=== PATIENT | female | born 1970 | race Caucasian/White ===

== ENCOUNTER 2016-04-06 18:10 | Inpatient (IN) | payer MEDICAID ==
[2016-04-06] VITALS (17 sets, daily range): BP systolic 59–123; BP diastolic 40–76
[~2016-04-06] VITALS: Ht 172.7 cm; Wt 102.3 kg
[~2016-04-06 18:10] MED LIST: AA/A14DR2 EACH EAR; ACYC800T PO; ALPR1T PO; ANTIBIOTIC; AZIT-21 PO; BENZ-13 PO; BUDE0.5A7 IH; CEFD300C3 PO; CODE118S2 PO; DOXY100C2 PO; FLUC100T PO; FLUC150T PO; FLUO20CA42 PO; HYDR-3583 PO; HYOS0.1217 SL; IPRA3AMP IH; LIDO20SO20 PO; LORA-405 PO; LORA1TAB59 PO; LORA2TAB PO; METH4TAB PO; METR500T21 PO; NEBU1EAC2 MC; NITR-65 PO; NITR100C44 PO; NYST1000 PO; ONDA8TAB13 PO; PARO30TA74 PO; PARO40TA47 PO; PHEN200T27 PO; POLY119P PO; PRD20T PO; PRD5T; PROM25TA14 PO; PRX20T PO; SULF1TAB38 PO; TRAM50TA2 PO; TRIA10.8 NSEACH; ZLP5T PO
--- OUTSIDE RECORDS SUMMARY | 2016-04-06 18:15 | XMS REPORT ---
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
[2016-04-06] MEDS ORDERED: NOREPINEPHRINE FOR DRIPS 4 MG/4 ML AMP IV ONE (18:40)
[2016-04-06] MEDS ORDERED: D5W 250 ML (IVPB) 250 ML IV ONE (18:40)
[2016-04-06 18:42] LABS: BASOPHILS # (AUTO) 0.1 10^3/uL (0.0-0.1); BASOPHILS % (AUTO) 0 % (0-10); EOSINOPHILS # (AUTO) 0.4 10^3/uL (0.0-0.3); EOSINOPHILS % (AUTO) 2 % (0-10); LYMPHOCYTES # (AUTO) 5.2 X 10^3 (1.0-4.0); LYMPHOCYTES % (AUTO) 27 % (12-44); MEAN CORPUSCULAR HEMOGLOBIN 31 PG (25-34); MEAN CORPUSCULAR HGB CONC 35 G/DL (32-36); MEAN CORPUSCULAR VOLUME 90 FL (80-99); MEAN PLATELET VOLUME 10.5 FL (7.4-10.4); MONOCYTES # (AUTO) 1.5 X 10^3 (0.0-1.0); MONOCYTES % (AUTO) 8 % (0-12); NEUTROPHILS # (AUTO) 11.9 X 10^3 (1.8-7.8); NEUTROPHILS % (AUTO) 63 % (42-75); PLATELET COUNT 450 10^3/uL (130-400); RED BLOOD COUNT 5.25 10^6/uL (4.35-5.85); RED CELL DISTRIBUTION WIDTH 14.3 % (10.0-14.5)
[2016-04-06 18:43] LABS: BILIRUBIN,URINE NEGATIVE (NEGATIVE); KETONES,URINE NEGATIVE (NEGATIVE); LEUKOCYTE ESTERASE ,URINE 3+ (NEGATIVE); NITRITE,URINE NEGATIVE (NEGATIVE); PH,URINE 6 (5-9); PROTEIN,URINE NEGATIVE (NEGATIVE); UROBILINOGEN,URINE NORMAL (NORMAL)
[2016-04-06] MEDS ORDERED: NS IV 1000 ML 2,000 ML IV PRN (18:45)
[2016-04-06 18:52] LABS: PROTHROMBIN TIME PATIENT 12.6 SEC (12.2-14.7)
[2016-04-06 18:53] LABS: SQUAMOUS EPITHELIAL CELL,UR 0-2 /HPF
[2016-04-06 18:54] LABS: YEAST,URINE MODERATE /HPF
[2016-04-06] MEDS ORDERED: D5W IV SCH (19:00)
[2016-04-06] MEDS ORDERED: NS IV 1000 ML 3,000 ML IV PRN (19:00)
[2016-04-06] MEDS ORDERED: NOREPINEPHRINE IV SCH (19:00)
[2016-04-06 19:03] LABS: BAND NEUTROPHILS 0 %; BASOPHILS % (MANUAL) 1 %; EOSINOPHILS % (MANUAL) 2 %; LYMPHOCYTES % (MANUAL) 28 %; NEUTROPHILS % (MANUAL) 64 %
--- NOTE | 2016-04-06 19:14 | ED General ---
General Chief Complaint: Substance Abuse Stated Complaint: SYNCOPE Source of Information: Patient Exam Limitations: No Limitations History of Present Illness Time Seen by Provider: 18:30 Initial Comments Here with report of significant hypotension, sweating, respiratory difficulty and overall feeling not well. Reports that she took 200 mg morphine tablets this morning as well as 2 mg of Ativan today and a gabapentin. She also took 2 lisinopril because she thought her blood pressure was high. The morphine and Ativan are not her medications and she can't verify that they actually were what she said they are. On arrival she is sweaty, pale, weak and hypotensive. She is answering questions appropriately. O2 sat initially in the mid 80s on room air. This did respond to high flow O2. Patient not complaining of pain or respiratory distress. She is complaining of nausea, weakness and sweating. Timing/Duration: 12 Hours, Getting Worse Severity: Moderate, Severe Associated Systoms: No Chest Pain, No Cough, Diaphoresis Nausea/Vomiting Shortness of Air Weakness Allergies and Home Medications Allergies Coded Allergies: amoxicillin (Verified Allergy, Unknown, 09/25/08) potassium clavulanate (Verified Allergy, Unknown, 09/25/08) Home Medications Paroxetine HCl 30 Mg Tablet 60 MG PO DAILY (Reported) Constitutional: see HPI chills diaphoresisNo fever EENTM: no symptoms reported Respiratory: short of breathNo wheezing Cardiovascular: see HPINo chest pain, No edema Gastrointestinal: abdominal painNo diarrhea, nauseaNo vomiting Genitourinary: no symptoms reported LMP: Apr 06, 2016 Musculoskeletal: no symptoms reported Skin: no symptoms reported Psychiatric/Neurological: See HPI Weakness Hematologic/Lymphatic: No Symptoms Reported All Other Systems Reviewed Negative Unless Noted: Yes Past Pvrugro-Ttunmw-Vmpnnv Hx Patient Social History Alcohol Use: Occasionally Uses Recreational Drug Use: No Smoking Status: Current Everyday Smoker Type Used: Cigarettes Recent Foreign Travel: No Contact w/Someone Who Travel: No Recent Hopitalizations: No Immunizations Up To Date Tetanus Booster (TDap): Unknown PED Vaccines UTD: No Seasonal Allergies Seasonal Allergies: No Surgeries HX Surgeries: Yes Surgeries: Appendectomy Respiratory Hx Respiratory Disorders: No Cardiovascular Hx Cardiac Disorders: No Cardiac Disorders: Hypertension Neurological Hx Neurological Disorders: No Reproductive System Hx Reproductive Disorders: Yes Sexually Transmitted Disease: No HIV/AIDS: No Female Reproductive Disorders: Menstrual Problems, Ovarian Cyst Genitourinary Hx Genitourinary Disorders: No Gastrointestinal Hx Gastrointestinal Disorders: No Musculoskeletal Hx Musculoskeletal Disorders: No Endocrine Hx Endocrine Disorders: No HEENT HX ENT Disorders: No Cancer Hx Cancer: No Psychosocial Hx Psychiatric Problems: Yes Behavioral Health Disorders: Anxiety, Depression Integumentary HX Skin/Integumentary Disorder: No Blood Transfusions Hx Blood Disorders: No Adverse Reaction to a Blood Tr: No Reviewed Nursing Assessment Reviewed/Agree w Nursing PMH: Yes Family Medical History Significant Family History: No Pertinent Family Hx Physical Exam-Suspected Sepsis Physical Exam Vital Signs Vital Sign - Last 12Hours 04/06/16 04/06/16 19:09 19:20 Temp 98.5 Pulse 97 Resp 16 B/P 69/40 Pulse Ox 95 O2 Delivery Nasal Cannula O2 Flow Rate 15.00 Capillary Refill : General Appearance: WD/WN Moderate Distress HEENT: PERRL/EOMI Pharynx Normal Neck: Non Tender Supple Respiratory: Lungs Clear Normal Breath Sounds Cardiovascular: Regular Rate, Rhythm No Murmur Gastrointestinal: Non Tender Soft Back: Normal Inspection No CVA Tenderness No Vertebral Tenderness Extremity: Non Tender No Calf Tenderness Slow Capillary Refill (4 secs X 4 Ext ) Neurologic/Psychiatric: Alert Oriented x3 Skin: cool damp Lumen: triple Central Line Procedure: betadine prep sterile drapes applied Position: internal jugular (R) Anesthesia: Lidocaine Volume Anesthetic (ccs): 3 Complications: none Post Position: sutured, good blood return, position confirmed w/ CXR Progress Placed via ultrasound guidance times one stick. Tolerated procedure well with no complications. Good blood return. Chest x-ray confirmed placement. Progress/Results/Core Measures Suspected Sepsis SIRS Temperature: Pulse: Respiratory Rate: Laboratory Tests 04/06/16 18:33: White Blood Count 19.0H Blood Pressure / Mean: Laboratory Tests 04/06/16 18:33: INR Comment 1.0, Platelet Count 450H 04/06/16 18:53: Creatinine 1.77H, Total Bilirubin 0.4 Results/Orders Lab Results Laboratory Tests Test 04/06/16 18:33 04/06/16 18:53 04/06/16 18:59 Range/Units Activated Partial Thromboplast Time 30 24-35 SEC Band Neutrophils 0 % Basophils # (Auto) 0.1 0.0-0.1 10^3/uL Basophils % (Manual) 1 % Basophils (%) (Auto) 0 0-10 % Blood Morphology Comment NORMAL Eosinophils # (Auto) 0.4 H 0.0-0.3 10^3/uL Eosinophils % (Manual) 2 % Eosinophils (%) (Auto) 2 0-10 % Hematocrit 47 35-52 % Hemoglobin 16.5 H 11.5-16.0 G/DL INR Comment 1.0 0.8-1.4 Lymphocytes # (Auto) 5.2 H 1.0-4.0 X 10^3 Lymphocytes % (Manual) 28 % Lymphocytes (%) (Auto) 27 12-44 % Mean Corpuscular Hemoglobin 31 25-34 PG Mean Corpuscular Hemoglobin Concent 35 32-36 G/DL Mean Corpuscular Volume 90 80-99 FL Mean Platelet Volume 10.5 H 7.4-10.4 FL Monocytes # (Auto) 1.5 H 0.0-1.0 X 10^3 Monocytes % (Manual) 5 % Monocytes (%) (Auto) 8 0-12 % Neutrophils # (Auto) 11.9 H 1.8-7.8 X 10^3 Neutrophils % (Manual) 64 % Neutrophils (%) (Auto) 63 42-75 % Platelet Count 450 H 130-400 10^3/uL Prothrombin Time 12.6 12.2-14.7 SEC Red Blood Count 5.25 4.35-5.85 10^6/uL Red Cell Distribution Width 14.3 10.0-14.5 % Ur Tricyclic Antidepressants Screen NEGATIVE NEGATIVE Urine Amphetamines Screen NEGATIVE NEGATIVE Urine Bacteria TRACE /HPF Urine Barbiturates Screen NEGATIVE NEGATIVE Urine Benzodiazepines Screen POSITIVE H NEGATIVE Urine Bilirubin NEGATIVE NEGATIVE Urine Cannabinoids Screen NEGATIVE NEGATIVE Urine Casts NONE /LPF Urine Clarity SLIGHTLY CLOUDY Urine Cocaine Screen NEGATIVE NEGATIVE Urine Color YELLOW Urine Crystals NONE /LPF Urine Culture Indicated YES Urine Glucose (UA) NEGATIVE NEGATIVE Urine Ketones NEGATIVE NEGATIVE Urine Leukocyte Esterase 3+ H NEGATIVE Urine Methadone Screen NEGATIVE NEGATIVE Urine Methamphetamines Screen NEGATIVE NEGATIVE Urine Mucus NEGATIVE /LPF Urine Nitrite NEGATIVE NEGATIVE Urine Opiates Screen POSITIVE H NEGATIVE Urine Oxycodone Screen NEGATIVE NEGATIVE Urine Phencyclidine Screen NEGATIVE NEGATIVE Urine Propoxyphene Screen NEGATIVE NEGATIVE Urine Protein NEGATIVE NEGATIVE Urine RBC 2-5 H /HPF Urine RBC (Auto) 3+ H NEGATIVE Urine Specific Preston 1.015 L 1.016-1.022 Urine Squamous Epithelial Cells 0-2 /HPF Urine Urobilinogen NORMAL NORMAL MG/DL Urine WBC 5-10 H /HPF Urine Yeast MODERATE H /HPF Urine pH 6 5-9 White Blood Count 19.0 H 4.3-11.0 10^3/uL Alanine Aminotransferase (ALT/SGPT) 23 0-55 U/L Albumin 3.8 3.2-4.5 G/DL Alkaline Phosphatase 73 40-136 U/L Anion Gap 15 H 5-14 MMOL/L Aspartate Amino Transf (AST/SGOT) 21 5-34 U/L BUN/Creatinine Ratio 8 Blood Urea Nitrogen 15 7-18 MG/DL Calcium Level 8.1 L 8.5-10.1 MG/DL Carbon Dioxide Level 20 L 21-32 MMOL/L Chloride Level 104 98-107 MMOL/L Creatinine 1.77 H 0.60-1.30 MG/DL Estimat Glomerular Filtration Rate 31 Glucose Level 104 70-105 MG/DL Lactic Acid Level 1.4 0.5-2.0 MMOL/L Potassium Level 2.8 L 3.6-5.0 MMOL/L Sodium Level 139 135-145 MMOL/L Total Bilirubin 0.4 0.1-1.0 MG/DL Total Protein 6.6 6.4-8.2 G/DL Jigar Test YES-POS Arterial Blood Base Excess -1.2 -2.5-2.5 MMOL/L Arterial Blood HCO3 25 23-27 MMOL/L Arterial Blood Oxygen Saturation 100 94-100 % Arterial Blood Partial Pressure CO2 52 H 35-45 MMHG Arterial Blood Partial Pressure O2 207 H 79-93 MMHG Arterial Blood Total CO2 27.0 21.0-31.0 MMOL/L Arterial Blood pH 7.31 *L 7.37-7.43 Blood Gas Inspired Oxygen 15L Blood Gas Patient Temperature 99.8 Blood Gas Puncture Site RIGHT RADIAL Blood Gas Ventilator Setting NO My Orders Orders-SHEFALI OTTO MD Drug Screen Stat (Urine) (04/06/16 18:40) Ns Iv 1000 Ml (Sodium Chloride 0.9%) (04/06/16 19:00) D5w 250 Ml (Ivpb) (... W/Norepinephrine (04/06/16 19:00) Arterial Blood Gas (04/06/16 19:02) Ekg Tracing (04/06/16 19:29) Monitor-Rhythm Ecg Trace Only (04/06/16 19:29) Medications Given in ED Current Medications Medications Dose Ordered Sig/Annalisa Route Start Time Stop Time Status Last Admin Dose Admin Sodium Chloride 3,000 ml @ 1,500 mls/hr PRN PRN IV 04/06/16 19:00 04/06/16 18:30 1,500 MLS/HR Vital Signs/I&O Vital Sign - Last 12Hours 04/06/16 04/06/16 19:09 19:20 Temp 98.5 Pulse 97 73 Resp 16 18 B/P 69/40 110/68 Pulse Ox 95 96 O2 Delivery Nasal Cannula O2 Flow Rate 15.00 6 Capillary Refill : Progress Note : Progress Note Seen and evaluated shortly after arrival. Patient's blood pressure initially 80s over 50s and then declined the 50s over 40s. Patient was extremely diaphoretic and weak and O2 sats were declining. That did respond to high flow O2. Rapid IV placement and an initial IV bolus of normal saline started. Patient had very poor access and hypotension requiring emergent pressors and fluids. Patient verbalize consented to Central line. This was placed by me to the right IJ. Tolerated procedure well. Levophed initiated at 5 and then patient had good response with increasing blood pressure and O2 saturations. Ordered 30 mL/kg IV fluids as this is mixed picture and she will required fluid support. Throughout the evaluation, patient admitted to taking a variety of meds including Xanax, Ativan and what she believed was long-acting morphine. She is not sure that she took the medicine stated that that's what she was told they were. IV, labs, chest x-ray, UA, UDS, Patton catheter, Levophed and fluids ordered. Lactic acid ordered. Patient much improved after fluids and Levophed. Patient will be admitted to ICU, critical condition. Patient and family informed of concerns and agreement with plan. 0: Discussed the case with Dr. Shelby Eng, on-call for [facility]. She knows the patient from her addiction clinic. We reviewed all of the presentation, labs and findings and she accepts patient for admission, inpatient status, critical condition to ICU. Patient has hypertension that is responding well to fluids and Levophed. She maintains her mentation. Patient does have elevated white count and a question of urinary tract infection although we will wait for cultures. We do believe the elevated white blood cell count is related to patient's stress response to hypotension from drug overdose and we'll treat her related to the drug overdose currently. We will wait for cultures for urine. Blood cultures are also pending. Patient will receive 1 dose of Rocephin and admitting physician will reevaluate. Patient is noted to be hypokalemic and will receive potassium replacement. Patient family informed. Admit. ECG Initial ECG Impression Date: Apr 06, 2016 Initial ECG Impression Time: 19:25 Initial ECG Rate: 76 Initial ECG Rhythm: Normal Sinus Comment Sinus rhythm with left atrial abdomen on a. Normal axis. No evidence of ST elevation IA. Flat T waves. No previous available for comparison. Interpreted by me. Diagnostic Imaging Diagonstic Imaging: Xray Plain Films/CT/US/NM/MRI: chest Comments VIA [facility]. [place], [place] NAME: [facility] REC#: [id number] PT STATUS: REG ER : 1970 PHYSICIAN: BRIANNA POSADA APRN ADMIT DATE: 04/06/16/ER Draft Date of Exam:04/06/16 CHEST 1 VIEW, AP/PA ONLY INDICATION: Line placement. Comparison with 02/27/2015. FINDINGS: Right jugular line has been placed. Tip overlies the superior vena caval shadow in good position. The lungs are well-aerated and clear. The heart is not enlarged. The pulmonary vasculature is normal. No pneumothorax or pleural effusions. IMPRESSION: Satisfactory right central line placement. Dictated on workstation # [id number] Dict: 04/06/161914 Trans: 04/06/16 1920 ELI [id number] Interpreted by: LEÓN OAKES MD Electronically signed by: Reviewed: Reviewed by Me Departure Communication Time/Spoke to Admitting Phy: 19:20 Impression Impression: Primary Impression: Drug overdose Qualified Code: T50.901A - Poisoning by unspecified drugs, medicaments and biological substances, accidental (unintentional), initial encounter Additional Impressions: Hypoxia Hypokalemia UTI (urinary tract infection) Qualified Code: N30.00 - Acute cystitis without hematuria Hypotension due to medication Disposition: ADMITTED INPATIENT Condition: Critical Decision to Admit Reason: Admit from ER (General) Decision to Admit/Date: Apr 06, 2016 Time/Decision to Admit Time: 19:20 Departure-Patient Inst. Referrals: ANDRE CARIAS DO (PCP/Family) Primary Care Physician Patient Instructions: ALCOHOL AND SUBSTANCE ABUSE SHEFALI OTTO MD Apr 06, 2016 19:14
[2016-04-06 19:19] LABS: ALBUMIN 3.8 G/DL (3.2-4.5); BILIRUBIN,TOTAL 0.4 MG/DL (0.1-1.0); CALCIUM 8.1 MG/DL (8.5-10.1); CREATININE SERUM 1.77 MG/DL (0.60-1.30); POTASSIUM 2.8 MMOL/L (3.6-5.0); TOTAL PROTEIN 6.6 G/DL (6.4-8.2)
--- NOTE | 2016-04-06 19:21 | Diagnostic Imaging Report ---
INDICATION: Line placement. Comparison with 02/27/2015. FINDINGS: Right jugular line has been placed. Tip overlies the superior vena caval shadow in good position. The lungs are well-aerated and clear. The heart is not enlarged. The pulmonary vasculature is normal. No pneumothorax or pleural effusions. IMPRESSION: Satisfactory right central line placement. Dictated by: Dictated on workstation # [id number]
[2016-04-06 19:24] LABS: ABG BASE EXCESS -1.2 MMOL/L (-2.5-2.5); ABG HCO3 25 MMOL/L (23-27); ABG OXYGEN SATURATION 100 % (94-100); ABG PCO2 52 MMHG (35-45); ABG PO2 207 MMHG (79-93)
[2016-04-06 19:25] LABS: ABG PH 7.31 (7.37-7.43); ALLENS TEST YES-POS
[2016-04-06 19:26] LABS: PATIENT TEMP 99.8
[2016-04-06] MEDS ORDERED: CLON0.5T PO (19:39)
[2016-04-06] MEDS ORDERED: PARO30TA74 PO (19:39)
[2016-04-06] MEDS ORDERED: CLON0.1T14 PO (19:39)
[2016-04-06] MEDS ORDERED: LISI10TA2 PO (19:39)
[2016-04-06] MEDS ORDERED: MIRT30TA3 PO (19:39)
[2016-04-06] MEDS ORDERED: NORMAL SALINE (BAXTER MINI) 0 ML IV ONE (19:51)
[2016-04-06] MEDS ORDERED: cefTRIAXone 1 GM (ROCEPHIN) VIAL ONE (19:51)
[2016-04-06] MEDS ORDERED: cefTRIAXone INJECTION 1,000 MG in NORMAL SALINE (BAXTER MINI) 50 ML IV ONE (20:00)
[2016-04-06] MEDS ORDERED: NOREPINEPHRINE 4 MG in D5W 250 ML IV SCH (21:45)
[2016-04-06] MEDS: NS IV 1000 ML 1,000 ML IV SCH (21:52)
[2016-04-06] MEDS: POTASSIUM CL 10MEQ/50ML IVPB 50 ML IV SCH ×3 (21:53→23:48)
[2016-04-07] VITALS (16 sets, daily range): BP systolic 98–139; BP diastolic 66–92
[2016-04-07] MEDS: POTASSIUM CL 10MEQ/50ML IVPB 50 ML IV SCH (00:57)
[2016-04-07] MEDS: NS IV 1000 ML 1,000 ML IV SCH ×3 (02:20→12:24)
[2016-04-07 04:51] LABS: BASOPHILS % (AUTO) 0 % (0-10); EOSINOPHILS # (AUTO) 0.3 10^3/uL (0.0-0.3); EOSINOPHILS % (AUTO) 2 % (0-10); LYMPHOCYTES # (AUTO) 3.7 X 10^3 (1.0-4.0); LYMPHOCYTES % (AUTO) 33 % (12-44); MEAN CORPUSCULAR HEMOGLOBIN 31 PG (25-34); MEAN CORPUSCULAR HGB CONC 33 G/DL (32-36); MEAN CORPUSCULAR VOLUME 94 FL (80-99); MEAN PLATELET VOLUME 10.2 FL (7.4-10.4); MONOCYTES # (AUTO) 0.8 X 10^3 (0.0-1.0); MONOCYTES % (AUTO) 7 % (0-12); NEUTROPHILS # (AUTO) 6.6 X 10^3 (1.8-7.8); NEUTROPHILS % (AUTO) 58 % (42-75); PLATELET COUNT 323 10^3/uL (130-400); RED BLOOD COUNT 4.36 10^6/uL (4.35-5.85); RED CELL DISTRIBUTION WIDTH 14.2 % (10.0-14.5); WHITE BLOOD COUNT 11.4 10^3/uL (4.3-11.0)
[2016-04-07 05:13] LABS: ALANINE AMINOTRANSFERASE 22 U/L (0-55); ALBUMIN 3.7 G/DL (3.2-4.5); ANION GAP 9 MMOL/L (5-14); ASPARTATE AMINO TRANSFERASE 19 U/L (5-34); BILIRUBIN,TOTAL 0.3 MG/DL (0.1-1.0); BLOOD UREA NITROGEN 10 MG/DL (7-18); BUN/CREATININE RATIO 10; CARBON DIOXIDE 21 MMOL/L (21-32); CHLORIDE 110 MMOL/L (98-107); CREATININE SERUM 0.97 MG/DL (0.60-1.30); GFR ESTIMATED > 60; GLUCOSE 138 MG/DL (70-105); MAGNESIUM 2.6 MG/DL (1.8-2.4); PHOSPHORUS 3.9 MG/DL (2.3-4.7); POTASSIUM 3.8 MMOL/L (3.6-5.0); SODIUM 140 MMOL/L (135-145); TOTAL PROTEIN 6.7 G/DL (6.4-8.2)
[2016-04-07] MEDS ORDERED: MAGNESIUM 1 GM/100 ML IVPB 100 ML IV SCH (06:00)
[2016-04-07] MEDS ORDERED: KCL 20 MEQ TAB (K-DUR) PO SCH (06:00)
[2016-04-07] MEDS ORDERED: POTASSIUM CL 10MEQ/50ML IVPB 50 ML IV SCH (06:00)
[2016-04-07] MEDS ORDERED: FLU TRIvalent (5 YOA+) 2016-17 (AFLURIA) 0.5 ML IM ONE (07:00)
[2016-04-07] MEDS: RT-ALBUTEROL/IPRATROPIUM 3 ML (DUONEB) VIAL INH SCH ×2 (08:19→14:25)
--- NOTE | 2016-04-07 08:34 | Diagnostic Imaging Report ---
Portable upright radiograph of the chest. INDICATION: ICU management. FINDINGS: Right internal jugular venous line is again seen with the tip at the upper SVC level. There is mild atelectasis at the left lung base. The right lung is clear. Overall there are decreased lung volumes. The heart size is normal. No pneumothorax. There is question of tiny bilateral pleural effusions. The mediastinum and edwin appear unremarkable. IMPRESSION: Mild left basilar atelectasis. Question of bilateral tiny effusions. Dictated by: Dictated on workstation # [id number]
[2016-04-07] MEDS ORDERED: CATHETER FLUSH 10 ML SYR IV PRN (09:30)
[2016-04-07] MEDS ORDERED: PARO30TA3 PO (09:31)
[2016-04-07] MEDS ORDERED: CLON0.1T PO (09:31)
[2016-04-07] MEDS ORDERED: CLON0.5T3 PO (09:31)
[2016-04-07] MEDS ORDERED: MIRT30TA6 PO (09:31)
[2016-04-07] MEDS ORDERED: LISI1TAB10 PO (09:31)
--- NOTE | 2016-04-07 10:42 | History & Physicial ([facility]) ---
HPI History of Present Illness: Patient brought to ER with severe hypotension. This morning she states she took some clonidine and her lisinopril. She also states she was having pain and took some morphine from a friend, so she suspects that it is what dropped her blood pressure. She is alert and oriented this morning and denies concerns. Date seen by provider: Apr 07, 2016 Time seen by provider: 09:45 Attending Physician Loulou Ortiz MD PCP Travis Solorio DO Consult Date of Admission Apr 06, 2016 at 7:25 pm Home Medications Home Medications Reviewed patient Home Medication Reconciliation Form Allergies Coded Allergies: amoxicillin (Verified Allergy, Unknown, 09/25/08) potassium clavulanate (Verified Allergy, Unknown, 09/25/08) JHD-Kreogh-Lcxcce Hx Patient Social History Alcohol Use: Denies Use Recreational Drug Use: Yes ("BENZOS") Smoking Status: Current Everyday Smoker Type Used: Cigarettes Recent Foreign Travel: No Contact w/other who traveled: No Recent Hopitalizations: No Recent Infectious Disease Expo: No Physical Abuse Screen: No Sexual Abuse: No Immunizations Up To Date Tetanus Booster (TDap): Unknown Past Medical History PMHx: HTN Substance abuse SurgHx: Appendectomy Fibroidectomy BTL D&C Family Medical History Family History: Alcoholism G8 BROTHER ( with liver failure) Arthritis G8 BROTHER (rhoumatoid arthritis, mono multiplex neuropathy) Review of Systems ([facility]) Constitutional: No fever EENTM: no symptoms reported Respiratory: No cough, No short of breath Cardiovascular: No chest pain Gastrointestinal: No abdominal pain, No constipation, No diarrhea, No nausea, No vomiting Genitourinary: No dysuria Musculoskeletal: No joint pain Skin: No rash Psychiatric/Neurological: No Symptoms Reported Reviewed Test Results Reviewed Test Results Lab Laboratory Tests Test 04/06/16 18:33 04/06/16 18:53 04/06/16 18:59 04/07/16 04:40 Range/Units Activated Partial Thromboplast Time 30 24-35 SEC Band Neutrophils 0 % Basophils # (Auto) 0.1 0.0 0.0-0.1 10^3/uL Basophils % (Manual) 1 % Basophils (%) (Auto) 0 0 0-10 % Blood Morphology Comment NORMAL Eosinophils # (Auto) 0.4 H 0.3 0.0-0.3 10^3/uL Eosinophils % (Manual) 2 % Eosinophils (%) (Auto) 2 2 0-10 % Hematocrit 47 41 35-52 % Hemoglobin 16.5 H 13.6 11.5-16.0 G/DL INR Comment 1.0 0.8-1.4 Lymphocytes # (Auto) 5.2 H 3.7 1.0-4.0 X 10^3 Lymphocytes % (Manual) 28 % Lymphocytes (%) (Auto) 27 33 12-44 % Mean Corpuscular Hemoglobin 31 31 25-34 PG Mean Corpuscular Hemoglobin Concent 35 33 32-36 G/DL Mean Corpuscular Volume 90 94 80-99 FL Mean Platelet Volume 10.5 H 10.2 7.4-10.4 FL Monocytes # (Auto) 1.5 H 0.8 0.0-1.0 X 10^3 Monocytes % (Manual) 5 % Monocytes (%) (Auto) 8 7 0-12 % Neutrophils # (Auto) 11.9 H 6.6 1.8-7.8 X 10^3 Neutrophils % (Manual) 64 % Neutrophils (%) (Auto) 63 58 42-75 % Platelet Count 450 H 323 130-400 10^3/uL Prothrombin Time 12.6 12.2-14.7 SEC Red Blood Count 5.25 4.36 4.35-5.85 10^6/uL Red Cell Distribution Width 14.3 14.2 10.0-14.5 % Ur Tricyclic Antidepressants Screen NEGATIVE NEGATIVE Urine Amphetamines Screen NEGATIVE NEGATIVE Urine Bacteria TRACE /HPF Urine Barbiturates Screen NEGATIVE NEGATIVE Urine Benzodiazepines Screen POSITIVE H NEGATIVE Urine Bilirubin NEGATIVE NEGATIVE Urine Cannabinoids Screen NEGATIVE NEGATIVE Urine Casts NONE /LPF Urine Clarity SLIGHTLY CLOUDY Urine Cocaine Screen NEGATIVE NEGATIVE Urine Color YELLOW Urine Crystals NONE /LPF Urine Culture Indicated YES Urine Glucose (UA) NEGATIVE NEGATIVE Urine Ketones NEGATIVE NEGATIVE Urine Leukocyte Esterase 3+ H NEGATIVE Urine Methadone Screen NEGATIVE NEGATIVE Urine Methamphetamines Screen NEGATIVE NEGATIVE Urine Mucus NEGATIVE /LPF Urine Nitrite NEGATIVE NEGATIVE Urine Opiates Screen POSITIVE H NEGATIVE Urine Oxycodone Screen NEGATIVE NEGATIVE Urine Phencyclidine Screen NEGATIVE NEGATIVE Urine Propoxyphene Screen NEGATIVE NEGATIVE Urine Protein NEGATIVE NEGATIVE Urine RBC 2-5 H /HPF Urine RBC (Auto) 3+ H NEGATIVE Urine Specific [place] 1.015 L 1.016-1.022 Urine Squamous Epithelial Cells 0-2 /HPF Urine Urobilinogen NORMAL NORMAL MG/DL Urine WBC 5-10 H /HPF Urine Yeast MODERATE H /HPF Urine pH 6 5-9 White Blood Count 19.0 H 11.4 H 4.3-11.0 10^3/uL Alanine Aminotransferase (ALT/SGPT) 23 22 0-55 U/L Albumin 3.8 3.7 3.2-4.5 G/DL Alkaline Phosphatase 73 76 40-136 U/L Anion Gap 15 H 9 5-14 MMOL/L Aspartate Amino Transf (AST/SGOT) 21 19 5-34 U/L BUN/Creatinine Ratio 8 10 Blood Urea Nitrogen 15 10 7-18 MG/DL Calcium Level 8.1 L 8.0 L 8.5-10.1 MG/DL Carbon Dioxide Level 20 L 21 21-32 MMOL/L Chloride Level 104 110 H 98-107 MMOL/L Creatinine 1.77 H 0.97 0.60-1.30 MG/DL Estimat Glomerular Filtration Rate 31 > 60 Glucose Level 104 138 H 70-105 MG/DL Lactic Acid Level 1.4 0.5-2.0 MMOL/L Potassium Level 2.8 L 3.8 3.6-5.0 MMOL/L Sodium Level 139 140 135-145 MMOL/L Total Bilirubin 0.4 0.3 0.1-1.0 MG/DL Total Protein 6.6 6.7 6.4-8.2 G/DL Jigar Test YES-POS Arterial Blood Base Excess -1.2 -2.5-2.5 MMOL/L Arterial Blood HCO3 25 23-27 MMOL/L Arterial Blood Oxygen Saturation 100 94-100 % Arterial Blood Partial Pressure CO2 52 H 35-45 MMHG Arterial Blood Partial Pressure O2 207 H 79-93 MMHG Arterial Blood Total CO2 27.0 21.0-31.0 MMOL/L Arterial Blood pH 7.31 *L 7.37-7.43 Blood Gas Inspired Oxygen 15L Blood Gas Patient Temperature 99.8 Blood Gas Puncture Site RIGHT RADIAL Blood Gas Ventilator Setting NO Magnesium Level 2.6 H 1.8-2.4 MG/DL Phosphorus Level 3.9 2.3-4.7 MG/DL Radiology 04/07 CXR: IMPRESSION: Mild left basilar atelectasis. Question of bilateral tiny effusions. Physical Exam-([facility]) Physical Exam Vital Signs VS - Last 72 Hours, by Label 104/06/16 04/06/16 04/06/16 18:20 18:20 18:25 18:25 Temp 99.8 Pulse 105 107 Resp 22 26 B/P 80/57 59/48 Pulse Ox 85 86 88 O2 Delivery Room Air Room Air Non Rebreather Nonrebreather O2 Flow Rate 15 15 04/06/16 04/06/16 04/06/16 04/06/16 18:30 18:40 18:55 19:00 Pulse 118 100 93 63 Resp 22 20 15 21 B/P 61/45 69/40 92/66 103/68 O2 Delivery Non Rebreather Non Rebreather Non Rebreather Non Rebreather O2 Flow Rate 15 15 15 15 04/06/16 04/06/16 04/06/16 04/06/16 19:05 19:09 19:10 19:10 Temp 98.5 Pulse 67 97 70 Resp 16 17 B/P 120/73 69/40 123/76 Pulse Ox 95 96 O2 Delivery Non Rebreather Nasal Cannula Nasal Cannula O2 Flow Rate 15 15.00 6 6 04/06/16 04/06/16 04/06/16 04/06/16 19:15 19:20 19:30 19:45 Pulse 77 73 73 72 Resp 17 18 12 10 B/P 103/69 110/68 99/72 92/76 Pulse Ox 96 97 95 O2 Delivery Nasal Cannula Nasal Cannula Nasal Cannula Nasal Cannula O2 Flow Rate 6 6 6 6 04/06/16 04/06/16 04/06/16 04/06/16 20:00 20:15 20:20 20:30 Temp 99.2 Pulse 71 71 73 69 Resp 13 10 12 10 B/P 105/74 113/68 112/70 Pulse Ox 95 94 95 95 O2 Delivery Nasal Cannula Nasal Cannula Nasal Cannula Nasal Cannula O2 Flow Rate 6 6 6 6 04/06/16 04/06/16 04/06/16 04/06/16 21:07 21:07 21:08 21:19 Temp 98.9 98.9 Pulse 77 77 71 Resp 12 12 B/P 101/57 101/57 Pulse Ox 91 91 91 O2 Delivery Nasal Cannula Nasal Cannula Nasal Cannula O2 Flow Rate 6.00 6.00 6.00 04/06/16 04/06/16 04/06/16 04/06/16 22:00 22:00 23:00 23:00 Pulse 78 78 76 76 Resp 20 20 12 12 B/P 123/62 123/62 96/74 96/74 Pulse Ox 94 94 94 94 O2 Delivery Nasal Cannula Nasal Cannula Nasal Cannula Nasal Cannula O2 Flow Rate 6.00 6.00 6.00 6.00 04/06/16 04/07/16 04/07/16 04/07/16 23:59 00:00 00:00 00:00 Temp 97.2 97.2 Pulse 74 74 Resp 13 13 B/P 120/84 120/84 Pulse Ox 94 95 95 95 O2 Delivery Nasal Cannula Nasal Cannula Nasal Cannula Nasal Cannula O2 Flow Rate 6.00 6.00 6.00 6.00 04/07/16 04/07/16 04/07/16 04/07/16 00:01 00:18 01:00 01:00 Pulse 71 64 71 Resp 18 B/P 108/78 Pulse Ox 94 95 O2 Delivery Nasal Cannula O2 Flow Rate 6.00 04/07/16 04/07/16 04/07/16 04/07/16 02:00 02:00 03:00 03:00 Pulse 73 73 68 68 Resp 19 19 B/P 130/86 111/87 113/80 123/84 Pulse Ox 96 96 96 96 O2 Delivery Nasal Cannula Nasal Cannula Nasal Cannula Nasal Cannula O2 Flow Rate 6.00 6.00 6.00 6.00 04/07/16 04/07/16 04/07/16 04/07/16 04:00 04:00 04:00 05:00 Temp 97.2 97.2 Pulse 67 67 73 Resp 10 B/P 112/76 139/92 99/72 Pulse Ox 95 95 92 94 O2 Delivery Nasal Cannula Nasal Cannula Nasal Cannula Nasal Cannula O2 Flow Rate 6.00 6.00 6.00 6.00 04/07/16 04/07/16 04/07/16 04/07/16 05:00 06:00 06:00 07:00 Pulse 73 76 76 81 Resp 10 9 B/P 109/78 103/79 103/79 Pulse Ox 94 94 94 O2 Delivery Nasal Cannula Nasal Cannula Nasal Cannula O2 Flow Rate 6.00 6.00 6.00 04/07/16 04/07/16 04/07/16 08:19 08:30 08:30 Temp 98.4 Pulse 90 Resp 11 B/P 118/78 Pulse Ox 96 93 92 O2 Delivery Nasal Cannula Nasal Cannula Nasal Cannula O2 Flow Rate 6.00 4.00 4.00 Capillary Refill : Less Than 3 Seconds General Appearance: WD/WN no apparent distress Respiratory: lungs clear normal breath sounds Cardiovascular: regular rate, rhythm no edema no murmur Gastrointestinal: normal bowel sounds non tender soft Neurologic/Psychiatric: alert normal mood/affect Skin: normal color warm/dry Assessment/Plan Assessment/Plan Admission Dx 1. Hypotension 2. Leukocytosis 3. Acute kidney insufficiency 4. Hypokalemia 5. Acute respiratory acidosis with hypoxia and hypercapnea 6. Substance abuse 7. Possible UTI 8. History of hypertension Plan 1. Hypotension- likely secondary to illicit use of benzodiazepines and opiates, resolved overnight with IVF and levophed drip, currently stable off medication 2. Leukocytosis- suspect stress induced due to above, no clear evidence of infection, CXR without evidence of pneumonia, possible UTI but not clear, waiting on culture -Nearly resolved overnight 3. Acute kidney insufficiency- resolved with IVF overnight 4. Hypokalemia- resolved with replacement overnight 5. Acute respiratory acidosis with hypoxia and hypercapnea- likely secondary to respiratory depression associated with opiate and benzo use, improved, but still requiring supplemental oxygen, wean as tolerated 6. Substance abuse- discussed the life threatening situation she was in yesterday and the importance of not using non-prescribed medications 7. Possible UTI- trace bacteria, suspect no true infection, received one dose of rocephin in ED, awaiting culture 8. History of hypertension- holding home meds due to hypotension DVT ppx- SCDs, enoxaparin Diagnosis/Problems: Clinical Quality Measures DVT/VTE Risk/Contraindication: Risk Factor Score Per Nursin RFS Level Per Nursing on Admit: 2=Moderate Copy Copies To 1: LOULOU ORTIZ MD, BETHANY N MD Apr 07, 2016 10:42 am
[2016-04-07] MEDS ORDERED: ENOXAPARIN 40 MG/0.4 ML (LOVENOX) SYR SC SCH (11:00)
[2016-04-08] MEDS ORDERED: PARoxetine 20 MG (PAXIL) TAB PO SCH (09:00)
--- NOTE | 2016-04-08 09:08 | Discharge Summary ---
Diagnosis/Chief Complaint Date of Admission Apr 06, 2016 at 19:25 Date of Discharge Apr 07, 2016 at 15:30 Admission Diagnosis Admission Diagnosis 1. Hypotension 2. Leukocytosis 3. Acute kidney insufficiency 4. Hypokalemia 5. Acute respiratory acidosis with hypoxia and hypercapnea 6. Substance abuse 7. Possible UTI 8. History of hypertension Discharge Diagnosis 1. Hypotension- likely secondary to illicit use of benzodiazepines and opiates, resolved overnight with IVF and levophed drip, currently stable off medication 2. Leukocytosis- suspect stress induced due to above, no clear evidence of infection, CXR without evidence of pneumonia, possible UTI but not clear, waiting on culture -Nearly resolved overnight 3. Acute kidney insufficiency- resolved with IVF overnight 4. Hypokalemia- resolved with replacement overnight 5. Acute respiratory acidosis with hypoxia and hypercapnea- likely secondary to respiratory depression associated with opiate and benzo use, improved, but still requiring supplemental oxygen, wean as tolerated Able to be weaned to room air before d/c 6. Substance abuse- discussed the life threatening situation she was in yesterday and the importance of not using non-prescribed medications Stop clonazepam on d/c as she was already weaned down and do not feel safe for her to use any benzodiazepine currently 7. Possible UTI- trace bacteria, suspect no true infection, received one dose of rocephin in ED, awaiting culture Urine culture with yeast, follow up with primary 8. History of hypertension- holding home meds due to hypotension Discharged with instructions to hold BP meds until follow-up appointment the next day for BP recheck Chief Complaint/HPI Chief Complaint/HPI Patient brought to ER with severe hypotension. This morning she states she took some clonidine and her lisinopril. She also states she was having pain and took some morphine from a friend, so she suspects that it is what dropped her blood pressure. She is alert and oriented this morning and denies concerns. Discharge Summary-Simple/Stand Consultations Discharge Physical Examination Allergies: Coded Allergies: amoxicillin (Verified Allergy, Unknown, 09/25/08) potassium clavulanate (Verified Allergy, Unknown, 09/25/08) Vitals & I&Os Vital Sign - Last 12Hours Date Time Temp Pulse Resp B/P Pulse Ox O2 Delivery O2 Flow Rate FiO2 04/07/16 15:30 91 11 124/77 95 Room Air 04/07/16 12:15 98.3 2.00 Intake and Output 04/08/16 00:00 Intake Total 1620 ml Output Total 650 ml Balance 970 ml Hospital Course See final discharge diagnosis. Labs Laboratory Tests Test 04/06/16 18:33 04/06/16 18:53 04/06/16 18:59 04/07/16 04:40 Range/Units Activated Partial Thromboplast Time 30 24-35 SEC Band Neutrophils 0 % Basophils # (Auto) 0.1 0.0 0.0-0.1 10^3/uL Basophils % (Manual) 1 % Basophils (%) (Auto) 0 0 0-10 % Blood Morphology Comment NORMAL Eosinophils # (Auto) 0.4 H 0.3 0.0-0.3 10^3/uL Eosinophils % (Manual) 2 % Eosinophils (%) (Auto) 2 2 0-10 % Hematocrit 47 41 35-52 % Hemoglobin 16.5 H 13.6 11.5-16.0 G/DL INR Comment 1.0 0.8-1.4 Lymphocytes # (Auto) 5.2 H 3.7 1.0-4.0 X 10^3 Lymphocytes % (Manual) 28 % Lymphocytes (%) (Auto) 27 33 12-44 % Mean Corpuscular Hemoglobin 31 31 25-34 PG Mean Corpuscular Hemoglobin Concent 35 33 32-36 G/DL Mean Corpuscular Volume 90 94 80-99 FL Mean Platelet Volume 10.5 H 10.2 7.4-10.4 FL Monocytes # (Auto) 1.5 H 0.8 0.0-1.0 X 10^3 Monocytes % (Manual) 5 % Monocytes (%) (Auto) 8 7 0-12 % Neutrophils # (Auto) 11.9 H 6.6 1.8-7.8 X 10^3 Neutrophils % (Manual) 64 % Neutrophils (%) (Auto) 63 58 42-75 % Platelet Count 450 H 323 130-400 10^3/uL Prothrombin Time 12.6 12.2-14.7 SEC Red Blood Count 5.25 4.36 4.35-5.85 10^6/uL Red Cell Distribution Width 14.3 14.2 10.0-14.5 % Ur Tricyclic Antidepressants Screen NEGATIVE NEGATIVE Urine Amphetamines Screen NEGATIVE NEGATIVE Urine Bacteria TRACE /HPF Urine Barbiturates Screen NEGATIVE NEGATIVE Urine Benzodiazepines Screen POSITIVE H NEGATIVE Urine Bilirubin NEGATIVE NEGATIVE Urine Cannabinoids Screen NEGATIVE NEGATIVE Urine Casts NONE /LPF Urine Clarity SLIGHTLY CLOUDY Urine Cocaine Screen NEGATIVE NEGATIVE Urine Color YELLOW Urine Crystals NONE /LPF Urine Culture Indicated YES Urine Glucose (UA) NEGATIVE NEGATIVE Urine Ketones NEGATIVE NEGATIVE Urine Leukocyte Esterase 3+ H NEGATIVE Urine Methadone Screen NEGATIVE NEGATIVE Urine Methamphetamines Screen NEGATIVE NEGATIVE Urine Mucus NEGATIVE /LPF Urine Nitrite NEGATIVE NEGATIVE Urine Opiates Screen POSITIVE H NEGATIVE Urine Oxycodone Screen NEGATIVE NEGATIVE Urine Phencyclidine Screen NEGATIVE NEGATIVE Urine Propoxyphene Screen NEGATIVE NEGATIVE Urine Protein NEGATIVE NEGATIVE Urine RBC 2-5 H /HPF Urine RBC (Auto) 3+ H NEGATIVE Urine Specific [place] 1.015 L 1.016-1.022 Urine Squamous Epithelial Cells 0-2 /HPF Urine Urobilinogen NORMAL NORMAL MG/DL Urine WBC 5-10 H /HPF Urine Yeast MODERATE H /HPF Urine pH 6 5-9 White Blood Count 19.0 H 11.4 H 4.3-11.0 10^3/uL Alanine Aminotransferase (ALT/SGPT) 23 22 0-55 U/L Albumin 3.8 3.7 3.2-4.5 G/DL Alkaline Phosphatase 73 76 40-136 U/L Anion Gap 15 H 9 5-14 MMOL/L Aspartate Amino Transf (AST/SGOT) 21 19 5-34 U/L BUN/Creatinine Ratio 8 10 Blood Urea Nitrogen 15 10 7-18 MG/DL Calcium Level 8.1 L 8.0 L 8.5-10.1 MG/DL Carbon Dioxide Level 20 L 21 21-32 MMOL/L Chloride Level 104 110 H 98-107 MMOL/L Creatinine 1.77 H 0.97 0.60-1.30 MG/DL Estimat Glomerular Filtration Rate 31 > 60 Glucose Level 104 138 H 70-105 MG/DL Lactic Acid Level 1.4 0.5-2.0 MMOL/L Potassium Level 2.8 L 3.8 3.6-5.0 MMOL/L Sodium Level 139 140 135-145 MMOL/L Total Bilirubin 0.4 0.3 0.1-1.0 MG/DL Total Protein 6.6 6.7 6.4-8.2 G/DL Jigar Test YES-POS Arterial Blood Base Excess -1.2 -2.5-2.5 MMOL/L Arterial Blood HCO3 25 23-27 MMOL/L Arterial Blood Oxygen Saturation 100 94-100 % Arterial Blood Partial Pressure CO2 52 H 35-45 MMHG Arterial Blood Partial Pressure O2 207 H 79-93 MMHG Arterial Blood Total CO2 27.0 21.0-31.0 MMOL/L Arterial Blood pH 7.31 *L 7.37-7.43 Blood Gas Inspired Oxygen 15L Blood Gas Patient Temperature 99.8 Blood Gas Puncture Site RIGHT RADIAL Blood Gas Ventilator Setting NO Magnesium Level 2.6 H 1.8-2.4 MG/DL Phosphorus Level 3.9 2.3-4.7 MG/DL Radiology Reviewed 04/07 CXR: IMPRESSION: Mild left basilar atelectasis. Question of bilateral tiny effusions. Discharge Instructions to patient/family Please see [facility]onic discharge instructions given to patient. Discharge Medications Reviewed and agree with Discharge Medication list on patient's Discharge Instruction sheet Clinical Quality Measures DVT/VTE Risk/Contraindication: Risk Factor Score Per Nursin RFS Level Per Nursing on Admit: 2=Moderate Copy Copies To 1: LOULOU ORTIZ MD, BETHANY N MD Apr 08, 2016 09:07
== END 2016-04-07 15:30 | disposition home or self-care (01) | DRG 315 ==
LOC: EDUNIT# 18:10 → ER 18:11 → ICU 19:25
PROVIDERS: ADMIT Pediatrics; ATTEND Pediatrics
DX: I95.9 Hypotension, unspecified (principal); E87.2 Acidosis; B37.49 Other urogenital candidiasis; D72.829 Elevated white blood cell count, unspecified; N28.9 Disorder of kidney and ureter, unspecified; E87.6 Hypokalemia; R09.02 Hypoxemia; R06.89 Other abnormalities of breathing; I10 Essential (primary) hypertension; T42.4X1A Poisoning by benzodiazepines, accidental (unintentional), initial encounter; T40.601A Poisoning by unspecified narcotics, accidental (unintentional), initial encounter; F19.10 Other psychoactive substance abuse, uncomplicated
CPT/HCPCS: 36415; 36556; 51702; 71010; 80053; 80306; 81000; 82805; 83605; 83735; 84100; 85007; 85025; 85027; 85610; 85730; 87040; 87081; 87088; 93005; 93041; 94640; 96361; 96365; 96366; 96367

== ENCOUNTER 2016-04-27 02:11 | Emergency (ER) | payer MEDICAID ==
[~2016-04-27] VITALS: Ht 172.7 cm; Wt 102.3 kg
[~2016-04-27 02:11] MED LIST changes: +CLON0.1T PO; +CLON0.1T14 PO; +CLON0.5T PO; +CLON0.5T3 PO; +LISI10TA2 PO; +LISI1TAB10 PO; +MIRT30TA3 PO; +MIRT30TA6 PO; +PARO30TA3 PO
[2016-04-27] MEDS ORDERED: KETOROLAC 30 MG/ML VIAL IVP STA (02:22)
[2016-04-27] MEDS ORDERED: NS IV 1000 ML 1,000 ML IV ONE ×2 (02:22→03:06)
[2016-04-27] MEDS ORDERED: fentaNYL INJECTION 100 MCG/2 ML AMP IVP STA (02:22)
[2016-04-27] MEDS ORDERED: LISI1TAB10 (02:26)
[2016-04-27] MEDS ORDERED: CLON0.5T3 (02:26)
[2016-04-27] MEDS ORDERED: LORA1TAB (02:26)
[2016-04-27 02:39] LABS: BASOPHILS % (AUTO) 0 % (0-10); EOSINOPHILS # (AUTO) 0.2 10^3/uL (0.0-0.3); EOSINOPHILS % (AUTO) 2 % (0-10); LYMPHOCYTES # (AUTO) 3.4 X 10^3 (1.0-4.0); LYMPHOCYTES % (AUTO) 30 % (12-44); MEAN CORPUSCULAR HEMOGLOBIN 31 PG (25-34); MEAN CORPUSCULAR HGB CONC 35 G/DL (32-36); MEAN CORPUSCULAR VOLUME 90 FL (80-99); MEAN PLATELET VOLUME 10.6 FL (7.4-10.4); MONOCYTES # (AUTO) 0.9 X 10^3 (0.0-1.0); MONOCYTES % (AUTO) 8 % (0-12); NEUTROPHILS # (AUTO) 6.8 X 10^3 (1.8-7.8); NEUTROPHILS % (AUTO) 60 % (42-75); PLATELET COUNT 337 10^3/uL (130-400); RED BLOOD COUNT 5.12 10^6/uL (4.35-5.85); RED CELL DISTRIBUTION WIDTH 13.6 % (10.0-14.5); WHITE BLOOD COUNT 11.4 10^3/uL (4.3-11.0)
--- NOTE | 2016-04-27 02:43 | ED Abdominal Pain ---
General Chief Complaint: Abdominal/GI Problems Stated Complaint: NAUSEA AND AB PAIN Nursing Triage Note: States having had abd pain for 1 week. States today pain is constant and "unbearable". 3 episodes of vomiting today. Male in room answers majority of questions Sepsis Screen: No Definite Risk Source of Information: Patient Exam Limitations: No Limitations History of Present Illness Time Seen By Provider: 02:13 Initial Comments Here with complaint of left upper quadrant abdominal pain that has been intermittent for the last week. States it is increasingly worse tonight. Did have 3 episodes of vomiting tonight. Denies diarrhea or dysuria. Denies blood in her vomit or stool. Timing/Duration: 1 Week, Getting Worse Severity/Quality: Moderate, Cramping Location: [facility] Radiation: No Radiation Modifying Factors: Worsens With Eating Associated Symptoms: No Back Pain, No Chest Pain, No Fever/Chills, Nausea/ VomitingNo Weakness Allergies and Home Medications Allergies Coded Allergies: amoxicillin (Verified Allergy, Unknown, 04/27/16) potassium clavulanate (Verified Allergy, Unknown, 04/27/16) Home Medications Clonazepam 0.5 Mg Tablet #19 (Reported) Clonidine HCl 0.1 Mg Tablet 0.1 MG PO BID PRN PRN BLOOD PRESSURE (Reported) PATIENT WILL TAKE IF DIASTOLIC IS 109 Lisinopril/Hydrochlorothiazide 1 Each Tablet #30 (Reported) Lorazepam 1 Mg Tablet #60 (Reported) Mirtazapine 30 Mg Tablet 30 MG PO HS (Reported) Paroxetine HCl 30 Mg Tablet 60 MG PO DAILY (Reported) TAKES 2 (30 MG) TABLETS Review of Systems Constitutional: see HPINo chills, No fever EENTM: No Symptoms Reported Respiratory: No Symptoms Reported Cardiovascular: No Symptoms Reported Gastrointestinal: See HPI Abdominal Pain Nausea Vomiting Genitourinary: No Symptoms Reported Musculoskeletal: no symptoms reported Skin: no symptoms reported Psychiatric/Neurological: No Symptoms Reported All Other Systems Reviewed Negative Unless Noted: Yes Past Qkzlyap-Qlswcx-Cloepy Hx Patient Social History Alcohol Use: Denies Use Recreational Drug Use: No Smoking Status: Current Everyday Smoker Type Used: Cigarettes 2nd Hand Smoke Exposure: Yes Recent Foreign Travel: No Contact w/Someone Who Travel: No Recent Infectious Disease Expo: No Recent Hopitalizations: No Immunizations Up To Date Tetanus Booster (TDap): Unknown PED Vaccines UTD: No Seasonal Allergies Seasonal Allergies: No Surgeries HX Surgeries: Yes Surgeries: Appendectomy Respiratory Hx Respiratory Disorders: No Cardiovascular Hx Cardiac Disorders: No Cardiac Disorders: Hypertension Neurological Hx Neurological Disorders: No Reproductive System Hx Reproductive Disorders: Yes Sexually Transmitted Disease: No HIV/AIDS: No Female Reproductive Disorders: Menstrual Problems, Ovarian Cyst Genitourinary Hx Genitourinary Disorders: No Gastrointestinal Hx Gastrointestinal Disorders: Yes Gastrointestinal Disorders: Gall Bladder Disease Musculoskeletal Hx Musculoskeletal Disorders: No Endocrine Hx Endocrine Disorders: No HEENT HX ENT Disorders: No Cancer Hx Cancer: No Psychosocial Hx Psychiatric Problems: Yes Behavioral Health Disorders: Anxiety, Depression Integumentary HX Skin/Integumentary Disorder: No Blood Transfusions Hx Blood Disorders: No Adverse Reaction to a Blood Tr: No Reviewed Nursing Assessment Reviewed/Agree w Nursing PMH: Yes Family Medical History Significant Family History: No Pertinent Family Hx Family Medial History: Alcoholism G8 BROTHER ( with liver failure) Arthritis G8 BROTHER (rhoumatoid arthritis, mono multiplex neuropathy) Physical Exam Vital Signs VS - Last 72 Hours, by Label 04/27/16 02:17 Temp 98.7 Pulse 91 Resp 20 B/P 143/101 Pulse Ox 93 Capillary Refill : Less Than 3 Seconds General Appearance: WD/WN no apparent distress HEENT: PERRL/EOMI pharynx normal Neck: full range of motion supple Respiratory: lungs clear normal breath sounds Cardiovascular: regular rate, rhythm no murmur Gastrointestinal: softNo guarding, No rebound, tenderness (left upper quadrant) Extremities: non-tender normal inspection Back: normal inspection no CVA tenderness no vertebral tenderness Neurologic/Psychiatric: alert oriented x 3 Skin: normal color warm/dry Progress/Results/Core Measures Results/Orders Lab Results Laboratory Tests Test 04/27/16 02:20 04/27/16 02:46 Range/Units Alanine Aminotransferase (ALT/SGPT) 47 0-55 U/L Albumin 4.7 H 3.2-4.5 G/DL Alkaline Phosphatase 94 40-136 U/L Amylase Level 46 25-125 U/L Anion Gap 17 H 5-14 MMOL/L Aspartate Amino Transf (AST/SGOT) 27 5-34 U/L BUN/Creatinine Ratio 18 Basophils # (Auto) 0.0 0.0-0.1 10^3/uL Basophils (%) (Auto) 0 0-10 % Blood Urea Nitrogen 18 7-18 MG/DL Calcium Level 10.1 8.5-10.1 MG/DL Carbon Dioxide Level 23 21-32 MMOL/L Chloride Level 99 98-107 MMOL/L Creatinine 1.00 0.60-1.30 MG/DL Eosinophils # (Auto) 0.2 0.0-0.3 10^3/uL Eosinophils (%) (Auto) 2 0-10 % Estimat Glomerular Filtration Rate 60 Glucose Level 120 H 70-105 MG/DL Hematocrit 46 35-52 % Hemoglobin 15.8 11.5-16.0 G/DL Lipase 11 8-78 U/L Lymphocytes # (Auto) 3.4 1.0-4.0 X 10^3 Lymphocytes (%) (Auto) 30 12-44 % Magnesium Level 2.7 H 1.8-2.4 MG/DL Mean Corpuscular Hemoglobin 31 25-34 PG Mean Corpuscular Hemoglobin Concent 35 32-36 G/DL Mean Corpuscular Volume 90 80-99 FL Mean Platelet Volume 10.6 H 7.4-10.4 FL Monocytes # (Auto) 0.9 0.0-1.0 X 10^3 Monocytes (%) (Auto) 8 0-12 % Neutrophils # (Auto) 6.8 1.8-7.8 X 10^3 Neutrophils (%) (Auto) 60 42-75 % Platelet Count 337 130-400 10^3/uL Potassium Level 3.1 L 3.6-5.0 MMOL/L Red Blood Count 5.12 4.35-5.85 10^6/uL Red Cell Distribution Width 13.6 10.0-14.5 % Sodium Level 139 135-145 MMOL/L Total Bilirubin 0.7 0.1-1.0 MG/DL Total Protein 8.3 H 6.4-8.2 G/DL White Blood Count 11.4 H 4.3-11.0 10^3/uL Ur Tricyclic Antidepressants Screen NEGATIVE NEGATIVE Urine Amphetamines Screen NEGATIVE NEGATIVE Urine Bacteria MODERATE H /HPF Urine Barbiturates Screen NEGATIVE NEGATIVE Urine Benzodiazepines Screen POSITIVE H NEGATIVE Urine Bilirubin NEGATIVE NEGATIVE Urine Cannabinoids Screen NEGATIVE NEGATIVE Urine Casts PRESENT /LPF Urine Clarity VERY CLOUDY H Urine Cocaine Screen NEGATIVE NEGATIVE Urine Color YELLOW Urine Crystals NONE /LPF Urine Culture Indicated YES Urine Glucose (UA) NEGATIVE NEGATIVE Urine Hyaline Casts RARE /LPF Urine Ketones NEGATIVE NEGATIVE Urine Leukocyte Esterase 2+ H NEGATIVE Urine Methadone Screen NEGATIVE NEGATIVE Urine Methamphetamines Screen NEGATIVE NEGATIVE Urine Mucus SMALL H /LPF Urine Nitrite NEGATIVE NEGATIVE Urine Opiates Screen POSITIVE H NEGATIVE Urine Oxycodone Screen NEGATIVE NEGATIVE Urine Phencyclidine Screen NEGATIVE NEGATIVE Urine Propoxyphene Screen NEGATIVE NEGATIVE Urine Protein 1+ H NEGATIVE Urine RBC RARE /HPF Urine RBC (Auto) 1+ H NEGATIVE Urine Specific [place] 1.020 1.016-1.022 Urine Squamous Epithelial Cells 25-50 H /HPF Urine Urobilinogen NORMAL NORMAL MG/DL Urine WBC 5-10 H /HPF Urine Yeast MODERATE H /HPF Urine pH 5 5-9 My Orders Orders-SHEFALI OTTO MD Saline Lock/Iv-Start (04/27/16 02:22) Ns Iv 1000 Ml (Sodium Chloride 0.9%) (04/27/16 02:22) Fentanyl Injection (Sublimaze Injection (04/27/16 02:22) Ketorolac Injection (Toradol Injection) (04/27/16 02:22) Lipase (04/27/16 02:27) Ondansetron Injection (Zofran Injectio (04/27/16 02:45) Cbc With Automated Diff (04/27/16 02:36) Amylase (04/27/16 02:44) Comprehensive Metabolic Panel (04/27/16 02:44) Drug Screen Stat (Urine) (04/27/16 02:44) Magnesium (04/27/16 02:44) Ua Culture If Indicated (04/27/16 02:44) Urine Culture (04/27/16 02:46) Ct Abdomen/Pelvis W (04/27/16 03:06) Ns Iv 1000 Ml (Sodium Chloride 0.9%) (04/27/16 03:06) Iohexol Injection (Omnipaque 350 Mg/Ml 1 (04/27/16 03:30) Ns (Ivpb) (Sodium Chloride 0.9% Ivpb Bag (04/27/16 03:30) Ondansetron Injection (Zofran Injectio (04/27/16 03:45) Medications Given in ED Current Medications Medications Dose Ordered Sig/Annalisa Route Start Time Stop Time Status Last Admin Dose Admin Iohexol 100 ml ONCE ONCE IV 04/27/16 03:30 04/27/16 03:31 DC 04/27/16 03:29 100 ML Ondansetron HCl 4 mg ONCE ONCE IVP 04/27/16 03:45 04/27/16 03:46 DC 04/27/16 03:55 4 MG Ondansetron HCl 4 mg 4 mg ONCE ONCE IVP 04/27/16 02:45 04/27/16 02:46 DC 04/27/16 02:37 4 MG Sodium Chloride 100 ml ONCE ONCE IV 04/27/16 03:30 04/27/16 03:31 DC 04/27/16 03:29 80 ML Sodium Chloride 1,000 ml @ 0 mls/hr Q0M ONCE IV 04/27/16 02:22 04/27/16 02:24 DC 04/27/16 02:29 1,000 MLS/HR Sodium Chloride 1,000 ml @ 0 mls/hr Q0M ONCE IV 04/27/16 03:06 04/27/16 03:07 DC 04/27/16 03:10 1,000 MLS/HR Vital Signs/I&O Vital Sign - Last 12Hours 04/27/16 02:17 Temp 98.7 Pulse 91 Resp 20 B/P 143/101 Pulse Ox 93 Blood Pressure Mean: 115 Progress Note : Progress Note Seen and evaluated. IV, labs and UA ordered. UDS ordered. Anticipate CT abdomen pelvis. Normal saline 1 L bolus, fentanyl 75 g IV, Toradol 30 mg IV and Zofran 4 mg IV ordered. Monitor patient. CT abdomen and pelvis ordered. Repeat Zofran 4 mg IV. Repeat normal saline 1 L bolus. 0415: CT shows no acute disease or obstruction. Patient doing better overall. Discharged home with return precautions. Patient verbalize understanding instructions and agreement with plan. Departure Impression Impression: Primary Impression: Abdominal pain, left upper quadrant Disposition: HOME, SELF-CARE Condition: Improved Departure-Patient Inst. Decision time for Depature: 04:21 Referrals: ANDRE CARIAS DO (PCP/Family) Primary Care Physician Patient Instructions: Acute Abdomen (Belly Pain), Adult (DC) Add. Discharge Instructions: All discharge instructions reviewed with patient and/or family. Voiced understanding. Clear liquid diet for 24 hours and then advance as tolerated. Follow-up with your doctor on Thursday for recheck and further evaluation as needed. Return for worse pain, fever, vomiting, weakness, rhythm problems or other concerns as needed. SHEFALI OTTO MD Apr 27, 2016 02:43
[2016-04-27] MEDS ORDERED: ONDANSETRON 4 MG/2 ML (SDV) Z0FRAN IVP ONE ×2 (02:45→03:45)
[2016-04-27 02:53] LABS: BILIRUBIN,URINE NEGATIVE (NEGATIVE); KETONES,URINE NEGATIVE (NEGATIVE); LEUKOCYTE ESTERASE ,URINE 2+ (NEGATIVE); NITRITE,URINE NEGATIVE (NEGATIVE); PH,URINE 5 (5-9); PROTEIN,URINE 1+ (NEGATIVE); UROBILINOGEN,URINE NORMAL (NORMAL)
[2016-04-27 03:01] LABS: HYALINE CASTS, URINE RARE /LPF; SQUAMOUS EPITHELIAL CELL,UR 25-50 /HPF; YEAST,URINE MODERATE /HPF
[2016-04-27 03:01] LABS: ALBUMIN 4.7 G/DL (3.2-4.5); BILIRUBIN,TOTAL 0.7 MG/DL (0.1-1.0); CALCIUM 10.1 MG/DL (8.5-10.1); MAGNESIUM 2.7 MG/DL (1.8-2.4); POTASSIUM 3.1 MMOL/L (3.6-5.0); TOTAL PROTEIN 8.3 G/DL (6.4-8.2)
[2016-04-27] MEDS ORDERED: NS 100 ML (IVPB) BAG IV ONE (03:30)
[2016-04-27] MEDS ORDERED: IOHEXOL 350 MG/ML 100 ML (OMNIPAQUE 350) VIAL IV ONE (03:30)
[2016-04-27 04:29] VITALS: BP 109/74
--- NOTE | 2016-04-27 07:18 | Diagnostic Imaging Report ---
CLINICAL INDICATION: Patient with abdominal pain x1 week. Patient has history of appendectomy and tubes tied. EXAM: CT scan of the abdomen and pelvis performed with 100 cc of Omnipaque 350 IV contrast. Portal venous and delayed phase were obtained. Coronal and sagittal reformatted images were created. COMPARISON: CT scan of the abdomen and pelvis performed with IV contrast dated 12/30/2013. FINDINGS: Visualized lung bases: Unremarkable. Liver: There is diffuse low-attenuation changes seen throughout the liver likely related to diffuse fatty infiltration. Gallbladder: Unremarkable. Pancreas: Unremarkable. Spleen: Unremarkable. Adrenal glands: Unremarkable. Kidneys/ ureters: Unremarkable. Aorta: Unremarkable. Lymph nodes: None enlarged. Intraabdominal/ retroperitoneal contents: Unremarkable. Intestines: There is slight progression of mild bowel wall thickening with low-density appearance involving the hepatic flexure of the colon and portions of the ascending colon with no adjacent fat stranding. Otherwise intestines are unremarkable. Appendix: Surgically absent. Bladder: Unremarkable. Pelvic organs: Unremarkable. Extra abdominal/ pelvis regions: Unremarkable. Abdominal wall: Unremarkable. Bones: There are minimal sized degenerative spurs involving the lumbar spine. IMPRESSION: 1: There is no CT evidence of acute abdominal or pelvic process. 2: Likely diffuse fatty infiltration of the liver. 3: There is nonspecific low density wall thickening involving the hepatic flexure of the colon and portion of ascending colon. There is no adjacent fat stranding. These findings may be related to prior infection or inflammatory process. This was not mentioned on [facility] report. Otherwise I agree with [facility] report. Dictated by: Dictated on workstation # [id number]
== END 2016-04-27 04:23 | disposition home or self-care (01) ==
LOC: EDUNIT# 02:11 → ER 02:14
DX: R10.32 Left lower quadrant pain (principal); R11.0 Nausea; K76.0 Fatty (change of) liver, not elsewhere classified; F17.210 Nicotine dependence, cigarettes, uncomplicated
CPT/HCPCS: 36415; 74177; 80053; 80306; 81000; 82150; 83690; 83735; 85025; 87088; 96361; 96374; 96375

== ENCOUNTER 2016-08-20 10:05 | Emergency (ER) | payer MEDICAID ==
[~2016-08-20] VITALS: Ht 172.7 cm; Wt 102.3 kg
[~2016-08-20 10:05] MED LIST changes: +CLON0.5T3; +LISI1TAB10; +LORA1TAB
--- NOTE | 2016-08-20 10:27 | ED Abdominal Pain ---
General Chief Complaint: -Female Stated Complaint: STOMACH PAIN/BLEEDING History of Present Illness Time Seen By Provider: 10:20 Initial Comments 46-year-old female who presents with abdominal cramping. States this started today. Patient has some mild nausea. Patient denies any vomiting, diarrhea, urinary symptoms. Patient told nurse that she had been looking on the Internet and is concerned about potential ovarian cancer. Patient requesting a CT or ultrasound. Allergies and Home Medications Allergies Coded Allergies: amoxicillin (Verified Allergy, Unknown, 04/27/16) potassium clavulanate (Verified Allergy, Unknown, 04/27/16) Home Medications Clonazepam 0.5 Mg Tablet, #19 (Reported) Clonidine HCl 0.1 Mg Tablet, 0.1 MG PO BID PRN for BLOOD PRESSURE, (Reported) PATIENT WILL TAKE IF DIASTOLIC IS 109 Lisinopril/Hydrochlorothiazide 1 Each Tablet, #30 (Reported) Lorazepam 1 Mg Tablet, #60 (Reported) Mirtazapine 30 Mg Tablet, 30 MG PO HS, (Reported) Paroxetine HCl 30 Mg Tablet, 60 MG PO DAILY, (Reported) TAKES 2 (30 MG) TABLETS Review of Systems Constitutional: No chills, No dizziness, No fever Respiratory: Denies Cough Cardiovascular: Denies Chest Pain Gastrointestinal: See HPI Genitourinary: Denies Burning, Drainage, Frequency, Flank Pain Musculoskeletal: no symptoms reported Skin: no symptoms reported Psychiatric/Neurological: No Symptoms Reported Past Gmsqxdj-Jbaddj-Gjzgdd Hx Patient Social History Alcohol Use: Denies Use Recreational Drug Use: No Smoking Status: Current Everyday Smoker Type Used: Cigarettes 2nd Hand Smoke Exposure: Yes Recent Foreign Travel: No Contact w/Someone Who Travel: No Recent Hopitalizations: No Immunizations Up To Date Tetanus Booster (TDap): Unknown PED Vaccines UTD: No Seasonal Allergies Seasonal Allergies: No Surgeries HX Surgeries: Yes Surgeries: Appendectomy Respiratory Hx Respiratory Disorders: No Cardiovascular Hx Cardiac Disorders: No Cardiac Disorders: Hypertension Neurological Hx Neurological Disorders: No Reproductive System Hx Reproductive Disorders: Yes Sexually Transmitted Disease: No HIV/AIDS: No Female Reproductive Disorders: Menstrual Problems, Ovarian Cyst Genitourinary Hx Genitourinary Disorders: No Gastrointestinal Hx Gastrointestinal Disorders: Yes Gastrointestinal Disorders: Gall Bladder Disease Musculoskeletal Hx Musculoskeletal Disorders: No Endocrine Hx Endocrine Disorders: No HEENT HX ENT Disorders: No Cancer Hx Cancer: No Psychosocial Hx Psychiatric Problems: Yes Behavioral Health Disorders: Anxiety, Depression Integumentary HX Skin/Integumentary Disorder: No Blood Transfusions Hx Blood Disorders: No Adverse Reaction to a Blood Tr: No Family Medical History Significant Family History: No Pertinent Family Hx Family Medial History: Alcoholism G8 BROTHER ( with liver failure) Arthritis G8 BROTHER (rhoumatoid arthritis, mono multiplex neuropathy) Physical Exam Vital Signs VS - Last 72 Hours, by Label 08/20/16 10:12 Temp 99.2 Pulse 84 Resp 18 B/P (MAP) 144/100 Pulse Ox 96 O2 Delivery Room Air Capillary Refill : General Appearance: other (I watched patient walk in to exam room and and then ambulate use the restroom with no apparent distress. However, when I walk in the room patient becomes tearful and asked like she is in extreme amount of pain. This is not consistent with her initial presentation or finding on physical exam.) Respiratory: chest non-tender, lungs clear, normal breath sounds Cardiovascular: normal peripheral pulses, regular rate, rhythm, no edema Gastrointestinal: normal bowel sounds, non tender, soft, No distended, No guarding, No rebound Extremities: normal range of motion Neurologic/Psychiatric: oriented x 3 Skin: normal color, warm/dry Progress/Results/Core Measures Results/Orders Lab Results Laboratory Tests Test 08/20/16 10:23 08/20/16 11:05 Range/Units Urine Color YELLOW Urine Clarity CLEAR Urine pH 8 5-9 Urine Specific [place] 1.010 L 1.016-1.022 Urine Protein NEGATIVE NEGATIVE Urine Glucose (UA) NEGATIVE NEGATIVE Urine Ketones NEGATIVE NEGATIVE Urine Nitrite NEGATIVE NEGATIVE Urine Bilirubin NEGATIVE NEGATIVE Urine Urobilinogen NORMAL NORMAL MG/DL Urine Leukocyte Esterase 1+ H NEGATIVE Urine RBC (Auto) 3+ H NEGATIVE Urine RBC RARE /HPF Urine WBC RARE /HPF Urine Squamous Epithelial Cells 2-5 /HPF Urine Crystals NONE /LPF Urine Bacteria TRACE /HPF Urine Casts NONE /LPF Urine Mucus NEGATIVE /LPF Urine Culture Indicated NO Urine Opiates Screen NEGATIVE NEGATIVE Urine Oxycodone Screen NEGATIVE NEGATIVE Urine Methadone Screen NEGATIVE NEGATIVE Urine Propoxyphene Screen NEGATIVE NEGATIVE Urine Barbiturates Screen NEGATIVE NEGATIVE Ur Tricyclic Antidepressants Screen NEGATIVE NEGATIVE Urine Phencyclidine Screen NEGATIVE NEGATIVE Urine Amphetamines Screen NEGATIVE NEGATIVE Urine Methamphetamines Screen NEGATIVE NEGATIVE Urine Benzodiazepines Screen POSITIVE H NEGATIVE Urine Cocaine Screen NEGATIVE NEGATIVE Urine Cannabinoids Screen NEGATIVE NEGATIVE White Blood Count 6.8 4.3-11.0 10^3/uL Red Blood Count 4.28 L 4.35-5.85 10^6/uL Hemoglobin 13.4 11.5-16.0 G/DL Hematocrit 39 35-52 % Mean Corpuscular Volume 91 80-99 FL Mean Corpuscular Hemoglobin 31 25-34 PG Mean Corpuscular Hemoglobin Concent 34 32-36 G/DL Red Cell Distribution Width 13.7 10.0-14.5 % Platelet Count 306 130-400 10^3/uL Mean Platelet Volume 10.5 H 7.4-10.4 FL Neutrophils (%) (Auto) 70 42-75 % Lymphocytes (%) (Auto) 22 12-44 % Monocytes (%) (Auto) 7 0-12 % Eosinophils (%) (Auto) 2 0-10 % Basophils (%) (Auto) 0 0-10 % Neutrophils # (Auto) 4.8 1.8-7.8 X 10^3 Lymphocytes # (Auto) 1.5 1.0-4.0 X 10^3 Monocytes # (Auto) 0.4 0.0-1.0 X 10^3 Eosinophils # (Auto) 0.1 0.0-0.3 10^3/uL Basophils # (Auto) 0.0 0.0-0.1 10^3/uL Sodium Level 137 135-145 MMOL/L Potassium Level 3.5 L 3.6-5.0 MMOL/L Chloride Level 97 L 98-107 MMOL/L Carbon Dioxide Level 25 21-32 MMOL/L Anion Gap 15 H 5-14 MMOL/L Blood Urea Nitrogen 13 7-18 MG/DL Creatinine 1.01 0.60-1.30 MG/DL Estimat Glomerular Filtration Rate 59 BUN/Creatinine Ratio 13 Glucose Level 108 H 70-105 MG/DL Calcium Level 9.6 8.5-10.1 MG/DL Total Bilirubin 0.4 0.1-1.0 MG/DL Aspartate Amino Transf (AST/SGOT) 20 5-34 U/L Alanine Aminotransferase (ALT/SGPT) 31 0-55 U/L Alkaline Phosphatase 71 40-136 U/L Total Protein 7.7 6.4-8.2 G/DL Albumin 4.2 3.2-4.5 G/DL Lipase 7 L 8-78 U/L My Orders Orders - LAGOS,LUKE L DO Comprehensive Metabolic Panel (08/20/16 10:27) Lipase (08/20/16 10:27) Ua Culture If Indicated (08/20/16 10:27) Acute Abd Series (08/20/16 10:27) Cbc With Automated Diff (08/20/16 10:27) Urine Bedside (08/20/16 10:27) Drug Screen Stat (Urine) (08/20/16 10:27) Vital Signs/I&O Vital Sign - Last 12Hours 08/20/16 10:12 Temp 99.2 Pulse 84 Resp 18 B/P (MAP) 144/100 Pulse Ox 96 O2 Delivery Room Air Progress Note : Time: 10:38 Progress Note I reviewed patient's past records. Patient had a CT on 05/07/2016 that was negative. There was no ovarian or abdominal masses, no diverticuli, patient appendix is absent. Diagnostic Imaging Diagonstic Imaging: Xray Comments ACUTE ABD SERIES INDICATION: Abdominal pain. TECHNIQUE: A PA chest and supine and upright abdominal images were obtained. FINDINGS: The lungs are clear. The bowel gas pattern is normal. There are no pathologic masses or calcifications. IMPRESSION: Negative abdomen series. Reviewed: Reviewed by Me Departure Impression Impression: Primary Impression: Abdominal pain Qualified Codes: R10.32 - Left lower quadrant pain Disposition: 01 HOME, SELF-CARE Condition: Stable Departure-Patient Inst. Referrals: ANDRE CARIAS DO (PCP/Family) Primary Care Physician Patient Instructions: Colic (DC), Constipation in Adults LUKE LAGOS DO August 20, 2016 10:26
[2016-08-20 10:45] LABS: BILIRUBIN,URINE NEGATIVE (NEGATIVE); KETONES,URINE NEGATIVE (NEGATIVE); LEUKOCYTE ESTERASE ,URINE 1+ (NEGATIVE); NITRITE,URINE NEGATIVE (NEGATIVE); PH,URINE 8 (5-9); PROTEIN,URINE NEGATIVE (NEGATIVE); UROBILINOGEN,URINE NORMAL (NORMAL)
[2016-08-20 10:53] LABS: WBC,URINE RARE /HPF
[2016-08-20 11:11] LABS: BASOPHILS % (AUTO) 0 % (0-10); EOSINOPHILS # (AUTO) 0.1 10^3/uL (0.0-0.3); EOSINOPHILS % (AUTO) 2 % (0-10); LYMPHOCYTES # (AUTO) 1.5 X 10^3 (1.0-4.0); LYMPHOCYTES % (AUTO) 22 % (12-44); MEAN CORPUSCULAR HEMOGLOBIN 31 PG (25-34); MEAN CORPUSCULAR HGB CONC 34 G/DL (32-36); MEAN CORPUSCULAR VOLUME 91 FL (80-99); MEAN PLATELET VOLUME 10.5 FL (7.4-10.4); MONOCYTES # (AUTO) 0.4 X 10^3 (0.0-1.0); MONOCYTES % (AUTO) 7 % (0-12); NEUTROPHILS # (AUTO) 4.8 X 10^3 (1.8-7.8); NEUTROPHILS % (AUTO) 70 % (42-75); PLATELET COUNT 306 10^3/uL (130-400); RED BLOOD COUNT 4.28 10^6/uL (4.35-5.85); RED CELL DISTRIBUTION WIDTH 13.7 % (10.0-14.5); WHITE BLOOD COUNT 6.8 10^3/uL (4.3-11.0)
--- NOTE | 2016-08-20 11:23 | Diagnostic Imaging Report ---
INDICATION: Abdominal pain. TECHNIQUE: A PA chest and supine and upright abdominal images were obtained. FINDINGS: The lungs are clear. The bowel gas pattern is normal. There are no pathologic masses or calcifications. IMPRESSION: Negative abdomen series. Dictated by: Dictated on workstation # [id number]
[2016-08-20 11:33] LABS: ALBUMIN 4.2 G/DL (3.2-4.5); BILIRUBIN,TOTAL 0.4 MG/DL (0.1-1.0); CALCIUM 9.6 MG/DL (8.5-10.1); CREATININE SERUM 1.01 MG/DL (0.60-1.30); POTASSIUM 3.5 MMOL/L (3.6-5.0); TOTAL PROTEIN 7.7 G/DL (6.4-8.2)
[2016-08-20 12:00] VITALS: BP 139/95
== END 2016-08-20 12:00 | disposition home or self-care (01) ==
LOC: EDUNIT# 10:05 → ER 10:08
DX: R10.30 Lower abdominal pain, unspecified (principal)
CPT/HCPCS: 36415; 74022; 80053; 80306; 81000; 83690; 84703; 85025; 99282

== ENCOUNTER 2017-05-02 10:55 | Emergency (ER) | payer MEDICAID ==
[~2017-05-02] VITALS: Ht 172.7 cm; Wt 99.8 kg
--- NOTE | 2017-05-02 11:37 | ED Lower Extremity ---
General Chief Complaint: Lower Extremity Stated Complaint: R LEG RED SPOT SPREADING UPWARDS Nursing Triage Note: AMB TO ROOM NOTICED A RED PATCH ON R LEG CONCERN ABOUT A CLOT. Nursing Sepsis Screen: No Definite Risk Source: patient Exam Limitations: no limitations History of Present Illness Date Seen by Provider: May 02, 2017 Time Seen by Provider: 11:15 Initial Comments Here with report of right lower extremity redness with concerns of clot versus cellulitis. Denies any specific injury. No history of blood clots. Denies fever or chills. Does admit to scratching her legs due to dryness. Onset: yesterday Severity: mild Pain/Injury Location: right leg Method of Injury: unknown Modifying Factors: Improves With Rest Allergies and Home Medications Allergies Coded Allergies: amoxicillin (Verified Allergy, Unknown, 04/27/16) potassium clavulanate (Verified Allergy, Unknown, 04/27/16) Home Medications Clonazepam 0.5 Mg Tablet, #19 (Reported) Clonidine HCl 0.1 Mg Tablet, 0.1 MG PO BID PRN for BLOOD PRESSURE, (Reported) PATIENT WILL TAKE IF DIASTOLIC IS 109 Lisinopril/Hydrochlorothiazide 1 Each Tablet, #30 (Reported) Lorazepam 1 Mg Tablet, #60 (Reported) Mirtazapine 30 Mg Tablet, 30 MG PO HS, (Reported) Paroxetine HCl 30 Mg Tablet, 60 MG PO DAILY, (Reported) TAKES 2 (30 MG) TABLETS Constitutional: see HPI, No chills, No fever Respiratory: no symptoms reported Cardiovascular: no symptoms reported Gastrointestinal: no symptoms reported Musculoskeletal: No muscle pain, No muscle stiffness Skin: see HPI, change in color, No lesions, No lumps Psychiatric/Neurological: Anxiety, Denies Weakness Past Paqnhqx-Xcgvmo-Gbyonn Hx Patient Social History Alcohol Use: Denies Use Recreational Drug Use: No Smoking Status: Current Everyday Smoker Type Used: Cigarettes 2nd Hand Smoke Exposure: Yes Recent Foreign Travel: No Contact w/Someone Who Travel: No Recent Infectious Disease Expo: No Recent Hopitalizations: No Immunizations Up To Date Tetanus Booster (TDap): Unknown PED Vaccines UTD: No Seasonal Allergies Seasonal Allergies: No Surgeries History of Surgeries: Yes Surgeries: Appendectomy Respiratory History of Respiratory Disorde: No Currently Using CPAP: No Currently Using BIPAP: No Cardiovascular History of Cardiac Disorders: No Cardiac Disorders: Hypertension Neurological History of Neurological Disord: No Reproductive System Hx Reproductive Disorders: Yes Sexually Transmitted Disease: No HIV/AIDS: No Female Reproductive Disorders: Menstrual Problems, Ovarian Cyst Genitourinary History of Genitourinary Disor: No Gastrointestinal History of Gastrointestinal Di: Yes Gastrointestinal Disorders: Gall Bladder Disease Musculoskeletal History of Musculoskeletal Dis: No Endocrine History of Endocrine Disorders: No HEENT History of HEENT Disorders: No Cancer History of Cancer: No Psychosocial History of Psychiatric Problem: Yes Behavioral Health Disorders: Anxiety, Depression Integumentary History of Skin or Integumenta: No Blood Transfusions History of Blood Disorders: No Adverse Reaction to a Blood Tr: No Reviewed Nursing Assessment Reviewed/Agree w Nursing PMH: Yes Family Medical History Significant Family History: No Pertinent Family Hx Family Medial History: Alcoholism G8 BROTHER ( with liver failure) Arthritis G8 BROTHER (rhoumatoid arthritis, mono multiplex neuropathy) Physical Exam Vital Signs Vital Signs - First Documented 05/02/17 10:59 Temp 98.0 Pulse 96 Resp 18 B/P (MAP) 129/77 (94) Pulse Ox 98 Capillary Refill : Less Than 3 Seconds General Appearance: WD/WN, no apparent distress Cardiovascular: regular rate, rhythm, no murmur Respiratory: lungs clear, normal breath sounds Legs: left leg non-tender, left leg normal inspection, left leg normal range of motion, left leg no evidence of injury, right leg other (redness encompassing the anterior right lower leg and lateral over the calf muscle. Nontender on palpation and no significant swelling but color change.) Ankles: bilateral ankle non-tender, bilateral ankle normal inspection, bilateral ankle normal range of motion, bilateral ankle no evidence of injury Neurologic/Psychiatric: alert, oriented x 3 Skin: warm/dry, No ecchymosis, No rash, other (redness as described above) Progress/Results/Core Measures Results/Orders Lab Results Laboratory Tests Test 05/02/17 11:40 Range/Units White Blood Count 5.1 4.3-11.0 10^3/uL Red Blood Count 4.12 L 4.35-5.85 10^6/uL Hemoglobin 13.0 11.5-16.0 G/DL Hematocrit 37 35-52 % Mean Corpuscular Volume 90 80-99 FL Mean Corpuscular Hemoglobin 32 25-34 PG Mean Corpuscular Hemoglobin Concent 35 32-36 G/DL Red Cell Distribution Width 13.9 10.0-14.5 % Platelet Count 255 130-400 10^3/uL Mean Platelet Volume 10.7 H 7.4-10.4 FL Neutrophils (%) (Auto) 53 42-75 % Lymphocytes (%) (Auto) 32 12-44 % Monocytes (%) (Auto) 11 0-12 % Eosinophils (%) (Auto) 4 0-10 % Basophils (%) (Auto) 0 0-10 % Neutrophils # (Auto) 2.7 1.8-7.8 X 10^3 Lymphocytes # (Auto) 1.6 1.0-4.0 X 10^3 Monocytes # (Auto) 0.5 0.0-1.0 X 10^3 Eosinophils # (Auto) 0.2 0.0-0.3 10^3/uL Basophils # (Auto) 0.0 0.0-0.1 10^3/uL D-Dimer 1.07 H 0.00-0.49 UG/ML Sodium Level 133 L 135-145 MMOL/L Potassium Level 3.1 L 3.6-5.0 MMOL/L Chloride Level 96 L 98-107 MMOL/L Carbon Dioxide Level 24 21-32 MMOL/L Anion Gap 13 5-14 MMOL/L Blood Urea Nitrogen 12 7-18 MG/DL Creatinine 0.83 0.60-1.30 MG/DL Estimat Glomerular Filtration Rate > 60 BUN/Creatinine Ratio 14 Glucose Level 108 H 70-105 MG/DL Calcium Level 8.7 8.5-10.1 MG/DL C-Reactive Protein High Sensitivity 3.42 H 0.00-0.50 MG/DL My Orders Orders - SHEFALI OTTO MD Basic Metabolic Panel (05/02/17 11:27) Cbc With Automated Diff (05/02/17 11:27) Hs C Reactive Protein (05/02/17 11:27) Fibrin Degradation Products (05/02/17 11:27) Us Venous Lower Ext Rt (05/02/17 12:21) Vital Signs/I&O Vital Sign - Last 12Hours 05/02/17 10:59 Temp 98.0 Pulse 96 Resp 18 B/P (MAP) 129/77 (94) Pulse Ox 98 Blood Pressure Mean: 94 Progress Note : Progress Note Seen and evaluated. Findings were consistent with cellulitis. We will check basic labs as well as d-dimer. Monitor patient. D-dimer slightly elevated. Ultrasound right lower extremity ordered. 1245: Negative for DVT. We will treat cellulitis. Initiate outpatient treatment with Bactrim. Patient states she's tolerated this in the past. Discharged home with return precautions. Patient verbalize understanding of instructions and agreement with plan. Diagnostic Imaging Diagonstic Imaging: Ultrasound Plain Films/CT/US/NM/MRI: leg Comments Right lower extremity ultrasound negative for DVT per preliminary read. Departure Impression Impression: Primary Impression: Cellulitis of right lower extremity without foot Disposition: HOME, SELF-CARE Condition: Improved Departure-Patient Inst. Decision time for Depature: 12:52 Referrals: RAFI CASTILLO DO (PCP) Primary Care Physician ANDRE CARIAS DO (Family) Primary Care Physician Patient Instructions: Cellulitis (Skin Infection), Adult (DC) Add. Discharge Instructions: All discharge instructions reviewed with patient and/or family. Voiced understanding. Take medications as directed. Follow-up with your doctor this week for recheck and further evaluation. Return for worse pain, fever, vomiting, weakness, breathing problems or other concerns as needed. Scripts Sulfamethoxazole/Trimethoprim (Sulfamethoxazole-Tmp Ds Tablet) 1 Each Tablet 1 EACH PO BID, #20 TAB 0 Refills Prov: SHEFALI OTTO MD 05/02/17 SHEFALI OTTO MD May 02, 2017 11:37
[2017-05-02 11:55] LABS: BASOPHILS % (AUTO) 0 % (0-10); EOSINOPHILS # (AUTO) 0.2 10^3/uL (0.0-0.3); EOSINOPHILS % (AUTO) 4 % (0-10); HEMATOCRIT 37 % (35-52); LYMPHOCYTES # (AUTO) 1.6 X 10^3 (1.0-4.0); LYMPHOCYTES % (AUTO) 32 % (12-44); MEAN CORPUSCULAR HEMOGLOBIN 32 PG (25-34); MEAN CORPUSCULAR HGB CONC 35 G/DL (32-36); MEAN CORPUSCULAR VOLUME 90 FL (80-99); MEAN PLATELET VOLUME 10.7 FL (7.4-10.4); MONOCYTES # (AUTO) 0.5 X 10^3 (0.0-1.0); MONOCYTES % (AUTO) 11 % (0-12); NEUTROPHILS # (AUTO) 2.7 X 10^3 (1.8-7.8); NEUTROPHILS % (AUTO) 53 % (42-75); PLATELET COUNT 255 10^3/uL (130-400); RED BLOOD COUNT 4.12 10^6/uL (4.35-5.85); RED CELL DISTRIBUTION WIDTH 13.9 % (10.0-14.5); WHITE BLOOD COUNT 5.1 10^3/uL (4.3-11.0)
[2017-05-02 12:13] LABS: BUN/CREATININE RATIO 14; CALCIUM 8.7 MG/DL (8.5-10.1); CARBON DIOXIDE 24 MMOL/L (21-32); CHLORIDE 96 MMOL/L (98-107); CREATININE SERUM 0.83 MG/DL (0.60-1.30); GFR ESTIMATED > 60; GLUCOSE 108 MG/DL (70-105); POTASSIUM 3.1 MMOL/L (3.6-5.0); SODIUM 133 MMOL/L (135-145)
[2017-05-02] MEDS ORDERED: SULF-222 PO (12:53)
[2017-05-02 12:55] VITALS: BP 129/77
--- NOTE | 2017-05-02 13:24 | Diagnostic Imaging Report ---
PROCEDURE: US right lower extremity venous. TECHNIQUE: Multiple real-time grayscale images were obtained over the right lower extremity in various projections. Additional duplex Doppler and color Doppler images were also obtained. INDICATION: Leg pain and swelling There are no prior studies available for comparison. There is generally good blood flow and compressibility at all levels of the deep venous system of the right lower extremity. There is no sign of a deep venous stenosis. IMPRESSION: 1. There is no for deep venous thrombosis of the right lower extremity. Dictated by: Dictated on workstation # [id number]
--- OUTSIDE RECORDS SUMMARY | 2017-05-03 11:18 | XMS REPORT ---
Author Author ALEXANDER CH Organization [facility] Address [address] [place] [address] Care Team Providers Care Aircraft Delivery Checker Name Role Phone ALEXANDER CH Unavailable PROBLEMS Type Condition ICD9-CM Code [id number] Code Onset Dates Condition Status SNOMED Code Problem Moderate episode of recurrent major depressive disorder F33.1 Active 007877962 Problem Major depressive disorder, recurrent severe without psychotic features F33.2 Active 86533264 Problem Substance abuse F19.10 Active 48875675 Problem Sedative, hypnotic or anxiolytic dependence, 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 Active 278967952 Problem Essential hypertension I10 Active 64175762 Problem Addiction to drug F19.20 Active 7813198 Problem Depressive disorder, not elsewhere classified F32.9 Active 97381868 ALLERGIES Unknown Allergies SOCIAL HISTORY No smoking Hx information available PLAN OF CARE VITAL SIGNS MEDICATIONS Unknown Medications RESULTS No Results PROCEDURES No Known procedures IMMUNIZATIONS No Known Immunizations
--- OUTSIDE RECORDS SUMMARY | 2017-05-03 11:18 | XMS REPORT ---
Author Author LOULOU ORTIZ Organization [facility] Address [address] [place] [address] Care Team Providers Care Sewer Repairer Name Role Phone LOULOU ORTIZ Unavailable PROBLEMS Type Condition ICD9-CM Code [id number] Code Onset Dates Condition Status SNOMED Code Problem Moderate episode of recurrent major depressive disorder F33.1 Active 598682347 Problem Major depressive disorder, recurrent severe without psychotic features F33.2 Active 40012659 Problem Substance abuse F19.10 Active 75785701 Problem Sedative, hypnotic or anxiolytic dependence, 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 Active 155876353 Problem Essential hypertension I10 Active 37370789 Problem Addiction to drug F19.20 Active 8280853 Problem Depressive disorder, not elsewhere classified F32.9 Active 49611110 ALLERGIES No Information SOCIAL HISTORY Never Assessed PLAN OF CARE VITAL SIGNS MEDICATIONS Unknown Medications RESULTS No Results PROCEDURES No Known procedures IMMUNIZATIONS No Known Immunizations MEDICAL (GENERAL) HISTORY Type Description Date Medical History Depression Medical History Anxiety Medical History Fibroid tumor removed Medical History Substance abuse history Medical History hypertension Surgical History appendectomy 2012 Surgical History Fibroid tumor removed 11/16/15 Surgical History Tubal Ligation 12/2015 Surgical History Dialtion and Curretage 12/2015 Hospitalization History Surgery
--- OUTSIDE RECORDS SUMMARY | 2017-05-03 11:18 | XMS REPORT ---
Author Author ALEXANDER CH Organization [facility] Address [address] [place] [address] Care Team Providers Care Choke Reamer Name Role Phone ALEXANDER CH Unavailable PROBLEMS Type Condition ICD9-CM Code [id number] Code Onset Dates Condition Status SNOMED Code Problem Moderate episode of recurrent major depressive disorder F33.1 Active 375424835 Problem Major depressive disorder, recurrent severe without psychotic features F33.2 Active 63140762 Problem Substance abuse F19.10 Active 72033043 Problem Sedative, hypnotic or anxiolytic dependence, 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 Active 886389777 Problem Essential hypertension I10 Active 99289151 Problem Addiction to drug F19.20 Active 1550918 Problem Depressive disorder, not elsewhere classified F32.9 Active 52073213 ALLERGIES No Information SOCIAL HISTORY Never Assessed PLAN OF CARE Activity Details Follow Up 1 Week Reason: VITAL SIGNS MEDICATIONS Unknown Medications RESULTS No Results PROCEDURES Procedure Date Ordered Result Body Site Alcohol and/or drug services Mar 14, 2016 IMMUNIZATIONS No Known Immunizations MEDICAL (GENERAL) HISTORY Type Description Date Medical History Depression Medical History Anxiety Medical History Fibroid tumor removed Medical History Substance abuse history Medical History hypertension Surgical History appendectomy 2012 Surgical History Fibroid tumor removed 11/16/15 Surgical History Tubal Ligation 12/2015 Surgical History Dialtion and Curretage 12/2015 Hospitalization History Surgery
--- OUTSIDE RECORDS SUMMARY | 2017-05-03 11:19 | XMS REPORT ---
Author Author SUNNY CHONG [facility] Address [address] [place] [address] Care Team Providers Care Stratigraphy Teacher Name Role Phone SUNNY CHONG Unavailable PROBLEMS Type Condition ICD9-CM Code [id number] Code Onset Dates Condition Status SNOMED Code Problem Essential hypertension I10 Active 29065046 Problem Major depressive disorder, recurrent severe without psychotic features F33.2 Active 26048907 Problem Substance abuse F19.10 Active 66393240 Problem Sedative, hypnotic or anxiolytic dependence, 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 Active 796130437 Problem Moderate episode of recurrent major depressive disorder F33.1 Active 471099788 Problem Addiction to drug F19.20 Active 6897161 Problem Depressive disorder, not elsewhere classified F32.9 Active 18811418 ALLERGIES Unknown Allergies SOCIAL HISTORY No smoking Hx information available PLAN OF CARE VITAL SIGNS MEDICATIONS Unknown Medications RESULTS No Results PROCEDURES No Known procedures IMMUNIZATIONS No Known Immunizations
--- OUTSIDE RECORDS SUMMARY | 2017-05-03 11:19 | XMS REPORT ---
Author Author ALEXANDER CH Organization [facility] Address [address] [place] [address] Care Team Providers Care Stoneworking Belt Sander Name Role Phone ALEXANDER CH Unavailable PROBLEMS Type Condition ICD9-CM Code [id number] Code Onset Dates Condition Status SNOMED Code Problem Moderate episode of recurrent major depressive disorder F33.1 Active 669703759 Problem Major depressive disorder, recurrent severe without psychotic features F33.2 Active 45552970 Problem Substance abuse F19.10 Active 33933381 Problem Sedative, hypnotic or anxiolytic dependence, 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 Active 119488646 Problem Essential hypertension I10 Active 37206003 Problem Addiction to drug F19.20 Active 4783758 Problem Depressive disorder, not elsewhere classified F32.9 Active 50385320 ALLERGIES No Information SOCIAL HISTORY Never Assessed PLAN OF CARE Activity Details Follow Up 1 Week Reason: VITAL SIGNS MEDICATIONS Unknown Medications RESULTS No Results PROCEDURES Procedure Date Ordered Result Body Site Alcohol and/or drug services Mar 21, 2016 IMMUNIZATIONS No Known Immunizations MEDICAL (GENERAL) HISTORY Type Description Date Medical History Depression Medical History Anxiety Medical History Fibroid tumor removed Medical History Substance abuse history Medical History hypertension Surgical History appendectomy 2012 Surgical History Fibroid tumor removed 11/16/15 Surgical History Tubal Ligation 12/2015 Surgical History Dialtion and Curretage 12/2015 Hospitalization History Surgery
--- OUTSIDE RECORDS SUMMARY | 2017-05-03 11:19 | XMS REPORT ---
Author Author SUNNY CHONG [facility] Address [address] [place] [address] Care Team Providers Care Powder Coater Name Role Phone SUNNY CHONG Unavailable PROBLEMS Type Condition ICD9-CM Code [id number] Code Onset Dates Condition Status SNOMED Code Problem Essential hypertension I10 Active 70311327 Problem Major depressive disorder, recurrent severe without psychotic features F33.2 Active 78309001 Problem Substance abuse F19.10 Active 90229361 Problem Sedative, hypnotic or anxiolytic dependence, 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 Active 750896766 Problem Moderate episode of recurrent major depressive disorder F33.1 Active 805833339 Problem Addiction to drug F19.20 Active 2454425 Problem Depressive disorder, not elsewhere classified F32.9 Active 95066878 ALLERGIES Unknown Allergies SOCIAL HISTORY No smoking Hx information available PLAN OF CARE VITAL SIGNS MEDICATIONS Unknown Medications RESULTS No Results PROCEDURES No Known procedures IMMUNIZATIONS No Known Immunizations
--- OUTSIDE RECORDS SUMMARY | 2017-05-03 11:19 | XMS REPORT ---
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
--- OUTSIDE RECORDS SUMMARY | 2017-05-03 11:19 | XMS REPORT ---
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
--- OUTSIDE RECORDS SUMMARY | 2017-05-03 11:20 | XMS REPORT ---
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
--- OUTSIDE RECORDS SUMMARY | 2017-05-03 11:20 | XMS REPORT ---
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
--- OUTSIDE RECORDS SUMMARY | 2017-05-03 11:21 | XMS REPORT ---
Author Author ALEXANDER CH Organization [facility] Address [address] [place] [address] Care Team Providers Care Sheet Metal Shop Foreman Name Role Phone ALEXANDER CH Unavailable PROBLEMS Type Condition ICD9-CM Code UCC02-BK Code Onset Dates Condition Status SNOMED Code Problem Essential hypertension I10 Active 75100214 Problem Major depressive disorder, recurrent severe without psychotic features F33.2 Active 01644424 Problem Substance abuse F19.10 Active 03952162 Problem Sedative, hypnotic or anxiolytic dependence, 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 Active 848854767 Problem Moderate episode of recurrent major depressive disorder F33.1 Active 138895261 Problem Addiction to drug F19.20 Active 4275214 Problem Depressive disorder, not elsewhere classified F32.9 Active 35459725 ALLERGIES Unknown Allergies SOCIAL HISTORY No smoking Hx information available PLAN OF CARE VITAL SIGNS MEDICATIONS Unknown Medications RESULTS No Results PROCEDURES No Known procedures IMMUNIZATIONS No Known Immunizations
--- OUTSIDE RECORDS SUMMARY | 2017-05-03 11:21 | XMS REPORT ---
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
--- OUTSIDE RECORDS SUMMARY | 2017-05-03 11:22 | XMS REPORT ---
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
--- OUTSIDE RECORDS SUMMARY | 2017-05-03 11:22 | XMS REPORT ---
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
--- OUTSIDE RECORDS SUMMARY | 2017-05-03 11:24 | XMS REPORT ---
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
--- OUTSIDE RECORDS SUMMARY | 2017-05-03 11:25 | XMS REPORT ---
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
--- OUTSIDE RECORDS SUMMARY | 2017-05-03 11:25 | XMS REPORT ---
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
--- OUTSIDE RECORDS SUMMARY | 2017-05-03 11:25 | XMS REPORT ---
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
--- OUTSIDE RECORDS SUMMARY | 2017-05-03 11:25 | XMS REPORT ---
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
--- OUTSIDE RECORDS SUMMARY | 2017-05-03 11:26 | XMS REPORT ---
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
--- OUTSIDE RECORDS SUMMARY | 2017-05-03 11:26 | XMS REPORT ---
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 Active 347775642 Problem Essential hypertension I10 Active 13213180 Problem Addiction to drug F19.20 Active 5985742 Problem Depressive disorder, not elsewhere classified F32.9 Active 59686602 ALLERGIES Unknown Allergies SOCIAL HISTORY No smoking Hx information available PLAN OF CARE VITAL SIGNS MEDICATIONS Medication Instructions Dosage Frequency Start Date End Date Duration Status Lisinopril-Hydrochlorothiazide 20-25 MG Orally Once a day 1 tablet 24h Jan, 30 day(s) Active Paxil 30 MG Orally Once a day 2 tablets 24h Dec, 30 day(s) Active RESULTS No Results PROCEDURES No Known procedures IMMUNIZATIONS No Known Immunizations
--- OUTSIDE RECORDS SUMMARY | 2017-05-03 11:26 | XMS REPORT ---
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 Active 045486349 Problem Essential hypertension I10 Active 32004405 Problem Addiction to drug F19.20 Active 9573758 Problem Depressive disorder, not elsewhere classified F32.9 Active 12007869 ALLERGIES No Information SOCIAL HISTORY Never Assessed PLAN OF CARE Activity Details Follow Up 2 - 3 Days Reason: VITAL SIGNS MEDICATIONS Unknown Medications RESULTS No Results PROCEDURES Procedure Date Ordered Result Body Site Alcohol and/or drug services Mar 18, 2016 IMMUNIZATIONS No Known Immunizations MEDICAL (GENERAL) HISTORY Type Description Date Medical History Depression Medical History Anxiety Medical History Fibroid tumor removed Medical History Substance abuse history Medical History hypertension Surgical History appendectomy 2012 Surgical History Fibroid tumor removed 11/16/15 Surgical History Tubal Ligation 12/2015 Surgical History Dialtion and Curretage 12/2015 Hospitalization History Surgery
== END 2017-05-02 12:56 | disposition home or self-care (01) ==
LOC: EDUNIT# 10:55 → ER 10:56
DX: L03.115 Cellulitis of right lower limb (principal); F41.9 Anxiety disorder, unspecified; F32.9 Major depressive disorder, single episode, unspecified; I10 Essential (primary) hypertension; F17.210 Nicotine dependence, cigarettes, uncomplicated; Z90.49 Acquired absence of other specified parts of digestive tract; Z87.19 Personal history of other diseases of the digestive system; Z87.42 Personal history of other diseases of the female genital tract; Z88.0 Allergy status to penicillin; Z88.1 Allergy status to other antibiotic agents
CPT/HCPCS: 36415; 80048; 85025; 85379; 86141; 99283

== ENCOUNTER 2017-06-02 13:40 | Emergency (ER) | payer MEDICAID ==
[~2017-06-02] VITALS: Ht 170.2 cm; Wt 79.4 kg
[~2017-06-02 13:40] MED LIST changes: +SULF-222 PO
[2017-06-02] MEDS ORDERED: ASPIRIN 81 MG CHEW (CHILDREN'S ASA) PO ONE (13:45)
[2017-06-02] MEDS ORDERED: NITROGLYCERIN 0.4 MG SL TABS BTL 25'S SL ONE (13:50)
[2017-06-02] MEDS ORDERED: NITROGLYCERIN 0.4 MG SL TABS BTL 25'S SL PRN (14:00)
[2017-06-02] MEDS ORDERED: KETOROLAC 30 MG/ML VIAL IVP ONE (14:00)
[2017-06-02] MEDS ORDERED: LORazepam INJ 2 MG/ML (ATIVAN) VIAL IVP ONE (14:00)
[2017-06-02 14:04] LABS: BASOPHILS # (AUTO) 0.1 10^3/uL (0.0-0.1); BASOPHILS % (AUTO) 1 % (0-10); EOSINOPHILS # (AUTO) 0.2 10^3/uL (0.0-0.3); EOSINOPHILS % (AUTO) 2 % (0-10); HEMATOCRIT 41 % (35-52); HEMOGLOBIN 14.3 G/DL (11.5-16.0); LYMPHOCYTES # (AUTO) 4.7 X 10^3 (1.0-4.0); LYMPHOCYTES % (AUTO) 37 % (12-44); MEAN CORPUSCULAR HEMOGLOBIN 32 PG (25-34); MEAN CORPUSCULAR HGB CONC 35 G/DL (32-36); MEAN CORPUSCULAR VOLUME 91 FL (80-99); MEAN PLATELET VOLUME 10.2 FL (7.4-10.4); MONOCYTES # (AUTO) 0.9 X 10^3 (0.0-1.0); MONOCYTES % (AUTO) 7 % (0-12); NEUTROPHILS # (AUTO) 7.1 X 10^3 (1.8-7.8); NEUTROPHILS % (AUTO) 55 % (42-75); PLATELET COUNT 408 10^3/uL (130-400); RED BLOOD COUNT 4.53 10^6/uL (4.35-5.85); RED CELL DISTRIBUTION WIDTH 13.8 % (10.0-14.5)
[2017-06-02 14:17] LABS: PROTHROMBIN TIME PATIENT 12.8 SEC (12.2-14.7)
[2017-06-02 14:27] LABS: ALANINE AMINOTRANSFERASE 32 U/L (0-55); ALBUMIN 4.3 GM/DL (3.2-4.5); ALKALINE PHOSPHATASE 80 U/L (40-136); BILIRUBIN,TOTAL 0.3 MG/DL (0.1-1.0); BUN/CREATININE RATIO 15; CALCIUM 9.5 MG/DL (8.5-10.1); CARBON DIOXIDE 26 MMOL/L (21-32); CHLORIDE 101 MMOL/L (98-107); CREATININE SERUM 0.85 MG/DL (0.60-1.30); GFR ESTIMATED > 60; GLUCOSE 96 MG/DL (70-105); MAGNESIUM 2.5 MG/DL (1.8-2.4); POTASSIUM 3.3 MMOL/L (3.6-5.0); SODIUM 136 MMOL/L (135-145); TOTAL PROTEIN 7.7 GM/DL (6.4-8.2)
--- NOTE | 2017-06-02 14:32 | Diagnostic Imaging Report ---
INDICATION: Chest pain. EXAMINATION: Portable chest at 2:03 PM. FINDINGS: The heart and mediastinum are normal. The lungs are clear. There are no effusions or pneumothoraces. IMPRESSION: Negative chest. Dictated by: Dictated on workstation # [id number]
[2017-06-02 14:36] LABS: MYOGLOBIN SERUM 25.7 NG/ML (10.0-92.0)
[2017-06-02 15:30] LABS: AMPHETAMINE SCREEN, URINE NEGATIVE (NEGATIVE); BARBITURATE SCREEN URINE NEGATIVE (NEGATIVE); BENZODIAZEPINES SCREEN URINE POSITIVE (NEGATIVE); CANNABINOID SCREEN, URINE NEGATIVE (NEGATIVE); COCAINE SCREEN URINE NEGATIVE (NEGATIVE); METHADONE STAT NEGATIVE (NEGATIVE); METHAMPHETAMINE SCREEN URINE S NEGATIVE (NEGATIVE); OPIATE SCREEN URINE NEGATIVE (NEGATIVE); OXYCODONE STAT NEGATIVE (NEGATIVE); PROPOXYPHENE STAT NEGATIVE (NEGATIVE); TRICYCLIC ANTIDEPRESSANTS SCRE NEGATIVE (NEGATIVE)
[2017-06-02] MEDS ORDERED: fentaNYL INJECTION 100 MCG/2 ML AMP IVP ONE (15:30)
[2017-06-02] MEDS ORDERED: ANTACID SUSP 30 ML UDC (MYLANTA) PO ONE (15:45)
[2017-06-02] MEDS ORDERED: LIDOCAINE 2% VISCOUS 15 ML UDC PO ONE (15:45)
[2017-06-02] MEDS ORDERED: ONDANSETRON 4 MG/2 ML (SDV) Z0FRAN IVP ONE (15:45)
--- NOTE | 2017-06-02 15:51 | ED Chest Pain ---
General Chief Complaint: Chest Pain Stated Complaint: CP Nursing Triage Note: PT CO OF CHEST PAIN AMBULATED TO ROOM 8 PT TO MONITOR. STARTED 30MIN CAR RECORD CLERK Nursing Sepsis Screen: No Definite Risk Source: patient Exam Limitations: no limitations History of Present Illness Date Seen by Provider: Jun 02, 2017 Time Seen by Provider: 13:45 Initial Comments This 47-year-old woman presents to the emergency room with fairly sudden onset of generalized chest pain just prior to arrival. She seems extremely anxious and is having difficulty providing history because she is crying. Pain is reproducible with palpation and she does have pain with inspiration. She rest when symptoms started. She denies any history of heart or lung problems. She has nausea without vomiting. She denies any drug or alcohol use. Allergies and Home Medications Allergies Coded Allergies: amoxicillin (Verified Allergy, Unknown, 04/27/16) potassium clavulanate (Verified Allergy, Unknown, 04/27/16) Home Medications Clonidine HCl 0.1 Mg Tablet, 0.1 MG PO BID PRN for BLOOD PRESSURE, (Reported) PATIENT WILL TAKE IF DIASTOLIC IS 109 Mirtazapine 30 Mg Tablet, 30 MG PO HS, (Reported) Paroxetine HCl 30 Mg Tablet, 60 MG PO DAILY, (Reported) TAKES 2 (30 MG) TABLETS Sulfamethoxazole/Trimethoprim 1 Each Tablet, 1 EACH PO BID Prescribed by: SHEFALI OTTO on 05/02/17 1253 Patient Home Medication List Home Medication List Reviewed: Yes Review of Systems Constitutional: no symptoms reported EENTM: No Symptoms Reported Respiratory: See HPI Cardiovascular: See HPI Gastrointestinal: See HPI Genitourinary: No Symptoms Reported Musculoskeletal: see HPI Skin: no symptoms reported Psychiatric/Neurological: See HPI, Anxiety Endocrine: No Symptoms Reported Hematologic/Lymphatic: No Symptoms Reported Past Ykdwpco-Pxjftm-Acisuv Hx Patient Social History Alcohol Use: Rarely Uses Recreational Drug Use: Yes (HX OF BENZOS, METHADONE) Smoking Status: Current Everyday Smoker Type Used: Cigarettes 2nd Hand Smoke Exposure: Yes Recent Foreign Travel: No Contact w/Someone Who Travel: No Recent Infectious Disease Expo: No Recent Hopitalizations: No Physical Abuse: No Sexual Abuse: No Immunizations Up To Date Tetanus Booster (TDap): Unknown PED Vaccines UTD: No Seasonal Allergies Seasonal Allergies: No Surgeries History of Surgeries: Yes Surgeries: Appendectomy Respiratory History of Respiratory Disorde: No Currently Using CPAP: No Currently Using BIPAP: No Cardiovascular History of Cardiac Disorders: Yes Cardiac Disorders: Hypertension Neurological History of Neurological Disord: No Reproductive System : No Hx Reproductive Disorders: Yes Sexually Transmitted Disease: No HIV/AIDS: No Female Reproductive Disorders: Menstrual Problems, Ovarian Cyst Genitourinary History of Genitourinary Disor: No Gastrointestinal History of Gastrointestinal Di: Yes Gastrointestinal Disorders: Gall Bladder Disease (gallstones) Musculoskeletal History of Musculoskeletal Dis: No Endocrine History of Endocrine Disorders: No HEENT History of HEENT Disorders: No Cancer History of Cancer: No Psychosocial History of Psychiatric Problem: Yes Behavioral Health Disorders: Anxiety, Depression Suicide Risk Score: 0 Integumentary History of Skin or Integumenta: No Blood Transfusions History of Blood Disorders: No Adverse Reaction to a Blood Tr: No Family Medical History Significant Family History: No Pertinent Family Hx Family Medial History: Alcoholism G8 BROTHER ( with liver failure) Arthritis G8 BROTHER (rhoumatoid arthritis, mono multiplex neuropathy) Physical Exam Vital Signs Vital Signs - First Documented 06/02/17 06/02/17 13:44 13:45 Temp 98.7 Pulse 96 Resp 18 B/P (MAP) 141/95 (110) Pulse Ox 97 O2 Delivery Room Air O2 Flow Rate 2.00 Capillary Refill : Less Than 3 Seconds General Appearance: WD/WN, Anxious, Moderate Distress HEENT: PERRL/EOMI, Normal ENT Inspection Neck: Normal Inspection Respiratory: Lungs Clear, Normal Breath Sounds, No Accessory Muscle Use, No Respiratory Distress, Other (anterior chest wall tender to palpation) Cardiovascular: Regular Rate, Rhythm, No Edema, No Murmur, Normal Peripheral Pulses Gastrointestinal: Normal Bowel Sounds, Soft, Tenderness (mild to moderate in the left upper quadrant and epigastrium) Extremity: Normal Inspection, Non Tender, No Calf Tenderness, No Pedal Edema, Other (negative Sarah) Neurologic/Psychiatric: Alert, Oriented x3, No Motor/Sensory Deficits, rigging slinger II- XII Norm as Tested, Other (very anxious) Skin: Normal Color, Warm/Dry Progress/Results/Core Measures Results/Orders Lab Results Laboratory Tests Test 06/02/17 13:57 06/02/17 15:05 06/02/17 16:19 Range/Units White Blood Count 13.0 H 4.3-11.0 10^3/uL Red Blood Count 4.53 4.35-5.85 10^6/uL Hemoglobin 14.3 11.5-16.0 G/DL Hematocrit 41 35-52 % Mean Corpuscular Volume 91 80-99 FL Mean Corpuscular Hemoglobin 32 25-34 PG Mean Corpuscular Hemoglobin Concent 35 32-36 G/DL Red Cell Distribution Width 13.8 10.0-14.5 % Platelet Count 408 H 130-400 10^3/uL Mean Platelet Volume 10.2 7.4-10.4 FL Neutrophils (%) (Auto) 55 42-75 % Lymphocytes (%) (Auto) 37 12-44 % Monocytes (%) (Auto) 7 0-12 % Eosinophils (%) (Auto) 2 0-10 % Basophils (%) (Auto) 1 0-10 % Neutrophils # (Auto) 7.1 1.8-7.8 X 10^3 Lymphocytes # (Auto) 4.7 H 1.0-4.0 X 10^3 Monocytes # (Auto) 0.9 0.0-1.0 X 10^3 Eosinophils # (Auto) 0.2 0.0-0.3 10^3/uL Basophils # (Auto) 0.1 0.0-0.1 10^3/uL Prothrombin Time 12.8 12.2-14.7 SEC INR Comment 1.0 0.8-1.4 Activated Partial Thromboplast Time 28 24-35 SEC D-Dimer 0.27 0.00-0.49 UG/ML Sodium Level 136 135-145 MMOL/L Potassium Level 3.3 L 3.6-5.0 MMOL/L Chloride Level 101 98-107 MMOL/L Carbon Dioxide Level 26 21-32 MMOL/L Anion Gap 9 5-14 MMOL/L Blood Urea Nitrogen 13 7-18 MG/DL Creatinine 0.85 0.60-1.30 MG/DL Estimat Glomerular Filtration Rate > 60 BUN/Creatinine Ratio 15 Glucose Level 96 70-105 MG/DL Calcium Level 9.5 8.5-10.1 MG/DL Magnesium Level 2.5 H 1.8-2.4 MG/DL Total Bilirubin 0.3 0.1-1.0 MG/DL Aspartate Amino Transf (AST/SGOT) 22 5-34 U/L Alanine Aminotransferase (ALT/SGPT) 32 0-55 U/L Alkaline Phosphatase 80 40-136 U/L Myoglobin 25.7 10.0-92.0 NG/ML Troponin I < 0.30 < 0.30 <0.30 NG/ML Total Protein 7.7 6.4-8.2 GM/DL Albumin 4.3 3.2-4.5 GM/DL Lipase 22 8-78 U/L Serum Alcohol < 10 <10 MG/DL Urine Opiates Screen NEGATIVE NEGATIVE Urine Oxycodone Screen NEGATIVE NEGATIVE Urine Methadone Screen NEGATIVE NEGATIVE Urine Propoxyphene Screen NEGATIVE NEGATIVE Urine Barbiturates Screen NEGATIVE NEGATIVE Ur Tricyclic Antidepressants Screen NEGATIVE NEGATIVE Urine Phencyclidine Screen NEGATIVE NEGATIVE Urine Amphetamines Screen NEGATIVE NEGATIVE Urine Methamphetamines Screen NEGATIVE NEGATIVE Urine Benzodiazepines Screen POSITIVE H NEGATIVE Urine Cocaine Screen NEGATIVE NEGATIVE Urine Cannabinoids Screen NEGATIVE NEGATIVE My Orders Orders - TRACEE SURESH MD Nitroglycerin 0.4 Mg Btl 25's (Nitrostat (06/02/17 14:00) Ketorolac Injection (Toradol Injection) (06/02/17 14:00) Lorazepam Injection (Ativan Injection) (06/02/17 14:00) Drug Screen Stat (Urine) (06/02/17 13:54) Fibrin Degradation Products (06/02/17 15:03) Lipase (06/02/17 15:03) Fentanyl Injection (Sublimaze Injection (06/02/17 15:30) Lidocaine 2% Viscous 15 Ml (Xylocaine Vi (06/02/17 15:45) Antacid Suspension (Mylanta Suspension (06/02/17 15:45) Ondansetron Injection (Zofran Injectio (06/02/17 15:45) Troponin I (06/02/17 16:13) Medications Given in ED Current Medications Medications Dose Ordered Sig/Annalisa Route Start Time Stop Time Status Last Admin Dose Admin Al Hydrox/Mg Hydrox/Simethicone 30 ml ONCE ONCE PO 06/02/17 15:45 06/02/17 15:46 DC 06/02/17 15:51 30 ML Aspirin 324 mg ONCE ONCE PO 06/02/17 13:45 06/02/17 13:47 DC 06/02/17 13:52 324 MG Ketorolac Tromethamine 15 mg ONCE ONCE IVP 06/02/17 14:00 06/02/17 14:01 DC 06/02/17 13:59 15 MG Lidocaine HCl 15 ml ONCE ONCE PO 06/02/17 15:45 06/02/17 15:46 DC 06/02/17 15:50 15 ML Lorazepam 1 mg ONCE ONCE IVP 06/02/17 14:00 06/02/17 14:01 DC 06/02/17 13:59 1 MG Nitroglycerin 0.4 mg UD PRN SL 06/02/17 14:00 06/02/17 13:58 0.4 MG Ondansetron HCl 8 mg ONCE ONCE IVP 06/02/17 15:45 06/02/17 15:46 DC 06/02/17 15:54 8 MG Vital Signs/I&O Vital Sign - Last 12Hours 06/02/17 06/02/17 06/02/17 13:44 13:44 13:45 Temp 98.7 Pulse 96 Resp 18 B/P (MAP) 141/95 (110) Pulse Ox 97 O2 Delivery Room Air Nasal Cannula O2 Flow Rate 2.00 Blood Pressure Mean: 110 Progress Note #1: Time: 15:46 Progress Note Patient was seen and examined on presentation. She was extremely anxious and tearful to the degree that she was having trouble giving a history. She described pain throughout her chest that was nonspecific in nature that started shortly before presentation. EKG and troponin were negative. D-dimer was normal. Chest x-ray was also normal. Patient had no significant response to nitroglycerin times one. Ativan and Toradol were given which also had insufficient therapeutic response. She refused narcotics. On reexamination patient was found to have some epigastric tenderness. She still had chest pain reproducible with palpation. A GI cocktail and Zofran are being administered now. Progress Note #2: Time: 16:15 Progress Note Patient's pain resolved after GI cocktail. On reexamination she has minimal tenderness in the left upper quadrant. We will draw a repeat troponin and discharge home as long as the delta troponin is normal. Progress Note #3: Time: 17:15 Progress Note Delta troponin was normal. Patient remained pain free. She was dismissed home with outpatient follow-up. ECG Initial ECG Impression Date: Jun 02, 2017 Initial ECG Impression Time: 13:44 Initial ECG Rate: 92 Initial ECG Rhythm: Normal Sinus Initial ECG Intervals: Normal Initial ECG Impression: Normal Comment Normal sinus rhythm with no ST elevation or depression. No abnormal intervals or axis deviation. Diagnostic Imaging Diagonstic Imaging: Xray Plain Films/CT/US/NM/MRI: chest Comments Chest x-ray viewed by me. Report reviewed. See report below: NAME: ALVINO [facility]ANDA [facility] REC#: [id number] PT STATUS: REG ER : 1970 PHYSICIAN: BRIANNA POSADA APRN ADMIT DATE: 06/02/17/ER Signed Date of Exam:06/02/17 CHEST 1 VIEW, AP/PA ONLY INDICATION: Chest pain. EXAMINATION: Portable chest at 2:03 PM. FINDINGS: The heart and mediastinum are normal. The lungs are clear. There are no effusions or pneumothoraces. IMPRESSION: Negative chest. Dictated by: Dictated on workstation # [id number] Dict: 06/02/17 1414 Trans: 06/02/17 1445 [id number] Interpreted by: SHEFALI JAMES MD Electronically signed by: SHEFALI JAMES MD 06/02/17 1445 Departure Impression Impression: Primary Impression: Atypical chest pain Additional Impressions: Epigastric pain Nausea Anxiety Disposition: 01 HOME, SELF-CARE Condition: Improved Departure-Patient Inst. Decision time for Depature: 16:40 Referrals: RAFI CASTILLO DO (PCP) Primary Care Physician ANDRE CARIAS DO (Family) Primary Care Physician Patient Instructions: Acute Abdomen (Belly Pain), Chest Pain That Is Not Caused by the Heart (DC) Add. Discharge Instructions: Follow-up with your primary care provider soon as possible. If symptoms worsen , return to care. Use omeprazole daily as prescribed. Avoid the following: Eating large meals, eating close to bedtime, caffeine, carbonation, chocolate, alcohol, tobacco products, tomato products, citrus fruits and juices, spicy foods, fatty or greasy foods, NSAID medication such as ibuprofen or naproxen, mints, or anything else you go irritates your stomach. All discharge instructions reviewed with patient and/or family. Voiced understanding. Scripts Omeprazole (Omeprazole) 20 Mg Capsule. 20 MG PO DAILY, #30 CAP Prov: TRACEE SURESH MD 06/02/17 Copy Copies To 1: RAFI CASTILLO JOSHUA T MD Jun 02, 2017 15:51
[2017-06-02] MEDS ORDERED: OMEP20CA12 PO (17:18)
[2017-06-02 17:38] VITALS: BP 114/83
== END 2017-06-02 17:41 | disposition home or self-care (01) ==
LOC: EDUNIT# 13:40 → ER 13:41
DX: R07.89 Other chest pain (principal); R10.13 Epigastric pain; R11.0 Nausea; F41.9 Anxiety disorder, unspecified; F32.9 Major depressive disorder, single episode, unspecified; I10 Essential (primary) hypertension; F15.90 Other stimulant use, unspecified, uncomplicated; F17.210 Nicotine dependence, cigarettes, uncomplicated; Z90.49 Acquired absence of other specified parts of digestive tract; Z87.19 Personal history of other diseases of the digestive system; Z87.42 Personal history of other diseases of the female genital tract; Z88.1 Allergy status to other antibiotic agents
CPT/HCPCS: 36415; 71045; 80053; 80306; 80320; 83690; 83735; 83874; 84484; 85025; 85379; 85610; 85730; 93005; 93041; 96374; 96375

== ENCOUNTER 2017-07-27 15:33 | Inpatient (IN) | payer MEDICAID ==
[~2017-07-27] VITALS: Ht 172.7 cm; Wt 96.6 kg
[~2017-07-27 15:33] MED LIST changes: -LISI1TAB10; +OMEP20CA12 PO
[2017-07-27] MEDS ORDERED: ASPIRIN 81 MG CHEW (CHILDREN'S ASA) PO ONE (15:45)
[2017-07-27] MEDS ORDERED: ONDANSETRON 4 MG/2 ML (SDV) Z0FRAN IVP ONE (15:45)
[2017-07-27] MEDS ORDERED: LIDOCAINE 2% VISCOUS 15 ML UDC PO ONE (15:45)
[2017-07-27] MEDS ORDERED: NITROGLYCERIN 0.4 MG SL TABS BTL 25'S SL PRN (15:45)
[2017-07-27] MEDS ORDERED: ANTACID SUSP 30 ML UDC (MYLANTA) PO ONE (15:45)
--- OUTSIDE RECORDS SUMMARY | 2017-07-27 15:45 | XMS REPORT ---
Author Author LOULOU ORTIZ Organization [facility] Address [address] [place] [address] Care Team Providers Care Under Presser Name Role Phone LOULOU ORTIZ Unavailable PROBLEMS Type Condition ICD9-CM Code ZZB75-CS Code Onset Dates Condition Status SNOMED Code Problem Moderate episode of recurrent major depressive disorder F33.1 Active 221140981 Problem Major depressive disorder, recurrent severe without psychotic features F33.2 Active 16820890 Problem Substance abuse F19.10 Active 03381578 Problem Sedative, hypnotic or anxiolytic dependence, 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 Active 720972213 Problem Essential hypertension I10 Active 38511616 Problem Addiction to drug F19.20 Active 0593196 Problem Depressive disorder, not elsewhere classified F32.9 Active 88928001 ALLERGIES No Information ENCOUNTERS Encounter Location Date Diagnosis [facility] [address] [place] [address] Apr, Sedative, hypnotic or anxiolytic dependence, 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 [facility] [id number] [place] [address] 12829- 6386 Mar, [facility] [id number] [place] [address] 98405- 5598 Oct, [facility] [id number] [place] [address] 87235- 9051 Oct, [facility] [id number] [place] [address] 40830- 5731 Oct, [facility] [address] 67284- 8819 Oct, [facility] [id number] [place] [address] 87386- 3685 Oct, [facility] [address] 23858- 6955 Sep, [facility] [id number] [id number] Jun, Dental examination Z01.20 and Dental caries K02.9 [facility] [address], [place] [address] 9179 May, [facility] [id number] [place] [address] 39158- 0804 Apr, [facility] [id number] [place] [address] 68621- 4568 Mar, [facility] [address] [place] [address] Mar, [facility] [id number] [place] [address] 37033- 8684 Mar, [facility] [id number] [place] [address] 01335- 9152 Mar, [facility] [id number] [place] [address] 39296- 5916 Mar, Addiction to drug F19.20 [facility] [address] [place] [address] Mar, Sedative, hypnotic or anxiolytic dependence, 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 [facility] [address] [place] [address] Mar, [facility] [id number] [place] [address] 19405- 2343 Mar, [facility] [address] [place] [address] Mar, [facility] [address] [place] [address] Mar, [facility] [address] [place] [address] Mar, [facility] [id number] [place] [address] 02446- 4592 Feb, [facility] [address] [place] [address] Feb, Sedative, hypnotic or anxiolytic dependence, 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 [facility] [place] [facility] [id number] [place] [address] 14951- 7084 Feb, Substance abuse F19.10 [facility] [address] [place] [address] Feb, Sedative, hypnotic or anxiolytic dependence, 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 [facility] [address] [place] [address] Feb, Sedative, hypnotic or anxiolytic dependence, 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 [facility] [id number] [place] [address] 56780- 7884 Feb, [facility] [id number] [place] [address] 18744- 3383 Feb, [facility] [id number] [place] [address] 82603- 1846 Feb, [facility] [address] 90630- 4675 Feb, [facility] [id number] [place] [address] 16532- 7305 Feb, [facility] [address] [place] [address] Feb, [facility] [id number] [place] [address] 49283- 8711 Feb, [facility] [address] [place] [address] Feb, [facility] [id number] [place] [address] 43948 -9425 Feb, Acute otitis externa of both ears, unspecified type H60.503 and Oral herpes simplex infection B00.2 [facility] [id number] [place] [address] 88305- 8683 Feb, [facility] [address] [place] [address] Feb, [facility] [id number] [place] [address] 59015- 0966 Feb, [facility] [address] [address] 4567 Feb, [facility] [id number] [place] [address] 59625- 6976 Feb, [facility] [id number] [place] [address] 48479- 3246 Feb, [facility] [id number] [place] [address] 25912- 3726 Feb, [facility] [id number] [place] [address] 64190 2544 Feb, [facility] [id number] [place] [address] 17946- 7169 Feb, Acute suppurative otitis media of right ear without spontaneous rupture of tympanic membrane, recurrence not specified H66.001 and Eustachian tube dysfunction, bilateral H69.83 [facility] [id number] [place] [address] 86243- 5953 Feb, [facility] [id number] [place] [address] 89157- 0370 Feb, [facility] [address] [place] [address] Jan, [facility] [id number] [place] [address] 98368- 5296 Jan, [facility] [id number] [place] [address] 38412- 9513 Jan, [facility] [address] [place] [address] Jan, [facility] [id number] [place] [address] 944192- 0356 Jan, Moderate episode of recurrent major depressive disorder F33.1 and Substance abuse F19.10 [facility] [id number] [place] [address] 67663- 3703 Jan, [facility] [address] [place] [address] Jan, [facility] [address], [place] [address] 7613 21 Jan, 2016 [facility] [id number] [place] [address] 94858- 2771 21 Jan, 2016 Addiction to drug F19.20 and Substance abuse F19.10 [facility] [id number] [place] [address] 71325- 0085 18 Jan, 2016 [facility] [address] [place] [address] 18 Jan, 2016 [facility] [place] [id number] [place] [address] 16519- 4479 18 Jan, 2016 Substance abuse F19.10 and Addiction to drug F19.20 [facility] [id number] [place] [address] 53267- 0331 16 Jan, 2016 [facility] [address] [place] [address] 16 Jan, 2016 [facility] [address] [place] [address] 16 Jan, 2016 Counseling on substance use and abuse Z71.89 [facility] [id number] [place] [address] 61413- 1802 16 Jan, 2016 Addiction to drug F19.20 and Substance abuse F19.10 [facility] [address] [place] [address] 14 Jan, 2016 Counseling on substance use and abuse Z71.89 [facility] [id number] [place] [address] 48486- 9233 14 Jan, 2016 [facility] [id number] [place] [address] 24033- 7895 14 Jan, 2016 Addiction to drug F19.20 and Substance abuse F19.10 [facility] [id number] [place] [address] 70053- 9987 2016 [facility] [id number] [place] [address] 28629- 7789 2016 [facility] [address] [place] [address] Jan, Counseling on substance use and abuse Z71.89 [facility] [id number] [place] [address] 38137- 9432 Jan, [facility] [id number] [place] [address] 67228- 9277 Jan, [facility] [id number] [place] [address] 50118- 9680 Jan, Addiction to drug F19.20 and Substance abuse F19.10 [facility] [address] [place] [address] Jan, Counseling on substance use and abuse Z71.89 [facility] [id number] [place] [address] 58834- 3042 Jan, [facility] [id number] [place] [address] 43596- 8407 Jan, [facility] [id number] [place] [address] 13032- 2345 Jan, [facility] [address] [place] [address] Jan, Counseling on substance use and abuse Z71.89 [facility] [id number] [place] [address] 06590- 1786 Jan, [facility] [id number] [place] [address] 31082- 1404 Jan, Substance abuse F19.10 and Addiction to drug F19.20 [facility] [address] [place] [address] Jan, [facility] [address] [place] [address] Jan, Counseling on substance use and abuse Z71.89 [facility] [id number] [place] [address] 39837- 4749 Jan, Addiction to drug F19.20 and Substance abuse F19.10 [facility] [id number] [place] [address] 40775- 3655 Dec, [facility] [address] [place] [address] Dec, [facility] [address] 59019- 8320 Dec, Addiction to drug F19.20 and Substance abuse F19.10 [facility] [address] [place] [address] Dec, Counseling on substance use and abuse Z71.89 [facility] [address] 98420- 1528 Dec, Addiction to drug F19.20 and Substance abuse F19.10 [facility] [address] 35468- 0883 Dec, [facility] [address] [place] [address] Dec, Counseling on substance use and abuse Z71.89 [facility] [address] 60975- 7208 Dec, Addiction to drug F19.20 and Substance abuse F19.10 [facility] [address] 99521- 1837 Dec, [facility] [address] [place] [address] Dec, Counseling on substance use and abuse Z71.89 [facility] [id number] [place] [address] 57130- 2237 Dec, Addiction to drug F19.20 [facility] [id number] [place] [address] 16179- 5101 Dec, Counseling on substance use and abuse Z71.89 [facility] [address] [place] [address] Dec, Counseling on substance use and abuse Z71.89 [facility] [address] [place] [address] Dec, [facility] [address] 10416- 5032 Dec, Counseling on substance use and abuse Z71.89 ; Addiction to drug F19.20 ; Substance abuse F19.10 and Major depressive disorder, recurrent severe without psychotic features F33.2 [facility] [id number] [place] [address] 62716- 6443 Dec, [facility] [address] [place] [address] Dec, [facility] [address] [place] [address] Dec, Counseling on substance use and abuse Z71.89 [facility] [id number] [place] [address] 33240- 8111 Dec, Addiction to drug F19.20 and Substance abuse F19.10 [facility] [id number] [place] [address] 78511- 6204 Dec, Addiction to drug F19.20 and Substance abuse F19.10 [facility] [id number] [place] [address] 10933- 5846 Dec, [facility] [id number] [place] [address] 70389- 8576 Dec, [facility] [address] [place] [address] Dec, Counseling on substance use and abuse Z71.89 [facility] [address] [place] [address] Dec, [facility] [id number] [place] [address] 18707- 5520 Dec, [facility] [id number] [place] [address] 95387- 3869 Dec, [facility] [address] [place] [address] Dec, Counseling on substance use and abuse Z71.89 [facility] [id number] [place] [address] 55240- 5082 Dec, Depressive disorder, not elsewhere classified F32.9 and Sedative, hypnotic or anxiolytic dependence, 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 [facility] [address], [place] [address]- 3612 Dec, [facility] [address], [place] [address]- 1414 Dec, [facility] [address], [place] [address]- 8316 08 Nov, 2015 [facility] [address] [address]- 8588 Nov, Moderate episode of recurrent major depressive disorder F33.1 and Essential hypertension I10 [facility] [address] 5305 Oct, Moderate episode of recurrent major depressive disorder F33.1 and Essential hypertension I10 [facility] [address], [place] [address]- 3109 Jun, [facility] [address], [place] [address]- 1838 Jun, Addiction to drug F19.20 [facility] [address], [place] [address]- 4704 Apr, [facility] [address] [address]- 0472 Apr, [facility] [address] [address]- 3733 Mar, [facility] [address] [address]- 1594 Mar, Addiction to drug F19.20 [facility] [address] [address]- 8489 Mar, [facility] [address], [place] [address]- 2783 Mar, [facility] [id number]- 9086 Mar, Counseling on substance use and abuse Z71.89 [facility] [address], [place] [address]- 7896 Feb, [facility] [id number] [place] [address] 57309- 8622 Feb, Counseling on substance use and abuse Z71.89 [facility] [address], [place] [address]- 3327 Feb, [facility] [address], [place] [address]- 2320 Feb, [facility] [address] [address]- 2628 Feb, Counseling on substance use and abuse Z71.89 [facility] [address], [place] [address]- 1404 Feb, Addiction to drug F19.20 and Major depressive disorder, recurrent, severe without psychotic features F33.2 [facility] [address], [place] [address]- 3473 Feb, [facility] [address], [place] [address]- 0264 Feb, [facility] [address], [place] [address]- 5974 Jan, [facility] [id number] [address]- 8548 Jan, Major depressive disorder, recurrent severe without psychotic features F33.2 ; Panic disorder [episodic paroxysmal anxiety] without agoraphobia F41.0 and Nicotine abuse Z72.0 [facility] [address], [place] [address]- 0400 Jan, Panic disorder without agoraphobia 300.01 ; Major depressive disorder, recurrent episode, severe 296.33 and Substance abuse F19.10 [facility] [address] [address]- 1897 Nov, Major depressive disorder, recurrent episode, severe, without mention of psychotic behavior 296.33 [facility] [address], [place] [address]- 6767 Nov, Major depressive disorder, recurrent episode, severe 296.33 [facility] [id number] [address]- 6686 Oct, Bronchitis 490 [facility] [id number] [place] [address] 044469- 9365 Oct, [facility] [id number] [place] [address] 64486- 4987 July, [facility] [id number] [place] [address] 82939- 1423 July, Herpes simplex 054.9 [facility] [id number] [place] [address] 16560- 5689 July, [facility] [id number] [place] [address] 68437- 2517 July, [facility] [id number] [place] [address] 78289- 5062 Jun, [facility] [id number] [place] [address] 60117- 6804 Jun, [facility] [address], [place] [address]- 9690 Mar, [facility] [address], [place] [address]- 9199 Mar, [facility] [address], [place] [address]- 2271 Jan, [facility] [id number] [place] [address] 175298- 1172 Jan, [facility] [address] 0552 Jan, [facility] [id number] [place] [address] 31272- 6210 Jan, [facility] [place] [facility] [address] [id number] [place] 6863 Jan, [facility] [place] [facility] [address] [id number] [place] 8587 Jan, [facility] [place] [facility] [address] [id number] [place] [address]- 4370 Dec, [facility] [place] [facility] [address] [id number] [place] [address]- 3544 Dec, [facility] [place] [facility] [address] [id number] [place] [address]- 9143 Oct, [facility] [place] [facility] [address] [id number] [place] [address]- 0999 Oct, [facility] [place] [facility] [address] [id number] [place] [address]- 6612 Sep, [facility] [place] [facility] [address] [id number] [place] [address]- 3798 Sep, [facility] [place] [facility] [address] [id number] [place] [address]- 8329 Sep, [facility] [place] [facility] [address] [id number] [place] [address]- 2618 Sep, [facility] [place] [facility] [address] [id number] [address]- 6949 Sep, [facility] [place] [facility] [address] [id number], [place] [address]- 6908 Sep, [facility] [place] [facility] [address] [id number] [place] [address]- 3425 Sep, [facility] [place] [facility] [address] [id number] [place] [address]- 0161 Sep, [facility] [place] [facility] [address] [id number] [place] [address]- 8966 Aug, [facility] [place] [facility] [address] [id number] [place] [address]- 5987 Aug, [facility] [place] [facility] [address] [id number] [place] [address]- 9898 Aug, [facility] [place] [facility] [address] [id number] [place] [address]- 1838 Aug, [facility] [place] [facility] [address] [id number] [place] [address]- 3292 Aug, [facility] [place] [facility] [address] [id number] [place] [address]- 6287 Aug, [facility] [place] [facility] [address] [id number] [place] [address]- 3138 Aug, [facility] [place] [facility] [address] [id number] [place] [address]- 1047 Aug, [facility] [place] [facility] [address] [id number] [place] [address]- 9170 Aug, [facility] [place] [facility] [address] [id number] [place] [address]- 3519 Aug, [facility] [place] [facility] [address] [id number] [place] [address]- 2588 July, [facility] [place] [facility] [address] [id number] [place] [address]- 4379 July, [facility] [place] [facility] [address] [id number] [place] [address] July, [facility] [place] [facility] [address] [id number] [place] [address] Jun, [facility] [place] [facility] [address] [id number] [place] [address] Jun, [facility] [place] [facility] [address] [id number] [place] [address] Jun, [facility] [place] [facility] [address] [id number] [place] [address] Jun, [facility] [place] [facility] [address] [id number] [place] [address] 15 Jun, 2013 [facility] [place] [facility] [address] [id number] [place] [address] 15 Jun, 2013 [facility] [place] [facility] [address] [id number] [place] [address] Jun, [facility] [place] [facility] [address] [id number] [place] [address] Jun, [facility] [place] [facility] [address] [id number] [place] [address] Jun, [facility] [place] [facility] [address] [id number] [place] [address] Jun, [facility] [place] [facility] [address] [id number] [place] [address] May, [facility] [place] [facility] [address] [id number] [place] [address] May, [facility] [place] [facility] [address] [id number] [place] [address] May, [facility] [place] [facility] [address] [id number] [place] [address]- [address] May, [facility] [place] [facility] [address] [id number] [place] [address] May, [facility] [place] [facility] [address] [id number] [place] [address] May, [facility] [place] [facility] [address] [id number] [place] [address]- [address] May, [facility] [place] [facility] [address] [id number] [place] [address] May, [facility] [place] [facility] [address] [id number] [place] [address] Apr, [facility] [place] [facility] [address] [id number] [place] [address] Apr, [facility] [place] [facility] [address] [id number] [place] [address] Apr, [facility] [place] [facility] [address] [id number] [place] [address]- [address] Apr, 2013 [facility] [place] [facility] [address] [id number] [place] [address]- [address] Apr, [facility] [place] [facility] [address] [id number] [place] [address] Apr, [facility] [place] [facility] [address] [id number] [place] [address] Apr, [facility] [place] [facility] [address] [id number] [place] [address]- [address] Apr, [facility] [place] [facility] [address] [id number] [place] [address] Apr, [facility] [place] [facility] [address] [id number] [place] [address] Apr, [facility] [place] [facility] [address] [id number] [place] [address] Apr, [facility] [place] [facility] [address] [facility] [id number] [place] [address] Mar, [facility] [place] [facility] [address] [id number] [place] [address] Mar, [facility] [place] [facility] [address] [id number] [place] [address] Mar, [facility] [place] [facility] [address] [id number] [place] [address] Mar, [facility] [place] [facility] [address] [id number] [place] [address] Mar, [facility] [place] [facility] [address] [id number] [place] [address] Mar, [facility] [place] [facility] [address] [id number] [place] [address]- [address] Mar, [facility] [place] [facility] [address] [id number] [place] [address] Mar, [facility] [place] [facility] [address] [id number] [place] [address]- [address] Mar, [facility] [place] [facility] [address] [id number] [place] [address] Mar, [facility] [place] [facility] [address] [id number] [place] [address] Mar, [facility] [place] [facility] [address] [id number] [place] [address] Mar, [facility] [place] [facility] [address] [id number] [place] [address] Mar, [facility] [place] [facility] [address] [id number] [place] [address]- [address] Mar, [facility] [place] [facility] [address] [id number] [place] [address]- [address] Mar, [facility] [place] [facility] [address] [id number] [place] [address] Apr, [facility] [place] [facility] [address] [id number] [place] [address] Jan, [facility] [place] [facility] [address] [id number] [place] [address] Jan, [facility] [place] [facility] [address] [id number] [place] [address] Jan, [facility] [place] [facility] [address] [id number] [place] [address] Jan, [facility] [place] [facility] [address] [id number] [place] [address] Jan, [facility] [place] [facility] [address] [id number] [address] Jan, [facility] [address] [id number] [address] Jan, [facility] [address] [id number] [address] Jan, [facility] [address] [id number] [address] Jan, [facility] [id number] [address] Dec, [facility] [address] [id number] [address] Dec, [facility] [id number], [place] [address] Dec, [facility] [address] [id number], [place] [address] Dec, IMMUNIZATIONS No Known Immunizations SOCIAL HISTORY Never Assessed REASON FOR VISIT PLAN OF CARE VITAL SIGNS MEDICATIONS Unknown Medications RESULTS No Results PROCEDURES No Known procedures INSTRUCTIONS MEDICATIONS ADMINISTERED No Known Medications MEDICAL (GENERAL) HISTORY Type Description Date Medical History Depression Medical History Anxiety Medical History Fibroid tumor removed Medical History Substance abuse history Medical History hypertension Surgical History appendectomy 2012 Surgical History Fibroid tumor removed 11/16/15 Surgical History Tubal Ligation 12/2015 Surgical History Dialtion and Curretage 12/2015 Hospitalization History Surgery
[2017-07-27 16:01] LABS: BASOPHILS % (AUTO) 0 % (0-10); EOSINOPHILS # (AUTO) 0.1 10^3/uL (0.0-0.3); EOSINOPHILS % (AUTO) 0 % (0-10); HEMATOCRIT 35 % (35-52); HEMOGLOBIN 13.5 G/DL (11.5-16.0); LYMPHOCYTES # (AUTO) 3.2 X 10^3 (1.0-4.0); LYMPHOCYTES % (AUTO) 12 % (12-44); MEAN CORPUSCULAR HEMOGLOBIN 32 PG (25-34); MEAN CORPUSCULAR HGB CONC 39 G/DL (32-36); MEAN CORPUSCULAR VOLUME 82 FL (80-99); MEAN PLATELET VOLUME 9.9 FL (7.4-10.4); MONOCYTES # (AUTO) 1.3 X 10^3 (0.0-1.0); MONOCYTES % (AUTO) 5 % (0-12); NEUTROPHILS % (AUTO) 83 % (42-75); PLATELET COUNT 423 10^3/uL (130-400); RED BLOOD COUNT 4.22 10^6/uL (4.35-5.85); RED CELL DISTRIBUTION WIDTH 12.6 % (10.0-14.5); WHITE BLOOD COUNT 26.7 10^3/uL (4.3-11.0)
[2017-07-27 16:14] LABS: INR 0.9 (0.8-1.4); PROTHROMBIN TIME PATIENT 12.6 SEC (12.2-14.7)
[2017-07-27] MEDS ORDERED: RT-ALBUTEROL/IPRATROPIUM 3 ML (DUONEB) VIAL INH ONE (16:15)
[2017-07-27 16:22] LABS: ALANINE AMINOTRANSFERASE 40 U/L (0-55); ALBUMIN 4.4 GM/DL (3.2-4.5); ALKALINE PHOSPHATASE 97 U/L (40-136); BILIRUBIN,TOTAL 0.8 MG/DL (0.1-1.0); BUN/CREATININE RATIO 9; CALCIUM 9.7 MG/DL (8.5-10.1); CARBON DIOXIDE 25 MMOL/L (21-32); CHLORIDE 79 MMOL/L (98-107); CREATININE SERUM 0.77 MG/DL (0.60-1.30); GFR ESTIMATED > 60; GLUCOSE 101 MG/DL (70-105); MAGNESIUM 1.9 MG/DL (1.8-2.4); TOTAL PROTEIN 7.7 GM/DL (6.4-8.2)
[2017-07-27 16:29] LABS: MYOGLOBIN SERUM 115.5 NG/ML (10.0-92.0)
[2017-07-27] MEDS ORDERED: RT-LEVALBUTEROL (XOPENEX) 1.25 MG/3 ML NEB NON-FORMULARY INH ONE (16:30)
[2017-07-27 16:31] LABS: BAND NEUTROPHILS 7 %; BASOPHILS % (MANUAL) 1 %; EOSINOPHILS % (MANUAL) 0 %; LYMPHOCYTES % (MANUAL) 15 %; MONOCYTES % (MANUAL) 4 %; NEUTROPHILS % (MANUAL) 73 %
[2017-07-27 16:32] LABS: RBC MORPH NORMAL
[2017-07-27] MEDS ORDERED: NS IV 1000 ML 1,000 ML IV ONE (16:33)
[2017-07-27 16:49] LABS: POTASSIUM 2.5 MMOL/L (3.6-5.0); SODIUM 119 MMOL/L (135-145)
--- NOTE | 2017-07-27 16:52 | Diagnostic Imaging Report ---
PA and lateral chest at 4:40. Indication: Chest pain. There is a better inspiratory effort on this exam than on the prior study of 06/02/2017. Allowing for this technical factor, the heart size is within normal limits and stable when compared to the prior study. The lungs are clear. There is still no sign of failure, pneumonia or pleural effusion to suggest an acute abnormality. The mediastinum is not widened. The osseous structures are intact Impression: There is no evidence for active disease. Dictated by: Dictated on workstation # [id number]
[2017-07-27] MEDS ORDERED: POTASSIUM CHLORIDE INJ 40 MEQ in NS IV 1000 ML 1,000 ML IV ONE (17:00)
[2017-07-27] MEDS ORDERED: KETOROLAC 30 MG/ML VIAL IVP ONE (17:15)
[2017-07-27 17:21] LABS: BILIRUBIN,URINE NEGATIVE (NEGATIVE); CLARITY,URINE CLEAR; COLOR,URINE YELLOW; GLUCOSE, URINE (UA) NEGATIVE (NEGATIVE); KETONES,URINE NEGATIVE (NEGATIVE); LEUKOCYTE ESTERASE ,URINE NEGATIVE (NEGATIVE); NITRITE,URINE NEGATIVE (NEGATIVE); PH,URINE 6 (5-9); PROTEIN,URINE NEGATIVE (NEGATIVE); UROBILINOGEN,URINE NORMAL (NORMAL)
--- NOTE | 2017-07-27 17:25 | ED Chest Pain ---
General Chief Complaint: Chest Pain Stated Complaint: CP Nursing Triage Note: PT PRESENTS TO ED FROM HOME WITH COMPLAINTS OF CP, SOA, GENERALIZED MALAISE, AND COUGH SINCE THIS AM. Nursing Sepsis Screen: No Definite Risk Source: patient Exam Limitations: no limitations History of Present Illness Date Seen by Provider: July 27, 2017 Time Seen by Provider: 15:37 Initial Comments This 47-year-old woman presents to the emergency room with complaints of chest pain, difficulty breathing, nausea and vomiting, and pain with inspiration that just started today. She has a history of atypical chest pain in the past that improved with GI cocktail. She has been evaluated in this ER for this in the past. She denies any fever. She is noted to be tachycardic. She also reports having "sinus headaches" recently. Patient smokes but denies any drug or alcohol use. Allergies and Home Medications Allergies Coded Allergies: amoxicillin (Verified Allergy, Unknown, 04/27/16) oseltamivir (Verified Allergy, Unknown, RASH, 07/27/17) Hives and nausea and vomiting potassium clavulanate (Verified Allergy, Unknown, 04/27/16) Home Medications Clonidine HCl 0.1 Mg Tablet, 0.1 MG PO BID PRN for BLOOD PRESSURE, (Reported) PATIENT WILL TAKE IF DIASTOLIC IS 109 Mirtazapine 30 Mg Tablet, 30 MG PO HS, (Reported) Omeprazole 20 Mg Capsule.dr, 20 MG PO DAILY Prescribed by: TRACEE GONZALEZ on 06/02/17 1718 Paroxetine HCl 30 Mg Tablet, 60 MG PO DAILY, (Reported) TAKES 2 (30 MG) TABLETS Sulfamethoxazole/Trimethoprim 1 Each Tablet, 1 EACH PO BID Prescribed by: SHEFALI OTTO on 05/02/17 1253 Patient Home Medication List Home Medication List Reviewed: Yes Review of Systems Constitutional: no symptoms reported EENTM: No Symptoms Reported Respiratory: See HPI Cardiovascular: See HPI Gastrointestinal: See HPI Genitourinary: No Symptoms Reported Musculoskeletal: no symptoms reported Skin: no symptoms reported Psychiatric/Neurological: No Symptoms Reported Endocrine: No Symptoms Reported Hematologic/Lymphatic: No Symptoms Reported Past Dphkwni-Hagdgq-Plabgp Hx Patient Social History Alcohol Use: Denies Use Recreational Drug Use: No Smoking Status: Current Everyday Smoker Type Used: Cigarettes 2nd Hand Smoke Exposure: Yes Recent Foreign Travel: No Contact w/Someone Who Travel: No Recent Infectious Disease Expo: No Recent Hopitalizations: No Physical Abuse: No Sexual Abuse: No Mistreated: No Fear: No Immunizations Up To Date Tetanus Booster (TDap): Unknown PED Vaccines UTD: No Seasonal Allergies Seasonal Allergies: No Past Medical History Surgeries: Yes Appendectomy, Tubal Ligation Respiratory: No Currently Using CPAP: No Currently Using BIPAP: No Cardiac: Yes Hypertension Neurological: No : No Reproductive Disorders: Yes Female Reproductive Disorders: Menstrual Problems, Ovarian Cyst Sexually Transmitted Disease: No HIV/AIDS: No Genitourinary: No Gastrointestinal: Yes Gall Bladder Disease Musculoskeletal: No Chronic Back Pain Endocrine: No HEENT: No Cancer: No Psychosocial: Yes Anxiety, Depression Nursing Suicide Risk Score: 0 Integumentary: No Blood Disorders: No Adverse Reaction/Blood Tranf: No Family Medical History Alcoholism G8 BROTHER ( with liver failure) Arthritis G8 BROTHER (rhoumatoid arthritis, mono multiplex neuropathy) No Pertinent Family Hx Physical Exam Vital Signs Vital Signs - First Documented 07/27/17 15:44 Pulse Ox 96 O2 Delivery Nasal Cannula O2 Flow Rate 2.00 Capillary Refill : Less Than 3 Seconds General Appearance: WD/WN, Mild Distress HEENT: PERRL/EOMI, Normal ENT Inspection, Pharynx Normal Neck: Normal Inspection Respiratory: Lungs Clear, Normal Breath Sounds, No Accessory Muscle Use, No Respiratory Distress, Other (anterior chest wall tender to palpation) Cardiovascular: No Edema, No Murmur, Tachycardia Gastrointestinal: Normal Bowel Sounds, No Organomegaly, Non Tender, Soft Extremity: Normal Inspection, No Pedal Edema Neurologic/Psychiatric: Alert, Oriented x3, No Motor/Sensory Deficits, rip tailer II- XII Norm as Tested, Other (mildly anxious) Skin: Normal Color, Warm/Dry Focused Exam Lactate Level 07/27/17 16:10: Lactic Acid Level 2.39*H Lactic Acid Level Laboratory Tests Test 07/27/17 16:10 Lactic Acid Level 2.39 MMOL/L (0.50-2.00) *H Progress/Results/Core Measures Results/Orders Lab Results Laboratory Tests Test 07/27/17 15:52 07/27/17 16:10 07/27/17 17:05 Range/Units White Blood Count 26.7 H 4.3-11.0 10^3/uL Red Blood Count 4.22 L 4.35-5.85 10^6/uL Hemoglobin 13.5 11.5-16.0 G/DL Hematocrit 35 35-52 % Mean Corpuscular Volume 82 80-99 FL Mean Corpuscular Hemoglobin 32 25-34 PG Mean Corpuscular Hemoglobin Concent 39 H 32-36 G/DL Red Cell Distribution Width 12.6 10.0-14.5 % Platelet Count 423 H 130-400 10^3/uL Mean Platelet Volume 9.9 7.4-10.4 FL Neutrophils (%) (Auto) 83 H 42-75 % Lymphocytes (%) (Auto) 12 12-44 % Monocytes (%) (Auto) 5 0-12 % Eosinophils (%) (Auto) 0 0-10 % Basophils (%) (Auto) 0 0-10 % Neutrophils # (Auto) 22.0 H 1.8-7.8 X 10^3 Lymphocytes # (Auto) 3.2 1.0-4.0 X 10^3 Monocytes # (Auto) 1.3 H 0.0-1.0 X 10^3 Eosinophils # (Auto) 0.1 0.0-0.3 10^3/uL Basophils # (Auto) 0.0 0.0-0.1 10^3/uL Neutrophils % (Manual) 73 % Lymphocytes % (Manual) 15 % Monocytes % (Manual) 4 % Eosinophils % (Manual) 0 % Basophils % (Manual) 1 % Band Neutrophils 7 % Blood Morphology Comment NORMAL Prothrombin Time 12.6 12.2-14.7 SEC INR Comment 0.9 0.8-1.4 Activated Partial Thromboplast Time 28 24-35 SEC D-Dimer 0.30 0.00-0.49 UG/ML Sodium Level 119 *L 135-145 MMOL/L Potassium Level 2.5 *L 3.6-5.0 MMOL/L Chloride Level 79 L 98-107 MMOL/L Carbon Dioxide Level 25 21-32 MMOL/L Anion Gap 15 H 5-14 MMOL/L Blood Urea Nitrogen 7 7-18 MG/DL Creatinine 0.77 0.60-1.30 MG/DL Estimat Glomerular Filtration Rate > 60 BUN/Creatinine Ratio 9 Glucose Level 101 70-105 MG/DL Calcium Level 9.7 8.5-10.1 MG/DL Magnesium Level 1.9 1.8-2.4 MG/DL Total Bilirubin 0.8 0.1-1.0 MG/DL Aspartate Amino Transf (AST/SGOT) 19 5-34 U/L Alanine Aminotransferase (ALT/SGPT) 40 0-55 U/L Alkaline Phosphatase 97 40-136 U/L Myoglobin 115.5 H 10.0-92.0 NG/ML Troponin I < 0.30 <0.30 NG/ML Total Protein 7.7 6.4-8.2 GM/DL Albumin 4.4 3.2-4.5 GM/DL Lipase 10 8-78 U/L Lactic Acid Level 2.39 *H 0.50-2.00 MMOL/L Urine Color YELLOW Urine Clarity CLEAR Urine pH 6 5-9 Urine Specific Brice 1.010 L 1.016-1.022 Urine Protein NEGATIVE NEGATIVE Urine Glucose (UA) NEGATIVE NEGATIVE Urine Ketones NEGATIVE NEGATIVE Urine Nitrite NEGATIVE NEGATIVE Urine Bilirubin NEGATIVE NEGATIVE Urine Urobilinogen NORMAL NORMAL MG/DL Urine Leukocyte Esterase NEGATIVE NEGATIVE Urine RBC (Auto) 5+ H NEGATIVE Urine RBC 25-50 H /HPF Urine WBC RARE /HPF Urine Squamous Epithelial Cells RARE /HPF Urine Crystals NONE /LPF Urine Bacteria NONE /HPF Urine Casts NONE /LPF Urine Mucus NEGATIVE /LPF Urine Culture Indicated NO Micro Results Microbiology 07/27/17 Influenza Types A,B Antigen (JERILYN) - Final, Complete My Orders Orders - TRACEE SURESH MD Cbc With Automated Diff (07/27/17 15:41) Magnesium (07/27/17 15:41) Ekg Tracing (07/27/17 15:41) Cardiac Profile 1 (07/27/17 15:41) Comprehensive Metabolic Panel (07/27/17 15:41) Myoglobin Serum (07/27/17 15:41) Protime With Inr (07/27/17 15:41) Partial Thromboplastin Time (07/27/17 15:41) O2 (07/27/17 15:41) Monitor-Rhythm Ecg Trace Only (07/27/17 15:41) Lipid Panel (07/28/17 06:00) Aspirin Chewable Tablet (Baby Aspirin Ch (07/27/17 15:45) Nitroglycerin 0.4 Mg Btl 25's (Nitrostat (07/27/17 15:45) Saline Lock/Iv-Start (07/27/17 15:41) Fibrin Degradation Products (07/27/17 15:41) Lidocaine 2% Viscous 15 Ml (Xylocaine Vi (07/27/17 15:45) Antacid Suspension (Mylanta Suspension (07/27/17 15:45) Lipase (07/27/17 15:45) Ondansetron Injection (Zofran Injectio (07/27/17 15:45) Chest Pa/Lat (2 View) (07/27/17 15:49) Manual Differential (07/27/17 15:52) Blood Culture (07/27/17 16:06) Lactic Acid Analyzer (07/27/17 16:06) Albuterol/Ipra Inhalation Soln (Duoneb I (07/27/17 16:15) Svn Small Volume Nebulizer (07/27/17 16:08) Levalbuterol (Non-Formulary) (Xopenex (N (07/27/17 16:30) Influenza A And B Antigens (07/27/17 16:29) Ua Culture If Indicated (07/27/17 16:33) Ns Iv 1000 Ml (Sodium Chloride 0.9%) (07/27/17 16:33) Ns Iv 1000 Ml (Sodi... W/Potassium Chlor (07/27/17 17:00) Oseltamivir 75 Mg (10's) Caps (Tamiflu 7 (07/27/17 21:00) Ketorolac Injection (Toradol Injection) (07/27/17 17:15) Medications Given in ED Current Medications Medications Dose Ordered Sig/Annalisa Route Start Time Stop Time Status Last Admin Dose Admin Al Hydrox/Mg Hydrox/Simethicone 30 ml ONCE ONCE PO 07/27/17 15:45 07/27/17 15:46 DC 07/27/17 16:31 30 ML Aspirin 324 mg ONCE ONCE PO 07/27/17 15:45 07/27/17 15:46 DC 07/27/17 16:32 324 MG Ketorolac Tromethamine 15 mg ONCE ONCE IVP 07/27/17 17:15 07/27/17 17:16 DC 07/27/17 17:27 15 MG Levalbuterol HCl 1.25 mg ONCE ONCE INH 07/27/17 16:30 07/27/17 16:31 DC 07/27/17 16:54 1.25 MG Lidocaine HCl 15 ml ONCE ONCE PO 07/27/17 15:45 07/27/17 15:46 DC 07/27/17 16:31 15 ML Nitroglycerin 0.4 mg UD PRN SL 07/27/17 15:45 07/27/17 16:32 0.4 MG Ondansetron HCl 4 mg ONCE ONCE IVP 07/27/17 15:45 07/27/17 15:47 DC 07/27/17 16:31 4 MG Potassium Chloride 40 meq/ Sodium Chloride 1,020 ml @ 250 mls/hr Q4H5M ONCE IV 07/27/17 17:00 07/27/17 21:04 07/27/17 17:19 250 MLS/HR Sodium Chloride 1,000 ml @ 0 mls/hr Q0M ONCE IV 07/27/17 16:33 07/27/17 16:34 DC 07/27/17 16:38 0 MLS/HR Vital Signs/I&O 07/27/17 07/27/17 07/27/17 07/27/17 15:44 15:59 15:59 16:54 Temp 96.9 Pulse 103 Resp 18 B/P (MAP) 115/72 (86) Pulse Ox 96 94 96 O2 Delivery Nasal Cannula Nasal Cannula O2 Flow Rate 2.00 2.0 2.00 Blood Pressure Mean: 86 Progress Progress Note : Progress Note Patient was seen and examined. Aspirin and nitroglycerin were administered. EKG was obtained and showed sinus tachycardia with no ischemia. Leukocytosis was noted. However, chest x-ray showed no evidence of pneumonia. D-dimer was negative. Influenza screening was then performed and found to be positive for influenza B. Patient was hydrated with a liter of normal saline. This was followed by normal saline +40 mEq of potassium chloride to run at 250 mL per hour to start treatment of hypokalemia. Patient was also noted to be significantly hyponatremic. Patient declined Tamiflu stating she had a rash allergy previously. A GI cocktail was given for treatment of chest pain as this did resolve her chest pain on a prior visit. GI cocktail was not effective this time. Toradol 15 mg IV was eventually given for treatment of chest pain. Patient received a Xopenex treatment for shortness of air as well. Initial ECG Impression Date: July 27, 2017 Initial ECG Impression Time: 15:43 Initial ECG Rate: 107 Initial ECG Rhythm: S.Tach Comment Sinus tachycardia with no ST elevation or depression. No abnormal intervals or axis deviation. Diagnostic Imaging Diagonstic Imaging: Xray Plain Films/CT/US/NM/MRI: chest Comments Chest x-ray viewed by me and report reviewed. See report below: NAME: ALVINO [facility]ANDA [facility] REC#: [id number] PT STATUS: REG ER : 1970 PHYSICIAN: TRACEE SURESH MD ADMIT DATE: 07/27/17/ER Signed Date of Exam: 07/27/17 CHEST PA/LAT (2 VIEW) PA and lateral chest at 4:40. Indication: Chest pain. There is a better inspiratory effort on this exam than on the prior study of 06/02/2017. Allowing for this technical factor, the heart size is within normal limits and stable when compared to the prior study. The lungs are clear. There is still no sign of failure, pneumonia or pleural effusion to suggest an acute abnormality. The mediastinum is not widened. The osseous structures are intact Impression: There is no evidence for active disease. Dictated by: Dictated on workstation # [id number] Dict: 07/27/17 1635 Trans: 07/27/17 1718 Interpreted by: GLEN POE MD Electronically signed by: GLEN POE MD 07/27/17 1718 Departure Communication (Admissions) Time/Spoke to Admitting Phy: 17:03 Dr. Hartman Impression Primary Impression: Influenza B Additional Impressions: Hypokalemia Hyponatremia Atypical chest pain Nausea and vomiting Qualified Codes: R11.2 - Nausea with vomiting, unspecified Disposition: ADMITTED INPATIENT Condition: Improved Admissions Decision to Admit Reason: Admit from ER (General) Decision to Admit/Date: July 27, 2017 Time/Decision to Admit Time: 16:00 Departure-Patient Inst. Referrals: RAFI CASTILLO DO (PCP/Family) Primary Care Physician TRACEE SURESH MD July 27, 2017 17:25
[2017-07-27 17:34] LABS: RBC,URINE 25-50 /HPF; WBC,URINE RARE /HPF
[2017-07-27 17:35] LABS: SQUAMOUS EPITHELIAL CELL,UR RARE /HPF
[2017-07-27 19:40] VITALS: BP 111/61
[2017-07-27] MEDS ORDERED: OSELTAMIVIR 75 MG (TAMIFLU) BOX OF 10 PO SCH (21:00)
[2017-07-27 21:06] VITALS: BP 118/74
[2017-07-27] MEDS ORDERED: NS IV 1000 ML 1,000 ML ONE (21:26)
[2017-07-27] MEDS ORDERED: RT-ALBUTEROL SULF 2.5 MG/3 ML PRE-MIX VIAL INH PRN (21:30)
[2017-07-27] MEDS ORDERED: ACETAMINOPHEN 500 MG TAB (TYLENOL) PO PRN (22:00)
[2017-07-27] MEDS ORDERED: NS W/KCL 40 MEQ/L 1,000 ML IV SCH (22:00)
[2017-07-27] MEDS ORDERED: ONDANSETRON 4 MG/2 ML (SDV) Z0FRAN IV PRN (22:00)
[2017-07-27] MEDS: NS IV 1000 ML 1,000 ML IV SCH (22:04)
[2017-07-27] MEDS: KCL 20 MEQ TAB (K-DUR) PO SCH (23:03)
[2017-07-28] VITALS: BP 97/53
[2017-07-28] MEDS: KCL 20 MEQ TAB (K-DUR) PO SCH ×2 (02:44→07:30)
[2017-07-28 03:56] VITALS: BP 116/64
[2017-07-28] MEDS: NS IV 1000 ML 1,000 ML IV SCH ×3 (05:30→21:33)
[2017-07-28] MEDS: IBUPROFEN 600 MG (MOTRIN) TAB PO PRN ×3 (05:57→22:30)
[2017-07-28 06:52] LABS: BASOPHILS % (AUTO) 0 % (0-10); EOSINOPHILS # (AUTO) 0.1 10^3/uL (0.0-0.3); EOSINOPHILS % (AUTO) 1 % (0-10); HEMATOCRIT 32 % (35-52); HEMOGLOBIN 11.5 G/DL (11.5-16.0); LYMPHOCYTES % (AUTO) 24 % (12-44); MEAN CORPUSCULAR HEMOGLOBIN 31 PG (25-34); MEAN CORPUSCULAR HGB CONC 36 G/DL (32-36); MEAN CORPUSCULAR VOLUME 87 FL (80-99); MEAN PLATELET VOLUME 9.7 FL (7.4-10.4); MONOCYTES # (AUTO) 0.5 X 10^3 (0.0-1.0); MONOCYTES % (AUTO) 6 % (0-12); NEUTROPHILS # (AUTO) 5.7 X 10^3 (1.8-7.8); NEUTROPHILS % (AUTO) 69 % (42-75); PLATELET COUNT 374 10^3/uL (130-400); RED BLOOD COUNT 3.69 10^6/uL (4.35-5.85); RED CELL DISTRIBUTION WIDTH 12.9 % (10.0-14.5); WHITE BLOOD COUNT 8.3 10^3/uL (4.3-11.0)
[2017-07-28 07:28] LABS: BUN/CREATININE RATIO 11; CALCIUM 8.8 MG/DL (8.5-10.1); CARBON DIOXIDE 26 MMOL/L (21-32); CHLORIDE 97 MMOL/L (98-107); CREATININE SERUM 0.73 MG/DL (0.60-1.30); GFR ESTIMATED > 60; GLUCOSE 113 MG/DL (70-105); SODIUM 130 MMOL/L (135-145)
[2017-07-28] MEDS ORDERED: RT-LEVALBUTEROL (XOPENEX) 1.25 MG/3 ML NEB NON-FORMULARY ONE (07:34)
[2017-07-28] MEDS ORDERED: RT-LEVALBUTEROL (XOPENEX) 1.25 MG/3 ML NEB NON-FORMULARY INH PRN (07:45)
[2017-07-28 07:48] LABS: CHOLESTEROL 257 MG/DL (< 200); HDL CHOLESTEROL 39 MG/DL (40-60); TRIGLYCERIDES 325 MG/DL (<150); VLDL CHOLESTEROL 65 MG/DL (5-40)
[2017-07-28 08:00] VITALS: BP 111/57
[2017-07-28] MEDS: clonazePAM 1 MG (KlonoPIN) TAB PO SCH ×4 (08:36→20:13)
[2017-07-28] MEDS ORDERED: PARoxetine 20 MG (PAXIL) TAB PO NR (09:15)
[2017-07-28] MEDS: GABAPENTIN 100 MG (NEURONTIN) CAP PO SCH ×3 (10:00→20:10)
[2017-07-28] MEDS ORDERED: GABA-486 PO (11:24)
[2017-07-28] MEDS ORDERED: PARO40TA3 PO (11:24)
[2017-07-28] MEDS ORDERED: PARO20TA5 PO (11:24)
[2017-07-28] MEDS ORDERED: PROM25TA14 PO (11:24)
[2017-07-28] MEDS ORDERED: CLON1TAB3 PO (11:24)
[2017-07-28] MEDS ORDERED: MENT118G TP (11:25)
[2017-07-28] MEDS ORDERED: IBUP-30 PO (11:26)
[2017-07-28 12:00] VITALS: BP 117/74
--- NOTE | 2017-07-28 12:11 | History & Physical-Hospitalist ---
History of Present Illness HPI/Chief Complaint Mrs. Bolanos is a 47-year-old white female who woke up feeling fatigued with body aches and pains. She noted the onset of the dry cough the morning of the seventh and then developed nausea with vomiting. This was followed by several loose diarrheal stools without significant abdominal pain. She denied melena or bright red blood per rectum. As the day went on she developed increasing pleuritic left-sided chest pain which caused her to present to the emergency room. She had been exposed her mother movement sick with respiratory symptoms several days previous. In the emergency room workup revealed that she is positive for influenza B. As she reports history of allergy to Tamiflu which resulted in an urticarial eruption following her last exposure to the medication several years ago. She did not receive the flu shot this season. Date Seen 07/28/17 Time Seen by Provider: 08:30 Attending Physician Enoc Slaughter M.D. PCP Rafi Cyr DO Referring Physician Date of Admission July 27, 2017 at 17:18 Home Medications & Allergies Home Medications Reviewed patient Home Medication Reconciliation performed by pharmacy medication reconciliations airdrop systems technician and/or nursing. Patients Allergies have been reviewed. Allergies Allergies Coded Allergies amoxicillin (Verified Allergy, Unknown, 04/27/16) oseltamivir (Verified Allergy, Unknown, RASH, 07/27/17) Hives and nausea and vomiting potassium clavulanate (Verified Allergy, Unknown, 04/27/16) Past Lehtrqg-Qmyyox-Dgupzn Hx Past Med/Social Hx: Reviewed and Corrections made Patient Social History Alcohol Use: Denies Use Recreational Drug Use: No Smoking Status: Current Everyday Smoker Type Used: Cigarettes 2nd Hand Smoke Exposure: Yes Physical Abuse Screen: No Sexual Abuse: No Recent Foreign Travel: No Contact w/other who traveled: No Recent Hopitalizations: No Recent Infectious Disease Expo: No Immunizations Up To Date Tetanus Booster (TDap): Unknown Pediatric: No Seasonal Allergies Seasonal Allergies: No Past Medical History Surgeries: Appendectomy, Tubal Ligation Currently Using CPAP: No Currently Using BIPAP: No Cardiac: Hypertension : No Reproductive: Yes Sexually Transmitted Disease: No HIV/AIDS: No Female Reproductive Disorders: Menstrual Problems, Ovarian Cyst Gastrointestinal: Gall Bladder Disease Musculoskeletal: Chronic Back Pain Psychosocial: Anxiety, Depression History of Blood Disorders: No Adverse Reaction to Blood Diaz: No Family History Alcoholism G8 BROTHER ( with liver failure) Arthritis G8 BROTHER (rhoumatoid arthritis, mono multiplex neuropathy) No Pertinent Family Hx Review of Systems Constitutional: chills, fever, malaise, weakness Respiratory: cough, dyspnea on exertion, short of breath Cardiovascular: No no symptoms reported, No see HPI; chest pain (Sided pleuritic in etiology); No edema, No Hx of Intervention, No palpitations, No syncope, No vascular heart diseas Gastrointestinal: diarrhea, nausea, vomiting Physical Exam Physical Exam Vital Signs Vital Signs - First Documented 07/27/17 15:44 Pulse Ox 96 O2 Delivery Nasal Cannula O2 Flow Rate 2.00 Capillary Refill : Less Than 3 Seconds General Appearance: Anxious, Mild Distress Eyes: Bilateral Eye Normal Inspection, Bilateral Eye PERRL HEENT: Pharynx Normal Respiratory: No Accessory Muscle Use, No Respiratory Distress, Other (Coarse breath sounds without wheezing or rales. No pleural rubs noted.) Cardiovascular: Regular Rate, Rhythm, No Edema, No Gallop, No JVD, No Murmur, Normal Peripheral Pulses Gastrointestinal: Normal Bowel Sounds, No Organomegaly, No Pulsatile Mass, Non Tender, Soft Extremity: Normal Capillary Refill, Normal Inspection, Normal Range of Motion, Non Tender, No Calf Tenderness, No Pedal Edema Skin: Normal Color, Damp Results Results/Procedures Labs Laboratory Tests 07/27/17 15:52 07/28/17 06:41 Patient resulted labs reviewed. Assessment/Plan Admission Diagnosis 1. Likely acute influenza B symptoms much improved post hydration. Patient was able to tolerate solids last night. We'll resume her home medications except antihypertensive therapy as blood pressures remain in the in the low normal range. 2. Dehydration secondary to number 1 improving continue IV fluids. 3. Hyponatremia and hypokalemia secondary to nausea vomiting resulting from number 1. This is much improved with sodium level increasing from 119-130. 4. Sepsis secondary to number 1 resolved post hydration with normalization of white count. Admission Status: Inpatient Order (span 2 midnights) Reason for Inpatient Admission: See admission diagnosis Assessment and Plan See admission diagnosis Clinical Quality Measures AMI/AHF: ASA po Prior to arrival: No DVT/VTE Risk/Contraindication: Risk Factor Score Per Nursin RFS Level Per Nursing on Admit: 1=Low/No VTE PPX Copy Copies To 1: RAFI CYR MARK D MD July 28, 2017 12:11
[2017-07-28] MEDS: RT-LEVALBUTEROL (XOPENEX) 1.25 MG/3 ML NEB NON-FORMULARY INH SCH ×2 (14:05→19:14)
[2017-07-28 16:53] VITALS: BP 104/58
[2017-07-28 20:00] VITALS: BP_SYST 112; BP_DIAS 7; BP_DIAS 70
[2017-07-28] MEDS ORDERED: MIRTAZAPINE 15 MG (REMERON) TAB PO SCH (21:00)
[2017-07-29] VITALS: BP 126/81
[2017-07-29 04:00] VITALS: BP 113/78
[2017-07-29] MEDS: NS IV 1000 ML 1,000 ML IV SCH (05:30)
[2017-07-29] MEDS: IBUPROFEN 600 MG (MOTRIN) TAB PO PRN (05:37)
[2017-07-29 06:39] LABS: BUN/CREATININE RATIO 15; CARBON DIOXIDE 20 MMOL/L (21-32); CHLORIDE 112 MMOL/L (98-107); POTASSIUM 4.8 MMOL/L (3.6-5.0); SODIUM 140 MMOL/L (135-145)
[2017-07-29 06:40] LABS: CALCIUM 8.4 MG/DL (8.5-10.1); GFR ESTIMATED > 60; GLUCOSE 122 MG/DL (70-105)
[2017-07-29] MEDS: RT-LEVALBUTEROL (XOPENEX) 1.25 MG/3 ML NEB NON-FORMULARY INH SCH (07:01)
[2017-07-29 08:00] VITALS: BP 113/70
[2017-07-29] MEDS ORDERED: HYDR-3812 PO (08:10)
--- NOTE | 2017-07-29 08:37 | Discharge Summary-Hospitalist ---
Diagnosis/Chief Complaint Date of Admission July 27, 2017 at 17:18 Date of Discharge Discharge Date: July 29, 2017 Admission Diagnosis 1. Likely acute influenza B symptoms much improved post hydration. Patient was able to tolerate solids last night. We'll resume her home medications except antihypertensive therapy as blood pressures remain in the in the low normal range. 2. Dehydration secondary to number 1 improving continue IV fluids. 3. Hyponatremia and hypokalemia secondary to nausea vomiting resulting from number 1. This is much improved with sodium level increasing from 119-130. 4. Sepsis secondary to number 1 resolved post hydration with normalization of white count. Discharge Diagnosis See admission diagnosis Discharge Summary Discharge Physical Exam Allergies: Coded Allergies: amoxicillin (Verified Allergy, Unknown, 04/27/16) oseltamivir (Verified Allergy, Unknown, RASH, 07/27/17) Hives and nausea and vomiting potassium clavulanate (Verified Allergy, Unknown, 04/27/16) Vitals & I&Os Vital Signs Date Time Temp Pulse Resp B/P (MAP) Pulse Ox O2 Delivery O2 Flow Rate FiO2 07/29/17 08:00 97.6 91 18 113/70 (84) 93 Room Air 07/28/17 07:42 2.00 General Appearance: Alert, Oriented X3 Respiratory: Clear to Auscultation Cardiovascular: Regular Rate, No Murmurs Hospital Course Mrs. Bolanos is a 47-year-old white female who woke up feeling fatigued with body aches and pains. She noted the onset of the dry cough the morning of the and then developed nausea with vomiting. This was followed by several loose diarrheal stools without significant abdominal pain. She denied melena or bright red blood per rectum. As the day went on she developed increasing pleuritic left-sided chest pain which caused her to present to the emergency room. She had been exposed her mother movement sick with respiratory symptoms several days previous. In the emergency room workup revealed that she is positive for influenza B. As she reports history of allergy to Tamiflu which resulted in an urticarial eruption following her last exposure to the medication several years ago. She did not receive the flu shot this season. Her admission sodium level was 119 and the potassium of 2.5 with white count around 25,000. On normal saline replacement the following morning her sodium level was up to 130 with normalization of potassium. Her blood pressures remain normal off of lisinopril HCT. Her sodium level was 140 with a potassium of around 4. For now she was advised to hold lisinopril HCT and follow-up with Dr. Cyr in 1-2 weeks. She does have clonidine that she can take 0.1 mg when necessary diastolic greater than 110 her systolic greater than 180. Prior to her admission she had nontraumatic onset of nonradiating lower lumbar discomfort compatible with acute lumbago. She is still having pain mostly paraspinal muscle pain bilaterally worse on the right than with movement only. She is able to sit without pain exacerbation. She was given 20 of the 5/325 mg hydrocodone to take one every 4 when necessary with recommendation for either extreme of temperature ice or heat and gentle stretching. Expectations for resolution over the next week were discussed. She was discharged on the remainder of her home medications minus lisinopril HCT. Labs (last 24 hrs) Laboratory Tests 07/29/17 06:02: Sodium Level 140, Potassium Level 4.8, Chloride Level 112#H, Carbon Dioxide Level 20L, Anion Gap 8, Blood Urea Nitrogen 12, Creatinine 0.80, Estimat Glomerular Filtration Rate > 60, BUN/Creatinine Ratio 15, Glucose Level 122H, Calcium Level 8.4L Microbiology 07/27/17 Blood Culture - Preliminary, Resulted No growth 07/27/17 Influenza Types A,B Antigen (JERILYN) - Final, Complete Patient resulted labs reviewed. Pending Labs Laboratory Tests 07/29/17 06:02: Sodium Level 140, Potassium Level 4.8, Chloride Level 112, Carbon Dioxide Level 20, Anion Gap 8, Blood Urea Nitrogen 12, Creatinine 0.80, Estimat Glomerular Filtration Rate > 60, BUN/Creatinine Ratio 15, Glucose Level 122, Calcium Level 8.4 Discussion & Recommendations Discharge Planning: >30 minutes discharge planning Discharge Home Medications: Active Scripts Active Hydrocodone-Acetamin 5-325 mg (Hydrocodone/Acetaminophen) 1 Each Tablet 1 Each PO Q4H 7 Days Reported Advil (Ibuprofen) 200 Mg Tablet 800 Mg PO TID PRN Biofreeze (Menthol) 118 Ml Gel..ml. TP QID PRN Promethazine Tablet (Promethazine HCl) 25 Mg Tablet 25 Mg PO Q4H PRN Clonazepam 1 Mg Tablet 1 Mg PO TID Gabapentin 100 Mg Capsule 200 Mg PO TID TAKES 2 (100MG) CAPSULES Paroxetine HCl 40 Mg Tablet 40 Mg PO DAILY TAKES WITH A 20MG TABLET FOR A TOTAL DAILY DOSE OF 60MG Paroxetine HCl 20 Mg Tablet 20 Mg PO DAILY TAKES ALONG WITH 40MG TABLET FOR A TOTAL DAILY DOSE OF 60MG Lisinopril-Hctz 20-25 mg Tab (Lisinopril/Hydrochlorothiazide) 1 Each Tablet 1 Tab PO DAILY Clonidine HCl 0.1 Mg Tablet 0.1 Mg PO BID PRN Mirtazapine 30 Mg Tablet 30 Mg PO HS Instructions to patient/family Please see electronic discharge instructions given to patient. Clinical Quality Measures AMI/AHF: ASA po Prior to arrival: No DVT/VTE Risk/Contraindication: Risk Factor Score Per Nursin RFS Level Per Nursing on Admit: 1=Low/No VTE PPX Copy Copies To 1: RAFI CYR MARK D MD July 29, 2017 08:37
[2017-07-29] MEDS ORDERED: PARoxetine 20 MG (PAXIL) TAB PO SCH (09:00)
[2017-07-29 09:47] VITALS: BP 113/70
== END 2017-07-29 09:00 | disposition home or self-care (01) | DRG 872 ==
LOC: EDUNIT# 15:33 → ER 15:34 → ICU 17:18 → UNDOADMIN 17:18 → 4TH 17:18
PROVIDERS: ADMIT Internal Medicine; ATTEND Internal Medicine
DX: A41.89 Other specified sepsis (principal); B97.89 Other viral agents as the cause of diseases classified elsewhere; J11.1 Influenza due to unidentified influenza virus with other respiratory manifestations; E87.1 Hypo-osmolality and hyponatremia; E86.0 Dehydration; E87.6 Hypokalemia; I10 Essential (primary) hypertension; F41.9 Anxiety disorder, unspecified; F32.9 Major depressive disorder, single episode, unspecified; R11.2 Nausea with vomiting, unspecified; F17.210 Nicotine dependence, cigarettes, uncomplicated
CPT/HCPCS: 36415; 71046; 80048; 80053; 80061; 81000; 83605; 83690; 83735; 83874; 84484; 85007; 85025; 85027; 85379; 85610; 85730; 87040; 87804; 93005; 93041; 94640; 94760; 96361; 96374; 96375

== ENCOUNTER 2017-11-03 02:28 | Observation (INO) | payer MEDICAID ==
[~2017-11-03] VITALS: Ht 172.7 cm; Wt 94.8 kg
[~2017-11-03 02:28] MED LIST changes: +CLON0.5T13; +CLON0.5T13 PO; -CLON0.5T3; -CLON0.5T3 PO; +CLON1TAB4 PO; -CODE118S2 PO; +CODE118S4 PO; +GABA-486 PO; +HYDR-3812 PO; +IBUP-30 PO; -IPRA3AMP IH; +IPRA3AMP31 IH; +MENT118G TP; +PARO20TA5 PO; +PARO40TA3 PO
[2017-11-03] MEDS ORDERED: NS IV 1000 ML 1,000 ML IV SCH (02:46)
--- NOTE | 2017-11-03 02:55 | ED Abdominal Pain ---
General Chief Complaint: Abdominal/GI Problems Stated Complaint: ABD PAIN Nursing Triage Note: Patient advises right upper quadrant abdominal pain for approx. 5-6 hours that has become progressively worse. Sepsis Screen: No Definite Risk Source of Information: Patient, Family (mom) Exam Limitations: No Limitations History of Present Illness Date Seen by Provider: Nov 03, 2017 Time Seen by Provider: 02:43 Initial Comments Patient presents to ER by private conveyance with her mother and chief complaint that for the past for 5 hours been having progressively worsening pain in her right upper quadrant abdomen. The pain radiates around to her back. She says she has not had any nausea diarrhea fevers chills cough or shortness of breath or chest pain. She did take 800 mg ibuprofen about 3 hours ago and that did not help much. She did not take any antacids. The pain is constant. She took 2x 7.5 mg Percocets which helped marginally; brought her pain down from a 10 at max to a 9 presently. Patient's had her appendix out but no other intra-abdominal surgeries besides tubal ligation. She's having regular normal bowel movements. No history of trauma. She is concerned her gallbladder may be involved. She does not have any history of kidney stones and is not having any dysuria or hematuria. Allergies and Home Medications Allergies Coded Allergies: amoxicillin (Verified Allergy, Unknown, 04/27/16) oseltamivir (Verified Allergy, Unknown, RASH, 07/27/17) Hives and nausea and vomiting potassium clavulanate (Verified Allergy, Unknown, 04/27/16) Home Medications Clonazepam 1 Mg Tablet, 1 MG PO TID, (Reported) Clonidine HCl 0.1 Mg Tablet, 0.1 MG PO BID PRN for BLOOD PRESSURE, (Reported) Gabapentin 100 Mg Capsule, 200 MG PO TID, (Reported) TAKES 2 (100MG) CAPSULES Hydrocodone/Acetaminophen 1 Each Tablet, 1 EACH PO Q4H Prescribed by: RACHEL LANDA on 07/29/17 0810 Ibuprofen 200 Mg Tablet, 800 MG PO TID PRN for PAIN-MILD, (Reported) Menthol 118 Ml Gel..ml., TP QID PRN for BACK PAIN, (Reported) Mirtazapine 30 Mg Tablet, 30 MG PO HS, (Reported) Paroxetine HCl 20 Mg Tablet, 20 MG PO DAILY, (Reported) TAKES ALONG WITH 40MG TABLET FOR A TOTAL DAILY DOSE OF 60MG Paroxetine HCl 40 Mg Tablet, 40 MG PO DAILY, (Reported) TAKES WITH A 20MG TABLET FOR A TOTAL DAILY DOSE OF 60MG Promethazine HCl 25 Mg Tablet, 25 MG PO Q4H PRN for NAUSEA/VOMITING-1ST LINE, ( Reported) Patient Home Medication List Home Medication List Reviewed: Yes Review of Systems Constitutional: No chills, No diaphoresis EENTM: No Blurred Vision, No Double Vision Respiratory: Denies Cough, Denies Shortness of Air Cardiovascular: Denies Chest Pain, Denies Lightheadedness Gastrointestinal: Abdomen Distended, Abdominal Pain; Denies Constipated, Denies Diarrhea, Denies Nausea, Denies Poor Fluid Intake, Denies Rectal Bleeding , Denies Vomiting Genitourinary: Denies Burning, Denies Discharge Musculoskeletal: No back pain, No joint pain Past Gerebtt-Stadxc-Mmhfqo Hx Patient Social History Alcohol Use: Occasionally Uses Recreational Drug Use: No Smoking Status: Former Smoker Type Used: Cigarettes Former Smoker, Quit: Nov 02, 2017 2nd Hand Smoke Exposure: Yes Recent Foreign Travel: No Contact w/Someone Who Travel: No Recent Infectious Disease Expo: No Recent Hopitalizations: No Physical Abuse: No Sexual Abuse: No Immunizations Up To Date Tetanus Booster (TDap): Unknown PED Vaccines UTD: No Seasonal Allergies Seasonal Allergies: No Past Medical History Surgeries: Yes Appendectomy, Tubal Ligation Respiratory: No Currently Using CPAP: No Currently Using BIPAP: No Cardiac: Yes Hypertension Neurological: No Reproductive Disorders: Yes Female Reproductive Disorders: Menstrual Problems, Ovarian Cyst Sexually Transmitted Disease: No HIV/AIDS: No Genitourinary: No Gastrointestinal: Yes Gall Bladder Disease Musculoskeletal: No Chronic Back Pain Endocrine: No HEENT: No Cancer: No Psychosocial: Yes Anxiety, Depression Nursing Suicide Risk Score: 0 Integumentary: No Blood Disorders: No Adverse Reaction/Blood Tranf: No Family Medical History Alcoholism G8 BROTHER ( with liver failure) Arthritis G8 BROTHER (rhoumatoid arthritis, mono multiplex neuropathy) No Pertinent Family Hx Physical Exam Vital Signs Vital Signs - First Documented 11/03/17 02:42 Temp 98.7 Pulse 79 Resp 14 B/P (MAP) 129/82 (98) Pulse Ox 98 O2 Delivery Room Air Capillary Refill : Less Than 3 Seconds Height/Weight/BMI Height: 5'8.00" Weight: 200lbs. 8.0oz. 90.419806hd; 34.0 BMI Method:Stated General Appearance: WD/WN, mild distress HEENT: PERRL/EOMI, pharynx normal Neck: non-tender, full range of motion, normal inspection Respiratory: normal breath sounds, no respiratory distress, no accessory muscle use Cardiovascular: normal peripheral pulses, regular rate, rhythm, no edema Peripheral Pulses: 2+ Radial Pulses (R), 2+ Radial Pulses (L) Gastrointestinal: normal bowel sounds, no organomegaly, guarding; No rebound; tenderness (right upper quadrant epigastric region.), other (Power sign pos) Extremities: non-tender, normal inspection, no pedal edema, normal capillary refill Back: normal inspection, CVA tenderness (R) (very mild) Neurologic/Psychiatric: alert, normal mood/affect, oriented x 3 Skin: normal color, warm/dry Progress/Results/Core Measures Results/Orders Lab Results Laboratory Tests Test 11/03/17 03:25 11/03/17 03:36 Range/Units Urine Color YELLOW Urine Clarity CLEAR Urine pH 6 5-9 Urine Specific [place] 1.020 1.016-1.022 Urine Protein NEGATIVE NEGATIVE Urine Glucose (UA) NEGATIVE NEGATIVE Urine Ketones NEGATIVE NEGATIVE Urine Nitrite NEGATIVE NEGATIVE Urine Bilirubin NEGATIVE NEGATIVE Urine Urobilinogen NORMAL NORMAL MG/DL Urine Leukocyte Esterase 1+ H NEGATIVE Urine RBC (Auto) 2+ H NEGATIVE Urine RBC 2-5 H /HPF Urine WBC RARE /HPF Urine Squamous Epithelial Cells 25-50 H /HPF Urine Crystals NONE /LPF Urine Bacteria TRACE /HPF Urine Casts NONE /LPF Urine Mucus NEGATIVE /LPF Urine Culture Indicated NO Urine Test NEGATIVE NEGATIVE Urine Opiates Screen NEGATIVE NEGATIVE Urine Oxycodone Screen POSITIVE H NEGATIVE Urine Methadone Screen NEGATIVE NEGATIVE Urine Propoxyphene Screen NEGATIVE NEGATIVE Urine Barbiturates Screen NEGATIVE NEGATIVE Ur Tricyclic Antidepressants Screen NEGATIVE NEGATIVE Urine Phencyclidine Screen NEGATIVE NEGATIVE Urine Amphetamines Screen NEGATIVE NEGATIVE Urine Methamphetamines Screen NEGATIVE NEGATIVE Urine Benzodiazepines Screen POSITIVE H NEGATIVE Urine Cocaine Screen NEGATIVE NEGATIVE Urine Cannabinoids Screen NEGATIVE NEGATIVE White Blood Count 9.8 4.3-11.0 10^3/uL Red Blood Count 4.24 L 4.35-5.85 10^6/uL Hemoglobin 12.8 11.5-16.0 G/DL Hematocrit 38 35-52 % Mean Corpuscular Volume 89 80-99 FL Mean Corpuscular Hemoglobin 30 25-34 PG Mean Corpuscular Hemoglobin Concent 34 32-36 G/DL Red Cell Distribution Width 12.7 10.0-14.5 % Platelet Count 301 130-400 10^3/uL Mean Platelet Volume 10.0 7.4-10.4 FL Neutrophils (%) (Auto) 54 42-75 % Lymphocytes (%) (Auto) 36 12-44 % Monocytes (%) (Auto) 6 0-12 % Eosinophils (%) (Auto) 3 0-10 % Basophils (%) (Auto) 1 0-10 % Neutrophils # (Auto) 5.3 1.8-7.8 X 10^3 Lymphocytes # (Auto) 3.5 1.0-4.0 X 10^3 Monocytes # (Auto) 0.6 0.0-1.0 X 10^3 Eosinophils # (Auto) 0.3 0.0-0.3 10^3/uL Basophils # (Auto) 0.1 0.0-0.1 10^3/uL Sodium Level 139 135-145 MMOL/L Potassium Level 3.9 3.6-5.0 MMOL/L Chloride Level 105 98-107 MMOL/L Carbon Dioxide Level 23 21-32 MMOL/L Anion Gap 11 5-14 MMOL/L Blood Urea Nitrogen 16 7-18 MG/DL Creatinine 0.84 0.60-1.30 MG/DL Estimat Glomerular Filtration Rate > 60 BUN/Creatinine Ratio 19 Glucose Level 100 70-105 MG/DL Calcium Level 9.6 8.5-10.1 MG/DL Corrected Calcium 9.8 8.5-10.1 MG/DL Total Bilirubin 0.2 0.1-1.0 MG/DL Aspartate Amino Transf (AST/SGOT) 19 5-34 U/L Alanine Aminotransferase (ALT/SGPT) 28 0-55 U/L Alkaline Phosphatase 94 40-136 U/L Total Protein 6.8 6.4-8.2 GM/DL Albumin 3.7 3.2-4.5 GM/DL Lipase 15 8-78 U/L My Orders Orders - PAUL VICENTE Cbc With Automated Diff (11/03/17 02:46) Comprehensive Metabolic Panel (11/03/17 02:46) Drug Screen Stat (Urine) (11/03/17 02:46) Lipase (11/03/17 02:46) Ua Culture If Indicated (11/03/17 02:46) Saline Lock/Iv-Start (11/03/17 02:46) Ns Iv 1000 Ml (Sodium Chloride 0.9%) (11/03/17 02:46) Fentanyl Injection (Sublimaze Injection (11/03/17 03:00) Ct Abdomen/Pelvis W Wo (11/03/17 04:03) Hcg,Qualitative Urine (11/03/17 04:08) Iohexol Injection (Omnipaque 350 Mg/Ml 1 (11/03/17 04:45) Ns (Ivpb) (Sodium Chloride 0.9%) (11/03/17 04:45) Medications Given in ED Current Medications Medications Dose Ordered Sig/Annalisa Route Start Time Stop Time Status Last Admin Dose Admin Fentanyl Citrate 50 mcg ONCE ONCE IVP 11/03/17 03:00 11/03/17 03:01 DC 11/03/17 03:00 50 MCG Iohexol 100 ml ONCE ONCE IV 11/03/17 04:45 11/03/17 04:46 DC 11/03/17 04:40 100 ML Sodium Chloride 80 ml ONCE ONCE IV 11/03/17 04:45 11/03/17 04:46 DC 11/03/17 04:40 80 ML Vital Signs/I&O 11/03/17 02:42 Temp 98.7 Pulse 79 Resp 14 B/P (MAP) 129/82 (98) Pulse Ox 98 O2 Delivery Room Air Blood Pressure Mean: 98 Progress Progress Note #1: Time: 02:54 Progress Note The patient's vague right costovertebral angle tenderness to percussion is not as convincing as her positive Power sign. We'll go ahead and obtain ultrasound right upper quadrant to evaluate her gallbladder. Progress Note #2: Time: 04:06 Progress Note Patient is unable to remember when her last period was low when she should be starting. Her microscopic hematuria and therefore could be the start of her menstrual cycle or could represent possible kidney stones and she is having some right costovertebral angle tenderness we'll go ahead and obtain a CT with contrast and without contrast of her abdomen and pelvis to be can also assess her gallbladder and biliary tree for evidence of inflammation or obstruction. Diagnostic Imaging Diagonstic Imaging: CT (with and without contrast) Plain Films/CT/US/NM/MRI: abdomen, pelvis Comments Gallbladder hydrops with wall thickening suspicious for cholecystitis. Common duct measures 8-9 mm. The patient has had prior appendectomy. Reviewed: Reviewed by Me Departure Communication (Admissions) Time/Spoke to Admitting Phy: 05:15 Discussed case lab imaging and findings with Dr. Gimenez and he agrees to admit the patient and have them added on to the end of his surgery schedule for cholecystectomy. Impression Primary Impression: Cholecystitis, acute Disposition: 01 HOME, SELF-CARE Condition: Improved Admissions Decision to Admit Reason: Admit from ER (General) Decision to Admit/Date: Nov 03, 2017 Time/Decision to Admit Time: 05:20 Departure-Patient Inst. Referrals: RAFI CASTILLO DO (PCP/Family) Primary Care Physician Copy Copies To 1: RAFI CASTILLO TITUS J Nov 03, 2017 02:55
[2017-11-03] MEDS ORDERED: fentaNYL INJECTION 100 MCG/2 ML AMP IVP ONE (03:00)
[2017-11-03 03:43] LABS: BASOPHILS # (AUTO) 0.1 10^3/uL (0.0-0.1); BASOPHILS % (AUTO) 1 % (0-10); EOSINOPHILS # (AUTO) 0.3 10^3/uL (0.0-0.3); EOSINOPHILS % (AUTO) 3 % (0-10); HEMATOCRIT 38 % (35-52); HEMOGLOBIN 12.8 G/DL (11.5-16.0); LYMPHOCYTES # (AUTO) 3.5 X 10^3 (1.0-4.0); LYMPHOCYTES % (AUTO) 36 % (12-44); MEAN CORPUSCULAR HEMOGLOBIN 30 PG (25-34); MEAN CORPUSCULAR HGB CONC 34 G/DL (32-36); MEAN CORPUSCULAR VOLUME 89 FL (80-99); MONOCYTES # (AUTO) 0.6 X 10^3 (0.0-1.0); MONOCYTES % (AUTO) 6 % (0-12); NEUTROPHILS # (AUTO) 5.3 X 10^3 (1.8-7.8); NEUTROPHILS % (AUTO) 54 % (42-75); PLATELET COUNT 301 10^3/uL (130-400); RED BLOOD COUNT 4.24 10^6/uL (4.35-5.85); RED CELL DISTRIBUTION WIDTH 12.7 % (10.0-14.5); WHITE BLOOD COUNT 9.8 10^3/uL (4.3-11.0)
[2017-11-03 03:46] LABS: BILIRUBIN,URINE NEGATIVE (NEGATIVE); CLARITY,URINE CLEAR; COLOR,URINE YELLOW; GLUCOSE, URINE (UA) NEGATIVE (NEGATIVE); KETONES,URINE NEGATIVE (NEGATIVE); LEUKOCYTE ESTERASE ,URINE 1+ (NEGATIVE); NITRITE,URINE NEGATIVE (NEGATIVE); PH,URINE 6 (5-9); PROTEIN,URINE NEGATIVE (NEGATIVE); UROBILINOGEN,URINE NORMAL (NORMAL)
[2017-11-03 03:52] LABS: BACTERIA,URINE TRACE /HPF; SQUAMOUS EPITHELIAL CELL,UR 25-50 /HPF; WBC,URINE RARE /HPF
[2017-11-03 04:01] LABS: ALANINE AMINOTRANSFERASE 28 U/L (0-55); ALBUMIN 3.7 GM/DL (3.2-4.5); ALKALINE PHOSPHATASE 94 U/L (40-136); BILIRUBIN,TOTAL 0.2 MG/DL (0.1-1.0); BUN/CREATININE RATIO 19; CALCIUM 9.6 MG/DL (8.5-10.1); CARBON DIOXIDE 23 MMOL/L (21-32); CHLORIDE 105 MMOL/L (98-107); CREATININE SERUM 0.84 MG/DL (0.60-1.30); GFR ESTIMATED > 60; GLUCOSE 100 MG/DL (70-105); LIPASE 15 U/L (8-78); POTASSIUM 3.9 MMOL/L (3.6-5.0); SODIUM 139 MMOL/L (135-145); TOTAL PROTEIN 6.8 GM/DL (6.4-8.2)
[2017-11-03 04:04] LABS: AMPHETAMINE SCREEN, URINE NEGATIVE (NEGATIVE); BARBITURATE SCREEN URINE NEGATIVE (NEGATIVE); BENZODIAZEPINES SCREEN URINE POSITIVE (NEGATIVE); CANNABINOID SCREEN, URINE NEGATIVE (NEGATIVE); COCAINE SCREEN URINE NEGATIVE (NEGATIVE); METHADONE STAT NEGATIVE (NEGATIVE); METHAMPHETAMINE SCREEN URINE S NEGATIVE (NEGATIVE); OPIATE SCREEN URINE NEGATIVE (NEGATIVE); OXYCODONE STAT POSITIVE (NEGATIVE); PROPOXYPHENE STAT NEGATIVE (NEGATIVE); TRICYCLIC ANTIDEPRESSANTS SCRE NEGATIVE (NEGATIVE)
[2017-11-03] MEDS ORDERED: NS 250 ML (IVPB) BAG IV ONE (04:45)
[2017-11-03] MEDS ORDERED: IOHEXOL 350 MG/ML 100 ML (OMNIPAQUE 350) VIAL IV ONE (04:45)
[2017-11-03] MEDS ORDERED: ONDANSETRON 4 MG/2 ML (SDV) Z0FRAN IV PRN (06:30)
[2017-11-03] MEDS: fentaNYL INJECTION 100 MCG/2 ML AMP IV PRN ×2 (07:25→15:17)
[2017-11-03] MEDS: 1/2 NS W/KCL 20 MEQ/L 1,000 ML IV SCH ×2 (07:25→15:08)
--- NOTE | 2017-11-03 07:40 | Diagnostic Imaging Report ---
PROCEDURE: CT abdomen and pelvis with and without contrast. TECHNIQUE: Precontrast acquisitions were acquired through the abdomen and pelvis. Multiple contiguous axial images were obtained through the abdomen and pelvis after the administration of intravenous contrast. INDICATION: Right upper quadrant pain. The study compared 04/27/2016. FINDINGS: The gallbladder is very dilated. There is wall thickening and likely pericholecystic fluid. Cannot identify on CT a discrete heavily calcified stone, however, the appearance is suspicious for cholecystitis. Consider sonographic interrogation. The gallbladder measures 11 cm in length and 5.5 cm transverse. There is some ectasia of the extrahepatic duct without appreciable radiodense intraductal stone. The common duct distally measuring 10 mm. The pancreas appeared unremarkable. The liver parenchyma unremarkable. The spleen and adrenals negative. There are no opaque kidney stones. There is no bowel obstruction. There is a small volume pelvic free fluid in the cul-de-sac not uncommon in a female patient of this age. The uterus, adnexa, and urinary bladder unremarkable. There is previous appendectomy. There is no bowel obstruction. IMPRESSION: 1. Dilated thickwalled edematous gallbladder with pericholecystic inflammation. Mild ectasia of the extrahepatic bile duct. No radiodense stone. Consider sonographic evaluation as further evaluation. Nuclear medicine hepatobiliary scanning may also be of utility to confirm or refute cystic as well as common ductal patency. 2. Small free fluid likely physiologic. No other significant finding. Dictated by: Dictated on workstation # [id number]
[2017-11-03 08:00] VITALS: BP 113/73
[2017-11-03] MEDS ORDERED: ONDA8TAB13 PO (09:13)
[2017-11-03] MEDS ORDERED: LISI1TAB10 PO (09:13)
[2017-11-03] MEDS ORDERED: BUP/EPI 0.5% 1:200,000 (SENSORCAINE) 30 ML VIAL ONE (09:16)
--- NOTE | 2017-11-03 11:12 | Progress Note-Pre Operative ---
Pre-Operative Progress Note H&P Reviewed The H&P was reviewed, patient examined and no changes noted. Date Seen by Provider: Nov 03, 2017 Time Seen by Provider: 11:00 Date H&P Reviewed: Nov 03, 2017 Time H&P Reviewed: 11:00 Pre-Operative Diagnosis: acute calculous cholecystitis ALANNAH TERAN MD Nov 03, 2017 11:12
[2017-11-03] MEDS ORDERED: proPOfol 200 MG/20 ML (DIPRIVAN) VIAL IV ONE (11:15)
[2017-11-03] MEDS ORDERED: ONDANSETRON 4 MG/2 ML (SDV) Z0FRAN ONE (11:15)
[2017-11-03] MEDS ORDERED: fentaNYL INJECTION 100 MCG/2 ML AMP ONE (11:15)
[2017-11-03] MEDS ORDERED: LIDOCAINE PF 2% 5 ML (XYLOCAINE) VIAL ONE (11:15)
[2017-11-03] MEDS ORDERED: DEXAMETHASONE 10 MG/ML (DECADRON) 1 ML VIAL ONE (11:15)
[2017-11-03] MEDS ORDERED: ROCURONIUM 10 MG/ML 5 ML SYRINGE IV ONE (11:15)
[2017-11-03] MEDS ORDERED: CEFEPIME 1 GM (MAXIPIME) VIAL ONE ×2 (11:19→11:21)
[2017-11-03] MEDS ORDERED: NS (IVPB) 50 ML ONE (11:21)
--- NOTE | 2017-11-03 11:29 | HISTORY AND PHYSICAL ---
DATE OF SERVICE: ATTENDING PRIMARY CARE PHYSICIAN: Dr. Cyr. HISTORY OF PRESENT ILLNESS: The patient is a 47-year-old female who presented early this morning with pain in the right upper abdominal quadrant with associated nausea; however, no vomiting. She reports that she had a similar episode in the past; however, this resolved on its own. A CT scan was performed, which did show gallbladder wall thickening consistent with a cholecystitis. She does not report any issues with peptic ulcer disease or gastroesophageal reflux disease. She states that she does have some true medical allergies including AUGMENTIN and ALL FLUOROQUINOLONES; however, she reports that she does not want to take any BENZODIAZEPINES due to a previous withdrawal. PAST MEDICAL HISTORY: Anxiety, depression, hypertension. PAST SURGICAL HISTORY: Tubal ligation, laparoscopic appendectomy. ALLERGIES: AUGMENTIN. ALL FLUOROQUINOLONES, HAS HAD WITHDRAWAL ISSUES WITH BENZODIAZEPINES. MEDICATIONS: Clonazepam 1 mg t.i.d., clonidine 0.1 mg b.i.d., gabapentin 200 mg t.i.d., hydrocodone p.r.n. mirtazapine 30 mg daily, paroxetine 40 mg daily and promethazine p.r.n. SOCIAL HISTORY: Positive smoke 10 pack years. Negative alcohol. FAMILY HISTORY: Noncontributory. VITAL SIGNS: Temperature 97.7, blood pressure 113/73, pulse 79, respirations 22, pulse ox 92% on room air. REVIEW OF SYSTEMS: Well-nourished female currently guarded secondary to the abdominal pain. She is not experiencing shortness of breath or difficulty breathing. No chest pain, palpitations, diaphoresis. Intermittent episodes of nausea, no vomiting. She also has pain in the right upper abdominal quadrant. No diarrhea, constipation, no red blood per rectum, no dark tarry stools. No fever, chills, no recent inadvertent weight loss. All other review of systems negative. PHYSICAL EXAMINATION: CHEST: Clear. Good breath sounds bilaterally. HEART: Regular, no murmurs. EXTREMITIES: No lower extremity edema. Negative Homans sign. HEENT: No scleral icterus. NECK: No cervical lymphadenopathy. ABDOMEN: Soft, nondistended with pain in the right upper abdominal quadrant. A positive Power sign. SKIN: Warm and dry. LABORATORY DATA: WBC 9.8, hemoglobin 12.8, hematocrit 38, platelets 301. Liver function enzymes are normal. Urinalysis 1+ leukocyte esterase and trace bacteria. ASSESSMENT AND PLAN: A 47-year-old female with acute calculous cholecystitis. We will proceed with a laparoscopic cholecystectomy. Depending how much inflammation is identified intraoperatively we will determine if she needs further IV antibiotic therapy. When she is meeting criteria we will then discharge her home. Job ID: [id number] DocumentID: [id number] Dictated Date: 11/03/2017 11:09:57 Senior Landscape Architect Date: 11/03/2017 11:28:18 Dictated By: ALANNAH TERAN MD
[2017-11-03] MEDS: LACTATED RINGERS 1,000 ML IV PRN ×2 (11:39→13:03)
[2017-11-03] MEDS ORDERED: SEVOFLURANE (ULTANE) 15 ML INHAL SOLN ONE ×2 (12:13→13:19)
[2017-11-03] MEDS ORDERED: NEOSTIGMINE 1 MG/ML 5 ML SYRINGE ONE (12:58)
[2017-11-03] MEDS ORDERED: GLYCOPYRROLATE 0.2 MG/ML (ROBINUL) 2 ML VIAL ONE (12:58)
--- NOTE | 2017-11-03 13:13 | Progress Note-Post Operative ---
Post-Operative Progess Note Surgeon (s)/Fire Fighters Dispatcher (s) Surgeon ALANNAH TERAN MD Fire Fighters Dispatcher: done Pre-Operative Diagnosis acute calculous cholecystitis Post-Operative Diagnosis same Procedure & Operative Findings Date of Procedure 11/03/17 Procedure Performed/Findings laparoscopic cholecystectomy Anesthesia Type GET Estimated Blood Loss Estimated blood loss (mL): minimal Specimens/Packing Specimens Removed gallbladder ALANNAH TERAN MD Nov 03, 2017 1:13 pm
[2017-11-03] MEDS ORDERED: OXYC-197 PO (13:14)
--- NOTE | 2017-11-03 13:15 | Discharge Inst-Surgical ---
D/C Lap Instructions-PARUL New, Converted, or Re-Newed RX: RX on Chart Follow Up Appt in 2 weeks Activity as tolerated No driving for 24 hours No driving while on pain medications Incentive Spirometry use every 2 hours while awake Regular Diet Symptoms to Report: Fever over 101 degree F, Nausea/Vomiting Infection Signs and Symptoms to report: Increased redness, Foul odor of wound, Increased drainage Bathing instructions: May shower Operative Area Clean/Dry; Keep incision clean/dry If any problems/questions: Contact your physician or go to Emergency Room ALANNAH TERAN MD Nov 03, 2017 1:15 pm
[2017-11-03] MEDS ORDERED: ONDANSETRON 4 MG/2 ML (SDV) Z0FRAN IVP PRN (13:30)
[2017-11-03] MEDS: morphine INJ 10 MG/ML 1ML (SYR OR VIAL) IVP PRN ×2 (13:45→13:50)
--- NOTE | 2017-11-03 13:51 | Anesthesia-General Post-Op ---
General Patient Condition Mental Status/LOC: Same as Preop Cardiovascular: Satisfactory Nausea/Vomiting: Absent Respiratory: Satisfactory Pain: Controlled Complications: Absent Post Op Complications Complications None Follow Up Care/Instructions Patient Instructions None needed. Anesthesia/Patient Condition Patient Condition Patient is doing well, no complaints, stable vital signs, no apparent adverse anesthesia problems. No complications reported per nursing. JESSIE COY CRNA Nov 03, 2017 13:51
[2017-11-03] MEDS: HYDROmorphone 1 MG/ML (DILAUDID) 1 ML SYRINGE IV PRN ×2 (13:56→14:05)
[2017-11-03 14:30] VITALS: BP 115/77
[2017-11-03 15:45] VITALS: BP 114/59
[2017-11-03 18:45] VITALS: BP 114/59
[2017-11-03] MEDS ORDERED: CEFEPIME INJECTION 1,000 MG in NS (IVPB) 50 ML IV SCH (21:00)
--- NOTE | 2017-11-03 22:45 | OPERATIVE REPORT ---
DATE OF SERVICE: 11/03/2017 ATTENDING PRIMARY CARE PHYSICIAN: Dr. Cyr. PREOPERATIVE DIAGNOSIS: Acute calculous cholecystitis. POSTOPERATIVE DIAGNOSIS: Acute calculous cholecystitis. PROCEDURE: Laparoscopic cholecystectomy. ANESTHESIA: General endotracheal. ESTIMATED BLOOD LOSS: Minimal. FINDINGS: Inflamed and distended gallbladder. No abscess or perforation. DISPOSITION: The patient tolerated the procedure well. The patient is a 47-year-old female who presented early this morning with pain in the right upper abdominal quadrant with associated nausea; however, no vomiting. She reports that she has had similar episodes in the past; however, they were not as severe and would resolve on their own. A CT scan was performed, which showed a distended gallbladder with gallbladder wall thickening and probable gallstone consistent with an acute calculous cholecystitis. She does not report any issues with peptic ulcer disease nor gastroesophageal reflux disease. She does have some true medical allergies including AUGMENTIN as well as all FLUOROQUINOLONES; however, states that she does not want to be on benzodiazepines due to previous withdrawal issues. DESCRIPTION OF PROCEDURE: The patient was brought to the operating room, laid supine on the table. After adequate IV pain and sedative medications and general endotracheal intubation, the abdomen was prepped and draped in standard surgical fashion. A 0.5% Marcaine with epinephrine was then used to anesthetize the overlying skin. In the left upper abdominal quadrant, a small transverse skin incision made using a 15 blade. An 0 silk suture was applied to the medial aspect of the incision for retraction and a Veress needle inserted with a low opening pressure of 0 mmHg and the abdomen was then insufflated to 15 mmHg pressure. The Veress needle removed and a 5 mm Xcel trocar placed followed by a 5 mm 45 degree angle laparoscope visualizing the peritoneal cavity. A 4-quadrant abdominal exploration was performed. There was normal-appearing omentum, small bowel and liver. There was a significantly distended gallbladder that was edematous and inflamed; however, no signs of abscess or any purulence. Under direct visualization, we then proceeded to place a supraumbilical 10 mm port after the skin and peritoneal lining were anesthetized using 0.5% Marcaine with epinephrine and a transverse skin incision made using a 15 blade. In a similar manner, a right upper abdominal quadrant 5 mm port was placed. The gallbladder was then decompressed using a laparoscopic needle and suctioned. The fundus of the gallbladder was then retracted anteriorly and superiorly. The patient was then placed in reverse Trendelenburg position as well as plane right side up, left side down. The omental adhesions were then taken down using electrocautery and a hook instrument. The hepatoduodenal ligament was then opened using electrocautery on the hook instrument as well as blunt dissection. The entire critical view of safety was identified including the triangle of Calot as well as the cystic duct and artery as the only two structures going into the gallbladder as well as the cystic plate behind the proximal gallbladder. A timeout was then taken and the cystic duct and artery were then clipped proximally, distally and cut with EndoShears. The gallbladder was then dissected off of the liver bed using electrocautery on the hook instrument with visualization of good hemostasis as well as no leaking ducts of Luschka. The gallbladder was removed through the 10 mm port site using an EndoCatch bag. The 10 mm port site fascia and peritoneum were then closed under direct visualization using a Melvin-Roland device and an 0 Vicryl suture. The abdomen was then desufflated and the remaining ports removed. All skin incisions were closed using 4-0 Monocryl running subcuticular sutures. Wounds were then cleaned and covered with Dermabond. The patient tolerated the procedure well. We will start IV normal pain medication as well as a clear liquid diet. Once she is tolerating clears and has good pain control with oral pain medications, ambulating well, we will discharge her home. Job ID: [id number] DocumentID: [id number] Dictated Date: 11/03/2017 13:29:34 Or First Assist Registered Nurse Date: 11/03/2017 22:45:10 Dictated By: ALANNAH TERAN MD
== END 2017-11-03 18:45 | disposition home or self-care (01) ==
LOC: EDUNIT# 02:28 → ER 02:29 → 4TH 05:46
PROVIDERS: ADMIT Surgery; ATTEND Surgery
DX: K80.00 Calculus of gallbladder with acute cholecystitis without obstruction (principal); I10 Essential (primary) hypertension; F41.9 Anxiety disorder, unspecified; F32.9 Major depressive disorder, single episode, unspecified; Z79.899 Other long term (current) drug therapy; F17.210 Nicotine dependence, cigarettes, uncomplicated
CPT/HCPCS: 36415; 74178; 80053; 80306; 81000; 83690; 84703; 85025; 87081

== ENCOUNTER 2017-12-01 11:22 | Emergency (ER) | payer MEDICAID ==
[~2017-12-01] VITALS: Ht 172.7 cm; Wt 90.7 kg
[~2017-12-01 11:22] MED LIST changes: -BENZ-13 PO; +BENZ100C18 PO; +CLON1TAB13 PO; -CLON1TAB4 PO; +OXYC1TAB87 PO
[2017-12-01 13:01] LABS: BILIRUBIN,URINE NEGATIVE (NEGATIVE); CLARITY,URINE CLEAR; COLOR,URINE YELLOW; GLUCOSE, URINE (UA) NEGATIVE (NEGATIVE); KETONES,URINE NEGATIVE (NEGATIVE); LEUKOCYTE ESTERASE ,URINE NEGATIVE (NEGATIVE); NITRITE,URINE NEGATIVE (NEGATIVE); PH,URINE 6 (5-9); PROTEIN,URINE NEGATIVE (NEGATIVE); UROBILINOGEN,URINE NORMAL (NORMAL)
[2017-12-01 13:11] LABS: BACTERIA,URINE NEGATIVE /HPF; SQUAMOUS EPITHELIAL CELL,UR RARE /HPF
[2017-12-01 13:15] LABS: AMPHETAMINE SCREEN, URINE NEGATIVE (NEGATIVE); BARBITURATE SCREEN URINE NEGATIVE (NEGATIVE); BENZODIAZEPINES SCREEN URINE POSITIVE (NEGATIVE); CANNABINOID SCREEN, URINE NEGATIVE (NEGATIVE); COCAINE SCREEN URINE NEGATIVE (NEGATIVE); METHADONE STAT NEGATIVE (NEGATIVE); METHAMPHETAMINE SCREEN URINE S POSITIVE (NEGATIVE); OPIATE SCREEN URINE NEGATIVE (NEGATIVE); OXYCODONE STAT NEGATIVE (NEGATIVE); PROPOXYPHENE STAT NEGATIVE (NEGATIVE); TRICYCLIC ANTIDEPRESSANTS SCRE NEGATIVE (NEGATIVE)
[2017-12-01] MEDS ORDERED: PROMETHAZINE/ CODEINE SYRUP 5 ML UDC PO ONE (13:15)
--- NOTE | 2017-12-01 13:29 | Diagnostic Imaging Report ---
Indication: Cough and difficulty breathing. Time of exam: 1:40 PM Correlation is made with prior study 07/27/2017. The heart size is normal. The pulmonary vascularity is unremarkable. The lungs are clear. No infiltrate, effusion or pneumothorax is detected. Impression: No acute cardiopulmonary process is detected. Dictated by: Dictated on workstation # [id number]
[2017-12-01] MEDS ORDERED: RT-LEVALBUTEROL (XOPENEX) 1.25 MG/3 ML NEB NON-FORMULARY INH SCH (14:00)
[2017-12-01] MEDS ORDERED: LEVA0.316 IH (14:08)
--- NOTE | 2017-12-01 14:08 | ED Cough/URI ---
General Chief Complaint: Cough/Cold/Flu Symptoms Stated Complaint: TROUBLE BREATHING Nursing Triage Note: pt reports cough/cold/gerard/congestion, ear pain, and sore throat x 5 days. Source: patient Exam Limitations: no limitations History of Present Illness Date Seen by Provider: Dec 01, 2017 Time Seen by Provider: 12:30 Initial Comments Patient is a 47-year-old female who presents to the emergency room with complaints of cough cold headache, congestion, ear pain, sore throat for 5 days. She is currently on penicillin from Dr. Cyr he saw on Thursday of last week and was treated for pharyngitis and upper respiratory infection. She is concerned today that she has pneumonia. Timing/Duration: just prior to arrival Severity/Quality: dry cough Prior Episodes/Possible Cause: frequent episodes Modifying Factors: Worse With Coughing Associated Symptoms: cough, earache, nasal congestion, shortness of breath, sinus infection, sore throat Allergies and Home Medications Allergies Coded Allergies: Quinolones (Verified Allergy, Unknown, 11/03/17) amoxicillin (Verified Allergy, Unknown, 04/27/16) oseltamivir (Verified Allergy, Unknown, RASH, 07/27/17) Hives and nausea and vomiting potassium clavulanate (Verified Allergy, Unknown, 04/27/16) Home Medications Clonidine HCl 0.1 Mg Tablet, 0.1 MG PO BID PRN for BLOOD PRESSURE, (Reported) Ibuprofen 200 Mg Tablet, 800 MG PO TID PRN for PAIN-MILD, (Reported) Levalbuterol HCl 0.31 Mg/3 Ml Vial.neb, 0.31 MG IH TID Prescribed by: GRABIEL JEFFERS on 12/01/17 1408 Lisinopril/Hydrochlorothiazide 1 Each Tablet, 1 TAB PO DAILY, (Reported) Menthol 118 Ml Gel..ml., TP QID PRN for BACK PAIN, (Reported) Mirtazapine 30 Mg Tablet, 30 MG PO HS, (Reported) Ondansetron 8 Mg Tab.rapdis, 8 MG PO TID PRN for NAUSEA/VOMITING-1ST LINE, ( Reported) Oxycodone HCl/Acetaminophen 1 Each Tablet, 1-2 EACH PO Q4H Prescribed by: ALANNAH TERAN on 11/03/17 1314 Paroxetine HCl 20 Mg Tablet, 20 MG PO DAILY, (Reported) TAKES ALONG WITH 40MG TABLET FOR A TOTAL DAILY DOSE OF 60MG Paroxetine HCl 40 Mg Tablet, 40 MG PO DAILY, (Reported) TAKES WITH A 20MG TABLET FOR A TOTAL DAILY DOSE OF 60MG Promethazine HCl 25 Mg Tablet, 25 MG PO Q4H PRN for NAUSEA/VOMITING-1ST LINE, ( Reported) Patient Home Medication List Home Medication List Reviewed: Yes Review of Systems Review of Systems Constitutional: see HPI; No chills, No fever EENTM: see HPI, ear pain Respiratory: cough, short of breath, wheezing All Other Systems Reviewed Negative Unless Noted: Yes Past Suswfzg-Euylfn-Qzysdd Hx Past Med/Social Hx: Reviewed Nursing Past Med/Soc Hx Patient Social History Alcohol Use: Denies Use Recreational Drug Use: No Smoking Status: Current Everyday Smoker Type Used: Cigarettes Former Smoker, Quit: Nov 01, 2017 2nd Hand Smoke Exposure: Yes Recent Foreign Travel: No Contact w/Someone Who Travel: No Recent Infectious Disease Expo: No Recent Hopitalizations: No Physical Abuse: No Sexual Abuse: No Mistreated: No Fear: No Immunizations Up To Date Tetanus Booster (TDap): Unknown PED Vaccines UTD: No Seasonal Allergies Seasonal Allergies: No Past Medical History Surgeries: Yes Appendectomy, Gallbladder, Tubal Ligation Respiratory: No Currently Using CPAP: No Currently Using BIPAP: No Cardiac: No Hypertension Neurological: No Reproductive Disorders: Yes Female Reproductive Disorders: Menstrual Problems, Ovarian Cyst Sexually Transmitted Disease: No HIV/AIDS: No Genitourinary: No Gastrointestinal: No Gall Bladder Disease Musculoskeletal: No Chronic Back Pain Endocrine: No HEENT: No Cancer: No Psychosocial: Yes Anxiety, Depression Integumentary: No Blood Disorders: No Adverse Reaction/Blood Tranf: No Family Medical History Reviewed Nursing Family Hx Alcoholism G8 BROTHER ( with liver failure) Arthritis G8 BROTHER (rhoumatoid arthritis, mono multiplex neuropathy) No Pertinent Family Hx Physical Exam Vital Signs - First Documented 12/01/17 12:11 Temp 97.3 Pulse 96 Resp 18 B/P (MAP) 132/79 (96) Pulse Ox 96 O2 Delivery Room Air Capillary Refill : Less Than 3 Seconds Height: 5'8.00" Weight: 200lbs. 0.0oz. 90.385496ow; 31.8 BMI Method:Stated General Appearance: WD/WN, no apparent distress Eyes: Bilateral Eye Normal Inspection, Bilateral Eye PERRL, Bilateral Eye Abnormal EOM HEENT: PERRL/EOMI, normal ENT inspection, TMs normal, pharynx normal Neck: non-tender, full range of motion, supple, normal inspection Respiratory: chest non-tender, no respiratory distress, no accessory muscle use , wheezing (throughout lung gusman) Cardiovascular: regular rate, rhythm, no edema, no gallop, no JVD, no murmur Neurologic/Psychiatric: alert, normal mood/affect, oriented x 3 Skin: normal color, warm/dry Progress/Results/Core Measures Suspected Sepsis Recent Fever Within 48 Hours: No Infection Criteria Present: None New/Unexplained Altered Menta: No Sepsis Screen: No Definite Risk SIRS Temperature:97.3 Pulse: 96 Respiratory Rate: 18 Blood Pressure 132 /79 Mean: 96 Results/Orders Lab Results Laboratory Tests Test 12/01/17 12:38 Range/Units Urine Color YELLOW Urine Clarity CLEAR Urine pH 6 5-9 Urine Specific [place] 1.010 L 1.016-1.022 Urine Protein NEGATIVE NEGATIVE Urine Glucose (UA) NEGATIVE NEGATIVE Urine Ketones NEGATIVE NEGATIVE Urine Nitrite NEGATIVE NEGATIVE Urine Bilirubin NEGATIVE NEGATIVE Urine Urobilinogen NORMAL NORMAL MG/DL Urine Leukocyte Esterase NEGATIVE NEGATIVE Urine RBC (Auto) NEGATIVE NEGATIVE Urine RBC NONE /HPF Urine WBC NONE /HPF Urine Squamous Epithelial Cells RARE /HPF Urine Crystals NONE /LPF Urine Bacteria NEGATIVE /HPF Urine Casts NONE /LPF Urine Mucus NEGATIVE /LPF Urine Culture Indicated NO Urine Opiates Screen NEGATIVE NEGATIVE Urine Oxycodone Screen NEGATIVE NEGATIVE Urine Methadone Screen NEGATIVE NEGATIVE Urine Propoxyphene Screen NEGATIVE NEGATIVE Urine Barbiturates Screen NEGATIVE NEGATIVE Ur Tricyclic Antidepressants Screen NEGATIVE NEGATIVE Urine Phencyclidine Screen NEGATIVE NEGATIVE Urine Amphetamines Screen NEGATIVE NEGATIVE Urine Methamphetamines Screen POSITIVE H NEGATIVE Urine Benzodiazepines Screen POSITIVE H NEGATIVE Urine Cocaine Screen NEGATIVE NEGATIVE Urine Cannabinoids Screen NEGATIVE NEGATIVE My Orders Orders - BERNOT,GRABIEL Levalbuterol (Non-Formulary) (Xopenex (N (12/01/17 14:00) Chest Pa/Lat (2 View) (12/01/17 12:30) Ua Culture If Indicated (12/01/17 12:49) Drug Screen Stat (Urine) (12/01/17 12:49) Promethazine/ Codeine Syrup (Phenergan W (12/01/17 13:15) Medications Given in ED Current Medications Medications Dose Ordered Sig/Annalisa Route Start Time Stop Time Status Last Admin Dose Admin Promethazine HCl/ Codeine 5 ml ONCE ONCE PO 12/01/17 13:15 12/01/17 13:16 DC 12/01/17 13:20 5 ML Vital Signs/I&O 12/01/17 12/01/17 12/01/17 12/01/17 12:11 12:11 12:41 14:19 Temp 97.3 Pulse 96 87 Resp 18 16 B/P (MAP) 132/79 (96) 132/79 Pulse Ox 96 97 98 O2 Delivery Room Air Room Air Room Air Capillary Refill : Less Than 3 Seconds Blood Pressure Mean: 96 Progress Note : Time: 14:00 Progress Note The patient has improved tremendously with breathing treatment. She regularly takes Xopenex at home but has ran out. She has stopped coughing with cough syrup. I will be prescribing Xopenex and cough syrup for home use. She agrees with plan of care, plans for discharge, return precautions were given. Diagnostic Imaging Diagonstic Imaging: Xray Plain Films/CT/US/NM/MRI: chest Comments VIA [facility]. [place], [place] NAME: ALVINO ARANDA [facility] REC#: [id number] PT STATUS: REG ER : 1970 PHYSICIAN: GRABIEL JEFFERS ADMIT DATE: 12/01/17/ER Draft Date of Exam:12/01/17 CHEST PA/LAT (2 VIEW) Indication: Cough and difficulty breathing. Time of exam: 1:40 PM Correlation is made with prior study 07/27/2017. The heart size is normal. The pulmonary vascularity is unremarkable. The lungs are clear. No infiltrate, effusion or pneumothorax is detected. Impression: No acute cardiopulmonary process is detected. Dictated on workstation # [id number] Dict: 12/01/17 1327 Trans: 12/01/17 1329 [facility] [id number] Interpreted by: HEIDI MONTANO MD Electronically signed by: Reviewed: Reviewed by Me Departure Impression Primary Impression: Cough Disposition: 01 HOME, SELF-CARE Condition: Stable/Unchanged Departure-Patient Inst. Decision time for Depature: 14:05 Referrals: RAFI CYR DO (PCP/Family) Primary Care Physician Patient Instructions: Viral Upper Respiratory Infection, Adult (DC) Add. Discharge Instructions: Take medication as directed. Follow-up with Dr. Cyr within the week for a recheck. Return back to the emergency room for any worsening symptoms or concerns as needed. All discharge instructions reviewed with patient and/or family. Voiced understanding. Scripts Levalbuterol HCl (Xopenex) 0.31 Mg/3 Ml Vial.neb 0.31 MG IH TID, #14 INHALER Prov: GRABIEL JEFFERS 12/01/17 GRABIEL JEFFERS Dec 01, 2017 14:08
[2017-12-01 14:19] VITALS: BP 132/79
== END 2017-12-01 14:19 | disposition home or self-care (01) ==
LOC: EDUNIT# 11:22 → ER 11:23
DX: R05 Cough (principal); I10 Essential (primary) hypertension; F41.9 Anxiety disorder, unspecified; F32.9 Major depressive disorder, single episode, unspecified; Z87.448 Personal history of other diseases of urinary system; Z87.891 Personal history of nicotine dependence; Z88.0 Allergy status to penicillin; Z88.8 Allergy status to other drugs, medicaments and biological substances; Z88.1 Allergy status to other antibiotic agents; Z98.51 Tubal ligation status; Z90.89 Acquired absence of other organs
CPT/HCPCS: 71046; 80306; 81000; 94640

== ENCOUNTER 2018-01-19 08:21 | Emergency (ER) | payer MEDICAID ==
[~2018-01-19] VITALS: Ht 172.7 cm; Wt 90.7 kg
[~2018-01-19 08:21] MED LIST changes: +LEVA0.316 IH; +METR-197 PO; -METR500T21 PO
[2018-01-19] MEDS ORDERED: DIAZ2TAB2 PO (08:46)
[2018-01-19] MEDS ORDERED: DIAZ10TA3 PO (08:46)
[2018-01-19] MEDS ORDERED: NS IV 1000 ML 1,000 ML IV STA (09:32)
--- NOTE | 2018-01-19 09:35 | ED GI ---
General Chief Complaint: Abdominal/GI Problems Stated Complaint: ABD PAIN Nursing Triage Note: TO ROOM WITH C/O ABD CRAMPING WITH DIARRHEA FOR 1WEEKS TEARFUL REPORTS FOR 2 YEARS THEY HAVE BEEN TRYING TO CUT HER VALIUM BACK. HAS READ THAT THIS CAN CAUSE HER SYMPTOMS. Sepsis Screen: No Definite Risk Source of Information: Patient Exam Limitations: No Limitations History of Present Illness Date Seen by Provider: Jan 19, 2018 Time Seen by Provider: 09:20 Initial Comments Here with complaint of abdominal cramping and diarrhea that it's been going on for about a week. She is very tearful and anxious. Patient has been tapering her Valium and down over the last several weeks to months and appears to be getting some withdrawal symptoms. She reports that she has had some fever with her symptoms. No blood in her vomit or stool. Timing/Duration: 1 Week, Changing Over Time Severity/Quality: Moderate, Cramping Location: Generalized Abdomen Radiation: No Radiation Activities at Onset: Emotional Stress Modifying Factors: Improves With Defecating; Worsens With Movement; Improves With Vomiting Associated Symptoms: No Chest Pain, No Fever/Chills, No Nausea/Vomiting, No Shortness of Air, No Weakness Allergies and Home Medications Allergies Coded Allergies: Quinolones (Verified Allergy, Unknown, 11/03/17) amoxicillin (Verified Allergy, Unknown, 04/27/16) oseltamivir (Verified Allergy, Unknown, RASH, 07/27/17) Hives and nausea and vomiting potassium clavulanate (Verified Allergy, Unknown, 04/27/16) Home Medications Clonidine HCl 0.1 Mg Tablet, 0.1 MG PO BID PRN for BLOOD PRESSURE, (Reported) Ibuprofen 200 Mg Tablet, 800 MG PO TID PRN for PAIN-MILD, (Reported) Levalbuterol HCl 0.31 Mg/3 Ml Vial.neb, 0.31 MG IH TID Prescribed by: GRABIEL JEFFERS on 12/01/17 1408 Lisinopril/Hydrochlorothiazide 1 Each Tablet, 1 TAB PO DAILY, (Reported) Menthol 118 Ml Gel..ml., TP QID PRN for BACK PAIN, (Reported) Mirtazapine 30 Mg Tablet, 30 MG PO HS, (Reported) Ondansetron 8 Mg Tab.rapdis, 8 MG PO TID PRN for NAUSEA/VOMITING-1ST LINE, ( Reported) Oxycodone HCl/Acetaminophen 1 Each Tablet, 1-2 EACH PO Q4H Prescribed by: ALANNAH TERAN on 11/03/17 1314 Paroxetine HCl 20 Mg Tablet, 20 MG PO DAILY, (Reported) TAKES ALONG WITH 40MG TABLET FOR A TOTAL DAILY DOSE OF 60MG Paroxetine HCl 40 Mg Tablet, 40 MG PO DAILY, (Reported) TAKES WITH A 20MG TABLET FOR A TOTAL DAILY DOSE OF 60MG Promethazine HCl 25 Mg Tablet, 25 MG PO Q4H PRN for NAUSEA/VOMITING-1ST LINE, ( Reported) Patient Home Medication List Home Medication List Reviewed: Yes Review of Systems Review of Systems Constitutional: see HPI; No chills; fever EENTM: No Symptoms Reported Respiratory: No Symptoms Reported Cardiovascular: No Symptoms Reported Gastrointestinal: See HPI, Abdominal Pain, Diarrhea, Nausea, Vomiting Genitourinary: No Symptoms Reported Musculoskeletal: no symptoms reported Psychiatric/Neurological: See HPI, Anxiety, Emotional Problems Endocrine: No Symptoms Reported All Other Systems Reviewed Negative Unless Noted: Yes Past Farysui-Nlyeew-Hxvkbw Hx Past Med/Social Hx: Reviewed Nursing Past Med/Soc Hx Patient Social History Alcohol Use: Denies Use Recreational Drug Use: No Smoking Status: Current Everyday Smoker Type Used: Cigarettes Former Smoker, Quit: Nov 01, 2017 2nd Hand Smoke Exposure: Yes Recent Foreign Travel: No Contact w/Someone Who Travel: No Recent Infectious Disease Expo: No Recent Hopitalizations: No Immunizations Up To Date Tetanus Booster (TDap): Unknown PED Vaccines UTD: No Seasonal Allergies Seasonal Allergies: No Past Medical History Surgeries: Yes Appendectomy, Gallbladder, Tubal Ligation Respiratory: No Currently Using CPAP: No Currently Using BIPAP: No Cardiac: No Hypertension Neurological: No Reproductive Disorders: Yes Female Reproductive Disorders: Menstrual Problems, Ovarian Cyst Sexually Transmitted Disease: No HIV/AIDS: No Genitourinary: No Gastrointestinal: No Gall Bladder Disease Musculoskeletal: No Chronic Back Pain Endocrine: No HEENT: No Cancer: No Psychosocial: Yes Anxiety, Depression Integumentary: No Blood Disorders: No Adverse Reaction/Blood Tranf: No Family Medical History Reviewed Nursing Family Hx Alcoholism G8 BROTHER ( with liver failure) Arthritis G8 BROTHER (rhoumatoid arthritis, mono multiplex neuropathy) No Pertinent Family Hx Physical Exam Vital Signs Vital Signs - First Documented 01/19/18 08:35 Temp 99.9 Pulse 88 Resp 18 B/P (MAP) 149/75 (99) Pulse Ox 97 O2 Delivery Room Air Capillary Refill : Less Than 3 Seconds Height/Weight/BMI Height: 5'8.00" Weight: 200lbs. 0.0oz. 90.279158pc; 31.8 BMI Method:Stated General Appearance: WD/WN, no apparent distress HEENT: PERRL/EOMI, pharynx normal Neck: full range of motion, supple Respiratory: lungs clear, normal breath sounds Cardiovascular: regular rate, rhythm, no murmur Peripheral Pulses: 2+ Dorsalis Pedis (R), 2+ Left Dors-Pedis (L), 2+ Radial Pulses (R), 2+ Radial Pulses (L) Gastrointestinal: non tender, soft, abnormal bowel sounds (hyperactive) Extremities: non-tender, normal inspection Back: normal inspection, no CVA tenderness, no vertebral tenderness Neurologic/Psychiatric: alert, oriented x 3, other (anxious) Skin: normal color, warm/dry Progress/Results/Core Measures Results/Orders Lab Results Laboratory Tests Test 01/19/18 09:35 01/19/18 11:31 Range/Units White Blood Count 11.3 H 4.3-11.0 10^3/uL Red Blood Count 4.46 4.35-5.85 10^6/uL Hemoglobin 13.7 11.5-16.0 G/DL Hematocrit 40 35-52 % Mean Corpuscular Volume 89 80-99 FL Mean Corpuscular Hemoglobin 31 25-34 PG Mean Corpuscular Hemoglobin Concent 35 32-36 G/DL Red Cell Distribution Width 14.3 10.0-14.5 % Platelet Count 487 H 130-400 10^3/uL Mean Platelet Volume 9.4 7.4-10.4 FL Neutrophils (%) (Auto) 67 42-75 % Lymphocytes (%) (Auto) 26 12-44 % Monocytes (%) (Auto) 6 0-12 % Eosinophils (%) (Auto) 1 0-10 % Basophils (%) (Auto) 0 0-10 % Neutrophils # (Auto) 7.5 1.8-7.8 X 10^3 Lymphocytes # (Auto) 3.0 1.0-4.0 X 10^3 Monocytes # (Auto) 0.6 0.0-1.0 X 10^3 Eosinophils # (Auto) 0.1 0.0-0.3 10^3/uL Basophils # (Auto) 0.0 0.0-0.1 10^3/uL Sodium Level 135 135-145 MMOL/L Potassium Level 3.5 L 3.6-5.0 MMOL/L Chloride Level 98 98-107 MMOL/L Carbon Dioxide Level 24 21-32 MMOL/L Anion Gap 13 5-14 MMOL/L Blood Urea Nitrogen 11 7-18 MG/DL Creatinine 0.97 0.60-1.30 MG/DL Estimat Glomerular Filtration Rate > 60 BUN/Creatinine Ratio 11 Glucose Level 96 70-105 MG/DL Calcium Level 10.2 H 8.5-10.1 MG/DL Corrected Calcium 8.5-10.1 MG/DL Total Bilirubin 0.3 0.1-1.0 MG/DL Aspartate Amino Transf (AST/SGOT) 15 5-34 U/L Alanine Aminotransferase (ALT/SGPT) 27 0-55 U/L Alkaline Phosphatase 86 40-136 U/L C-Reactive Protein High Sensitivity 0.29 0.00-0.50 MG/DL Total Protein 8.0 6.4-8.2 GM/DL Albumin 4.6 H 3.2-4.5 GM/DL Urine Color YELLOW Urine Clarity CLEAR Urine pH 7 5-9 Urine Specific [place] 1.005 L 1.016-1.022 Urine Protein NEGATIVE NEGATIVE Urine Glucose (UA) NEGATIVE NEGATIVE Urine Ketones NEGATIVE NEGATIVE Urine Nitrite NEGATIVE NEGATIVE Urine Bilirubin NEGATIVE NEGATIVE Urine Urobilinogen NORMAL NORMAL MG/DL Urine Leukocyte Esterase NEGATIVE NEGATIVE Urine RBC (Auto) NEGATIVE NEGATIVE Urine RBC NONE /HPF Urine WBC RARE /HPF Urine Squamous Epithelial Cells 0-2 /HPF Urine Crystals NONE /LPF Urine Bacteria NEGATIVE /HPF Urine Casts NONE /LPF Urine Mucus NEGATIVE /LPF Urine Culture Indicated NO My Orders Orders - SHEFALI OTTO MD Cbc With Automated Diff (01/19/18 09:32) Comprehensive Metabolic Panel (01/19/18 09:32) Hs C Reactive Protein (01/19/18:32) Ua Culture If Indicated (01/19/18:32) Ondansetron Injection (Zofran Injectio (01/19/18 09:45) Ns Iv 1000 Ml (Sodium Chloride 0.9%) (01/19/18 09:32) Saline Lock/Iv-Start (01/19/18 09:32) Lidocaine 2% Viscous 15 Ml (Xylocaine Vi (01/19/18 09:45) Antacid Suspension (Mylanta Suspension (01/19/18 09:45) Medications Given in ED Current Medications Medications Dose Ordered Sig/Annalisa Route Start Time Stop Time Status Last Admin Dose Admin Al Hydrox/Mg Hydrox/Simethicone 30 ml ONCE ONCE PO 01/19/18 09:45 01/19/18 09:46 DC 01/19/18 09:44 30 ML Lidocaine HCl 15 ml ONCE ONCE PO 01/19/18 09:45 01/19/18 09:46 DC 01/19/18 09:44 15 ML Ondansetron HCl 4 mg ONCE ONCE IVP 01/19/18 09:45 01/19/18 09:46 DC 01/19/18 09:42 4 MG Vital Signs/I&O 01/19/18 08:35 Temp 99.9 Pulse 88 Resp 18 B/P (MAP) 149/75 (99) Pulse Ox 97 O2 Delivery Room Air Blood Pressure Mean: 99 Progress Progress Note : Progress Note Seen and evaluated. IV, labs, UA, normal saline 1 L bolus, Zofran 4 mg IV and GI cocktail ordered. Reassurance provided and verbal calming measures initiated. 1120: Patient very concerned about C. difficile and would like to get a stool sample. We are still awaiting urine sample. She did give a small formed stool at this time she is not consistent with C. difficile infection despite being on Imodium. This was not sent. UA was sent. 1153: UA is resulted in negative. Otherwise no acute findings at this time. She is instructed to follow-up with her DrLux for referral for colonoscopy as indicated. I will send a copy of the chart to her doctor. Overall would like to go home at this point. Discharged home with return precautions. Patient verbalize understanding of instructions and agreement with plan. Departure Impression Primary Impression: Medication withdrawal Qualified Codes: F13.239 - Sedative, hypnotic or anxiolytic dependence with withdrawal, unspecified Additional Impressions: Diarrhea Qualified Codes: R19.7 - Diarrhea, unspecified Abdominal pain Qualified Codes: R10.84 - Generalized abdominal pain Disposition: 01 HOME, SELF-CARE Condition: Improved Departure-Patient Inst. Decision time for Depature: 11:55 Referrals: EDGAR CLARK WILLIAM J DO (PCP/Family) Primary Care Physician Patient Instructions: Acute Abdomen (Belly Pain), Adult (DC), Diarrhea in Adolescents and Adults Add. Discharge Instructions: All discharge instructions reviewed with patient and/or family. Voiced understanding. Clear liquid or light diet for the next 24 hours and then advance as tolerated. Follow-up with your Dr. in one to 2 days for recheck. You should follow-up with a surgeon for evaluation for colonoscopy. Your physician may assist you with this or you can use the one listed or of your choice. Return for worsening , fever, vomiting, weakness, breathing problems or other concerns as needed. Copy Copies To 1: RAFI CASTILLO TIMOTHY D MD Jan 19, 2018 09:35
[2018-01-19] MEDS ORDERED: LIDOCAINE 2% VISCOUS 15 ML UDC PO ONE (09:45)
[2018-01-19] MEDS ORDERED: ANTACID SUSP 30 ML UDC (MYLANTA) PO ONE (09:45)
[2018-01-19] MEDS ORDERED: ONDANSETRON 4 MG/2 ML (SDV) Z0FRAN IVP ONE (09:45)
[2018-01-19 09:46] LABS: BASOPHILS % (AUTO) 0 % (0-10); EOSINOPHILS # (AUTO) 0.1 10^3/uL (0.0-0.3); EOSINOPHILS % (AUTO) 1 % (0-10); HEMATOCRIT 40 % (35-52); HEMOGLOBIN 13.7 G/DL (11.5-16.0); LYMPHOCYTES % (AUTO) 26 % (12-44); MEAN CORPUSCULAR HEMOGLOBIN 31 PG (25-34); MEAN CORPUSCULAR HGB CONC 35 G/DL (32-36); MEAN CORPUSCULAR VOLUME 89 FL (80-99); MEAN PLATELET VOLUME 9.4 FL (7.4-10.4); MONOCYTES # (AUTO) 0.6 X 10^3 (0.0-1.0); MONOCYTES % (AUTO) 6 % (0-12); NEUTROPHILS # (AUTO) 7.5 X 10^3 (1.8-7.8); NEUTROPHILS % (AUTO) 67 % (42-75); PLATELET COUNT 487 10^3/uL (130-400); RED BLOOD COUNT 4.46 10^6/uL (4.35-5.85); RED CELL DISTRIBUTION WIDTH 14.3 % (10.0-14.5); WHITE BLOOD COUNT 11.3 10^3/uL (4.3-11.0)
[2018-01-19 10:01] LABS: ALANINE AMINOTRANSFERASE 27 U/L (0-55); ALBUMIN 4.6 GM/DL (3.2-4.5); ALKALINE PHOSPHATASE 86 U/L (40-136); BILIRUBIN,TOTAL 0.3 MG/DL (0.1-1.0); BUN/CREATININE RATIO 11; CALCIUM 10.2 MG/DL (8.5-10.1); CARBON DIOXIDE 24 MMOL/L (21-32); CHLORIDE 98 MMOL/L (98-107); CREATININE SERUM 0.97 MG/DL (0.60-1.30); GFR ESTIMATED > 60; GLUCOSE 96 MG/DL (70-105); POTASSIUM 3.5 MMOL/L (3.6-5.0); SODIUM 135 MMOL/L (135-145)
[2018-01-19 11:36] LABS: BILIRUBIN,URINE NEGATIVE (NEGATIVE); CLARITY,URINE CLEAR; COLOR,URINE YELLOW; GLUCOSE, URINE (UA) NEGATIVE (NEGATIVE); KETONES,URINE NEGATIVE (NEGATIVE); LEUKOCYTE ESTERASE ,URINE NEGATIVE (NEGATIVE); NITRITE,URINE NEGATIVE (NEGATIVE); PH,URINE 7 (5-9); PROTEIN,URINE NEGATIVE (NEGATIVE); UROBILINOGEN,URINE NORMAL (NORMAL)
[2018-01-19 11:43] LABS: BACTERIA,URINE NEGATIVE /HPF; SQUAMOUS EPITHELIAL CELL,UR 0-2 /HPF; WBC,URINE RARE /HPF
[2018-01-19 12:03] VITALS: BP 120/91
== END 2018-01-19 12:05 | disposition home or self-care (01) ==
LOC: EDUNIT# 08:21 → ER 08:22
DX: F13.239 Sedative, hypnotic or anxiolytic dependence with withdrawal, unspecified (principal); R19.7 Diarrhea, unspecified; R10.84 Generalized abdominal pain; I10 Essential (primary) hypertension; F41.9 Anxiety disorder, unspecified; F32.9 Major depressive disorder, single episode, unspecified; F17.210 Nicotine dependence, cigarettes, uncomplicated; Z87.448 Personal history of other diseases of urinary system; Z88.0 Allergy status to penicillin; Z90.89 Acquired absence of other organs; Z98.51 Tubal ligation status; Z88.8 Allergy status to other drugs, medicaments and biological substances
CPT/HCPCS: 36415; 80053; 81000; 85025; 86141; 96361; 96374

== ENCOUNTER 2018-01-20 16:07 | Outpatient (RCR) | payer MEDICAID ==
[~2018-01-20 16:07] MED LIST changes: +DIAZ10TA3 PO; +DIAZ2TAB2 PO; +METR-145 PO; -METR-197 PO
[2018-01-22] MEDS ORDERED: DIAZ2TAB2 PO (14:12)
[2018-01-22] MEDS ORDERED: ONDA8TAB12 PO (14:12)
[2018-01-22] MEDS ORDERED: METR-145 PO (14:12)
[2018-01-25] MEDS ORDERED: L.AC1CAP6 PO (11:48)
[2018-01-25] MEDS ORDERED: ACHD5005 PO (11:48)
[2018-01-26] MEDS ORDERED: MORP15TA PO (09:44)
[2018-02-15] MEDS ORDERED: FENT1PAT8 TD (12:09)
[2018-02-16] MEDS ORDERED: CHOL4PAC16 PO (12:13)
== END 2018-04-20 | disposition home or self-care (01) ==
LOC: LAB 16:07
PROVIDERS: ATTEND Internal Medicine
DX: R19.7 Diarrhea, unspecified (principal)
CPT/HCPCS: 87015; 87045; 87046; 87324; 87328; 87329; 87449; 87493; 87899

== ENCOUNTER 2018-01-22 11:42 | Inpatient (IN) | payer MEDICAID ==
[~2018-01-22] VITALS: Ht 172.7 cm; Wt 95.5 kg
[~2018-01-22 11:42] MED LIST changes: -METR-145 PO; +METR-197 PO
[2018-01-22] MEDS ORDERED: NS IV 1000 ML 1,000 ML IV SCH ×2 (11:44→11:45)
[2018-01-22] MEDS ORDERED: LORazepam INJ 2 MG/ML (ATIVAN) VIAL IVP PRN (11:45)
[2018-01-22] MEDS ORDERED: fentaNYL INJECTION 100 MCG/2 ML AMP IVP PRN ×3 (11:45→22:01)
[2018-01-22] MEDS ORDERED: PROMETHAZINE INJ 25 MG/ML (PHENERGAN) AMP IM PRN (11:45)
[2018-01-22] MEDS ORDERED: LOPERAMIDE 2 MG (IMODIUM) CAP PO PRN (11:45)
[2018-01-22] MEDS ORDERED: ACETAMINOPHEN 500 MG TAB (TYLENOL) PO PRN (11:45)
[2018-01-22] MEDS ORDERED: METOCLOPRAMIDE INJ 10 MG/2 ML (REGLAN) IVP SCH (12:00)
[2018-01-22] MEDS ORDERED: SCOPOLAMINE 1.5 MG (TRANSDERM-SCOP) PATCH TD NR (12:00)
--- NOTE | 2018-01-22 12:40 | History & Physical-Hospitalist ---
History of Present Illness HPI/Chief Complaint CC: C diff colitis HPI: This is a 48-year-old white female of Dr. Cyr who presented as a direct admission from his office due to severe nausea and vomiting unable to tolerate oral Flagyl for C. difficile colitis that he diagnosed yesterday. Apparently she's been taking amoxicillin for tooth abscess for the past 2 weeks and began having diarrhea and abdominal cramping presented to his office diagnosed with the colitis started on Flagyl but worsened and had a fever last night and presented to [facility] given IV fluids given Toradol and anti-emetics but worsened to the point she presented to his office and found the patient to be stable but could not tolerate oral fluids and treatment for the C. difficile colitis. It's also to note she had previously been on Klonopin a total of 8 mg a day and has been titrated down over the past 6 months slowly to avoid withdrawal and has currently been maintained on Valium of 12 mg twice a day by Dr. Cyr and is in the process of probable benzodiazepine withdrawal currently since she is not taking any oral medication for the past 24 hours. I have discussed this with the admission nurse regarding the benzodiazepine dependency and the high risk for withdrawal and benzodiazepine withdrawal seizure so she will be maintained on anti-emetics restarted on Valium 5 mg twice a day and given Ativan of 1 mg IV every 4 hours when necessary enough to prevent withdrawal seizure but not enough to escalate dose again to the previous 8 mg of Klonopin a day. Source: patient Exam Limitations: no limitations Date Seen 01/22/18 Time Seen by a Provider: 12:30 Attending Physician Caren Lubin DO PCP Ramez Cyr DO Referring Physician Date of Admission Jan 22, 2018 at 12:01 Home Medications & Allergies Home Medications Reviewed patient Home Medication Reconciliation performed by pharmacy medication reconciliations educational technician and/or nursing. Patients Allergies have been reviewed. Allergies Allergies Coded Allergies Quinolones (Verified Allergy, Unknown, 11/03/17) amoxicillin (Verified Allergy, Unknown, 04/27/16) ciprofloxacin (Verified Allergy, Unknown, HIVES, 01/22/18) metoclopramide (Verified Allergy, Unknown, HIVES, 01/22/18) oseltamivir (Verified Allergy, Unknown, RASH, 07/27/17) Hives and nausea and vomiting potassium clavulanate (Verified Allergy, Unknown, 04/27/16) Past Zdkchkv-[id number]-Yknbyi Hx Past Med/Social Hx: Reviewed Nursing Past Med/Soc Hx, Reviewed and Corrections made Patient Social History Employed/Student: unemployed Alcohol Use: Denies Use Recreational Drug Use: No Smoking Status: Current Everyday Smoker Former Smoker, Quit: Nov 01, 2017 Type Used: Cigarettes 2nd Hand Smoke Exposure: Yes Physical Abuse Screen: No Sexual Abuse: No Recent Foreign Travel: No Contact w/other who traveled: No Recent Hopitalizations: No Recent Infectious Disease Expo: No Immunizations Up To Date Tetanus Booster (TDap): Unknown Pediatric: No Seasonal Allergies Seasonal Allergies: No Past Medical History Surgeries: Appendectomy, Gallbladder, Tubal Ligation Currently Using CPAP: No Currently Using BIPAP: No Cardiac: Hypertension Reproductive: Yes Sexually Transmitted Disease: No HIV/AIDS: No Female Reproductive Disorders: Menstrual Problems, Ovarian Cyst Gastrointestinal: Colitis, C-Diff, Gall Bladder Disease Musculoskeletal: Chronic Back Pain Psychosocial: Anxiety, Depression History of Blood Disorders: No Adverse Reaction to Blood Diaz: No Family History Alcoholism G8 BROTHER ( with liver failure) Arthritis G8 BROTHER (rhoumatoid arthritis, mono multiplex neuropathy) No Pertinent Family Hx Review of Systems Constitutional: see HPI, fever, weakness EENTM: no symptoms reported Respiratory: no symptoms reported Cardiovascular: no symptoms reported Gastrointestinal: abdominal pain (LLQ), loss of appetite, nausea, vomiting Genitourinary: decreased output Musculoskeletal: no symptoms reported Skin: no symptoms reported Psychiatric/Neurological: No Symptoms Reported All Other Systems Reviewed Negative Unless Noted: Yes Physical Exam Physical Exam Vital Signs Capillary Refill : Height, Weight, BMI Height: 5'8.00" Weight: 210lbs. 9.0oz. [id number]; 32.0 BMI Method:Stated General Appearance: WD/WN, Chronically ill, Mild Distress, Obese Eyes: Bilateral Eye Normal Inspection, Bilateral Eye PERRL HEENT: PERRL/EOMI, TMs Normal, Normal ENT Inspection, Pharynx Normal Neck: Full Range of Motion, Normal Inspection, Non Tender, Supple, Carotid Bruit Respiratory: Chest Non Tender, Lungs Clear, Normal Breath Sounds, No Accessory Muscle Use, No Respiratory Distress Cardiovascular: Regular Rate, Rhythm, No Edema, No Gallop, No JVD, No Murmur, Normal Peripheral Pulses Gastrointestinal: Normal Bowel Sounds, No Organomegaly, No Pulsatile Mass, Soft , Guarding, Tenderness Back: Normal Inspection, No CVA Tenderness, No Vertebral Tenderness Extremity: Normal Capillary Refill, Normal Inspection, Normal Range of Motion, Non Tender, No Calf Tenderness, No Pedal Edema Neurologic/Psychiatric: Alert, Oriented x3, No Motor/Sensory Deficits, Normal Mood/Affect Skin: Normal Color, Warm/Dry Lymphatic: No Adenopathy Results Results/Procedures Labs Patient resulted labs reviewed. Assessment/Plan Admission Diagnosis Assessment: Refractory C. difficile colitis with unable to tolerate oral fluids due to nausea Fever due to C. difficile colitis Benzodiazepine dependency high risk for withdrawal seizure Abdominal pain consulting Dr. Gimenez Plan: Flagyl I.V. Antiemetics Pain control Benzodiazepine maintenance to prevent withdrawal seizure Admission Status: Inpatient Order (span 2 midnights) Reason for Inpatient Admission: Severe c diff colitis Diagnosis/Problems Diagnosis/Problems (1) C. difficile diarrhea Status: Acute (2) Benzodiazepine dependence Status: Chronic (3) Abdominal pain Status: Acute Qualifiers: Abdominal location: generalized Qualified Codes: R10.84 - Generalized abdominal pain (4) History of hepatitis C Status: Acute Clinical Quality Measures DVT/VTE Risk/Contraindication: Risk Factor Score Per Nursin RFS Level Per Nursing on Admit: 3=High CAREN LUBIN DO Jan 22, 2018 12:40
[2018-01-22] MEDS: metroNIDAZOLE 500MG/100ML IVPB 100 ML IV SCH ×2 (13:14→22:37)
[2018-01-22] MEDS: ONDANSETRON 4 MG/2 ML (SDV) Z0FRAN IVP PRN (13:14)
[2018-01-22 13:38] LABS: BASOPHILS % (AUTO) 0 % (0-10); EOSINOPHILS # (AUTO) 0.3 10^3/uL (0.0-0.3); EOSINOPHILS % (AUTO) 3 % (0-10); HEMATOCRIT 32 % (35-52); HEMOGLOBIN 11.2 G/DL (11.5-16.0); LYMPHOCYTES # (AUTO) 2.5 X 10^3 (1.0-4.0); LYMPHOCYTES % (AUTO) 27 % (12-44); MEAN CORPUSCULAR HEMOGLOBIN 30 PG (25-34); MEAN CORPUSCULAR HGB CONC 35 G/DL (32-36); MEAN CORPUSCULAR VOLUME 87 FL (80-99); MEAN PLATELET VOLUME 9.7 FL (7.4-10.4); MONOCYTES # (AUTO) 0.7 X 10^3 (0.0-1.0); MONOCYTES % (AUTO) 7 % (0-12); NEUTROPHILS % (AUTO) 63 % (42-75); PLATELET COUNT 370 10^3/uL (130-400); RED BLOOD COUNT 3.71 10^6/uL (4.35-5.85); RED CELL DISTRIBUTION WIDTH 13.4 % (10.0-14.5); WHITE BLOOD COUNT 9.5 10^3/uL (4.3-11.0)
--- NOTE | 2018-01-22 13:44 | CONSULTATION REPORT ---
DATE OF SERVICE: 01/22/2018 ATTENDING PRIMARY CARE PHYSICIAN: Dr. Cyr. ADMITTING PHYSICIAN: Dr. Fernandez. HISTORY OF PRESENT ILLNESS: The patient is a 48-year-old female who was a direct admission from an office clinic. She has had severe episodes of nausea and vomiting and unable to tolerate liquids as well as her medications. She reports that she has had a crampy abdominal pain for the past 2 weeks and has had diarrhea associated with this. She reports that she was taking amoxicillin for a dental abscess. She states that the symptoms worsened and she was seen at [facility] and given IV fluids as well as antiemetics; however, when she went home, she continued to have nausea and vomiting and unable to tolerate her medications including metronidazole. Of note, she does have a history of benzodiazepine withdrawal and should be only given sparingly from her history. Upon examination, she does have pain in the lower abdominal quadrants with voluntary guarding, no rebound. PAST MEDICAL HISTORY: Hypertension, chronic low back pain, anxiety, depression, history of ovarian cyst. PAST SURGICAL HISTORY: Appendectomy, cholecystectomy, tubal ligation. ALLERGIES: QUINOLONES, AMOXICILLIN, METOCLOPRAMIDE, OSELTAMIVIR, POTASSIUM. MEDICATIONS: Clonidine 0.1 mg b.i.d., Xopenex 0.3 mg t.i.d., lisinopril/hydrochlorothiazide 20/25 mg daily, mirtazapine 30 mg daily, Zofran 8 mg p.r.n. oxycodone 5/325 one to two q.4 hours p.r.n., paroxetine 20 mg q.a.m. and 40 mg p.m., promethazine 25 mg p.r.n. SOCIAL HISTORY: Positive smoke, negative alcohol. FAMILY HISTORY: Brother with alcohol-induced liver failure. REVIEW OF SYSTEMS: A well-nourished female currently guarded secondary to the nausea as well as abdominal pain. She is not experiencing any shortness of breath or difficulty breathing. No chest pain, palpitations, diaphoresis. Intermittent episodes of nausea and vomiting as well as diarrhea with associated crampy lower abdominal pain. No known red blood per rectum nor any dark tarry stools. She does not recall any fever nor chills as well as no recent inadvertent weight loss. All other review of systems negative. PHYSICAL EXAMINATION: CHEST: Clear. Good breath sounds bilaterally. HEART: Regular. No murmurs. HEENT: No scleral icterus. NECK: No cervical lymphadenopathy. ABDOMEN: Soft, nondistended. There is pain in the lower abdominal quadrants with voluntary guarding, no rebound. SKIN: Warm, dry. LABORATORY DATA: On 01/19/2018, WBC 11.3, hemoglobin 13.7, hematocrit 40, platelets 487. Liver function enzymes normal. BUN 11, creatinine 0.97. Toxicology on 12/01/2017 was positive for methamphetamine as well as benzodiazepine. ASSESSMENT AND PLAN: A 48-year-old female with recurrent symptomatic Clostridium difficile colitis with associated nausea, vomiting and dehydration. We will proceed with medical management with IV hydration, bowel rest as well as metronidazole initially IV; however, p.o. when she is tolerating liquids or tolerating p.o. We will continue to monitor with the physical examination as well. Job ID: [id number] DocumentID: [id number] Dictated Date: 01/22/2018 12:59:28 Poultryman Date: 01/22/2018 13:43:23 Dictated By: ALANNAH TERAN MD
[2018-01-22 14:00] LABS: ALANINE AMINOTRANSFERASE 16 U/L (0-55); ALBUMIN 3.6 GM/DL (3.2-4.5); ALKALINE PHOSPHATASE 69 U/L (40-136); BILIRUBIN,TOTAL 0.5 MG/DL (0.1-1.0); BUN/CREATININE RATIO 11; CALCIUM 8.5 MG/DL (8.5-10.1); CARBON DIOXIDE 19 MMOL/L (21-32); CHLORIDE 96 MMOL/L (98-107); CREATININE SERUM 0.84 MG/DL (0.60-1.30); GFR ESTIMATED > 60; GLUCOSE 79 MG/DL (70-105); POTASSIUM 2.9 MMOL/L (3.6-5.0); SODIUM 127 MMOL/L (135-145)
--- NOTE | 2018-01-22 14:11 | Diagnostic Imaging Report ---
INDICATION: Severe abdominal pain. COMPARISON: CT dated 11/03/2017. FINDINGS: Single supine radiographic view of the abdomen was obtained. There are few mildly prominent air-filled loops of small bowel within left hemiabdomen. There is otherwise no evidence of obstruction. No large collection of free intraperitoneal air is seen. No unexpected extraosseous calcifications or radiopaque foreign bodies are seen. Bony structures show no acute abnormalities. IMPRESSION: Few mildly prominent air-filled loops of small bowel in left hemiabdomen, but no evidence of obstruction. Dictated by: Dictated on workstation # [id number]
[2018-01-22] MEDS ORDERED: DIAZ2TAB2 PO (14:12)
[2018-01-22] MEDS ORDERED: METR-197 PO (14:12)
[2018-01-22] MEDS ORDERED: ONDA8TAB12 PO (14:12)
[2018-01-22 15:50] VITALS: BP 108/64
[2018-01-22] MEDS ORDERED: CHOLESTYRAMINE 4 GM (QUESTRAN LITE, PREVALITE) PKT PO SCH (16:00)
[2018-01-22] MEDS ORDERED: POTASSIUM CHLORIDE INJ 40 MEQ in NS IV 1000 ML 1,000 ML IV SCH (16:15)
[2018-01-22] MEDS: NS W/KCL 40 MEQ/L 1,000 ML IV SCH (16:51)
[2018-01-22 20:15] VITALS: BP 82/52
[2018-01-22] MEDS ORDERED: NS IV 500 ML 500 ML IV ONE (21:00)
[2018-01-22] MEDS: HYDROcodone/APAP 5 MG/325 MG (LORTAB) TAB PO PRN (22:29)
[2018-01-22] MEDS: fentaNYL INJECTION 100 MCG/2 ML AMP IVP PRN (23:44)
[2018-01-22] MEDS: DIAZEPAM 5 MG (VALIUM) TABLET PO SCH (23:44)
[2018-01-23] VITALS: BP 92/70
[2018-01-23] MEDS: NS W/KCL 40 MEQ/L 1,000 ML IV SCH ×4 (02:24→21:54)
[2018-01-23 04:00] VITALS: BP 107/65
[2018-01-23] MEDS: fentaNYL INJECTION 100 MCG/2 ML AMP IVP PRN ×5 (04:50→18:27)
[2018-01-23] MEDS: metroNIDAZOLE 500MG/100ML IVPB 100 ML IV SCH ×3 (05:24→21:54)
[2018-01-23 06:58] LABS: BASOPHILS % (AUTO) 0 % (0-10); EOSINOPHILS # (AUTO) 0.2 10^3/uL (0.0-0.3); EOSINOPHILS % (AUTO) 3 % (0-10); HEMATOCRIT 35 % (35-52); HEMOGLOBIN 12.1 G/DL (11.5-16.0); LYMPHOCYTES # (AUTO) 1.7 X 10^3 (1.0-4.0); LYMPHOCYTES % (AUTO) 26 % (12-44); MEAN CORPUSCULAR HEMOGLOBIN 31 PG (25-34); MEAN CORPUSCULAR HGB CONC 35 G/DL (32-36); MEAN CORPUSCULAR VOLUME 89 FL (80-99); MEAN PLATELET VOLUME 9.7 FL (7.4-10.4); MONOCYTES # (AUTO) 0.5 X 10^3 (0.0-1.0); MONOCYTES % (AUTO) 7 % (0-12); NEUTROPHILS # (AUTO) 4.1 X 10^3 (1.8-7.8); NEUTROPHILS % (AUTO) 64 % (42-75); PLATELET COUNT 359 10^3/uL (130-400); WHITE BLOOD COUNT 6.5 10^3/uL (4.3-11.0)
[2018-01-23 07:26] LABS: ALANINE AMINOTRANSFERASE 16 U/L (0-55); ALBUMIN 3.7 GM/DL (3.2-4.5); ALKALINE PHOSPHATASE 68 U/L (40-136); BILIRUBIN,TOTAL 0.4 MG/DL (0.1-1.0); BUN/CREATININE RATIO 8; CARBON DIOXIDE 20 MMOL/L (21-32); CHLORIDE 109 MMOL/L (98-107); GFR ESTIMATED > 60; GLUCOSE 87 MG/DL (70-105); POTASSIUM 4.1 MMOL/L (3.6-5.0); SODIUM 138 MMOL/L (135-145); TOTAL PROTEIN 6.4 GM/DL (6.4-8.2)
[2018-01-23 08:00] VITALS: BP 124/80
[2018-01-23] MEDS: ONDANSETRON 4 MG/2 ML (SDV) Z0FRAN IVP PRN (08:03)
[2018-01-23] MEDS: HYDROcodone/APAP 5 MG/325 MG (LORTAB) TAB PO PRN (08:03)
[2018-01-23] MEDS: DIAZEPAM 5 MG (VALIUM) TABLET PO SCH (08:03)
[2018-01-23 12:00] VITALS: BP 105/60
--- NOTE | 2018-01-23 12:29 | Progress Note-Hospitalist ---
Subjective HPI/CC On Admission Date Seen by Provider: Jan 23, 2018 Time Seen by Provider: 11:00 CC: C diff colitis HPI: This is a 48-year-old white female of Dr. Cyr who presented as a direct admission from his office due to severe nausea and vomiting unable to tolerate oral Flagyl for C. difficile colitis that he diagnosed yesterday. Apparently she's been taking amoxicillin for tooth abscess for the past 2 weeks and began having diarrhea and abdominal cramping presented to his office diagnosed with the colitis started on Flagyl but worsened and had a fever last night and presented to [facility] given IV fluids given Toradol and anti-emetics but worsened to the point she presented to his office and found the patient to be stable but could not tolerate oral fluids and treatment for the C. difficile colitis. It's also to note she had previously been on Klonopin a total of 8 mg a day and has been titrated down over the past 6 months slowly to avoid withdrawal and has currently been maintained on Valium of 12 mg twice a day by Dr. Cyr and is in the process of probable benzodiazepine withdrawal currently since she is not taking any oral medication for the past 24 hours. I have discussed this with the admission nurse regarding the benzodiazepine dependency and the high risk for withdrawal and benzodiazepine withdrawal seizure so she will be maintained on anti-emetics restarted on Valium 5 mg twice a day and given Ativan of 1 mg IV every 4 hours when necessary enough to prevent withdrawal seizure but not enough to escalate dose again to the previous 8 mg of Klonopin a day. Subjective/Events-last exam Patient has had quite a bit of abdominal pain since admission requiring fentanyl IV. She says that does not help a lot. Some of this may be related to the fact that we've not gotten her medications straight since admission. She 's been on a benzodiazepine taper by Dr. Cyr. Her C. difficile antigen was positive for GDH but the detox sevens for a and B were negative. The patient had one stool overnight that was not seen by the nurses that she's had no further diarrhea. Her white count is at 6000 and she has been afebrile since admission. The patient would like it turkey sandwich. She's had no further nausea or vomiting since she's been changed to IV Flagyl. Review of Systems Gastrointestinal: Abdominal Pain Musculoskeletal: foot pain (Left foot) Focused Exam Lactate Level 11/2/18 13:20: Lactic Acid Level 0.74 Objective Exam Vital Signs Vital Signs Date Time Temp Pulse Resp B/P (MAP) Pulse Ox O2 Delivery O2 Flow Rate FiO2 01/23/18 08:00 97.8 65 16 124/80 (95) 95 Room Air Capillary Refill : General Appearance: WD/WN, Chronically ill, Mild Distress HEENT: Normal ENT Inspection, Other (Poor dentition) Neck: Normal Inspection, Non Tender, Supple Respiratory: Lungs Clear, Normal Breath Sounds, No Accessory Muscle Use, No Respiratory Distress Cardiovascular: Regular Rate, Rhythm, No Gallop, No Murmur, Normal Peripheral Pulses Gastrointestinal: Normal Bowel Sounds, No Pulsatile Mass, Soft, Tenderness ( Diffusely without localization) Rectal: Heme Negative Stool Back: Normal Inspection Extremity: Normal Capillary Refill, Normal Range of Motion, Other (Tender on the bottom of the left foot but there are no lesions erythema or other identifying problems) Neurologic/Psychiatric: Alert, Oriented x3, No Motor/Sensory Deficits, Normal Mood/Affect Skin: Normal Color, Warm/Dry Lymphatic: No Adenopathy Results/Procedures Lab Laboratory Tests 01/22/18 13:20 01/23/18 06:48 Patient resulted labs reviewed. Assessment/Plan Assessment and Plan Assess & Plan/Chief Complaint 1. C difficile diarrhea resolving day number 2 Flagyl IV 2. Benzodiazepine and dependence with tapering doses. 3. Left foot pain of uncertain etiology. No history of trauma. This does not appear to be in the joint consistent with gout as it on the metatarsal fat pads 4. History of depression and anxiety we'll restart the Paxil and Remeron Plan to advance diet as tolerated Clinical Quality Measures DVT/VTE Risk/Contraindication: Risk Factor Score Per Nursin RFS Level Per Nursing on Admit: 3=GENEVA Dawn MD Jan 23, 2018 12:29
--- NOTE | 2018-01-23 12:29 | Progress Note (SOAP) ---
Subjective Date Seen by a Provider: Jan 23, 2018 Time Seen by a Provider: 11:30 Subjective/Events-last exam Patient seen with Dr. Gimenez. Patient very emotional. No N/V. No fever/chills. Reports continued abdominal pain which is diffuse. Reports she has not had a BM today. Ambulating to bathroom. Patient does report she is hungry. Focused Exam Lactate Level 01/22/18 13:20: Lactic Acid Level 0.74 Objective Exam Vital Signs Date Time Temp Pulse Resp B/P (MAP) Pulse Ox O2 Delivery O2 Flow Rate FiO2 01/23/18 08:00 97.8 65 16 124/80 (95) 95 Room Air 01/23/18 07:00 65 01/23/18 04:00 97.0 78 20 107/65 (79) 96 Room Air 01/23/18 01:00 63 01/23/18 00:00 97.9 65 16 92/70 (77) 95 Room Air 01/22/18 20:15 97.5 62 16 82/52 (62) 95 Room Air 01/22/18 20:00 95 Room Air 01/22/18 19:00 67 01/22/18 15:50 97.6 67 20 108/64 (79) 95 Room Air I & O 01/23/18 07:00 Intake Total 2050 ml Output Total 3800 ml Balance -1750 ml Capillary Refill : General Appearance: No Apparent Distress, Anxious, Other (depressed.) Respiratory: Chest Non Tender, Lungs Clear, Normal Breath Sounds, No Accessory Muscle Use, No Respiratory Distress Cardiovascular: Regular Rate, Rhythm, No Edema Gastrointestinal: normal bowel sounds, soft, tenderness (diffuse) Neurologic/Psychiatric: Alert, Oriented x3 Skin: Normal Color, Warm/Dry Results Lab Laboratory Tests 01/22/18 13:20: White Blood Count 9.5, Red Blood Count 3.71L, Hemoglobin 11.2L, Hematocrit 32L, Mean Corpuscular Volume 87, Mean Corpuscular Hemoglobin 30, Mean Corpuscular Hemoglobin Concent 35, Red Cell Distribution Width 13.4, Platelet Count 370, Mean Platelet Volume 9.7, Neutrophils (%) (Auto) 63, Lymphocytes (%) (Auto) 27, Monocytes (%) (Auto) 7, Eosinophils (%) (Auto) 3, Basophils (%) (Auto) 0, Neutrophils # (Auto) 6.0, Lymphocytes # (Auto) 2.5, Monocytes # (Auto) 0.7, Eosinophils # (Auto) 0.3, Basophils # (Auto) 0.0, Sodium Level 127L, Potassium Level 2.9L, Chloride Level 96L, Carbon Dioxide Level 19L, Anion Gap 12, Blood Urea Nitrogen 9, Creatinine 0.84, Estimat Glomerular Filtration Rate > 60, BUN/ Creatinine Ratio 11, Glucose Level 79, Lactic Acid Level 0.74, Calcium Level 8.5 , Corrected Calcium 8.8, Total Bilirubin 0.5, Aspartate Amino Transf (AST/SGOT) 13, Alanine Aminotransferase (ALT/SGPT) 16, Alkaline Phosphatase 69, Total Protein 6.0L, Albumin 3.6 01/23/18 06:48: White Blood Count 6.5, Red Blood Count 3.90L, Hemoglobin 12.1, Hematocrit 35, Mean Corpuscular Volume 89, Mean Corpuscular Hemoglobin 31, Mean Corpuscular Hemoglobin Concent 35, Red Cell Distribution Width 14.0, Platelet Count 359, Mean Platelet Volume 9.7, Neutrophils (%) (Auto) 64, Lymphocytes (%) (Auto) 26, Monocytes (%) (Auto) 7, Eosinophils (%) (Auto) 3, Basophils (%) (Auto) 0, Neutrophils # (Auto) 4.1, Lymphocytes # (Auto) 1.7, Monocytes # (Auto) 0.5, Eosinophils # (Auto) 0.2, Basophils # (Auto) 0.0, Sodium Level 138, Potassium Level 4.1, Chloride Level 109H, Carbon Dioxide Level 20L, Anion Gap 9, Blood Urea Nitrogen 6L, Creatinine 0.80, Estimat Glomerular Filtration Rate > 60, BUN/ Creatinine Ratio 8, Glucose Level 87, Calcium Level 9.0, Corrected Calcium 9.2, Total Bilirubin 0.4, Aspartate Amino Transf (AST/SGOT) 13, Alanine Aminotransferase (ALT/SGPT) 16, Alkaline Phosphatase 68, Total Protein 6.4, Albumin 3.7 Assessment/Plan Assessment/Plan Assess & Plan/Chief Complaint A 48-year-old female with recurrent symptomatic Clostridium difficile colitis, nausea, vomiting and dehydration. Continue IV fluids, abx, nausea, and pain medication. Ok to start diet. Will continue to monitor. Clinical Quality Measures DVT/VTE Risk/Contraindication: Risk Factor Score Per Nursin RFS Level Per Nursing on Admit: 3=High TREVOR PALENCIA APRN Jan 23, 2018 12:28 pm
[2018-01-23] MEDS: PARoxetine 20 MG (PAXIL) TAB PO SCH (13:21)
[2018-01-23 15:50] VITALS: BP 113/67
[2018-01-23] MEDS: MIRTAZAPINE 15 MG (REMERON) TAB PO SCH (19:41)
[2018-01-23 20:00] VITALS: BP 92/51
[2018-01-23] MEDS ORDERED: DIAZEPAM 2 MG (VALIUM) TAB PO PRN (20:30)
[2018-01-23] MEDS ORDERED: DIAZEPAM 2 MG (VALIUM) TAB PO SCH (21:00)
[2018-01-24] VITALS: BP 124/57
[2018-01-24] MEDS: fentaNYL INJECTION 100 MCG/2 ML AMP IVP PRN ×5 (01:10→17:15)
[2018-01-24 04:00] VITALS: BP 100/55
[2018-01-24] MEDS: metroNIDAZOLE 500MG/100ML IVPB 100 ML IV SCH (05:14)
[2018-01-24 05:48] LABS: BASOPHILS % (AUTO) 1 % (0-10); EOSINOPHILS # (AUTO) 0.3 10^3/uL (0.0-0.3); EOSINOPHILS % (AUTO) 4 % (0-10); HEMATOCRIT 35 % (35-52); HEMOGLOBIN 11.6 G/DL (11.5-16.0); LYMPHOCYTES # (AUTO) 2.1 X 10^3 (1.0-4.0); LYMPHOCYTES % (AUTO) 32 % (12-44); MEAN CORPUSCULAR HEMOGLOBIN 31 PG (25-34); MEAN CORPUSCULAR HGB CONC 33 G/DL (32-36); MEAN CORPUSCULAR VOLUME 92 FL (80-99); MONOCYTES # (AUTO) 0.6 X 10^3 (0.0-1.0); MONOCYTES % (AUTO) 9 % (0-12); NEUTROPHILS # (AUTO) 3.7 X 10^3 (1.8-7.8); NEUTROPHILS % (AUTO) 56 % (42-75); PLATELET COUNT 360 10^3/uL (130-400); RED BLOOD COUNT 3.77 10^6/uL (4.35-5.85); RED CELL DISTRIBUTION WIDTH 14.7 % (10.0-14.5); WHITE BLOOD COUNT 6.7 10^3/uL (4.3-11.0)
[2018-01-24 06:05] LABS: ALANINE AMINOTRANSFERASE 15 U/L (0-55); ALBUMIN 3.5 GM/DL (3.2-4.5); ALKALINE PHOSPHATASE 68 U/L (40-136); BILIRUBIN,TOTAL 0.1 MG/DL (0.1-1.0); BUN/CREATININE RATIO 13; CALCIUM 8.7 MG/DL (8.5-10.1); CARBON DIOXIDE 18 MMOL/L (21-32); CHLORIDE 116 MMOL/L (98-107); CREATININE SERUM 0.78 MG/DL (0.60-1.30); GFR ESTIMATED > 60; GLUCOSE 96 MG/DL (70-105); POTASSIUM 4.8 MMOL/L (3.6-5.0); SODIUM 141 MMOL/L (135-145)
[2018-01-24] MEDS: NS W/KCL 40 MEQ/L 1,000 ML IV SCH ×3 (06:24→23:26)
[2018-01-24] MEDS: HYDROcodone/APAP 5 MG/325 MG (LORTAB) TAB PO PRN ×3 (08:10→20:21)
[2018-01-24] MEDS: PARoxetine 20 MG (PAXIL) TAB PO SCH (08:10)
[2018-01-24] MEDS: ONDANSETRON 4 MG/2 ML (SDV) Z0FRAN IVP PRN ×3 (08:10→17:15)
[2018-01-24] MEDS: DIAZEPAM 2 MG (VALIUM) TAB PO SCH ×2 (08:13→20:20)
[2018-01-24 08:20] VITALS: BP 99/58
[2018-01-24] MEDS ORDERED: PARoxetine 20 MG (PAXIL) TAB PO SCH (09:00)
--- NOTE | 2018-01-24 10:31 | Progress Note (SOAP) ---
Subjective Date Seen by a Provider: Jan 24, 2018 Time Seen by a Provider: 10:15 Subjective/Events-last exam Patient seen with Dr. Gimenez. Patient reports doing better and pain improving. Patient states that she did have 2 loose BMs yesterday. Does reports nausea and abdominal pain with eating and says that the pain is more in the RUQ and feels like it goes to her back. No vomiting. No fever/chills. She does reports that she has been eating some but it does trigger the pain. She does report a history of heartburn and says that she has tried OTC medications in the past but denies any prescription medications. Focused Exam Lactate Level 01/22/18 13:20: Lactic Acid Level 0.74 Objective Exam Vital Signs Date Time Temp Pulse Resp B/P (MAP) Pulse Ox O2 Delivery O2 Flow Rate FiO2 01/24/18 08:20 98.8 72 18 99/58 (72) 96 Room Air 01/24/18 07:00 82 01/24/18 04:00 98.2 80 20 100/55 (70) 96 Room Air 01/24/18 01:02 79 01/24/18 00:00 97.8 83 20 124/57 (79) 98 Room Air 01/23/18 20:00 97.5 73 20 92/51 (65) 94 Room Air 01/23/18 19:04 87 01/23/18 15:50 96.7 83 20 113/67 (82) 95 Room Air 01/23/18 13:00 74 01/23/18 12:00 97.5 69 16 105/60 (75) 95 Room Air I & O 01/24/18 07:00 Intake Total 3240 ml Output Total 3100 ml Balance 140 ml Capillary Refill : General Appearance: No Apparent Distress, WD/WN Neck: Full Range of Motion, Normal Inspection, Non Tender, Supple Respiratory: Chest Non Tender, Lungs Clear, Normal Breath Sounds, No Accessory Muscle Use, No Respiratory Distress Cardiovascular: Regular Rate, Rhythm, No Edema Gastrointestinal: normal bowel sounds, soft, tenderness (diffuse but more in the RUQ) Neurologic/Psychiatric: Alert, Oriented x3, Depressed Affect Skin: Normal Color, Warm/Dry Results Lab Laboratory Tests 01/24/18 05:37: White Blood Count 6.7, Red Blood Count 3.77L, Hemoglobin 11.6, Hematocrit 35, Mean Corpuscular Volume 92, Mean Corpuscular Hemoglobin 31, Mean Corpuscular Hemoglobin Concent 33, Red Cell Distribution Width 14.7H, Platelet Count 360, Mean Platelet Volume 10.0, Neutrophils (%) (Auto) 56, Lymphocytes (%) (Auto) 32 , Monocytes (%) (Auto) 9, Eosinophils (%) (Auto) 4, Basophils (%) (Auto) 1, Neutrophils # (Auto) 3.7, Lymphocytes # (Auto) 2.1, Monocytes # (Auto) 0.6, Eosinophils # (Auto) 0.3, Basophils # (Auto) 0.0, Sodium Level 141, Potassium Level 4.8, Chloride Level 116H, Carbon Dioxide Level 18L, Anion Gap 7, Blood Urea Nitrogen 10, Creatinine 0.78, Estimat Glomerular Filtration Rate > 60, BUN/ Creatinine Ratio 13, Glucose Level 96, Calcium Level 8.7, Corrected Calcium 9.1 , Total Bilirubin 0.1, Aspartate Amino Transf (AST/SGOT) 12, Alanine Aminotransferase (ALT/SGPT) 15, Alkaline Phosphatase 68, Total Protein 6.0L, Albumin 3.5 Microbiology 01/22/18 Blood Culture - Preliminary, Resulted No growth Assessment/Plan Assessment/Plan Assess & Plan/Chief Complaint A 48-year-old female with recurrent symptomatic Clostridium difficile colitis, nausea, vomiting and dehydration. Continue IV fluids, abx, nausea, and pain medication. Continue diet. Encourage ambulation. Will start Protonix daily for GERD. Will continue to monitor. Clinical Quality Measures DVT/VTE Risk/Contraindication: Risk Factor Score Per Nursin RFS Level Per Nursing on Admit: 3=High TREVOR PALENCIA [employer]LECT[employer]ICIAN OUTSIDE Jan 24, 2018 10:31 am
--- NOTE | 2018-01-24 11:19 | Progress Note-Hospitalist ---
Subjective HPI/CC On Admission Date Seen by Provider: Jan 24, 2018 Time Seen by Provider: 11:00 CC: C diff colitis HPI: This is a 48-year-old white female of Dr. Cyr who presented as a direct admission from his office due to severe nausea and vomiting unable to tolerate oral Flagyl for C. difficile colitis that he diagnosed yesterday. Apparently she's been taking amoxicillin for tooth abscess for the past 2 weeks and began having diarrhea and abdominal cramping presented to his office diagnosed with the colitis started on Flagyl but worsened and had a fever last night and presented to [facility] given IV fluids given Toradol and anti-emetics but worsened to the point she presented to his office and found the patient to be stable but could not tolerate oral fluids and treatment for the C. difficile colitis. It's also to note she had previously been on Klonopin a total of 8 mg a day and has been titrated down over the past 6 months slowly to avoid withdrawal and has currently been maintained on Valium of 12 mg twice a day by Dr. Cyr and is in the process of probable benzodiazepine withdrawal currently since she is not taking any oral medication for the past 24 hours. I have discussed this with the admission nurse regarding the benzodiazepine dependency and the high risk for withdrawal and benzodiazepine withdrawal seizure so she will be maintained on anti-emetics restarted on Valium 5 mg twice a day and given Ativan of 1 mg IV every 4 hours when necessary enough to prevent withdrawal seizure but not enough to escalate dose again to the previous 8 mg of Klonopin a day. Subjective/Events-last exam Patient continues to have abdominal pain especially when she eats. She is on Reglan although she has a listed allergy to Reglan. She has had a stool yesterday that she had said was somewhat formed mixed maybe with some diarrhea she seems to be unclear. Nursing staff did notice that it's been more formed. Her vitals of been normal she's been afebrile without an elevated white count. Review of Systems Gastrointestinal: Abdominal Pain, Diarrhea Focused Exam Lactate Level 01/22/18 13:20: Lactic Acid Level 0.74 Objective Exam Vital Signs Vital Signs Date Time Temp Pulse Resp B/P (MAP) Pulse Ox O2 Delivery O2 Flow Rate FiO2 01/24/18 08:20 98.8 72 18 99/58 (72) 96 Room Air Capillary Refill : General Appearance: No Apparent Distress, WD/WN HEENT: Normal ENT Inspection Respiratory: Lungs Clear, Normal Breath Sounds, No Accessory Muscle Use, No Respiratory Distress Cardiovascular: Regular Rate, Rhythm, No Edema, No Gallop, No JVD, No Murmur Gastrointestinal: Soft, Abnormal Bowel Sounds, Tenderness Rectal: Deferred Back: Normal Inspection Extremity: Normal Capillary Refill, Normal Inspection, Normal Range of Motion, Non Tender Results/Procedures Lab Laboratory Tests 01/24/18 05:37 Patient resulted labs reviewed. Assessment/Plan Assessment and Plan Assess & Plan/Chief Complaint 1. C difficile diarrhea resolving day number 3 Flagyl IV-her antigen test is positive with toxin test was negative. She's been unable to tolerate by mouth Flagyl. But she seems to be getting better we'll check a KUB and upright to evaluate bowel gas pattern 2. Benzodiazepine dependence with tapering doses. 3. Left foot pain of uncertain etiology. No history of trauma. This does not appear to be in the joint consistent with gout as it on the metatarsal fat pads- it's improved today 4. History of depression and anxiety we'll restart the Paxil and Remeron Clinical Quality Measures DVT/VTE Risk/Contraindication: Risk Factor Score Per Nursin RFS Level Per Nursing on Admit: 3=GENEVA Dawn MD Jan 24, 2018 11:19
[2018-01-24] MEDS: PANTOPRAZOLE 40 MG (PROTONIX) TAB PO SCH (11:25)
[2018-01-24 12:11] VITALS: BP 99/54
--- NOTE | 2018-01-24 13:13 | Diagnostic Imaging Report ---
INDICATION: Ileus. COMPARISON: Comparison made with prior examination from 01/22/2018. FINDINGS: Bowel gas pattern is nonspecific. Surgical clips are in the right upper quadrant. There is no free air. The previously seen dilated loops of bowel in the left upper quadrant have improved. IMPRESSION: Nonspecific bowel gas pattern. Dictated by: Dictated on workstation # [id number]
[2018-01-24] MEDS: metroNIDAZOLE 500 MG (FLAGYL) TAB PO SCH ×2 (14:36→20:19)
[2018-01-24 16:00] VITALS: BP 111/59
[2018-01-24 19:30] VITALS: BP 105/56
[2018-01-24] MEDS: MIRTAZAPINE 15 MG (REMERON) TAB PO SCH (20:21)
[2018-01-25] VITALS (7 sets, daily range): BP systolic 91–127; BP diastolic 52–80
[2018-01-25] MEDS: HYDROcodone/APAP 5 MG/325 MG (LORTAB) TAB PO PRN ×2 (00:26→06:18)
[2018-01-25] MEDS: fentaNYL INJECTION 100 MCG/2 ML AMP IVP PRN ×5 (01:50→21:23)
[2018-01-25] MEDS: ONDANSETRON 4 MG/2 ML (SDV) Z0FRAN IVP PRN ×2 (01:56→10:58)
[2018-01-25] MEDS: PANTOPRAZOLE 40 MG (PROTONIX) TAB PO SCH (06:16)
[2018-01-25 06:56] LABS: BASOPHILS % (AUTO) 0 % (0-10); EOSINOPHILS # (AUTO) 0.4 10^3/uL (0.0-0.3); EOSINOPHILS % (AUTO) 4 % (0-10); HEMATOCRIT 38 % (35-52); HEMOGLOBIN 12.7 G/DL (11.5-16.0); LYMPHOCYTES # (AUTO) 3.3 X 10^3 (1.0-4.0); LYMPHOCYTES % (AUTO) 36 % (12-44); MEAN CORPUSCULAR HEMOGLOBIN 31 PG (25-34); MEAN CORPUSCULAR HGB CONC 33 G/DL (32-36); MEAN CORPUSCULAR VOLUME 94 FL (80-99); MEAN PLATELET VOLUME 10.2 FL (7.4-10.4); MONOCYTES # (AUTO) 0.6 X 10^3 (0.0-1.0); MONOCYTES % (AUTO) 6 % (0-12); NEUTROPHILS # (AUTO) 4.9 X 10^3 (1.8-7.8); NEUTROPHILS % (AUTO) 53 % (42-75); PLATELET COUNT 398 10^3/uL (130-400); RED CELL DISTRIBUTION WIDTH 14.9 % (10.0-14.5); WHITE BLOOD COUNT 9.2 10^3/uL (4.3-11.0)
[2018-01-25 07:29] LABS: BUN/CREATININE RATIO 13; CARBON DIOXIDE 15 MMOL/L (21-32); CHLORIDE 116 MMOL/L (98-107); SODIUM 141 MMOL/L (135-145)
[2018-01-25] MEDS: metroNIDAZOLE 500 MG (FLAGYL) TAB PO SCH ×3 (07:29→19:10)
[2018-01-25] MEDS: NS W/KCL 40 MEQ/L 1,000 ML IV SCH ×2 (07:29→15:06)
[2018-01-25] MEDS: PARoxetine 20 MG (PAXIL) TAB PO SCH (07:29)
[2018-01-25] MEDS: DIAZEPAM 2 MG (VALIUM) TAB PO SCH ×2 (07:29→19:10)
[2018-01-25 07:30] LABS: ALANINE AMINOTRANSFERASE 20 U/L (0-55); ALBUMIN 3.8 GM/DL (3.2-4.5); ALKALINE PHOSPHATASE 86 U/L (40-136); BILIRUBIN,TOTAL 0.1 MG/DL (0.1-1.0); CALCIUM 9.1 MG/DL (8.5-10.1); GFR ESTIMATED > 60; GLUCOSE 91 MG/DL (70-105); TOTAL PROTEIN 6.9 GM/DL (6.4-8.2)
[2018-01-25] MEDS ORDERED: FLU QUADRIvalent (5+ YOA) 2018-2019 (AFLURIA) 0.5 ML IM ONE (11:00)
[2018-01-25] MEDS ORDERED: ACHD5005 PO (11:48)
[2018-01-25] MEDS ORDERED: L.AC1CAP6 PO (11:48)
[2018-01-25] MEDS ORDERED: SCOPOLAMINE PATCH REMOVAL TP SCH (12:00)
--- NOTE | 2018-01-25 12:09 | Discharge Summary-Hospitalist ---
Diagnosis/Chief Complaint Date of Admission Jan 22, 2018 at 12:01 Date of Discharge Discharge Date: Jan 25, 2018 Admission Diagnosis Assessment: Refractory C. difficile colitis with unable to tolerate oral fluids due to nausea Fever due to C. difficile colitis Benzodiazepine dependency high risk for withdrawal seizure Abdominal pain consulting Dr. Gimenez Plan: Flagyl I.V. Antiemetics Pain control Benzodiazepine maintenance to prevent withdrawal seizure Discharge Diagnosis (1) C. difficile diarrhea Status: Acute Assessment & Plan: Tolerating Flagyl now and symptoms improving so will continue at discharge Stools now formed Discussed probiotic use and precautions for home (2) Benzodiazepine dependence Status: Chronic Assessment & Plan: Continue on current valium dose and taper per Dr Cyr (3) Abdominal pain Status: Acute Assessment & Plan: Improving and controlled with lortab (4) History of hepatitis C Status: Acute Discharge Summary Procedures/Consulations Dr Gimenez Discharge Physical Exam Allergies: Coded Allergies: Quinolones (Verified Allergy, Unknown, 11/03/17) amoxicillin (Verified Allergy, Unknown, 04/27/16) ciprofloxacin (Verified Allergy, Unknown, HIVES, 01/22/18) metoclopramide (Verified Allergy, Unknown, HIVES, 01/22/18) oseltamivir (Verified Allergy, Unknown, RASH, 07/27/17) Hives and nausea and vomiting potassium clavulanate (Verified Allergy, Unknown, 04/27/16) Vitals & I&Os Vital Signs Date Time Temp Pulse Resp B/P (MAP) Pulse Ox O2 Delivery O2 Flow Rate FiO2 01/25/18 08:00 97.4 80 18 127/71 (89) 96 Room Air General Appearance: No Apparent Distress, WD/WN Gastrointestinal: Non Tender, Soft; No Distended Neurologic/Psychiatric: Alert, Oriented x3 Hospital Course Pt was admitted for intractable abd pain and c diff colitis. She was started on IV Flagyl due to vomiting and eventually was transitioned to oral flagyl. Her symptoms improved and her stool was form. Her pain was improved and she was requesting discharge home. I discussed with Dr Gimenez who will follow up in 4 weeks. She is to follow up with her PCP this week. Return precautions were discussed. Labs (last 24 hrs) Laboratory Tests 01/25/18 06:29: White Blood Count 9.2, Red Blood Count 4.10L, Hemoglobin 12.7, Hematocrit 38, Mean Corpuscular Volume 94, Mean Corpuscular Hemoglobin 31, Mean Corpuscular Hemoglobin Concent 33, Red Cell Distribution Width 14.9H, Platelet Count 398, Mean Platelet Volume 10.2, Neutrophils (%) (Auto) 53, Lymphocytes (%) (Auto) 36 , Monocytes (%) (Auto) 6, Eosinophils (%) (Auto) 4, Basophils (%) (Auto) 0, Neutrophils # (Auto) 4.9, Lymphocytes # (Auto) 3.3, Monocytes # (Auto) 0.6, Eosinophils # (Auto) 0.4H, Basophils # (Auto) 0.0, Sodium Level 141, Potassium Level 5.0, Chloride Level 116H, Carbon Dioxide Level 15L, Anion Gap 10, Blood Urea Nitrogen 10, Creatinine 0.80, Estimat Glomerular Filtration Rate > 60, BUN/ Creatinine Ratio 13, Glucose Level 91, Calcium Level 9.1, Corrected Calcium 9.3 , Total Bilirubin 0.1, Aspartate Amino Transf (AST/SGOT) 19, Alanine Aminotransferase (ALT/SGPT) 20, Alkaline Phosphatase 86, C-Reactive Protein High Sensitivity 0.31, Total Protein 6.9, Albumin 3.8 Microbiology 01/22/18 Blood Culture - Preliminary, Resulted No growth Patient resulted labs reviewed. Pending Labs Laboratory Tests 01/25/18 06:29: White Blood Count 9.2, Red Blood Count 4.10, Hemoglobin 12.7, Hematocrit 38, Mean Corpuscular Volume 94, Mean Corpuscular Hemoglobin 31, Mean Corpuscular Hemoglobin Concent 33, Red Cell Distribution Width 14.9, Platelet Count 398, Mean Platelet Volume 10.2, Neutrophils (%) (Auto) 53, Lymphocytes (%) (Auto) 36 , Monocytes (%) (Auto) 6, Eosinophils (%) (Auto) 4, Basophils (%) (Auto) 0, Neutrophils # (Auto) 4.9, Lymphocytes # (Auto) 3.3, Monocytes # (Auto) 0.6, Eosinophils # (Auto) 0.4, Basophils # (Auto) 0.0, Sodium Level 141, Potassium Level 5.0, Chloride Level 116, Carbon Dioxide Level 15, Anion Gap 10, Blood Urea Nitrogen 10, Creatinine 0.80, Estimat Glomerular Filtration Rate > 60, BUN/ Creatinine Ratio 13, Glucose Level 91, Calcium Level 9.1, Corrected Calcium 9.3 , Total Bilirubin 0.1, Aspartate Amino Transf (AST/SGOT) 19, Alanine Aminotransferase (ALT/SGPT) 20, Alkaline Phosphatase 86, C-Reactive Protein High Sensitivity 0.31, Total Protein 6.9, Albumin 3.8 Discussion & Recommendations Discharge Planning: >30 minutes discharge planning Discharge Home Medications: Active Scripts Active Probiotic (L.acidoph & Paracasei,B.lactis) 1 Each Capsule 1 Each PO TID Hydrocodone/Acetaminophen 5/325mg Tablet (Acetaminophen/Hydrocodone Bitart) 1 Tab Tab 1-2 Tab PO Q4H PRN 1 tab for moderate pain, 2 tabs for severe pain Reported Diazepam 2 Mg Tablet 8 Mg PO HS TAKES 4 (2MG) TABLETS ALONG WITH 1 (10MG) TABLET AT BEDTIME FOR A TOTAL BEDTIME DOSE OF 18MG Ondansetron HCl 8 Mg Tablet 8 Mg PO TID PRN Metronidazole 500 Mg Tablet 500 Mg PO TID 10 DAY SUPPLY FILLED 01-20-18 Diazepam 2 Mg Tablet 6 Mg PO DAILY TAKES 3 (2MG) TABLETS Diazepam 10 Mg Tablet 10 Mg PO HS TAKES ALONG WITH 4 (2MG) TABLETS AT BEDTIME FOR A TOTAL BEDTIME DOSE OF 18MG Lisinopril-Hctz 20-25 mg Tab (Lisinopril/Hydrochlorothiazide) 1 Each Tablet 1 Tab PO DAILY Advil (Ibuprofen) 200 Mg Tablet 800 Mg PO TID PRN Biofreeze (Menthol) 118 Ml Gel..ml. TP QID PRN Paroxetine HCl 40 Mg Tablet 40 Mg PO DAILY TAKES WITH A 20MG TABLET FOR A TOTAL DAILY DOSE OF 60MG Paroxetine HCl 20 Mg Tablet 20 Mg PO DAILY LAST FILLED #30 12-02-17 TAKES ALONG WITH 40MG TABLET FOR A TOTAL DAILY DOSE OF 60MG Clonidine HCl 0.1 Mg Tablet 0.1 Mg PO BID PRN Mirtazapine 30 Mg Tablet 30 Mg PO HS Instructions to patient/family Please see electronic discharge instructions given to patient. Clinical Quality Measures DVT/VTE Risk/Contraindication: Risk Factor Score Per Nursin RFS Level Per Nursing on Admit: 3=High Problem Qualifiers (1) Abdominal pain: Abdominal location: generalized Qualified Codes: R10.84 - Generalized abdominal pain CRISTIN PEREIRA MD Jan 25, 2018 12:09
--- NOTE | 2018-01-25 12:13 | Discharge Inst-Simple/Standard ---
Discharge Inst-Standard Discharge Medications New, Converted or Re-Newed RX: RX on Chart Patient Instructions/Follow Up Plan of Care/Instructions/FU: Please continue to take your medications as written. Please follow up with Dr Gimenez and Dr Cyr as recommended Activity as Tolerated: Yes Discharge Diet: Avoid Fatty Foods Return to The Hospital For: Abd pain, inability to keep fluids down, diarrhea, fever, if you feel you are getting worse. CRISTIN PEREIRA MD Jan 25, 2018 12:13
[2018-01-25] MEDS ORDERED: HYDROcodone/APAP 5 MG/325 MG (LORTAB) TAB PO PRN (12:45)
[2018-01-25] MEDS: DICYCLOMINE 10 MG (BENTYL) CAP PO SCH ×2 (15:07→19:10)
[2018-01-25] MEDS: ONDANSETRON 8 MG (ZOFRAN) ORAL DISSOLVE TAB PO PRN ×2 (15:08→21:26)
--- NOTE | 2018-01-25 17:33 | Progress Note (SOAP) ---
Subjective Date Seen by a Provider: Jan 25, 2018 Time Seen by a Provider: 17:00 Subjective/Events-last exam doing better. states she still has crampy abd pain however more tolerable with percocet. tolerating diet. having more formed stools. Objective Exam Vital Signs Date Time Temp Pulse Resp B/P (MAP) Pulse Ox O2 Delivery O2 Flow Rate FiO2 01/25/18 15:45 98.0 68 20 120/80 (93) 95 Room Air 01/25/18 13:00 71 01/25/18 12:00 98.3 80 18 109/56 (73) 93 Room Air 01/25/18 08:00 97.4 80 18 127/71 (89) 96 Room Air 01/25/18 07:00 81 01/25/18 04:00 97.8 78 16 91/52 (65) 96 Room Air 01/25/18 01:00 83 01/25/18 00:30 97.2 88 18 108/59 (75) 91 Room Air 01/24/18 19:30 98.0 74 16 105/56 (72) 95 Room Air 01/24/18 19:00 73 I & O 01/25/18 07:00 Intake Total 3392 ml Output Total 1900 ml Balance 1492 ml Capillary Refill : General Appearance: No Apparent Distress HEENT: PERRL/EOMI Neck: Full Range of Motion Respiratory: Chest Non Tender Cardiovascular: Regular Rate, Rhythm Gastrointestinal: normal bowel sounds, soft, tenderness Extremity: Normal Capillary Refill Neurologic/Psychiatric: Alert, Oriented x3 Skin: Normal Color Lymphatic: No Adenopathy Results Lab Laboratory Tests 01/25/18 06:29: White Blood Count 9.2, Red Blood Count 4.10L, Hemoglobin 12.7, Hematocrit 38, Mean Corpuscular Volume 94, Mean Corpuscular Hemoglobin 31, Mean Corpuscular Hemoglobin Concent 33, Red Cell Distribution Width 14.9H, Platelet Count 398, Mean Platelet Volume 10.2, Neutrophils (%) (Auto) 53, Lymphocytes (%) (Auto) 36 , Monocytes (%) (Auto) 6, Eosinophils (%) (Auto) 4, Basophils (%) (Auto) 0, Neutrophils # (Auto) 4.9, Lymphocytes # (Auto) 3.3, Monocytes # (Auto) 0.6, Eosinophils # (Auto) 0.4H, Basophils # (Auto) 0.0, Sodium Level 141, Potassium Level 5.0, Chloride Level 116H, Carbon Dioxide Level 15L, Anion Gap 10, Blood Urea Nitrogen 10, Creatinine 0.80, Estimat Glomerular Filtration Rate > 60, BUN/ Creatinine Ratio 13, Glucose Level 91, Calcium Level 9.1, Corrected Calcium 9.3 , Total Bilirubin 0.1, Aspartate Amino Transf (AST/SGOT) 19, Alanine Aminotransferase (ALT/SGPT) 20, Alkaline Phosphatase 86, C-Reactive Protein High Sensitivity 0.31, Total Protein 6.9, Albumin 3.8 Microbiology 01/22/18 Blood Culture - Preliminary, Resulted No growth Assessment/Plan Assessment/Plan Assess & Plan/Chief Complaint c. diff colitis. improving with IV hydration and now PO flagyl. pain now becoming better controlled and tolerating solids and liquids. f/u with surg in 4 weeks. Clinical Quality Measures DVT/VTE Risk/Contraindication: Risk Factor Score Per Nursin RFS Level Per Nursing on Admit: 3=High ALANNAH TERAN MD Jan 25, 2018 5:33 pm
[2018-01-25] MEDS: MIRTAZAPINE 15 MG (REMERON) TAB PO SCH (19:12)
[2018-01-25] MEDS: oxyCODONE/APAP 5/325MG (PERCOCET 5) TABLET PO PRN (19:24)
[2018-01-26 00:23] VITALS: BP 132/80
[2018-01-26] MEDS: oxyCODONE/APAP 5/325MG (PERCOCET 5) TABLET PO PRN ×2 (00:47→06:38)
[2018-01-26 04:08] VITALS: BP_SYST 117; BP_SYST 123; BP_DIAS 71; BP_DIAS 84
[2018-01-26] MEDS: ONDANSETRON 8 MG (ZOFRAN) ORAL DISSOLVE TAB PO PRN (04:18)
[2018-01-26] MEDS: fentaNYL INJECTION 100 MCG/2 ML AMP IVP PRN (04:19)
[2018-01-26] MEDS: PANTOPRAZOLE 40 MG (PROTONIX) TAB PO SCH (05:43)
[2018-01-26] MEDS: DICYCLOMINE 10 MG (BENTYL) CAP PO SCH (05:44)
[2018-01-26 08:00] VITALS: BP 125/77
[2018-01-26] MEDS: metroNIDAZOLE 500 MG (FLAGYL) TAB PO SCH (08:47)
[2018-01-26] MEDS: PARoxetine 20 MG (PAXIL) TAB PO SCH (08:48)
[2018-01-26] MEDS: DIAZEPAM 2 MG (VALIUM) TAB PO SCH (08:48)
[2018-01-26] MEDS ORDERED: morphine IMMEDIATE RELEASE 15 MG TABLET PO PRN (09:00)
[2018-01-26] MEDS ORDERED: MORP15TA PO (09:44)
--- NOTE | 2018-01-26 10:03 | Progress Note-Hospitalist ---
Subjective HPI/CC On Admission Date Seen by Provider: Jan 26, 2018 Time Seen by Provider: 09:58 CC: C diff colitis HPI: This is a 48-year-old white female of Dr. Cyr who presented as a direct admission from his office due to severe nausea and vomiting unable to tolerate oral Flagyl for C. difficile colitis that he diagnosed yesterday. Apparently she's been taking amoxicillin for tooth abscess for the past 2 weeks and began having diarrhea and abdominal cramping presented to his office diagnosed with the colitis started on Flagyl but worsened and had a fever last night and presented to [facility] given IV fluids given Toradol and anti-emetics but worsened to the point she presented to his office and found the patient to be stable but could not tolerate oral fluids and treatment for the C. difficile colitis. It's also to note she had previously been on Klonopin a total of 8 mg a day and has been titrated down over the past 6 months slowly to avoid withdrawal and has currently been maintained on Valium of 12 mg twice a day by Dr. Cyr and is in the process of probable benzodiazepine withdrawal currently since she is not taking any oral medication for the past 24 hours. I have discussed this with the admission nurse regarding the benzodiazepine dependency and the high risk for withdrawal and benzodiazepine withdrawal seizure so she will be maintained on anti-emetics restarted on Valium 5 mg twice a day and given Ativan of 1 mg IV every 4 hours when necessary enough to prevent withdrawal seizure but not enough to escalate dose again to the previous 8 mg of Klonopin a day. Subjective/Events-last exam Pt continues to complain of pain. Was unable to DC yesterday due to pain. Would like to try DC today though. Objective Exam Vital Signs Vital Signs Date Time Temp Pulse Resp B/P (MAP) Pulse Ox O2 Delivery O2 Flow Rate FiO2 01/26/18 04:08 97.8 84 20 123/71 (88) 93 Room Air Capillary Refill : General Appearance: No Apparent Distress, WD/WN HEENT: Other (poor dentition) Respiratory: No Respiratory Distress Gastrointestinal: Normal Bowel Sounds, Non Tender, Soft Neurologic/Psychiatric: Alert, Oriented x3, Normal Mood/Affect Results/Procedures Lab Patient resulted labs reviewed. Assessment/Plan Assessment and Plan Assess & Plan/Chief Complaint C diff colitis Diagnosis/Problems Diagnosis/Problems (1) C. difficile diarrhea Status: Acute Assessment & Plan: Tolerating Flagyl now and symptoms improving so will continue at discharge Stools now formed Discussed probiotic use and precautions for home Was unable to DC yesterday due to uncontrolled pain (2) Benzodiazepine dependence Status: Chronic Assessment & Plan: Continue on current valium dose and taper per Dr Cyr (3) Abdominal pain Status: Acute Assessment & Plan: DC IV narcotics Trial at home with very short term oral morphine Discussed with pain the need to use as little as possible given concurrent sedative medications Qualifiers: Abdominal location: generalized Qualified Codes: R10.84 - Generalized abdominal pain (4) History of hepatitis C Status: Acute Clinical Quality Measures DVT/VTE Risk/Contraindication: Risk Factor Score Per Nursin RFS Level Per Nursing on Admit: 3=High CRISTIN PEREIRA MD Jan 26, 2018 10:03 am
[2018-01-26 10:38] VITALS: BP 125/77
== END 2018-01-26 10:40 | disposition home or self-care (01) | DRG 372 ==
LOC: 4TH 12:01
PROVIDERS: ADMIT Internal Medicine; ATTEND Internal Medicine
DX: A04.71 Enterocolitis due to Clostridium difficile, recurrent (principal); F13.20 Sedative, hypnotic or anxiolytic dependence, uncomplicated; E86.0 Dehydration; I10 Essential (primary) hypertension; F17.210 Nicotine dependence, cigarettes, uncomplicated; M54.5 Low back pain; F41.9 Anxiety disorder, unspecified; F32.9 Major depressive disorder, single episode, unspecified; M79.672 Pain in left foot; E66.9 Obesity, unspecified; Z68.32 Body mass index [BMI] 32.0-32.9, adult; Z86.19 Personal history of other infectious and parasitic diseases
CPT/HCPCS: 36415; 74018; 74019; 80053; 83605; 85025; 86141; 87040

== ENCOUNTER 2018-02-14 03:37 | Inpatient (IN) | payer MEDICAID ==
[2018-02-14] VITALS (7 sets, daily range): BP systolic 88–137; BP diastolic 55–82
[~2018-02-14] VITALS: Ht 172.7 cm; Wt 94.5 kg
[~2018-02-14 03:37] MED LIST changes: +ACHD5005 PO; +L.AC1CAP6 PO; +MORP15TA PO; +ONDA8TAB12 PO
[2018-02-14] MEDS ORDERED: ONDANSETRON 4 MG/2 ML (SDV) Z0FRAN IV PRN (04:00)
[2018-02-14] MEDS ORDERED: KETOROLAC 30 MG/ML VIAL IVP ONE (04:00)
[2018-02-14] MEDS ORDERED: NS IV 1000 ML 2,000 ML IV ONE (04:00)
--- NOTE | 2018-02-14 04:09 | ED Abdominal Pain ---
General Chief Complaint: Abdominal/GI Problems Stated Complaint: POSS C-DIFF,DIARRHEA,VOMITING,SOB Source of Information: Patient, Other Exam Limitations: No Limitations History of Present Illness Date Seen by Provider: Feb 14, 2018 Time Seen by Provider: 03:56 Initial Comments Patient presents to the ER by private conveyance with a chief complaint of shortness of breath, burning epigastric pain and nausea vomiting and loose stools. She seen no blood in her stools or vomitus. She thinks that she has a recurrence of her C. difficile colitis because she was recently in the hospital a few weeks ago and treated for this. She's been off the antibiotics for a few weeks now. She says the symptoms started about 3 or 4 days ago but she did not go see anybody until today because she couldn't take it anymore. She also coincidentally stopped taking her fentanyl patch, intermediate release morphine and oxycodone 4 days ago. She says yesterday she did take a single oxycodone and that gave her some significant relief for a few hours but then symptoms came back. She does not think that this has anything to do with opiate withdrawal. She has not had any objective or subjective fevers. She is endorsing quite a bit of anxiety as well. She says she is applying a lot of vapor rubs to her face neck and chest because she could not breathe but she says it did not help. She says she has difficulty breathing through her nose or her mouth. Historically she's had her gallbladder and appendix removed. She denies C-sections or other surgeries. The patient admits to taking about 26 mg of Valium a day on average. The family has requested Dr. Gimenez be involved in her care if possible. Allergies and Home Medications Allergies Coded Allergies: Quinolones (Verified Allergy, Unknown, 11/03/17) amoxicillin (Verified Allergy, Unknown, 04/27/16) ciprofloxacin (Verified Allergy, Unknown, HIVES, 01/22/18) metoclopramide (Verified Allergy, Unknown, HIVES, 01/22/18) oseltamivir (Verified Allergy, Unknown, RASH, 07/27/17) Hives and nausea and vomiting potassium clavulanate (Verified Allergy, Unknown, 04/27/16) Home Medications Clonidine HCl 0.1 Mg Tablet, 0.1 MG PO BID PRN for BLOOD PRESSURE, (Reported) Diazepam 10 Mg Tablet, 10 MG PO HS, (Reported) TAKES ALONG WITH 4 (2MG) TABLETS AT BEDTIME FOR A TOTAL BEDTIME DOSE OF 18MG Diazepam 2 Mg Tablet, 6 MG PO DAILY, (Reported) TAKES 3 (2MG) TABLETS Diazepam 2 Mg Tablet, 8 MG PO HS, (Reported) TAKES 4 (2MG) TABLETS ALONG WITH 1 (10MG) TABLET AT BEDTIME FOR A TOTAL BEDTIME DOSE OF 18MG Ibuprofen 200 Mg Tablet, 800 MG PO TID PRN for PAIN-MILD, (Reported) LLuxacidoph & Paracasei,B.lactis 1 Each Capsule, 1 EACH PO TID Prescribed by: CRISTIN PITTMAN on 01/25/18 1148 Lisinopril/Hydrochlorothiazide 1 Each Tablet, 1 TAB PO DAILY, (Reported) Menthol 118 Ml Gel..ml., TP QID PRN for BACK PAIN, (Reported) Metronidazole 500 Mg Tablet, 500 MG PO TID, (Reported) 10 DAY SUPPLY FILLED 01-20-18 Mirtazapine 30 Mg Tablet, 30 MG PO HS, (Reported) Morphine Sulfate 15 Mg Tablet, 15 MG PO Q3H PRN for PAIN-SEVERE Prescribed by: CRISTIN PITTMAN on 01/26/18 0944 Ondansetron HCl 8 Mg Tablet, 8 MG PO TID PRN for NAUSEA/VOMITING-1ST LINE, ( Reported) Paroxetine HCl 20 Mg Tablet, 20 MG PO DAILY, (Reported) LAST FILLED #30 12-02-17 TAKES ALONG WITH 40MG TABLET FOR A TOTAL DAILY DOSE OF 60MG Paroxetine HCl 40 Mg Tablet, 40 MG PO DAILY, (Reported) TAKES WITH A 20MG TABLET FOR A TOTAL DAILY DOSE OF 60MG Patient Home Medication List Home Medication List Reviewed: Yes Review of Systems Review of Systems Constitutional: No chills, No diaphoresis EENTM: No Blurred Vision, No Double Vision Respiratory: Denies Cough; Shortness of Air; Denies SOA With Exertion, Denies Stridor, Denies Wheezing Cardiovascular: Denies Chest Pain, Denies Edema, Denies Irregular Heart Rate, Denies Lightheadedness, Denies Palpitations, Denies Syncope Gastrointestinal: Abdominal Pain (midepigastric); Denies Constipated; Diarrhea , Nausea, Poor Fluid Intake; Denies Rectal Bleeding; Vomiting Genitourinary: Denies Burning, Denies Discharge Musculoskeletal: No back pain, No joint pain Past Ohdsqfu-Hzbfbo-Ksatjw Hx Patient Social History Alcohol Use: Denies Use Recreational Drug Use: No Smoking Status: Former Smoker Type Used: Cigarettes Former Smoker, Quit: Nov 01, 2017 2nd Hand Smoke Exposure: Yes Recent Foreign Travel: No Contact w/Someone Who Travel: No Recent Hopitalizations: No Immunizations Up To Date Tetanus Booster (TDap): Unknown PED Vaccines UTD: No Seasonal Allergies Seasonal Allergies: No Past Medical History Surgeries: Yes Appendectomy, Gallbladder, Tubal Ligation Respiratory: No Currently Using CPAP: No Currently Using BIPAP: No Cardiac: No Hypertension Neurological: No Reproductive Disorders: Yes Female Reproductive Disorders: Menstrual Problems, Ovarian Cyst Sexually Transmitted Disease: No HIV/AIDS: No Genitourinary: No Gastrointestinal: Yes Colitis, C-Diff, Gall Bladder Disease Musculoskeletal: No Chronic Back Pain Endocrine: No HEENT: No Cancer: No Psychosocial: Yes Anxiety, Depression Integumentary: No Blood Disorders: No Adverse Reaction/Blood Tranf: No Family Medical History Alcoholism G8 BROTHER ( with liver failure) Arthritis G8 BROTHER (rhoumatoid arthritis, mono multiplex neuropathy) No Pertinent Family Hx Physical Exam Vital Signs Vital Signs - First Documented 02/14/18 03:48 Temp 99.5 Pulse 92 Resp 18 B/P (MAP) 125/85 (98) Pulse Ox 97 O2 Delivery Room Air Capillary Refill : Height/Weight/BMI Height: 5'8.00" Weight: 210lbs. 9.0oz. 95.771153mj; 32.0 BMI Method:Stated General Appearance: WD/WN, mild distress HEENT: PERRL/EOMI, normal ENT inspection, TMs normal, pharynx normal Neck: non-tender, full range of motion, supple, normal inspection Respiratory: chest non-tender, lungs clear, normal breath sounds, no respiratory distress, no accessory muscle use Cardiovascular: normal peripheral pulses, regular rate, rhythm (94 bpm), no edema Peripheral Pulses: 2+ Radial Pulses (R), 2+ Radial Pulses (L) Gastrointestinal: normal bowel sounds (active bowel sounds), no organomegaly, guarding (left lower quadrant and left upper quadrant), tenderness (left upper and lower quadrant), other (. Negative tenderness over gurney's point ) Extremities: normal inspection, normal capillary refill Neurologic/Psychiatric: alert, other (anxious affect) Skin: other (face and neck and chest as well as arms are covered in a thin layer of vapor rubs) Focused Exam Lactate Level 02/14/18 04:06: Lactic Acid Level 3.04*H Lactic Acid Level Laboratory Tests Test 02/14/18 04:06 Lactic Acid Level 3.04 MMOL/L (0.50-2.00) *H Progress/Results/Core Measures Results/Orders Lab Results Laboratory Tests Test 02/14/18 04:06 Range/Units White Blood Count 10.5 4.3-11.0 10^3/uL Red Blood Count 4.54 4.35-5.85 10^6/uL Hemoglobin 13.7 11.5-16.0 G/DL Hematocrit 40 35-52 % Mean Corpuscular Volume 87 80-99 FL Mean Corpuscular Hemoglobin 30 25-34 PG Mean Corpuscular Hemoglobin Concent 35 32-36 G/DL Red Cell Distribution Width 13.6 10.0-14.5 % Platelet Count 469 H 130-400 10^3/uL Mean Platelet Volume 9.1 7.4-10.4 FL Neutrophils (%) (Auto) 65 42-75 % Lymphocytes (%) (Auto) 26 12-44 % Monocytes (%) (Auto) 7 0-12 % Eosinophils (%) (Auto) 2 0-10 % Basophils (%) (Auto) 0 0-10 % Neutrophils # (Auto) 6.9 1.8-7.8 X 10^3 Lymphocytes # (Auto) 2.7 1.0-4.0 X 10^3 Monocytes # (Auto) 0.7 0.0-1.0 X 10^3 Eosinophils # (Auto) 0.2 0.0-0.3 10^3/uL Basophils # (Auto) 0.0 0.0-0.1 10^3/uL Prothrombin Time 12.6 12.2-14.7 SEC INR Comment 1.0 0.8-1.4 Activated Partial Thromboplast Time 31 24-35 SEC Sodium Level 126 L 135-145 MMOL/L Potassium Level 3.2 L 3.6-5.0 MMOL/L Chloride Level 89 L 98-107 MMOL/L Carbon Dioxide Level 20 L 21-32 MMOL/L Anion Gap 17 H 5-14 MMOL/L Blood Urea Nitrogen 12 7-18 MG/DL Creatinine 0.91 0.60-1.30 MG/DL Estimat Glomerular Filtration Rate > 60 BUN/Creatinine Ratio 13 Glucose Level 101 70-105 MG/DL Lactic Acid Level 3.04 *H 0.50-2.00 MMOL/L Calcium Level 9.7 8.5-10.1 MG/DL Corrected Calcium 9.5 8.5-10.1 MG/DL Total Bilirubin 0.3 0.1-1.0 MG/DL Aspartate Amino Transf (AST/SGOT) 13 5-34 U/L Alanine Aminotransferase (ALT/SGPT) 20 0-55 U/L Alkaline Phosphatase 120 40-136 U/L Total Protein 7.8 6.4-8.2 GM/DL Albumin 4.2 3.2-4.5 GM/DL My Orders Orders - PAUL VICENTE Cbc With Automated Diff (02/14/18 03:56) Comprehensive Metabolic Panel (02/14/18 03:56) Blood Culture (02/14/18 03:56) Sputum Culture (02/14/18 03:56) Urinalysis (02/14/18 03:56) Urine Culture (02/14/18 03:56) Protime With Inr (02/14/18 03:56) Partial Thromboplastin Time (02/14/18 03:56) Chest 1 View, Ap/Pa Only (02/14/18 03:56) Saline Lock/Iv-Start (02/14/18 03:56) Saline Lock/Iv-Start (02/14/18 03:56) Vital Signs Adult Sepsis Patie Q15M (02/14/18 03:56) Ondansetron Injection (Zofran Injectio (02/14/18 04:00) O2 (02/14/18 03:56) Remove Rings In Anticipation O (02/14/18 03:56) Lactic Acid Analyzer (02/14/18 03:56) Ns Iv 1000 Ml (Sodium Chloride 0.9%) (02/14/18 04:00) Ketorolac Injection (Toradol Injection) (02/14/18 04:00) C Difficile Ag + Toxin A/B. (02/14/18 04:35) Stool Culture (02/14/18 04:35) Occult Blood Stool (02/14/18 04:35) Parasite Scrn Stool Giard Cryp (02/14/18 04:35) Fecal Wbc (02/14/18 04:35) Potassium Cl 10meq/50ml Ivpb (Kcl 10 Meq (02/14/18 04:45) Albuterol/Ipra Inhalation Soln (Duoneb I (02/14/18 04:45) Svn Small Volume Nebulizer (02/14/18 04:43) Ct Abdomen/Pelvis W (02/14/18 04:53) Iohexol Injection (Omnipaque 350 Mg/Ml 1 (02/14/18 05:30) Contrast Received (Contrast Received) (02/14/18 05:30) Ns (Ivpb) (Sodium Chloride 0.9%) (02/14/18 05:30) Lipase (02/14/18 05:39) Lidocaine 2% Viscous 15 Ml (Xylocaine Vi (02/14/18 05:45) Famotidine Tablet (Pepcid Tablet) (02/14/18 05:41) Antacid Suspension (Mylanta Suspension (02/14/18 05:45) Medications Given in ED Current Medications Medications Dose Ordered Sig/Annalisa Route Start Time Stop Time Status Last Admin Dose Admin Albuterol/ Ipratropium 3 ml ONCE ONCE INH 02/14/18 04:45 02/14/18 04:46 DC 02/14/18 05:47 3 ML Iohexol 100 ml ONCE ONCE IV 02/14/18 05:30 02/14/18 05:32 DC 02/14/18 05:18 100 ML Ketorolac Tromethamine 30 mg ONCE ONCE IVP 02/14/18 04:00 02/14/18 04:03 DC 02/14/18 04:30 30 MG Ondansetron HCl 4 mg PRN PRN IV 02/14/18 04:00 02/14/18 04:31 DC 02/14/18 04:30 4 MG Potassium Chloride 50 ml @ 50 mls/hr ONCE ONCE IV 02/14/18 04:45 02/14/18 05:44 DC 02/14/18 04:54 50 MLS/HR Sodium Chloride 250 ml ONCE ONCE IV 02/14/18 05:30 02/14/18 05:32 DC 02/14/18 05:18 80 ML Sodium Chloride 2,000 ml @ 2,000 mls/hr ONCE ONCE IV 02/14/18 04:00 02/14/18 04:59 DC 02/14/18 04:30 2,000 MLS/HR Vital Signs/I&O 02/14/18 02/14/18 03:48 05:47 Temp 99.5 Pulse 92 Resp 18 B/P (MAP) 125/85 (98) Pulse Ox 97 96 O2 Delivery Room Air Room Air Progress Progress Note #1: Time: 04:10 Progress Note Differential includes a infectious/viral gastroenteritis with colitis versus withdrawal symptoms from her recent discontinuation of her opiates. She would not give a reason why she decided to stop using her opiates or if she ran out. She does have some elevated heart rate in the 90s and complaints of abdominal pain and recent history of C. difficile colitis clinically so we will get a septic workup and start at 20 cc/kg of IV fluids to help rehydrate her and some Zofran IV as well as Toradol 30 mg IV. If we can get her nausea under control we can try GI cocktail to help with her burning sensation in her epigastric region however her tenderness is over her lower left quadrant and to a lesser extent the upper quadrant. There is no history of IBS or IBD. She is quite anxious and this is probably the reason why she is complaining of shortness of breath as she does not have any clinical evidence on physical exam or vital signs of shortness of air. She has very clear open sounding lungs with good air movement. We will obtain chest x-ray and labs. Progress Note #2: Time: 05:58 Progress Note Her pain was improved but it has started to come back so were going to give her a GI cocktail since she was originally having some burning sensation in her epigastric region. We have not yet found a source for her dehydration, elevated lactate that would be a infectious source. It would be reasonable not to start antibiotics at this time because if her gastrointestinal symptoms are a viral or opiate withdrawal syndrome then antibiotics would further increase her risk for C. difficile colitis. The patient appears to be much calmer. She took apparently 6 of her own milligrams of Valium orally and has kept them down. She' s had no vomiting since she's been here and only 1 tiny little stool when she first arrived that was a few fluffy chunks. She has refused a catheter for urine as well as been unable to produce another urine specimen despite 20 cc/kg IV fluid bolus per ideal body weight. Diagnostic Imaging Diagonstic Imaging: Xray Plain Films/CT/US/NM/MRI: chest (1v) Comments Unremarkable 1 view chest. Reviewed: Reviewed by Me Diagonstic Imaging: CT (with contrast) Plain Films/CT/US/NM/MRI: abdomen, pelvis Comments No acute findings Reviewed: Reviewed [place] Study, Reviewed by Me Departure Communication (Admissions) Time/Spoke to Admitting Phy: 05:48 Discussed the case with Dr. Pittman and she agrees with not using antibiotics yet until we can obtain stool and urine samples. Impression Primary Impression: Gastroenteritis/colitis, infectious Additional Impressions: Sepsis Qualified Codes: A41.9 - Sepsis, unspecified organism Dehydration Hyponatremia Acute hypokalemia Anxiety about health Disposition: 09 ADMITTED INPATIENT Condition: Stable Admissions Decision to Admit Reason: Admit from ER (General) Decision to Admit/Date: Feb 14, 2018 Time/Decision to Admit Time: 05:14 Departure-Patient Inst. Referrals: RAFI CASTILLO DO (PCP/Family) Primary Care Physician Copy Copies To 1: ALANNAH GIMENEZ MD; RAFI CASTILLO TITUS J Feb 14, 2018 04:09
[2018-02-14 04:17] LABS: BASOPHILS % (AUTO) 0 % (0-10); EOSINOPHILS # (AUTO) 0.2 10^3/uL (0.0-0.3); EOSINOPHILS % (AUTO) 2 % (0-10); HEMATOCRIT 40 % (35-52); HEMOGLOBIN 13.7 G/DL (11.5-16.0); LYMPHOCYTES # (AUTO) 2.7 X 10^3 (1.0-4.0); LYMPHOCYTES % (AUTO) 26 % (12-44); MEAN CORPUSCULAR HEMOGLOBIN 30 PG (25-34); MEAN CORPUSCULAR HGB CONC 35 G/DL (32-36); MEAN CORPUSCULAR VOLUME 87 FL (80-99); MEAN PLATELET VOLUME 9.1 FL (7.4-10.4); MONOCYTES # (AUTO) 0.7 X 10^3 (0.0-1.0); MONOCYTES % (AUTO) 7 % (0-12); NEUTROPHILS # (AUTO) 6.9 X 10^3 (1.8-7.8); NEUTROPHILS % (AUTO) 65 % (42-75); PLATELET COUNT 469 10^3/uL (130-400); RED BLOOD COUNT 4.54 10^6/uL (4.35-5.85); RED CELL DISTRIBUTION WIDTH 13.6 % (10.0-14.5); WHITE BLOOD COUNT 10.5 10^3/uL (4.3-11.0)
[2018-02-14 04:28] LABS: PROTHROMBIN TIME PATIENT 12.6 SEC (12.2-14.7)
[2018-02-14 04:37] LABS: ALANINE AMINOTRANSFERASE 20 U/L (0-55); ALBUMIN 4.2 GM/DL (3.2-4.5); ALKALINE PHOSPHATASE 120 U/L (40-136); BILIRUBIN,TOTAL 0.3 MG/DL (0.1-1.0); BUN/CREATININE RATIO 13; CALCIUM 9.7 MG/DL (8.5-10.1); CARBON DIOXIDE 20 MMOL/L (21-32); CHLORIDE 89 MMOL/L (98-107); CREATININE SERUM 0.91 MG/DL (0.60-1.30); GFR ESTIMATED > 60; GLUCOSE 101 MG/DL (70-105); POTASSIUM 3.2 MMOL/L (3.6-5.0); SODIUM 126 MMOL/L (135-145); TOTAL PROTEIN 7.8 GM/DL (6.4-8.2)
[2018-02-14] MEDS ORDERED: RT-ALBUTEROL/IPRATROPIUM 3 ML (DUONEB) VIAL INH ONE (04:45)
[2018-02-14] MEDS ORDERED: POTASSIUM CL 10MEQ/50ML IVPB 50 ML IV ONE (04:45)
[2018-02-14] MEDS ORDERED: RECEIVED CONTRAST (Hold Metformin) IV SCH (05:30)
[2018-02-14] MEDS ORDERED: NS 250 ML (IVPB) BAG IV ONE (05:30)
[2018-02-14] MEDS ORDERED: IOHEXOL 350 MG/ML 100 ML (OMNIPAQUE 350) VIAL IV ONE (05:30)
[2018-02-14] MEDS ORDERED: FAMOTIDINE 20 MG (PEPCID) TABLET PO STA (05:41)
[2018-02-14] MEDS ORDERED: LIDOCAINE 2% VISCOUS 15 ML UDC PO ONE (05:45)
[2018-02-14] MEDS ORDERED: ANTACID SUSP 30 ML UDC (MYLANTA) PO ONE (05:45)
--- NOTE | 2018-02-14 06:40 | Diagnostic Imaging Report ---
INDICATION: Shortness of breath and cough Portable chest 4:27 AM Heart size and pulmonary vascularity are normal. Lungs are clear. There are no effusions or pneumothoraces. IMPRESSION: Negative chest Dictated by: Dictated on workstation # [id number]
--- NOTE | 2018-02-14 06:51 | Diagnostic Imaging Report ---
PROCEDURE: CT abdomen and pelvis with contrast. TECHNIQUE: Multiple contiguous axial images were obtained through the abdomen and pelvis after administration of intravenous contrast. INDICATION: Abdominal pain with nausea and diarrhea. History of Clostridium difficile with prior cholecystectomy and appendectomy. Comparison made to the previous CT examination from 11/03/2017. FINDINGS: The visualized lung bases appear clear without evidence of infiltrate or effusion. The liver demonstrates no evidence of focal intrahepatic abnormality. The patient is status post previous cholecystectomy. There is no abnormal biliary dilatation. The spleen is normal in size. The pancreas is unremarkable without ductal dilatation. There is no adrenal mass. Kidneys enhance normally and appear nonobstructed. There is no hydronephrosis. There is no evidence of a renal mass or renal calculus. Small and large bowel appear normal in caliber without evidence of obstruction. There are surgical clips related to previous appendectomy. There are no findings of focal abnormal bowel thickening or inflammation within the omentum or mesentery. There is no free air, free fluid or evidence of abscess. No pathologically enlarged abdominal or pelvic lymph nodes demonstrated. The urinary bladder unremarkable. Uterus and adnexa demonstrate no focal abnormality. There are probable cervical nabothian cysts. The aorta is normal in caliber. No acute osseous abnormality demonstrated. Degenerative endplate changes are most advanced at L5-S1. IMPRESSION: 1. No CT evidence of an acute inflammatory or obstructive process within the abdomen or pelvis. 2. Previous cholecystectomy and appendectomy. 3. No free air, free fluid or evidence of adenopathy. There is no focal inflammation within the omentum or mesentery. 4. L5-S1 degenerative disease. 5. [facility]. Dictated by: Dictated on workstation # [id number]
[2018-02-14 07:54] LABS: BILIRUBIN,URINE NEGATIVE (NEGATIVE); CLARITY,URINE SLIGHTLY CLOUDY; COLOR,URINE YELLOW; GLUCOSE, URINE (UA) NEGATIVE (NEGATIVE); KETONES,URINE NEGATIVE (NEGATIVE); LEUKOCYTE ESTERASE ,URINE 1+ (NEGATIVE); NITRITE,URINE NEGATIVE (NEGATIVE); PH,URINE 7 (5-9); PROTEIN,URINE 1+ (NEGATIVE); UROBILINOGEN,URINE NORMAL (NORMAL)
[2018-02-14 08:06] LABS: RBC,URINE RARE /HPF; WBC,URINE 0-2 /HPF
[2018-02-14 08:07] LABS: BACTERIA,URINE FEW /HPF
[2018-02-14] MEDS ORDERED: fentaNYL INJECTION 100 MCG/2 ML AMP IVP PRN (08:45)
[2018-02-14 09:00] LABS: OCCULT BLOOD STOOL IMMUNOASSAY NEGATIVE (NEGATIVE)
[2018-02-14] MEDS ORDERED: ANTACID SUSP 30 ML UDC (MYLANTA) PO PRN (09:00)
[2018-02-14] MEDS ORDERED: ACETAMINOPHEN 500 MG TAB (TYLENOL) PO PRN (09:00)
[2018-02-14] MEDS ORDERED: LORazepam INJ 2 MG/ML (ATIVAN) VIAL IVP PRN (09:00)
[2018-02-14] MEDS ORDERED: PROMETHAZINE INJ 25 MG/ML (PHENERGAN) AMP IM PRN (09:00)
[2018-02-14] MEDS: NS W/KCL 40 MEQ/L 1,000 ML IV SCH ×3 (09:23→22:11)
[2018-02-14] MEDS: LACTOBACILLUS ACIDOPHILUS (PROBIOTIC) CAPSULE PO SCH ×2 (09:23→20:21)
--- NOTE | 2018-02-14 11:57 | History & Physical-Hospitalist ---
History of Present Illness HPI/Chief Complaint Pt is a 48yoCF known to me from recent admission for c diff colitis who presented to the ER with CC of abdominal pain, diarrhea, nausea, and vomiting. She gives a varying history at times and the best that I can ascertain is that following discharge from the hospital here she was seen by her PCP and started on a fentanyl patch for pain. She states she did well for a few days and was having formed stools but after receiving a 1x dose of Keflex for presumed cellulitis she developed diarrhea. She also stopped her fentanyl patch around that time because she thought the patch was giving her a rash. Within a couple of days she developed yellow watery diarrhea and her abdominal pain returned. She believes she has c diff again. Source: patient, family Date Seen 02/14/18 Time Seen by a Provider: 11:53 Attending Physician Cristin Pittman MD PCP Ramez Cyr DO Referring Physician Date of Admission Feb 14, 2018 at 05:00 Home Medications & Allergies Home Medications Reviewed patient Home Medication Reconciliation performed by pharmacy medication reconciliations instrument/control technician and/or nursing. Patients Allergies have been reviewed. Allergies Allergies Coded Allergies Quinolones (Verified Allergy, Unknown, 11/03/17) amoxicillin (Verified Allergy, Unknown, 04/27/16) ciprofloxacin (Verified Allergy, Unknown, HIVES, 01/22/18) metoclopramide (Verified Allergy, Unknown, HIVES, 01/22/18) oseltamivir (Verified Allergy, Unknown, RASH, 07/27/17) Hives and nausea and vomiting potassium clavulanate (Verified Allergy, Unknown, 04/27/16) Past Ucnjuvx-Gknazm-Odyzqg Hx Past Med/Social Hx: Reviewed Nursing Past Med/Soc Hx Patient Social History Marrital Status: Alcohol Use: Denies Use Recreational Drug Use: No Smoking Status: Former Smoker Former Smoker, Quit: Nov 01, 2017 Type Used: Cigarettes 2nd Hand Smoke Exposure: Yes Recent Foreign Travel: No Contact w/other who traveled: No Recent Hopitalizations: No Recent Infectious Disease Expo: No Immunizations Up To Date Tetanus Booster (TDap): Unknown Pediatric: No Seasonal Allergies Seasonal Allergies: No Past Medical History Surgeries: Appendectomy, Gallbladder, Tubal Ligation Currently Using CPAP: No Currently Using BIPAP: No Cardiac: Hypertension Reproductive: Yes Sexually Transmitted Disease: No HIV/AIDS: No Female Reproductive Disorders: Menstrual Problems, Ovarian Cyst Gastrointestinal: Colitis, C-Diff, Gall Bladder Disease Musculoskeletal: Chronic Back Pain Psychosocial: Anxiety, Depression History of Blood Disorders: No Adverse Reaction to Blood Diaz: No Family History Reviewed Nursing Family Hx Alcoholism G8 BROTHER ( with liver failure) Arthritis G8 BROTHER (rhoumatoid arthritis, mono multiplex neuropathy) No Pertinent Family Hx Review of Systems Constitutional: chills, diaphoresis, fever EENTM: no symptoms reported Respiratory: no symptoms reported Cardiovascular: no symptoms reported Gastrointestinal: see HPI, abdominal pain, diarrhea, nausea, vomiting Genitourinary: no symptoms reported Musculoskeletal: no symptoms reported Skin: no symptoms reported, rash Psychiatric/Neurological: Anxiety Physical Exam Physical Exam Vital Signs Vital Signs - First Documented 02/14/18 03:48 Temp 99.5 Pulse 92 Resp 18 B/P (MAP) 125/85 (98) Pulse Ox 97 O2 Delivery Room Air Capillary Refill : Less Than 3 Seconds Height, Weight, BMI Height: 5'8.00" Weight: 208lbs. 7.0oz. 94.136550ib; 31.7 BMI Method:Stated General Appearance: Other (anxious, crying during exam,) HEENT: No Scleral Icterus (L), No Scleral Icterus (R) Neck: Non Tender, Supple Respiratory: Lungs Clear, No Respiratory Distress Cardiovascular: Regular Rate, Rhythm, No Murmur Gastrointestinal: Normal Bowel Sounds, Soft; No Distended, No Guarding; Tenderness (mild, diffuse) Extremity: Normal Capillary Refill, No Calf Tenderness Neurologic/Psychiatric: Alert, Oriented x3, Other (anxious) Skin: Normal Color, Warm/Dry Results Results/Procedures Labs Laboratory Tests 02/14/18 04:06 Patient resulted labs reviewed. Imaging: Reviewed Imaging Report Assessment/Plan Admission Diagnosis Diarrhea Admission Status: Observation Diagnosis/Problems Diagnosis/Problems (1) Gastroenteritis/colitis, infectious Status: Acute Assessment & Plan: Likely gastroenteritis but with recent c diff history will test Will wait on abx treatment until test available Continue antiemetics Will consult Dr Gimenez for evaluation (2) Anxiety about health Status: Acute Assessment & Plan: Resume home anti anxiety medicines (3) Dehydration Status: Acute Assessment & Plan: lactic acidosis from volume depletion not sepsis lactic acid now normalized Continue IVF (4) Acute hypokalemia Status: Acute Assessment & Plan: Replacing in fluids CRISTIN PITTMAN MD Feb 14, 2018 11:57 am
[2018-02-14] MEDS ORDERED: PARoxetine 20 MG (PAXIL) TAB PO NR (12:19)
[2018-02-14] MEDS ORDERED: DIAZEPAM 2 MG (VALIUM) TAB PO NR (12:30)
[2018-02-14] MEDS ORDERED: LOPERAMIDE 2 MG (IMODIUM) CAP PO PRN (13:00)
[2018-02-14] MEDS: fentaNYL INJECTION 100 MCG/2 ML AMP IVP PRN ×2 (13:37→17:17)
[2018-02-14] MEDS ORDERED: FLU QUADRIvalent (5+ YOA) 2018-2019 (AFLURIA) 0.5 ML IM ONE (17:00)
[2018-02-14] MEDS ORDERED: RT-ALBUTEROL SULF 2.5 MG/3 ML PRE-MIX VIAL INH PRN (18:15)
[2018-02-14] MEDS: MIRTAZAPINE 15 MG (REMERON) TAB PO SCH (20:21)
[2018-02-14] MEDS ORDERED: DIAZEPAM 2 MG (VALIUM) TAB PO SCH (21:00)
[2018-02-14] MEDS ORDERED: DIAZEPAM 5 MG (VALIUM) TABLET PO SCH (21:00)
[2018-02-15] VITALS (7 sets, daily range): BP systolic 91–120; BP diastolic 50–77
[2018-02-15] MEDS: KETOROLAC 15 MG/ML VIAL IVP PRN ×3 (01:55→18:17)
[2018-02-15] MEDS: ONDANSETRON 4 MG/2 ML (SDV) Z0FRAN IVP PRN (03:37)
[2018-02-15] MEDS: NS W/KCL 40 MEQ/L 1,000 ML IV SCH ×3 (04:36→18:22)
[2018-02-15] MEDS: fentaNYL INJECTION 100 MCG/2 ML AMP IVP PRN ×4 (04:53→15:18)
[2018-02-15 06:04] LABS: BASOPHILS % (AUTO) 0 % (0-10); EOSINOPHILS # (AUTO) 0.2 10^3/uL (0.0-0.3); EOSINOPHILS % (AUTO) 3 % (0-10); HEMATOCRIT 37 % (35-52); HEMOGLOBIN 12.6 G/DL (11.5-16.0); LYMPHOCYTES # (AUTO) 2.1 X 10^3 (1.0-4.0); LYMPHOCYTES % (AUTO) 31 % (12-44); MEAN CORPUSCULAR HEMOGLOBIN 30 PG (25-34); MEAN CORPUSCULAR HGB CONC 34 G/DL (32-36); MEAN CORPUSCULAR VOLUME 89 FL (80-99); MEAN PLATELET VOLUME 9.3 FL (7.4-10.4); MONOCYTES # (AUTO) 0.4 X 10^3 (0.0-1.0); MONOCYTES % (AUTO) 6 % (0-12); NEUTROPHILS # (AUTO) 4.1 X 10^3 (1.8-7.8); NEUTROPHILS % (AUTO) 60 % (42-75); PLATELET COUNT 398 10^3/uL (130-400); RED BLOOD COUNT 4.17 10^6/uL (4.35-5.85); RED CELL DISTRIBUTION WIDTH 13.2 % (10.0-14.5); WHITE BLOOD COUNT 6.8 10^3/uL (4.3-11.0)
[2018-02-15 06:36] LABS: ALANINE AMINOTRANSFERASE 17 U/L (0-55); ALBUMIN 3.5 GM/DL (3.2-4.5); ALKALINE PHOSPHATASE 99 U/L (40-136); BILIRUBIN,TOTAL 0.3 MG/DL (0.1-1.0); BUN/CREATININE RATIO 11; CALCIUM 8.8 MG/DL (8.5-10.1); CARBON DIOXIDE 17 MMOL/L (21-32); CHLORIDE 106 MMOL/L (98-107); CREATININE SERUM 0.81 MG/DL (0.60-1.30); GFR ESTIMATED > 60; GLUCOSE 106 MG/DL (70-105); SODIUM 133 MMOL/L (135-145); TOTAL PROTEIN 6.5 GM/DL (6.4-8.2)
[2018-02-15] MEDS: LACTOBACILLUS ACIDOPHILUS (PROBIOTIC) CAPSULE PO SCH ×2 (08:06→21:36)
[2018-02-15] MEDS: PARoxetine 20 MG (PAXIL) TAB PO SCH (08:06)
[2018-02-15] MEDS ORDERED: DIAZEPAM 2 MG (VALIUM) TAB PO SCH (09:00)
[2018-02-15] MEDS ORDERED: FENT1PAT8 TD (12:09)
--- NOTE | 2018-02-15 14:33 | Progress Note-Hospitalist ---
Progress Note Progress Notes/Assess & Plan Date Seen 02/15/18 Time Seen by Provider: 14:28 Assessment & Plan The patient is a 48-year-old white female known to me as is her family. She was admitted earlier this month with complaints of diarrhea. She believes that she was C. difficile positive however I reviewed the lab and this is not true. She then reported that she took one dose of Keflex for what was feared to be a cellulitis. She immediately redeveloped diarrhea and crampy abdominal pain. Her repeat stool for C. difficile was positive for antigens but negative for toxins. The specimen has been sent out for definitive testing. 4 stools were reported yesterday. None are listed yet today. Physical exam: She is quite garrulous and reports she is allergic to everything. We discussed use of Questran all were waiting on the reports. She feared that she would be allergic to that too. She was informed that this was a resin and not absorbed but she remained skeptical. Lungs are clear to auscultation. CV was regular without murmur. Abdomen was generally tender to palpation without guarding. Bowel sounds were present. Extremities show no pedal edema. Impression: Diarrhea. 2.recent use of antibiotics at onset of diarrhea. 3.multiple stated antibiotic allergies. Plan: Questran. Await definitive C. difficile testing. Focused Exam Lactate Level 02/14/18 04:06: Lactic Acid Level 3.04*H 02/14/18 06:15: Lactic Acid Level 1.67 [id number] PIEDRA MD Feb 15, 2018 14:33
[2018-02-15] MEDS: DIAZEPAM 2 MG (VALIUM) TAB PO SCH ×2 (18:22→21:37)
[2018-02-15] MEDS ORDERED: VANCOMYCIN ORAL SUSPENSION 60 ML BOTTLE PO SCH (19:30)
--- NOTE | 2018-02-15 19:54 | CONSULTATION REPORT ---
DATE OF SERVICE: 02/15/2018 ATTENDING PRIMARY CARE PHYSICIAN: Ramez Cyr DO. ADMITTING PHYSICIAN: Dr. Pittman. HISTORY OF PRESENT ILLNESS: The patient is a 48-year-old female, known to us. On 01/22/2018, she was directly admitted from her primary office clinic. She had severe episodes of nausea, vomiting and unable to tolerate liquids as well as medications and was dehydrated. She had reported that before that she had had crampy abdominal pain for 2 weeks and diarrhea associated with this. She reported taking amoxicillin for a dental abscess. She then states that her symptoms worsened and then that she was seen at [facility] and given IV fluids as well as antiemetics. However, when she went home, she continued to have nausea and vomiting and unable to tolerate her prescribed metronidazole. Of note, she does have a history of benzodiazepine withdrawal and should only be given this sparingly from her history. She was admitted on 01/22/2018, and treated with metronidazole and was able to feel better and tolerate liquids and solids. She reports that she had recurrence of symptoms starting a few days ago with diarrhea as well as inability to take down adequate amounts of liquids and dehydration. Another Clostridium difficile was sent which was positive for the antigen; however, negative for the toxin and we are awaiting DNA amplification status. PAST MEDICAL HISTORY: Hypertension, chronic low back pain, anxiety, depression, history of ovarian cyst, and history of Clostridium difficile colitis. PAST SURGICAL HISTORY: Appendectomy, cholecystectomy, and tubal ligation. ALLERGIES: QUINOLONES, AMOXICILLIN, METOCLOPRAMIDE, OSELTAMIVIR, AND POTASSIUM. MEDICATIONS: Clonidine 0.1 mg b.i.d., Xopenex 0.3 mg t.i.d., lisinopril and hydrochlorothiazide 20/25 mg daily, mirtazapine 30 mg daily, Zofran 8 mg p.r.n. oxycodone 5/325 one to two q.4 hours p.r.n., paroxetine 20 mg q.a.m. and 40 mg q.p.m., and promethazine 25 mg p.r.n. SOCIAL HISTORY: Positive smoke, negative alcohol. FAMILY HISTORY: Brother with alcohol-induced liver failure. REVIEW OF SYSTEMS: Well-nourished female, currently in no acute distress. She is not experiencing any shortness of breath or difficulty breathing. No chest pain, palpitations or diaphoresis. Intermittent episodes of nausea and vomiting as well as diarrhea. She states that she is able to tolerate some clear liquids at times. No red blood per rectum, no dark tarry stools. She does not report any fever nor chills as well as no recent inadvertent weight loss. All other review of systems is negative. PHYSICAL EXAMINATION: VITAL SIGNS: Temperature is 98.4, blood pressure 108/70, pulse 74, respirations 20, and pulse ox 94% on room air. CHEST: A few scattered expiratory wheezes bilaterally. HEART: Regular, no murmurs. EXTREMITIES: No lower extremity edema, negative Homans sign. HEENT: No scleral icterus. NECK: No cervical lymphadenopathy. ABDOMEN: Soft, nondistended. There is mild discomfort diffusely with no rebounding or guarding, and no peritoneal signs. SKIN: Warm, dry. LABORATORY DATA: WBC is 6.8, hemoglobin 12.6, hematocrit 37, and platelets 398. ASSESSMENT AND PLAN: A 48-year-old female with a recurrent diarrhea with associated nausea, vomiting and dehydration. She feels that she has had a positive Clostridium difficile titer before in the past and was treated for Clostridium difficile colitis with metronidazole. She did well with oral metronidazole; however, had recurrence of symptoms recently. At this time around, Clostridium difficile cultures showed an antigen positivity; however toxin negative and we are currently awaiting DNA amplification studies. We will treat her as if though this is a recurrent Clostridium difficile colitis and start her on vancomycin 125 mg q.i.d. for at least 10 days as well as cholestyramine. She is currently feeling better and we will proceed with a trial of a low residue diet. If she does not respond well or has recurrence again of symptoms, she may be a candidate for fecal transplant which will be done after antibiotic therapy and colonic prep done during a colonoscopy with the addition of antidiarrheals to allow for retention and exponential replication of beneficial bacteria within the colon. This process may be done as an outpatient. Job ID: [id number] DocumentID: [id number] Dictated Date: 02/15/2018 19:26:26 Geriatric Physical Therapist Date: 02/15/2018 19:54:05 Dictated By: MD YANETH COX
[2018-02-15] MEDS: CHOLESTYRAMINE 4 GM (QUESTRAN LITE, PREVALITE) PKT PO SCH (21:36)
[2018-02-15] MEDS: MIRTAZAPINE 15 MG (REMERON) TAB PO SCH (21:36)
[2018-02-16] MEDS: NS W/KCL 40 MEQ/L 1,000 ML IV SCH ×3 (00:48→11:05)
[2018-02-16 04:00] VITALS: BP 124/75
[2018-02-16] MEDS: KETOROLAC 15 MG/ML VIAL IVP PRN (04:07)
[2018-02-16] MEDS: fentaNYL INJECTION 100 MCG/2 ML AMP IVP PRN ×3 (04:17→10:47)
[2018-02-16] MEDS: ONDANSETRON 4 MG/2 ML (SDV) Z0FRAN IVP PRN (05:44)
[2018-02-16 08:00] VITALS: BP 117/67
[2018-02-16] MEDS: LACTOBACILLUS ACIDOPHILUS (PROBIOTIC) CAPSULE PO SCH (08:28)
[2018-02-16] MEDS: PARoxetine 20 MG (PAXIL) TAB PO SCH (08:37)
[2018-02-16] MEDS: DIAZEPAM 2 MG (VALIUM) TAB PO SCH (08:38)
[2018-02-16] MEDS: CHOLESTYRAMINE 4 GM (QUESTRAN LITE, PREVALITE) PKT PO SCH ×2 (10:23→13:16)
--- NOTE | 2018-02-16 11:54 | Progress Note-Hospitalist ---
Progress Note Progress Notes/Assess & Plan Date Seen 02/16/18 Time Seen by Provider: 11:52 Assessment & Plan The materials were reviewed from her previous stool for C. difficile. That was reported as negative. The patient's stool at this time was positive for antigens but negative for toxins. Sendoff to [facility] in [place] for DNA was negative. The patient was informed of these findings and that it was time for discharge at which time she began blubbering and insisting that she was not able to be discharged today because of pain and diarrhea. Her CT scan at admission showed no evidence of wall thickening or obstructions. Physical exam: Lungs were clear to auscultation. CV was regular without murmur. Abdomen was obese. When palpation was attempted she bounced about the bed even to light touch. Impression: No evidence of abdominal pathology. Focused Exam Lactate Level 02/14/18 04:06: Lactic Acid Level 3.04*H 02/14/18 06:15: Lactic Acid Level 1.67 RAJEEV PIEDRA MD Feb 16, 2018 11:54
[2018-02-16 12:00] VITALS: BP 132/82
--- NOTE | 2018-02-16 12:12 | Discharge Instructions ---
Discharge Instructions Patient Instructions Patient Instructions: Medications as listed on the discharge sequence. Plenty of liquids. Appointment to see Dr. Gimenez in 10 days. Low fiber/bulk diet Activity & Diet Discharge Diet: Eat Small Frequent Meals Activity as Tolerated: Yes RAJEEV PIEDRA MD Feb 16, 2018 12:12
[2018-02-16] MEDS ORDERED: CHOL4PAC16 PO (12:13)
[2018-02-16] MEDS ORDERED: RELABEL FOR HOME USE MC SCH (12:15)
[2018-02-16 13:04] VITALS: BP_SYST 117; BP_SYST 132; BP_DIAS 67; BP_DIAS 82
[2018-02-16] MEDS ORDERED: VANCOMYCIN ORAL 250 MG/5 ML 120 ML PO SCH ×2 (20:00)
== END 2018-02-16 13:04 | disposition home or self-care (01) | DRG 392 ==
LOC: EDUNIT# 03:37 → ER 03:39 → 4TH 05:00
PROVIDERS: ADMIT Family Medicine; ATTEND Internal Medicine
DX: A09 Infectious gastroenteritis and colitis, unspecified (principal); E86.0 Dehydration; E87.2 Acidosis; E87.1 Hypo-osmolality and hyponatremia; E87.6 Hypokalemia; I10 Essential (primary) hypertension; F41.9 Anxiety disorder, unspecified; F32.9 Major depressive disorder, single episode, unspecified; Z87.891 Personal history of nicotine dependence; M54.5 Low back pain; Z87.42 Personal history of other diseases of the female genital tract; Z88.1 Allergy status to other antibiotic agents
CPT/HCPCS: 36415; 71045; 74177; 80053; 81000; 82274; 83605; 83690; 85025; 85610; 85730; 87015; 87040; 87045; 87046; 87324; 87328; 87329; 87449; 87493; 87899; 89055; 94640

== ENCOUNTER 2018-02-21 05:31 | Observation (INO) | payer MEDICAID ==
[~2018-02-21] VITALS: Ht 172.7 cm; Wt 90.7 kg
[~2018-02-21 05:31] MED LIST changes: +CHOL4PAC16 PO; +FENT1PAT8 TD
[2018-02-21] MEDS ORDERED: FAMOTIDINE 20MG/2ML IV (PEPCID) IVP ONE (06:30)
[2018-02-21] MEDS ORDERED: NS IV 1000 ML 1,000 ML IV SCH (06:30)
--- NOTE | 2018-02-21 06:37 | ED Abdominal Pain ---
General Chief Complaint: Abdominal/GI Problems Stated Complaint: ALLERIC RXN,FEVER,C-DIFF Source of Information: Patient, Family Exam Limitations: No Limitations History of Present Illness Date Seen by Provider: Feb 21, 2018 Time Seen by Provider: 06:29 Initial Comments This 48-year-old white female presents with redness and itching to her skin. The patient is taking vancomycin for C. difficile. Patient has had sensation that her throat is closing. She has however been able to handle her airway and secretions without difficulty. The patient states that she's had associated diffuse abdominal pain which she attributes to her C. difficile. The patient denies vomiting, diarrhea, dysuria, frequency, or flank pain. The patient has had nausea without vomiting. Benadryl and prednisone cream have helped the itching and redness to her skin. Allergies and Home Medications Allergies Coded Allergies: Quinolones (Verified Allergy, Unknown, 11/03/17) amoxicillin (Verified Allergy, Unknown, 04/27/16) ciprofloxacin (Verified Allergy, Unknown, HIVES, 01/22/18) metoclopramide (Verified Allergy, Unknown, HIVES, 01/22/18) oseltamivir (Verified Allergy, Unknown, RASH, 07/27/17) Hives and nausea and vomiting potassium clavulanate (Verified Allergy, Unknown, 04/27/16) Home Medications Cholestyramine (with Sugar) 4 Gm Powd.pack, 4 GM PO 3 times a day Prescribed by: RAJEEV PIEDRA on 02/16/18 1213 Clonidine HCl 0.1 Mg Tablet, 0.1 MG PO BID PRN for BLOOD PRESSURE, (Reported) Diazepam 2 Mg Tablet, 8 MG PO TID, (Reported) Fentanyl 1 Each Patch.td72, 25 MCG TD Q72H, (Reported) Ibuprofen 200 Mg Tablet, 800 MG PO TID PRN for PAIN-MILD, (Reported) Lisinopril/Hydrochlorothiazide 1 Each Tablet, 1 TAB PO DAILY, (Reported) Menthol 118 Ml Gel..ml., TP QID PRN for BACK PAIN, (Reported) Mirtazapine 30 Mg Tablet, 30 MG PO HS, (Reported) Ondansetron HCl 8 Mg Tablet, 8 MG PO TID PRN for NAUSEA/VOMITING-1ST LINE, ( Reported) Paroxetine HCl 20 Mg Tablet, 20 MG PO DAILY, (Reported) TAKES ALONG WITH 40MG TABLET FOR A TOTAL DAILY DOSE OF 60MG Paroxetine HCl 40 Mg Tablet, 40 MG PO DAILY, (Reported) TAKES WITH A 20MG TABLET FOR A TOTAL DAILY DOSE OF 60MG Patient Home Medication List Home Medication List Reviewed: Yes Review of Systems Review of Systems Constitutional: No chills; fever EENTM: No Blurred Vision Respiratory: Denies Cough Cardiovascular: Denies Chest Pain Gastrointestinal: Abdominal Pain, Diarrhea (the patient's diarrhea has improved in the last several days.), Nausea Genitourinary: No Symptoms Reported Musculoskeletal: no symptoms reported Skin: see HPI, pruritus, other (there is erythema to the legs primarily in the right lower extremity between the knee and the ankle. No urticaria is identified) Psychiatric/Neurological: Anxiety Endocrine: No Symptoms Reported Hematologic/Lymphatic: No Symptoms Reported Past Gmtwtop-Rytebq-Lchbnh Hx Past Med/Social Hx: Reviewed Nursing Past Med/Soc Hx Patient Social History Type Used: Cigarettes Former Smoker, Quit: Nov 01, 2017 2nd Hand Smoke Exposure: Yes Recent Foreign Travel: No Contact w/Someone Who Travel: No Recent Hopitalizations: No Immunizations Up To Date Tetanus Booster (TDap): Unknown PED Vaccines UTD: No Seasonal Allergies Seasonal Allergies: No Past Medical History Surgeries: Yes Appendectomy, Gallbladder, Tubal Ligation Respiratory: No Currently Using CPAP: No Currently Using BIPAP: No Cardiac: No Hypertension Neurological: No Reproductive Disorders: Yes Female Reproductive Disorders: Menstrual Problems, Ovarian Cyst Sexually Transmitted Disease: No HIV/AIDS: No Genitourinary: No Gastrointestinal: Yes Colitis, C-Diff, Gall Bladder Disease Musculoskeletal: No Chronic Back Pain Endocrine: No HEENT: No Cancer: No Psychosocial: Yes Anxiety, Depression Integumentary: No Blood Disorders: No Adverse Reaction/Blood Tranf: No Family Medical History Alcoholism G8 BROTHER ( with liver failure) Arthritis G8 BROTHER (rhoumatoid arthritis, mono multiplex neuropathy) No Pertinent Family Hx Physical Exam Vital Signs Vital Signs - First Documented 02/21/18 05:45 Temp 99.7 Pulse 103 Resp 16 B/P (MAP) 110/95 (100) Pulse Ox 94 Capillary Refill : Height/Weight/BMI Height: 5'8.00" Weight: 208lbs. 7.0oz. [id number]; 31.7 BMI Method:Stated General Appearance: WD/WN, mild distress HEENT: normal ENT inspection Neck: normal inspection Respiratory: lungs clear, normal breath sounds, no respiratory distress Cardiovascular: normal peripheral pulses, regular rate, rhythm Gastrointestinal: normal bowel sounds, non tender, soft Extremities: normal range of motion, non-tender, normal inspection Back: normal inspection Neurologic/Psychiatric: no motor/sensory deficits, alert, oriented x 3 Skin: other (erythema into the legs right greater than left between the knee and ankle.) Focused Exam Lactate Level 02/21/18 06:37: Lactic Acid Level 1.29 Lactic Acid Level Laboratory Tests Test 02/21/18 06:37 Lactic Acid Level 1.29 MMOL/L (0.50-2.00) Progress/Results/Core Measures Results/Orders Lab Results Laboratory Tests Test 02/21/18 06:37 Range/Units White Blood Count 9.8 4.3-11.0 10^3/uL Red Blood Count 4.75 4.35-5.85 10^6/uL Hemoglobin 14.6 11.5-16.0 G/DL Hematocrit 41 35-52 % Mean Corpuscular Volume 85 80-99 FL Mean Corpuscular Hemoglobin 31 25-34 PG Mean Corpuscular Hemoglobin Concent 36 32-36 G/DL Red Cell Distribution Width 13.2 10.0-14.5 % Platelet Count 480 H 130-400 10^3/uL Mean Platelet Volume 9.7 7.4-10.4 FL Neutrophils (%) (Auto) 60 42-75 % Lymphocytes (%) (Auto) 28 12-44 % Monocytes (%) (Auto) 6 0-12 % Eosinophils (%) (Auto) 5 0-10 % Basophils (%) (Auto) 0 0-10 % Neutrophils # (Auto) 5.9 1.8-7.8 X 10^3 Lymphocytes # (Auto) 2.8 1.0-4.0 X 10^3 Monocytes # (Auto) 0.6 0.0-1.0 X 10^3 Eosinophils # (Auto) 0.5 H 0.0-0.3 10^3/uL Basophils # (Auto) 0.0 0.0-0.1 10^3/uL Sodium Level 124 *L 135-145 MMOL/L Potassium Level 3.7 3.6-5.0 MMOL/L Chloride Level 88 L 98-107 MMOL/L Carbon Dioxide Level 21 21-32 MMOL/L Anion Gap 15 H 5-14 MMOL/L Blood Urea Nitrogen 9 7-18 MG/DL Creatinine 1.09 0.60-1.30 MG/DL Estimat Glomerular Filtration Rate 54 BUN/Creatinine Ratio 8 Glucose Level 89 70-105 MG/DL Lactic Acid Level 1.29 0.50-2.00 MMOL/L Calcium Level 10.4 H 8.5-10.1 MG/DL Corrected Calcium 10.1 8.5-10.1 MG/DL Total Bilirubin 0.3 0.1-1.0 MG/DL Aspartate Amino Transf (AST/SGOT) 28 5-34 U/L Alanine Aminotransferase (ALT/SGPT) 54 0-55 U/L Alkaline Phosphatase 180 H 40-136 U/L Total Protein 8.0 6.4-8.2 GM/DL Albumin 4.4 3.2-4.5 GM/DL Lipase 5 L 8-78 U/L My Orders Orders - RACHEL SAN MD Cbc With Automated Diff (02/21/18 06:20) Comprehensive Metabolic Panel (02/21/18 06:20) Lipase (02/21/18 06:20) Ua Culture If Indicated (02/21/18 06:20) Blood Culture (02/21/18 06:20) Lactic Acid Analyzer (02/21/18 06:20) Famotidine Injection (Pepcid Injection) (02/21/18 06:30) Ns Iv 1000 Ml (Sodium Chloride 0.9%) (02/21/18 06:30) Lidocaine 2% Viscous 15 Ml (Xylocaine Vi (02/21/18 07:30) Antacid Suspension (Mylanta Suspension (02/21/18 07:30) Methylprednisolone Sod Succ (Solu-Medrol (02/21/18 08:00) Medications Given in ED Current Medications Medications Dose Ordered Sig/Annalisa Route Start Time Stop Time Status Last Admin Dose Admin Al Hydrox/Mg Hydrox/Simethicone 30 ml ONCE ONCE PO 02/21/18 07:30 02/21/18 07:31 DC 02/21/18 07:31 30 ML Famotidine 20 mg ONCE ONCE IVP 02/21/18 06:30 1218 06:31 DC 02/21/18 07:05 20 MG Lidocaine HCl 5 ml ONCE ONCE PO 12/2/18 07:30 02/21/18 07:31 DC 02/21/18 07:31 5 ML Methylprednisolone Sodium Succinate 125 mg ONCE ONCE IVP 02/21/18 08:00 02/21/18 08:01 DC 02/21/18 08:02 125 MG Vital Signs/I&O 02/21/18 05:45 Temp 99.7 Pulse 103 Resp 16 B/P (MAP) 110/95 (100) Pulse Ox 94 Progress Progress Note : Time: 08:07 Progress Note The patient's workup demonstrated a sodium of 124. Normal saline was given IV. The patient received 20 mg of Pepcid IV. It was subsequently determined that she had a dysphoric but not allergic reaction to steroids 125 mg of Solu-Medrol was given IV. Telephone consultation was undertaken with Dr. Slaughter who is kind enough to admit the patient to an observation bed for her allergic reaction to vancomycin and her hyponatremia. I discussed findings with the patient and family. Departure Communication (Admissions) Time/Spoke to Admitting Phy: 08:09 Dr. Slaughter Impression Primary Impression: Allergic reaction Qualified Codes: T78.40XA - Allergy, unspecified, initial encounter Additional Impression: Hyponatremia Disposition: 09 ADMITTED INPATIENT Condition: Improved Admissions Decision to Admit Reason: Admit from ER (General) Decision to Admit/Date: Feb 21, 2018 Time/Decision to Admit Time: 08:12 Departure-Patient Inst. Referrals: RAFI CASTILLO DO (PCP/Family) Primary Care Physician RACHEL SAN MD Feb 21, 2018 06:37
[2018-02-21 06:50] LABS: BASOPHILS % (AUTO) 0 % (0-10); EOSINOPHILS # (AUTO) 0.5 10^3/uL (0.0-0.3); EOSINOPHILS % (AUTO) 5 % (0-10); HEMATOCRIT 41 % (35-52); HEMOGLOBIN 14.6 G/DL (11.5-16.0); LYMPHOCYTES # (AUTO) 2.8 X 10^3 (1.0-4.0); LYMPHOCYTES % (AUTO) 28 % (12-44); MEAN CORPUSCULAR HEMOGLOBIN 31 PG (25-34); MEAN CORPUSCULAR HGB CONC 36 G/DL (32-36); MEAN CORPUSCULAR VOLUME 85 FL (80-99); MEAN PLATELET VOLUME 9.7 FL (7.4-10.4); MONOCYTES # (AUTO) 0.6 X 10^3 (0.0-1.0); MONOCYTES % (AUTO) 6 % (0-12); NEUTROPHILS # (AUTO) 5.9 X 10^3 (1.8-7.8); NEUTROPHILS % (AUTO) 60 % (42-75); PLATELET COUNT 480 10^3/uL (130-400); RED BLOOD COUNT 4.75 10^6/uL (4.35-5.85); RED CELL DISTRIBUTION WIDTH 13.2 % (10.0-14.5); WHITE BLOOD COUNT 9.8 10^3/uL (4.3-11.0)
[2018-02-21 07:11] LABS: ALBUMIN 4.4 GM/DL (3.2-4.5); BILIRUBIN,TOTAL 0.3 MG/DL (0.1-1.0); CALCIUM 10.4 MG/DL (8.5-10.1); CREATININE SERUM 1.09 MG/DL (0.60-1.30); POTASSIUM 3.7 MMOL/L (3.6-5.0)
[2018-02-21] MEDS ORDERED: LIDOCAINE 2% VISCOUS 15 ML UDC PO ONE (07:30)
[2018-02-21] MEDS ORDERED: ANTACID SUSP 30 ML UDC (MYLANTA) PO ONE (07:30)
[2018-02-21] MEDS ORDERED: methylPREDNISolone 125 MG (Solu-MEDROL) VIAL IVP ONE (08:00)
[2018-02-21 09:00] VITALS: BP 123/58
[2018-02-21] MEDS: NS IV 1000 ML 1,000 ML IV SCH ×2 (10:10→17:27)
[2018-02-21 10:28] LABS: BILIRUBIN,URINE NEGATIVE (NEGATIVE); CLARITY,URINE CLEAR; COLOR,URINE YELLOW; GLUCOSE, URINE (UA) NEGATIVE (NEGATIVE); KETONES,URINE NEGATIVE (NEGATIVE); LEUKOCYTE ESTERASE ,URINE NEGATIVE (NEGATIVE); NITRITE,URINE NEGATIVE (NEGATIVE); PH,URINE 5 (5-9); PROTEIN,URINE NEGATIVE (NEGATIVE); UROBILINOGEN,URINE NORMAL (NORMAL)
[2018-02-21 10:34] LABS: BACTERIA,URINE NEGATIVE /HPF
[2018-02-21] MEDS ORDERED: cloNIDine 0.2 MG (CATAPRES) TAB PO PRN (10:45)
--- NOTE | 2018-02-21 10:45 | History & Physical-Hospitalist ---
History of Present Illness HPI/Chief Complaint The patient is a 48-year-old white female with reported history of Clostridium difficile colitis who had been started on vancomycin on Thursday after she required hospitalization for severe diarrhea presumed C. difficile although her toxin studies were equivocal. She had resolution of diarrhea but by Thursday noted the onset of an erythematous eruption involving her palms and soles of her feet as well as extremities with lesser involvement of the trunk and no reported facial involvement. She reported no other new medication that she was aware of. She stopped the vancomycin as I recall on Thursday but noted increased burning erythema itching and she felt like her throat was closing significantly increasing her baseline generalized anxiety. She started having increased abdominal pain generalized without diarrhea. She's had some sweats with low- grade temperature per her report but no Reiger's. She reports is been about 48 hours since her last bowel movement which was more formed than previously. She is scheduled see Dr. TERAN on Thursday for evaluation for fecal transplant. Her history of diarrhea he goes back at least 6 weeks and followed multiple rounds of oral antibiotics for dental infection which included clindamycin. She reported no previous history of Clostridium difficile. Date Seen 02/21/18 Time Seen by a Provider: 10:44 Attending Physician Rachel Slaughter MD PCP Ramez Cyr DO Referring Physician Date of Admission Feb 21, 2018 at 07:50 Home Medications & Allergies Home Medications Reviewed patient Home Medication Reconciliation performed by pharmacy medication reconciliations on site wastewater systems technician and/or nursing. Patients Allergies have been reviewed. Allergies Allergies Coded Allergies Quinolones (Verified Allergy, Unknown, 11/03/17) amoxicillin (Verified Allergy, Unknown, 04/27/16) ciprofloxacin (Verified Allergy, Unknown, HIVES, 01/22/18) metoclopramide (Verified Allergy, Unknown, HIVES, 01/22/18) oseltamivir (Verified Allergy, Unknown, RASH, 07/27/17) Hives and nausea and vomiting potassium clavulanate (Verified Allergy, Unknown, 04/27/16) Past Kbtzemv-Jnxjar-Rzwmpz Hx Past Med/Social Hx: Reviewed Nursing Past Med/Soc Hx, Reviewed and Corrections made Patient Social History Alcohol Use: Denies Use Recreational Drug Use: No Smoking Status: Current Everyday Smoker Former Smoker, Quit: Nov 01, 2017 Type Used: Cigarettes 2nd Hand Smoke Exposure: Yes Physical Abuse Screen: No Sexual Abuse: No Recent Foreign Travel: No Contact w/other who traveled: No Recent Hopitalizations: No Recent Infectious Disease Expo: No Immunizations Up To Date Tetanus Booster (TDap): Unknown Pediatric: No Seasonal Allergies Seasonal Allergies: No Past Medical History Surgeries: Appendectomy, Gallbladder, Tubal Ligation Currently Using CPAP: No Currently Using BIPAP: No Cardiac: Hypertension Reproductive: Yes Sexually Transmitted Disease: No HIV/AIDS: No Female Reproductive Disorders: Menstrual Problems, Ovarian Cyst Gastrointestinal: Colitis, C-Diff, Gall Bladder Disease Musculoskeletal: Chronic Back Pain Psychosocial: Anxiety, Depression History of Blood Disorders: No Adverse Reaction to Blood Diaz: No Family History Alcoholism G8 BROTHER ( with liver failure) Arthritis G8 BROTHER (rhoumatoid arthritis, mono multiplex neuropathy) No Pertinent Family Hx Review of Systems Constitutional: chills, diaphoresis Respiratory: No cough, No dyspnea on exertion, No hemoptysis, No orthopnea, No phlegm; short of breath; No stridor, No wheezing, No other Cardiovascular: No chest pain; edema (Mild pedal edema with onset of itching and rash); No Hx of Intervention, No palpitations, No syncope, No vascular heart diseas, No other Gastrointestinal: see HPI Physical Exam Physical Exam Vital Signs Vital Signs - First Documented 02/21/18 02/21/18 05:45 08:50 Temp 99.7 Pulse 103 Resp 16 B/P (MAP) 110/95 (100) Pulse Ox 94 O2 Delivery Room Air Capillary Refill : Less Than 3 Seconds Height, Weight, BMI Height: 5'8.00" Weight: 200lbs. 0.0oz. 90.077028jr; 30.4 BMI Method:Stated General Appearance: No Apparent Distress, WD/WN, Anxious HEENT: Pharynx Normal Neck: Full Range of Motion, Normal Inspection, Non Tender, Supple, Carotid Bruit Respiratory: Chest Non Tender, Lungs Clear, Normal Breath Sounds, No Accessory Muscle Use, No Respiratory Distress Cardiovascular: Regular Rate, Rhythm, No Edema, No Gallop, No JVD, No Murmur, Normal Peripheral Pulses Gastrointestinal: Normal Bowel Sounds, No Organomegaly, Soft, Distended (Mild) , Other (Diffuse abdominal painspecific localization to palpation no rebound patient apprehensive about palpation with some guarding which was generalized.) Extremity: Other (Trace pretibial edema) Skin: Rash, Other (The only area of solid erythema is in the right tibia it stops at the level of the foot just above the ankle appearing to conform to a ankle sock more medial to the level of the knee. There is mild palmar and plantar erythema presents. The patient reports itching and there was some redness on the volar aspect of the forearms but this is not apparent currently no facial or scalp involvement noted currently. No mucous membrane involvement. ) Results Results/Procedures Labs Laboratory Tests 02/21/18 06:37 Patient resulted labs reviewed. Assessment/Plan Admission Diagnosis 1. Consider early recurrent Clostridium difficile with possible vancomycin related allergy. Vancomycin is being discontinued and will initiate Questran light 3 times a day which the patient had not been taking as of late. We'll continue to monitor rash. No evidence for mucous membrane involvement or anaphylaxis. 2. Hyponatremia likely due to combination of medication in addition to recent diarrhea. Current blood pressures are normal we'll discontinue lisinopril HCT and initiate when necessary clonidine. Normal saline has been initiated and we' ll repeat CBC and a CMP in the morning. Paroxetine may be contributing as well but the patient is definitely in need of this medication so we'll continue it for now. 3. History of major depressive disorder and generalized anxiety patient currently on a diazepam taper and is down to 24 total milligrams in 24-hour. We will continue 12 mg twice a day. 4. Mild liver function test elevation with a mildly obstructive picture patient has a past history of cholecystectomy earlier this year. Liver function test evaluation is lower than last time may be resolving from previous bout of sepsis continue to monitor. 5. Reported history of hypertension see number 2. 6. Patient was scheduled see Dr. TERAN for fecal transplantation on Thursday to will reconsult in for the morning to see about having this done possibly as an inpatient 7. Lovenox for DVT prophylaxis relative contraindication to SCDs at this time. 8. Considering recent hospitalization and venous insufficiency rinsed the right lower extremity rash was slightly more swelling will obtain venous Doppler evaluation. Admission Status: Inpatient Order (span 2 midnights) Reason for Inpatient Admission: See admission diagnosis Assessment and Plan As per admission diagnosis. Clinical Quality Measures DVT/VTE Risk/Contraindication: Risk Factor Score Per Nursin RFS Level Per Nursing on Admit: 2=Moderate RACHEL SLAUGHTER MD Feb 21, 2018 10:45
[2018-02-21] MEDS ORDERED: ENOXAPARIN 40 MG/0.4 ML (LOVENOX) SYR SC SCH (11:00)
[2018-02-21] MEDS: diphenhydrAMINE 25 MG TAB (BENADRYL) PO SCH ×3 (11:03→23:42)
[2018-02-21] MEDS: CHOLESTYRAMINE 4 GM (QUESTRAN LITE, PREVALITE) PKT PO SCH ×2 (11:03→15:34)
[2018-02-21] MEDS: HYDROcodone/APAP 5 MG/325 MG (LORTAB) TAB PO PRN ×3 (11:04→18:55)
[2018-02-21 12:00] VITALS: BP 130/84
--- NOTE | 2018-02-21 12:25 | Diagnostic Imaging Report ---
PROCEDURE: US right lower extremity venous. TECHNIQUE: Multiple real-time grayscale images were obtained over the right lower extremity in various projections. Additional spectral analysis and color Doppler duplex images were also obtained. INDICATION: Right leg pain. FINDINGS: Femoral, popliteal and deep venous system widely patent. No deep or superficial thrombus. No mass or fluid collection. IMPRESSION: Normal negative unilateral right lower extremity venous Doppler and ultrasound. Dictated by: Dictated on workstation # [id number]
[2018-02-21] MEDS ORDERED: fentaNYL PATCH 25 MCG (DURAGESIC) TD SCH (12:45)
[2018-02-21] MEDS ORDERED: methylPREDNISolone 125 MG (Solu-MEDROL) VIAL IVP SCH (14:00)
[2018-02-21 16:00] VITALS: BP 106/58
[2018-02-21 20:00] VITALS: BP 111/57
[2018-02-21] MEDS: DIAZEPAM 2 MG (VALIUM) TAB PO SCH (20:08)
[2018-02-21] MEDS: FAMOTIDINE 20MG/2ML IV (PEPCID) IVP SCH (20:08)
[2018-02-21] MEDS ORDERED: MIRTAZAPINE 15 MG (REMERON) TAB PO SCH (21:00)
[2018-02-22 00:16] VITALS: BP 107/67
[2018-02-22] MEDS: NS IV 1000 ML 1,000 ML IV SCH ×2 (01:20→09:08)
[2018-02-22] MEDS: HYDROcodone/APAP 5 MG/325 MG (LORTAB) TAB PO PRN ×2 (01:20→09:40)
[2018-02-22 04:07] VITALS: BP 122/65
[2018-02-22 05:54] LABS: BASOPHILS % (AUTO) 0 % (0-10); EOSINOPHILS % (AUTO) 0 % (0-10); HEMATOCRIT 35 % (35-52); HEMOGLOBIN 12.1 G/DL (11.5-16.0); LYMPHOCYTES # (AUTO) 1.8 X 10^3 (1.0-4.0); LYMPHOCYTES % (AUTO) 18 % (12-44); MEAN CORPUSCULAR HEMOGLOBIN 30 PG (25-34); MEAN CORPUSCULAR HGB CONC 34 G/DL (32-36); MEAN CORPUSCULAR VOLUME 88 FL (80-99); MEAN PLATELET VOLUME 9.8 FL (7.4-10.4); MONOCYTES # (AUTO) 0.9 X 10^3 (0.0-1.0); MONOCYTES % (AUTO) 10 % (0-12); NEUTROPHILS # (AUTO) 6.9 X 10^3 (1.8-7.8); NEUTROPHILS % (AUTO) 72 % (42-75); PLATELET COUNT 409 10^3/uL (130-400); RED CELL DISTRIBUTION WIDTH 13.1 % (10.0-14.5); WHITE BLOOD COUNT 9.6 10^3/uL (4.3-11.0)
[2018-02-22 06:18] LABS: ALANINE AMINOTRANSFERASE 30 U/L (0-55); ALBUMIN 3.6 GM/DL (3.2-4.5); ALKALINE PHOSPHATASE 113 U/L (40-136); BILIRUBIN,TOTAL 0.2 MG/DL (0.1-1.0); BUN/CREATININE RATIO 10; CALCIUM 9.2 MG/DL (8.5-10.1); CARBON DIOXIDE 21 MMOL/L (21-32); CHLORIDE 105 MMOL/L (98-107); CREATININE SERUM 0.73 MG/DL (0.60-1.30); GFR ESTIMATED > 60; GLUCOSE 102 MG/DL (70-105); POTASSIUM 4.2 MMOL/L (3.6-5.0); SODIUM 136 MMOL/L (135-145)
[2018-02-22] MEDS: diphenhydrAMINE 25 MG TAB (BENADRYL) PO SCH (06:26)
[2018-02-22] MEDS: CHOLESTYRAMINE 4 GM (QUESTRAN LITE, PREVALITE) PKT PO SCH (06:26)
[2018-02-22 08:00] VITALS: BP 142/83
[2018-02-22] MEDS ORDERED: PARoxetine 20 MG (PAXIL) TAB PO SCH (09:00)
[2018-02-22] MEDS: FAMOTIDINE 20MG/2ML IV (PEPCID) IVP SCH (09:02)
[2018-02-22] MEDS: DIAZEPAM 2 MG (VALIUM) TAB PO SCH (09:08)
--- NOTE | 2018-02-22 10:11 | Discharge Summary-Hospitalist ---
Diagnosis/Chief Complaint Date of Admission Feb 21, 2018 at 07:50 Date of Discharge Discharge Date: Feb 22, 2018 Admission Diagnosis Hyponatremia Discharge Summary Procedures/Consulations Dr Gimenez Discharge Physical Exam Allergies: Coded Allergies: Quinolones (Verified Allergy, Unknown, 11/03/17) amoxicillin (Verified Allergy, Unknown, 04/27/16) ciprofloxacin (Verified Allergy, Unknown, HIVES, 01/22/18) metoclopramide (Verified Allergy, Unknown, HIVES, 01/22/18) oseltamivir (Verified Allergy, Unknown, RASH, 07/27/17) Hives and nausea and vomiting potassium clavulanate (Verified Allergy, Unknown, 04/27/16) Vitals & I&Os Vital Signs Date Time Temp Pulse Resp B/P (MAP) Pulse Ox O2 Delivery O2 Flow Rate FiO2 02/22/18 10:50 83 16 142/83 97 Room Air 02/22/18 08:00 97.4 General Appearance: No Apparent Distress, WD/WN Cardiovascular: Regular Rate, Rhythm, No Murmur Gastrointestinal: Normal Bowel Sounds, Non Tender, Soft Neurologic/Psychiatric: Alert, Oriented x3 Hospital Course Pt was admitted due to hyponatremia and volume depletion due to diarrhea. She believed this to be due to c diff but review of records reveal negative testing x2 in the last month. She was started on IVF for hydration and her symptoms resolved and her abdominal pain improved. I discussed outpatient follow up with her and she is to see Dr Gimenez on 02/26 for colonoscopy for further evaluation for inflammatory bowel disease. I have also placed a referral to Dr Beatty , GI, for continued work up. She was discharged home in stable condition. Labs (last 24 hrs) Microbiology 02/21/18 Blood Culture - Preliminary, Resulted No growth Patient resulted labs reviewed. Pending Labs Discussion & Recommendations Discharge Planning: >30 minutes discharge planning Discharge Home Medications: Active Scripts Active Questran Packet (Cholestyramine (with Sugar)) 4 Gm Powd.pack 4 Gm PO 3 TIMES A DAY Reported Fentanyl Patch 25 MCG (Fentanyl) 1 Each Patch.td72 25 Mcg TD Q72H Ondansetron HCl 8 Mg Tablet 8 Mg PO TID PRN Diazepam 2 Mg Tablet 8 Mg PO TID Advil (Ibuprofen) 200 Mg Tablet 800 Mg PO TID PRN Biofreeze (Menthol) 118 Ml Gel..ml. TP QID PRN Paroxetine HCl 40 Mg Tablet 40 Mg PO DAILY TAKES WITH A 20MG TABLET FOR A TOTAL DAILY DOSE OF 60MG Paroxetine HCl 20 Mg Tablet 20 Mg PO DAILY TAKES ALONG WITH 40MG TABLET FOR A TOTAL DAILY DOSE OF 60MG Clonidine HCl 0.1 Mg Tablet 0.1 Mg PO BID PRN Mirtazapine 30 Mg Tablet 30 Mg PO HS Instructions to patient/family Please see electronic discharge instructions given to patient. Clinical Quality Measures DVT/VTE Risk/Contraindication: Risk Factor Score Per Nursin RFS Level Per Nursing on Admit: 2=Moderate CRISTIN PEREIRA MD Feb 22, 2018 10:11
--- NOTE | 2018-02-22 10:14 | Discharge Inst-Simple/Standard ---
Discharge Inst-Standard Patient Instructions/Follow Up Plan of Care/Instructions/FU: Please continue to take youre medications as written. Please follow up with Dr Gimenez and Dr Cyr to follow up this hospital stay. Activity as Tolerated: Yes Discharge Diet: Low Residue Return to The Hospital For: Worsening diarrhea, abdominal pain, fever, if you are unable to keep anything down orally, if you feel you are getting worse. Planned Outpatient Orders/Ref. Pneu Vac Indicated: Yes CRISTIN PEREIRA MD Feb 22, 2018 10:14
[2018-02-22 10:50] VITALS: BP 142/83
== END 2018-02-22 10:50 | disposition home or self-care (01) ==
LOC: EDUNIT# 05:31 → ER 05:32 → UNDOADMOB 07:50 → 4TH 07:50 → UNDODISOB 02-22 10:50
PROVIDERS: ADMIT Internal Medicine; ATTEND Family Medicine
DX: L29.9 Pruritus, unspecified (principal); T36.8X5A Adverse effect of other systemic antibiotics, initial encounter; E87.1 Hypo-osmolality and hyponatremia; A04.71 Enterocolitis due to Clostridium difficile, recurrent; F32.9 Major depressive disorder, single episode, unspecified; R41.1 Anterograde amnesia; R74.8 Abnormal levels of other serum enzymes
CPT/HCPCS: 36415; 80053; 81000; 83605; 83690; 85025; 87040; G0378

== ENCOUNTER 2018-02-25 11:00 | Outpatient (CLI) | payer MEDICAID ==
[~2018-02-25] VITALS: Ht 172.7 cm; Wt 90.7 kg
== END 2018-02-25 14:23 | disposition home or self-care (01) ==
LOC: PREOP 11:00
PROVIDERS: ATTEND Surgery
DX: Z01.818 Encounter for other preprocedural examination (principal)

== ENCOUNTER 2018-03-03 06:05 | Emergency (ER) | payer MEDICAID ==
[~2018-03-03] VITALS: Ht 172.7 cm; Wt 88.1 kg
[2018-03-03] MEDS ORDERED: NS IV 1000 ML 1,000 ML IV ONE (06:31)
[2018-03-03 06:50] LABS: BASOPHILS % (AUTO) 1 % (0-10); EOSINOPHILS # (AUTO) 0.4 10^3/uL (0.0-0.3); EOSINOPHILS % (AUTO) 5 % (0-10); HEMATOCRIT 43 % (35-52); HEMOGLOBIN 14.5 G/DL (11.5-16.0); LYMPHOCYTES # (AUTO) 2.1 X 10^3 (1.0-4.0); LYMPHOCYTES % (AUTO) 25 % (12-44); MEAN CORPUSCULAR HEMOGLOBIN 31 PG (25-34); MEAN CORPUSCULAR HGB CONC 34 G/DL (32-36); MEAN CORPUSCULAR VOLUME 89 FL (80-99); MEAN PLATELET VOLUME 9.8 FL (7.4-10.4); MONOCYTES # (AUTO) 0.6 X 10^3 (0.0-1.0); MONOCYTES % (AUTO) 7 % (0-12); NEUTROPHILS # (AUTO) 5.2 X 10^3 (1.8-7.8); NEUTROPHILS % (AUTO) 62 % (42-75); PLATELET COUNT 438 10^3/uL (130-400); RED BLOOD COUNT 4.76 10^6/uL (4.35-5.85); RED CELL DISTRIBUTION WIDTH 14.1 % (10.0-14.5); WHITE BLOOD COUNT 8.3 10^3/uL (4.3-11.0)
[2018-03-03 06:56] LABS: BILIRUBIN,URINE NEGATIVE (NEGATIVE); CLARITY,URINE SLIGHTLY CLOUDY; COLOR,URINE YELLOW; GLUCOSE, URINE (UA) NEGATIVE (NEGATIVE); KETONES,URINE NEGATIVE (NEGATIVE); LEUKOCYTE ESTERASE ,URINE 3+ (NEGATIVE); NITRITE,URINE POSITIVE (NEGATIVE); PH,URINE 5 (5-9); PROTEIN,URINE 1+ (NEGATIVE); UROBILINOGEN,URINE NORMAL (NORMAL)
--- NOTE | 2018-03-03 06:56 | ED Abdominal Pain ---
General Chief Complaint: Abdominal/GI Problems Stated Complaint: COLON PAIN, CAN'T POOP,SWEATING,CHILLS Nursing Triage Note: PT STATES SHE HAS HAD NO BM FOR THE LAST WEEK AND HAS NOT BEEN ABLE TO PASS GAS SINCE SHE HAD A BOUT OF DIARRHEA Sepsis Screen: Possible Sepsis Risk Source of Information: Patient Exam Limitations: No Limitations History of Present Illness Date Seen by Provider: Mar 03, 2018 Time Seen by Provider: 06:17 Initial Comments Here with report of difficulty in the abdomen. She has had abdominal problems for a few months now and has reportedly had C. difficile infection per her history although not found in the records. She did have indeterminate study that the [facility] for study showed negative. She's had fairly significant diarrhea issues for a couple months now although that has resolved currently. Recently hospitalized and started on Questran and is on probiotics as well. She has not taken the Questran for a couple days because she has not had a bowel movement in 7 days she reports and she is also no longer passing gas last few days. It is very concerned that she has something more significant going on. She called Dr. Gimenez's office yesterday to were concerned that she may have toxic megacolon by her description over the phone and that she should report to the emergency department for further evaluation. She thought about this overnight and this morning was very concerned about so came to the emergency department. Denies fevers. She states that she's not able to eat because of the abdominal pain. Not vomiting currently. Timing/Duration: 1 Week, Getting Worse Severity/Quality: Moderate, Burning, Cramping Location: Generalized Abdomen Radiation: No Radiation Activities at Onset: None Modifying Factors: Worsens With Eating, Worsens With Movement, Worsens With Urinating Associated Symptoms: No Back Pain, No Chest Pain, No Fever/Chills; Nausea/ Vomiting; No Shortness of Air; Swelling/Mass in Abdomen, Weakness Allergies and Home Medications Allergies Coded Allergies: Quinolones (Verified Allergy, Unknown, 11/03/17) amoxicillin (Verified Allergy, Unknown, 04/27/16) ciprofloxacin (Verified Allergy, Unknown, HIVES, 01/22/18) metoclopramide (Verified Allergy, Unknown, HIVES, 01/22/18) oseltamivir (Verified Allergy, Unknown, RASH, 07/27/17) Hives and nausea and vomiting potassium clavulanate (Verified Allergy, Unknown, 04/27/16) Home Medications Cholestyramine (with Sugar) 4 Gm Powd.pack, 4 GM PO 3 times a day Prescribed by: RAJEEV PIEDRA on 02/16/18 1213 Clonidine HCl 0.1 Mg Tablet, 0.1 MG PO BID PRN for BLOOD PRESSURE, (Reported) Diazepam 2 Mg Tablet, 8 MG PO TID, (Reported) Fentanyl 1 Each Patch.td72, 25 MCG TD Q72H, (Reported) Ibuprofen 200 Mg Tablet, 800 MG PO TID PRN for PAIN-MILD, (Reported) Menthol 118 Ml Gel..ml., TP QID PRN for BACK PAIN, (Reported) Mirtazapine 30 Mg Tablet, 30 MG PO HS, (Reported) Ondansetron HCl 8 Mg Tablet, 8 MG PO TID PRN for NAUSEA/VOMITING-1ST LINE, ( Reported) Paroxetine HCl 20 Mg Tablet, 20 MG PO DAILY, (Reported) TAKES ALONG WITH 40MG TABLET FOR A TOTAL DAILY DOSE OF 60MG Paroxetine HCl 40 Mg Tablet, 40 MG PO DAILY, (Reported) TAKES WITH A 20MG TABLET FOR A TOTAL DAILY DOSE OF 60MG Patient Home Medication List Home Medication List Reviewed: Yes Review of Systems Review of Systems Constitutional: see HPI; No chills, No fever EENTM: No Symptoms Reported Respiratory: No Symptoms Reported Cardiovascular: No Symptoms Reported Gastrointestinal: See HPI, Abdominal Pain, Constipated, Nausea; Denies Vomiting Genitourinary: Frequency, Pain Musculoskeletal: no symptoms reported Skin: no symptoms reported All Other Systems Reviewed Negative Unless Noted: Yes Past Gywmilk-Cxjfsc-Szrsed Hx Past Med/Social Hx: Reviewed Nursing Past Med/Soc Hx Patient Social History Alcohol Use: Denies Use Recreational Drug Use: No Smoking Status: Current Everyday Smoker Type Used: Cigarettes Former Smoker, Quit: Nov 01, 2017 2nd Hand Smoke Exposure: Yes Recent Foreign Travel: No Contact w/Someone Who Travel: No Recent Infectious Disease Expo: No Recent Hopitalizations: No Physical Abuse: No Sexual Abuse: No Mistreated: No Fear: No Immunizations Up To Date Tetanus Booster (TDap): Unknown PED Vaccines UTD: Yes Seasonal Allergies Seasonal Allergies: No Past Medical History Surgeries: Yes Appendectomy, Gallbladder, Tubal Ligation Respiratory: Yes Currently Using CPAP: No Currently Using BIPAP: No Cardiac: Yes Hypertension Neurological: No : No Last Menstrual Period: Oct 21, 2017 Reproductive Disorders: Yes Female Reproductive Disorders: Menstrual Problems, Ovarian Cyst 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 Sexually Transmitted Disease: No HIV/AIDS: No Genitourinary: No Gastrointestinal: Yes (hx c-dif) Colitis, C-Diff, Gall Bladder Disease Musculoskeletal: Yes Chronic Back Pain Endocrine: No HEENT: No Cancer: No Psychosocial: Yes Anxiety, Depression Integumentary: No Blood Disorders: No Adverse Reaction/Blood Tranf: No Family Medical History Reviewed Nursing Family Hx Alcoholism G8 BROTHER ( with liver failure) Arthritis G8 BROTHER (rhoumatoid arthritis, mono multiplex neuropathy) No Pertinent Family Hx Physical Exam Vital Signs Vital Signs - First Documented 03/03/18 06:19 Temp 98.9 Pulse 101 Resp 22 B/P (MAP) 134/103 (113) Pulse Ox 98 O2 Delivery Room Air Capillary Refill : Less Than 3 Seconds Height/Weight/BMI Height: 5'8.00" Weight: 194lbs. 4.0oz. 88.819069bk; 30.4 BMI Method:Actual General Appearance: WD/WN, no apparent distress HEENT: PERRL/EOMI, pharynx normal Neck: full range of motion, supple Respiratory: lungs clear, normal breath sounds Cardiovascular: regular rate, rhythm, no murmur Peripheral Pulses: 2+ Dorsalis Pedis (R), 2+ Left Dors-Pedis (L), 2+ Radial Pulses (R), 2+ Radial Pulses (L) Gastrointestinal: normal bowel sounds, soft; No guarding, No rebound; tenderness (mild diffuse) Extremities: non-tender, normal inspection Back: normal inspection, no CVA tenderness, no vertebral tenderness Neurologic/Psychiatric: alert, oriented x 3 Skin: normal color, warm/dry Progress/Results/Core Measures Results/Orders Lab Results Laboratory Tests Test 03/03/18 06:40 03/03/18 06:43 Range/Units Urine Color YELLOW Urine Clarity SLIGHTLY CLOUDY Urine pH 5 5-9 Urine Specific [place] 1.030 H 1.016-1.022 Urine Protein 1+ H NEGATIVE Urine Glucose (UA) NEGATIVE NEGATIVE Urine Ketones NEGATIVE NEGATIVE Urine Nitrite POSITIVE H NEGATIVE Urine Bilirubin NEGATIVE NEGATIVE Urine Urobilinogen NORMAL NORMAL MG/DL Urine Leukocyte Esterase 3+ H NEGATIVE Urine RBC (Auto) 3+ H NEGATIVE Urine RBC 2-5 H /HPF Urine WBC 10-25 H /HPF Urine Squamous Epithelial Cells 25-50 H /HPF Urine Crystals PRESENT H /LPF Urine Calcium Oxalate Crystals RARE H /LPF Urine Bacteria LARGE H /HPF Urine Casts NONE /LPF Urine Mucus NEGATIVE /LPF Urine Culture Indicated YES White Blood Count 8.3 4.3-11.0 10^3/uL Red Blood Count 4.76 4.35-5.85 10^6/uL Hemoglobin 14.5 11.5-16.0 G/DL Hematocrit 43 35-52 % Mean Corpuscular Volume 89 80-99 FL Mean Corpuscular Hemoglobin 31 25-34 PG Mean Corpuscular Hemoglobin Concent 34 32-36 G/DL Red Cell Distribution Width 14.1 10.0-14.5 % Platelet Count 438 H 130-400 10^3/uL Mean Platelet Volume 9.8 7.4-10.4 FL Neutrophils (%) (Auto) 62 42-75 % Lymphocytes (%) (Auto) 25 12-44 % Monocytes (%) (Auto) 7 0-12 % Eosinophils (%) (Auto) 5 0-10 % Basophils (%) (Auto) 1 0-10 % Neutrophils # (Auto) 5.2 1.8-7.8 X 10^3 Lymphocytes # (Auto) 2.1 1.0-4.0 X 10^3 Monocytes # (Auto) 0.6 0.0-1.0 X 10^3 Eosinophils # (Auto) 0.4 H 0.0-0.3 10^3/uL Basophils # (Auto) 0.0 0.0-0.1 10^3/uL Sodium Level 139 135-145 MMOL/L Potassium Level 3.9 3.6-5.0 MMOL/L Chloride Level 105 98-107 MMOL/L Carbon Dioxide Level 23 21-32 MMOL/L Anion Gap 11 5-14 MMOL/L Blood Urea Nitrogen 6 L 7-18 MG/DL Creatinine 0.85 0.60-1.30 MG/DL Estimat Glomerular Filtration Rate > 60 BUN/Creatinine Ratio 7 Glucose Level 94 70-105 MG/DL Calcium Level 9.8 8.5-10.1 MG/DL Corrected Calcium 9.6 8.5-10.1 MG/DL Magnesium Level 2.2 1.8-2.4 MG/DL Total Bilirubin 0.3 0.1-1.0 MG/DL Aspartate Amino Transf (AST/SGOT) 31 5-34 U/L Alanine Aminotransferase (ALT/SGPT) 54 0-55 U/L Alkaline Phosphatase 124 40-136 U/L C-Reactive Protein High Sensitivity 0.14 0.00-0.50 MG/DL Total Protein 7.8 6.4-8.2 GM/DL Albumin 4.3 3.2-4.5 GM/DL My Orders Orders - SHEFALI OTTO MD Cbc With Automated Diff (03/03/18 06:31) Comprehensive Metabolic Panel (03/03/18 06:31) Hs C Reactive Protein (03/03/18 06:31) Magnesium (03/03/18 06:31) Ua Culture If Indicated (03/03/18 06:31) Saline Lock/Iv-Start (03/03/18 06:31) Ns Iv 1000 Ml (Sodium Chloride 0.9%) (03/03/18 06:31) Urine Bedside (03/03/18 06:31) Lidocaine 2% Viscous 15 Ml (Xylocaine Vi (03/03/18 07:15) Antacid Suspension (Mylanta Suspension (03/03/18 07:15) Ct Abdomen/Pelvis W (03/03/18 07:14) Iohexol Injection (Omnipaque 350 Mg/Ml 1 (03/03/18 07:30) Contrast Received (Contrast Received) (03/03/18 07:30) Ns (Ivpb) (Sodium Chloride 0.9% Ivpb Bag (03/03/18 07:30) Urine Culture (03/03/18 06:40) Medications Given in ED Current Medications Medications Dose Ordered Sig/Annalisa Route Start Time Stop Time Status Last Admin Dose Admin Al Hydrox/Mg Hydrox/Simethicone 30 ml ONCE ONCE PO 03/03/18 07:15 03/03/18 07:16 DC 03/03/18 07:13 30 ML Iohexol 100 ml ONCE ONCE IV 03/03/18 07:30 03/03/18 08:12 DC 03/03/18 07:30 100 ML Lidocaine HCl 15 ml ONCE ONCE PO 03/03/18 07:15 03/03/18 07:16 DC 03/03/18 07:13 15 ML Sodium Chloride 100 ml ONCE ONCE IV 03/03/18 07:30 03/03/18 08:12 DC 03/03/18 07:30 80 ML Sodium Chloride 1,000 ml @ 0 mls/hr Q0M ONCE IV 03/03/18 06:31 03/03/18 06:32 DC 03/03/18 06:56 1,000 MLS/HR Vital Signs/I&O 03/03/18 06:19 Temp 98.9 Pulse 101 Resp 22 B/P (MAP) 134/103 (113) Pulse Ox 98 O2 Delivery Room Air Blood Pressure Mean: 113 Progress Progress Note : Progress Note Seen and evaluated. I have reviewed the previous visits and CT study. Due to report of not passing stool or gas for 7 days, obstruction should be considered. IV, labs, UA, normal saline 1 L bolus ordered. Anticipate CT abdomen pelvis. 0704: Patient is requesting a GI cocktail which was ordered. Monitor patient. 0818: No acute findings on CT and labs are.. There is question of urinary tract infection. She has multiple antibiotic allergies. She does have appointment with Dr. Cyr today and she would prefer to discuss this with him and decide on which antibiotic to use at that time. I will send a copy of the chart for Dr. Cyr. Discharged home with return precautions. Patient verbalize understanding instructions and agreement with plan. Diagnostic Imaging Diagonstic Imaging: CT Plain Films/CT/US/NM/MRI: abdomen, pelvis Comments NAME: ALVINO ARANDA [facility] REC#: [id number] PT STATUS: REG ER : 1970 PHYSICIAN: SHEFALI OTTO MD ADMIT DATE: 03/03/18/ER Draft Date of Exam:03/03/18 CT ABDOMEN/PELVIS W PROCEDURE: CT abdomen and pelvis with contrast. TECHNIQUE: Multiple contiguous axial images were obtained through the abdomen and pelvis after administration of intravenous contrast. INDICATION: Abdominal pain and fever The lung bases are clear. Liver appears normal. Gallbladder surgically absent. Bile ducts are not dilated. Pancreas appears normal. Spleen is not enlarged. Adrenals are normal. Kidneys appear normal. Small bowel is not dilated. The appendix may be surgically absent. Uterus and adnexa are unremarkable. There is no intraperitoneal free air or free fluid. Colon is unremarkable. IMPRESSION: No acute abnormality seen in the abdomen or pelvis. Dictated on workstation # [id number] Dict: 03/03/18 0802 Trans: 03/03/18 08[facility] [id number] Interpreted by: SHEFALI JAMES MD Electronically signed by: Departure Impression Primary Impression: Diffuse abdominal pain Additional Impression: Urinary tract infection Qualified Codes: N30.00 - Acute cystitis without hematuria Disposition: HOME, SELF-CARE Condition: Stable Departure-Patient Inst. Decision time for Depature: 08:31 Referrals: RAFI CYR DO (PCP/Family) Primary Care Physician Patient Instructions: Acute Abdomen (Belly Pain), Adult (DC), Urinary Tract Infection, Adult (DC) Add. Discharge Instructions: All discharge instructions reviewed with patient and/or family. Voiced understanding. Keep appointment with Dr. Cyr today at 2 p.m. as previously scheduled. Discussed with him regarding your urinary tract infection concerns and UA results from the emergency department today. A copy of the chart was sent to him. Per your request, we will hold initiation of antibiotics until you talk with your DrLux and he will discuss that with him about appropriate options. Continue light diet and plenty of fluids. Return for worse pain, fever, vomiting, weakness, breathing problems or other concerns as needed. Continue with follow-up with Dr. Gimenez as previously scheduled as well. Copy Copies To 1: RAFI CYR DO Copies To 2: ALANNAH GIMENEZ MD, TIMOTHY D MD Mar 03, 2018 06:56
[2018-03-03 07:08] LABS: ALANINE AMINOTRANSFERASE 54 U/L (0-55); ALBUMIN 4.3 GM/DL (3.2-4.5); ALKALINE PHOSPHATASE 124 U/L (40-136); BILIRUBIN,TOTAL 0.3 MG/DL (0.1-1.0); BUN/CREATININE RATIO 7; CALCIUM 9.8 MG/DL (8.5-10.1); CARBON DIOXIDE 23 MMOL/L (21-32); CHLORIDE 105 MMOL/L (98-107); CREATININE SERUM 0.85 MG/DL (0.60-1.30); GFR ESTIMATED > 60; GLUCOSE 94 MG/DL (70-105); MAGNESIUM 2.2 MG/DL (1.8-2.4); POTASSIUM 3.9 MMOL/L (3.6-5.0); SODIUM 139 MMOL/L (135-145); TOTAL PROTEIN 7.8 GM/DL (6.4-8.2)
[2018-03-03] MEDS ORDERED: LIDOCAINE 2% VISCOUS 15 ML UDC PO ONE (07:15)
[2018-03-03] MEDS ORDERED: ANTACID SUSP 30 ML UDC (MYLANTA) PO ONE (07:15)
[2018-03-03 07:17] LABS: BACTERIA,URINE LARGE /HPF; CALCIUM OXALATE CRYSTALS,UR RARE /LPF; SQUAMOUS EPITHELIAL CELL,UR 25-50 /HPF
[2018-03-03] MEDS ORDERED: IOHEXOL 350 MG/ML 100 ML (OMNIPAQUE 350) VIAL IV ONE (07:30)
[2018-03-03] MEDS ORDERED: NS 100 ML (IVPB) BAG IV ONE (07:30)
[2018-03-03] MEDS ORDERED: RECEIVED CONTRAST (Hold Metformin) IV SCH (07:30)
--- NOTE | 2018-03-03 08:06 | Diagnostic Imaging Report ---
PROCEDURE: CT abdomen and pelvis with contrast. TECHNIQUE: Multiple contiguous axial images were obtained through the abdomen and pelvis after administration of intravenous contrast. INDICATION: Abdominal pain and fever The lung bases are clear. Liver appears normal. Gallbladder surgically absent. Bile ducts are not dilated. Pancreas appears normal. Spleen is not enlarged. Adrenals are normal. Kidneys appear normal. Small bowel is not dilated. The appendix may be surgically absent. Uterus and adnexa are unremarkable. There is no intraperitoneal free air or free fluid. Colon is unremarkable. IMPRESSION: No acute abnormality seen in the abdomen or pelvis. Dictated by: Dictated on workstation # [id number]
[2018-03-03 08:45] VITALS: BP 139/90
== END 2018-03-03 08:45 | disposition home or self-care (01) ==
LOC: EDUNIT# 06:05 → ER 06:07
DX: N39.0 Urinary tract infection, site not specified (principal); I10 Essential (primary) hypertension; F41.9 Anxiety disorder, unspecified; F32.9 Major depressive disorder, single episode, unspecified; Z86.19 Personal history of other infectious and parasitic diseases; Z87.448 Personal history of other diseases of urinary system; Z88.0 Allergy status to penicillin; Z88.8 Allergy status to other drugs, medicaments and biological substances; Z87.891 Personal history of nicotine dependence; Z98.51 Tubal ligation status; Z90.49 Acquired absence of other specified parts of digestive tract
CPT/HCPCS: 36415; 74177; 80053; 81000; 83735; 84703; 85025; 86141; 87077; 87088; 96360

== ENCOUNTER 2018-07-15 21:19 | Emergency (ER) | payer MEDICAID ==
[~2018-07-15] VITALS: Ht 172.7 cm; Wt 79.4 kg
[~2018-07-15 21:19] MED LIST changes: +METR-145 PO; -METR-197 PO
[2018-07-15] MEDS ORDERED: KETOROLAC 30 MG/ML VIAL IVP STA (21:38)
[2018-07-15] MEDS ORDERED: NS IV 1000 ML 1,000 ML IV SCH (21:38)
[2018-07-15] MEDS ORDERED: ONDANSETRON 4 MG/2 ML (SDV) Z0FRAN IVP ONE (21:45)
[2018-07-15 21:51] LABS: BILIRUBIN,URINE NEGATIVE (NEGATIVE); CLARITY,URINE CLEAR; COLOR,URINE YELLOW; GLUCOSE, URINE (UA) NEGATIVE (NEGATIVE); KETONES,URINE NEGATIVE (NEGATIVE); LEUKOCYTE ESTERASE ,URINE NEGATIVE (NEGATIVE); NITRITE,URINE NEGATIVE (NEGATIVE); PH,URINE 5 (5-9); PROTEIN,URINE NEGATIVE (NEGATIVE); UROBILINOGEN,URINE NORMAL (NORMAL)
[2018-07-15] MEDS ORDERED: diphenhydrAMINE 50 MG/ML INJ (BENADRYL) IV ONE (22:00)
[2018-07-15 22:02] LABS: BACTERIA,URINE FEW /HPF; RBC,URINE RARE /HPF; WBC,URINE 0-2 /HPF
[2018-07-15 22:05] LABS: BENZODIAZEPINES SCREEN URINE POSITIVE (NEGATIVE); OPIATE SCREEN URINE POSITIVE (NEGATIVE); OXYCODONE STAT POSITIVE (NEGATIVE); TRICYCLIC ANTIDEPRESSANTS SCRE POSITIVE (NEGATIVE)
[2018-07-15 22:06] LABS: AMPHETAMINE SCREEN, URINE NEGATIVE (NEGATIVE); BARBITURATE SCREEN URINE NEGATIVE (NEGATIVE); CANNABINOID SCREEN, URINE NEGATIVE (NEGATIVE); COCAINE SCREEN URINE NEGATIVE (NEGATIVE); METHADONE STAT NEGATIVE (NEGATIVE); METHAMPHETAMINE SCREEN URINE S NEGATIVE (NEGATIVE); PROPOXYPHENE STAT NEGATIVE (NEGATIVE)
[2018-07-15 22:06] LABS: BASOPHILS % (AUTO) 0 % (0-10); EOSINOPHILS % (AUTO) 0 % (0-10); HEMATOCRIT 41 % (35-52); HEMOGLOBIN 14.6 G/DL (11.5-16.0); LYMPHOCYTES # (AUTO) 1.2 X 10^3 (1.0-4.0); LYMPHOCYTES % (AUTO) 7 % (12-44); MEAN CORPUSCULAR HEMOGLOBIN 30 PG (25-34); MEAN CORPUSCULAR HGB CONC 36 G/DL (32-36); MEAN CORPUSCULAR VOLUME 84 FL (80-99); MEAN PLATELET VOLUME 10.4 FL (7.4-10.4); MONOCYTES # (AUTO) 0.4 X 10^3 (0.0-1.0); MONOCYTES % (AUTO) 2 % (0-12); NEUTROPHILS # (AUTO) 15.3 X 10^3 (1.8-7.8); NEUTROPHILS % (AUTO) 91 % (42-75); PLATELET COUNT 389 10^3/uL (130-400); RED CELL DISTRIBUTION WIDTH 12.6 % (10.0-14.5); WHITE BLOOD COUNT 16.9 10^3/uL (4.3-11.0)
[2018-07-15 22:26] LABS: ALBUMIN 4.3 GM/DL (3.2-4.5); BILIRUBIN,TOTAL 0.5 MG/DL (0.1-1.0); CREATININE SERUM 0.99 MG/DL (0.60-1.30)
[2018-07-15 22:28] LABS: BAND NEUTROPHILS 1 %; BASOPHILS % (MANUAL) 0 %; EOSINOPHILS % (MANUAL) 0 %; LYMPHOCYTES % (MANUAL) 10 %; MONOCYTES % (MANUAL) 1 %; NEUTROPHILS % (MANUAL) 88 %
[2018-07-15 22:29] LABS: RBC MORPH NORMAL
[2018-07-15] MEDS ORDERED: KCL 10 MEQ TAB (MICRO K) PO STA (22:51)
--- NOTE | 2018-07-15 22:54 | ED Headache ---
General Chief Complaint: Head/Cervical Problems Stated Complaint: HEADACHE Nursing Triage Note: AMBULATORY TO ED WITH C/O SEVERE HEADACHE FOR ONE WEEK WITH NAUSEA. STATES SHE HAS TRIED IBUPROFEN AND PERCOCET WIH NO RELIEF OF SYMPTOMS. Nursing Sepsis Screen: No Definite Risk History of Present Illness Date Seen by Provider: Jul 15, 2018 Time Seen by Provider: 21:30 Initial Comments 48-year-old male presents to with occipital headache and neck pain. The patient states that has been present continuously for one week. She is treated aggressively with muscle relaxant, narcotic and evaluated by Dr. Cyr. She denies that the pain is worst tonight, but she is convinced that she has an aneurysm and it will rupture. She denies any head injury. She has been sleeping intermittently for approximately 3 hours at a time. She complains of nausea but no photophobia or vision changes. Timing/Duration: 1 week Severity/Quality: moderate Location: occipital Prior Headaches/Recent Trauma: no recent headache/trauma, occasional headaches Associated Symptoms: No confusion, No fatigue, No facial pain, No fever/chills , No flushing, No loss of consciousness; nausea/vomiting; No nasal congestion, No nasal drainage, No numbness in legs/feet, No rash, No seizures, No sinus infection, No stiff neck (no nuchal rigidity), No vision changes, No weakness Allergies and Home Medications Allergies Coded Allergies: Quinolones (Verified Allergy, Unknown, 11/03/17) amoxicillin (Verified Allergy, Unknown, 04/27/16) ciprofloxacin (Verified Allergy, Unknown, HIVES, 01/22/18) metoclopramide (Verified Allergy, Unknown, HIVES, 01/22/18) oseltamivir (Verified Allergy, Unknown, RASH, 07/27/17) Hives and nausea and vomiting potassium clavulanate (Verified Allergy, Unknown, 04/27/16) Home Medications Cholestyramine (with Sugar) 4 Gm Powd.pack, 4 GM PO 3 times a day Prescribed by: RAJEEV PIEDRA on 02/16/18 1213 Clonidine HCl 0.1 Mg Tablet, 0.1 MG PO BID PRN for BLOOD PRESSURE, (Reported) Diazepam 2 Mg Tablet, 8 MG PO TID, (Reported) Fentanyl 1 Each Patch.td72, 25 MCG TD Q72H, (Reported) Ibuprofen 200 Mg Tablet, 800 MG PO TID PRN for PAIN-MILD, (Reported) Menthol 118 Ml Gel..ml., TP QID PRN for BACK PAIN, (Reported) Mirtazapine 30 Mg Tablet, 30 MG PO HS, (Reported) Ondansetron HCl 8 Mg Tablet, 8 MG PO TID PRN for NAUSEA/VOMITING-1ST LINE, ( Reported) Paroxetine HCl 20 Mg Tablet, 20 MG PO DAILY, (Reported) TAKES ALONG WITH 40MG TABLET FOR A TOTAL DAILY DOSE OF 60MG Paroxetine HCl 40 Mg Tablet, 40 MG PO DAILY, (Reported) TAKES WITH A 20MG TABLET FOR A TOTAL DAILY DOSE OF 60MG Patient Home Medication List Home Medication List Reviewed: Yes Review of Systems Review of Systems Constitutional: no symptoms reported, see HPI Musculoskeletal: see HPI, neck pain Psychiatric/Neurological: See HPI, Headache All Other Systems Reviewed Negative Unless Noted: Yes Past Lgdzjef-Nnqvlm-Jtbcmz Hx Past Med/Social Hx: Reviewed Nursing Past Med/Soc Hx Patient Social History Alcohol Use: Denies Use Recreational Drug Use: No Smoking Status: Current Everyday Smoker Type Used: Cigarettes Former Smoker, Quit: Nov 01, 2017 2nd Hand Smoke Exposure: Yes Recent Foreign Travel: No Contact w/Someone Who Travel: No Recent Infectious Disease Expo: No Recent Hopitalizations: No Immunizations Up To Date Tetanus Booster (TDap): Unknown PED Vaccines UTD: Yes Seasonal Allergies Seasonal Allergies: No Past Medical History Surgeries: Yes Appendectomy, Gallbladder, Tubal Ligation Respiratory: No Currently Using CPAP: No Currently Using BIPAP: No Cardiac: Yes Hypertension Neurological: No Reproductive Disorders: Yes Female Reproductive Disorders: Menstrual Problems, 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 Cyst 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 HAND History: Tubal Ligation Sexually Transmitted Disease: No HIV/AIDS: No Genitourinary: No Gastrointestinal: Yes (hx c-dif) Colitis, C-Diff, Gall Bladder Disease Musculoskeletal: Yes Chronic Back Pain Endocrine: No HEENT: No Cancer: No Psychosocial: Yes Anxiety, Depression Integumentary: No Blood Disorders: No Adverse Reaction/Blood Tranf: No Family Medical History Alcoholism G8 BROTHER ( with liver failure) Arthritis G8 BROTHER (rhoumatoid arthritis, mono multiplex neuropathy) No Pertinent Family Hx Physical Exam Vital Signs Vital Signs - First Documented 07/15/18 21:27 Temp 98.2 Pulse 106 Resp 22 B/P (MAP) 133/95 (108) Capillary Refill : Less Than 3 Seconds Height, Weight, BMI Height: 5'8.00" Weight: 175lbs. 4.0oz. [id number]; 30.4 BMI Method:Actual General Appearance: WD/WN, mild distress HEENT: PERRL/EOMI, normal ENT inspection, TMs normal, pharynx normal Neck: non-tender, full range of motion, supple, normal inspection Cardiovascular: normal peripheral pulses, regular rate, rhythm, no murmur Respiratory: chest non-tender, lungs clear, normal breath sounds Gastrointestinal: normal bowel sounds, non tender, soft Extremities: normal range of motion, non-tender, normal inspection, normal capillary refill, other (trace tenderness in occipital region and bilateral trapezius muscles) Psychiatric: alert, oriented x 3 Crainal Nerves: normal hearing, normal speech, PERRL Coordination/Gait: normal finger to nose, normal gait, negative Romberg's sign Motor/Sensory: no motor deficit, no sensory deficit, no pronator drift Skin: normal color, warm/dry Progress/Results/Core Measures Results/Orders Lab Results Laboratory Tests Test 07/15/18 21:45 07/15/18 21:57 Range/Units Urine Color YELLOW Urine Clarity CLEAR Urine pH 5 5-[address] [place] 1.010 L 1.016-1.022 Urine Protein NEGATIVE NEGATIVE Urine Glucose (UA) NEGATIVE NEGATIVE Urine Ketones NEGATIVE NEGATIVE Urine Nitrite NEGATIVE NEGATIVE Urine Bilirubin NEGATIVE NEGATIVE Urine Urobilinogen NORMAL NORMAL MG/DL Urine Leukocyte Esterase NEGATIVE NEGATIVE Urine RBC (Auto) 1+ H NEGATIVE Urine RBC RARE /HPF Urine WBC 0-2 /HPF Urine Squamous Epithelial Cells 5-10 /HPF Urine Crystals NONE /LPF Urine Bacteria FEW H /HPF Urine Casts NONE /LPF Urine Mucus NEGATIVE /LPF Urine Culture Indicated NO Urine Opiates Screen POSITIVE H NEGATIVE Urine Oxycodone Screen POSITIVE H NEGATIVE Urine Methadone Screen NEGATIVE NEGATIVE Urine Propoxyphene Screen NEGATIVE NEGATIVE Urine Barbiturates Screen NEGATIVE NEGATIVE Ur Tricyclic Antidepressants Screen POSITIVE H NEGATIVE Urine Phencyclidine Screen NEGATIVE NEGATIVE Urine Amphetamines Screen NEGATIVE NEGATIVE Urine Methamphetamines Screen NEGATIVE NEGATIVE Urine Benzodiazepines Screen POSITIVE H NEGATIVE Urine Cocaine Screen NEGATIVE NEGATIVE Urine Cannabinoids Screen NEGATIVE NEGATIVE White Blood Count 16.9 H 4.3-11.0 10^3/uL Red Blood Count 4.85 4.35-5.85 10^6/uL Hemoglobin 14.6 11.5-16.0 G/DL Hematocrit 41 35-52 % Mean Corpuscular Volume 84 80-99 FL Mean Corpuscular Hemoglobin 30 25-34 PG Mean Corpuscular Hemoglobin Concent 36 32-36 G/DL Red Cell Distribution Width 12.6 10.0-14.5 % Platelet Count 389 130-400 10^3/uL Mean Platelet Volume 10.4 7.4-10.4 FL Neutrophils (%) (Auto) 91 H 42-75 % Lymphocytes (%) (Auto) 7 L 12-44 % Monocytes (%) (Auto) 2 0-12 % Eosinophils (%) (Auto) 0 0-10 % Basophils (%) (Auto) 0 0-10 % Neutrophils # (Auto) 15.3 H 1.8-7.8 X 10^3 Lymphocytes # (Auto) 1.2 1.0-4.0 X 10^3 Monocytes # (Auto) 0.4 0.0-1.0 X 10^3 Eosinophils # (Auto) 0.0 0.0-0.3 10^3/uL Basophils # (Auto) 0.0 0.0-0.1 10^3/uL Neutrophils % (Manual) 88 % Lymphocytes % (Manual) 10 % Monocytes % (Manual) 1 % Eosinophils % (Manual) 0 % Basophils % (Manual) 0 % Band Neutrophils 1 % Blood Morphology Comment NORMAL Sodium Level 126 L 135-145 MMOL/L Potassium Level 3.0 L 3.6-5.0 MMOL/L Chloride Level 86 L 98-107 MMOL/L Carbon Dioxide Level 23 21-32 MMOL/L Anion Gap 17 H 5-14 MMOL/L Blood Urea Nitrogen 10 7-18 MG/DL Creatinine 0.99 0.60-1.30 MG/DL Estimat Glomerular Filtration Rate 60 BUN/Creatinine Ratio 10 Glucose Level 139 H 70-105 MG/DL Calcium Level 10.0 8.5-10.1 MG/DL Corrected Calcium 9.8 8.5-10.1 MG/DL Total Bilirubin 0.5 0.1-1.0 MG/DL Aspartate Amino Transf (AST/SGOT) 15 5-34 U/L Alanine Aminotransferase (ALT/SGPT) 36 0-55 U/L Alkaline Phosphatase 110 40-136 U/L Total Protein 8.0 6.4-8.2 GM/DL Albumin 4.3 3.2-4.5 GM/DL My Orders Orders - TRIPMARY TIMMY Ed Iv/Invasive Line Start (07/15/18 21:38) Ns Iv 1000 Ml (Sodium Chloride 0.9%) (07/15/18 21:38) Ondansetron Injection (Zofran Injectio (07/15/18 21:45) Ketorolac Injection (Toradol Injection) (07/15/18 21:38) Cbc With Automated Diff (07/15/18 21:38) Comprehensive Metabolic Panel (07/15/18 21:38) Drug Screen Stat (Urine) (07/15/18 21:38) Ua Culture If Indicated (07/15/18 21:38) Diphenhydramine Injection (Benadryl Inje (07/15/18 22:00) Ct Head/Cervical Spine Wo (07/15/18 21:58) Manual Differential (07/15/18 21:57) Potassium Chloride (Tablet) (Klor Con Ta (07/15/18 22:51) Medications Given in ED Current Medications Medications Dose Ordered Sig/Annalisa Route Start Time Stop Time Status Last Admin Dose Admin Diphenhydramine HCl 50 mg ONCE ONCE IV 07/15/18 22:00 07/15/18 22:01 DC 07/15/18 22:09 50 MG Ondansetron HCl 8 mg ONCE ONCE IVP 07/15/18 21:45 07/15/18 21:46 DC 07/15/18 22:08 8 MG Vital Signs/I&O 07/15/18 21:27 Temp 98.2 Pulse 106 Resp 22 B/P (MAP) 133/95 (108) Blood Pressure Mean: 108 Progress Progress Note : Time: 21:30 Progress Note Patient seen and evaluated, will obtain labs, normal saline 1 L IV, Toradol 30 mg IV, Zofran 8 mg IV, and Benadryl 50 mg IV. 2215 potassium 3.0, will give potassium [address] head negative for acute findings, neck shows mild spondylosis with degenerative changes. 2300 patient reports improvement in symptoms, requesting discharge to home to sleep. Discharge instructions and return precautions reviewed with the patient. Diagnostic Imaging Diagonstic Imaging: CT Plain Films/CT/US/NM/MRI: c-spine, head Comments No acute findings per [facility]. Reviewed: Reviewed by Me Departure Impression Primary Impression: Cervical strain Qualified Codes: S16.1XXA - Strain of muscle, fascia and tendon at neck level , initial encounter Additional Impression: Headache Qualified Codes: G44.201 - Tension-type headache, unspecified, intractable Disposition: 01 HOME, SELF-CARE Condition: Improved Departure-Patient Inst. Decision time for Depature: 22:45 Referrals: RAFI CYR DO (PCP/Family) Primary Care Physician Patient Instructions: Migraine Headache (DC), Cervical Muscle Strain (DC) Add. Discharge Instructions: Continue to use medication (pain and muscle relaxants) from Dr. Cyr as directed Warm, moist compresses to neck. All up with Dr. Cyr if symptoms are not improving or worsen. Use Benadryl 25 mg one tablet every 8 hours. You may take Excedrin Migraine as directed. Increase water intake, eat 1 banana twice daily, rest and limit phone/computer usage. Use tiger balm on area of pain. Return to emergency department for new, urgent health care needs. All discharge instructions reviewed with patient and/or family. Voiced understanding. Copy Copies To 1: RAFI CYR AMY ARNP Jul 15, 2018 22:54
[2018-07-15 23:34] VITALS: BP 137/96
--- NOTE | 2018-07-16 07:09 | Diagnostic Imaging Report ---
Clinical indication: Patient with headache off and on for past week. Exam: Head CT without IV contrast. Axial CT scan of the cervical spine with sagittal and coronal reformations. Comparison: None. Findings: Head CT: There is no evidence of acute cerebral infarct, intracranial hemorrhage, or gross mass effect. The brain parenchymal volume appears appropriate for patient's age. There is normal alvarez-white matter distinction. There is no significant midline shift or herniation. There is no evidence of hydrocephalus. The basal cisterns are unremarkable. The skull, extracranial soft tissue, and orbits are unremarkable. There is mild mucosal thickening involving left maxillary sinus. Temporal bones show no significant abnormality. Cervical spine: There is no acute cervical spine fracture or dislocation. There is straightening of the cervical spine posture. There is cervical spine degenerative disease with vertebral body spurs and facet arthropathy. There is suggestion of diffuse disc bulge at the C5-C6 and C6-C7 level. There are small bilateral uncinate spurs and posterior spurs at the C5-C7 levels with moderate loss of intervertebral disc height. There is at least mild bilateral C6-C7 neural foramen narrowing and mild right C5-C6 neural foramen narrowing. There is left C3-C4 facet arthropathy/hypertrophy with mild left neural foramen narrowing. The neck soft tissue structures show no significant abnormality. Visualized upper lung gusman are clear. Impression: 1: Mild left maxillary sinus disease. Otherwise unremarkable CT scan of the brain. 2: Cervical spine degenerative disease with no acute fracture or dislocation. I agree with [facility] report. Dictated by: Dictated on workstation # [id number]
== END 2018-07-15 23:37 | disposition home or self-care (01) ==
LOC: EDUNIT# 21:19 → ER 21:20
DX: S16.1XXA Strain of muscle, fascia and tendon at neck level, initial encounter (principal); R51 Headache; I10 Essential (primary) hypertension; F41.9 Anxiety disorder, unspecified; F32.9 Major depressive disorder, single episode, unspecified; Z87.19 Personal history of other diseases of the digestive system; Z87.448 Personal history of other diseases of urinary system; Z88.0 Allergy status to penicillin; Z88.1 Allergy status to other antibiotic agents; Z88.8 Allergy status to other drugs, medicaments and biological substances; Z87.891 Personal history of nicotine dependence; Z90.49 Acquired absence of other specified parts of digestive tract; Z98.51 Tubal ligation status; X58.XXXA Exposure to other specified factors, initial encounter
CPT/HCPCS: 36415; 70450; 72125; 80053; 80306; 81000; 85007; 85027

== ENCOUNTER 2019-01-22 18:00 | Emergency (ER) | payer MEDICAID ==
[~2019-01-22] VITALS: Ht 172 cm; Wt 85.3 kg
[~2019-01-22 18:00] MED LIST changes: -CLON0.5T13; -CLON0.5T13 PO; +CLON0.5T4; +CLON0.5T4 PO; -LISI1TAB10 PO; +LISI1TAB26 PO; -MIRT30TA3 PO; +MRTZ30T1 PO; +OMEP-280 PO; -OMEP20CA12 PO
[2019-01-22] MEDS ORDERED: RX-TRAMADOL 50 MG (ULTRAM) TAB PPK#4 PO STA (18:12)
[2019-01-22] MEDS ORDERED: PENICILLIN V K 250 MG TAB PO ONE (18:15)
[2019-01-22] MEDS ORDERED: KETOROLAC 60 MG/2 ML VIAL IM ONE (18:15)
[2019-01-22] MEDS ORDERED: PENI500T PO (18:16)
--- NOTE | 2019-01-22 18:16 | ED EENT ---
History of Present Illness General Chief Complaint: Ear Problems Stated Complaint: R EAR PAIN Nursing Triage Note: C/O RIGHT EAR PAIN. Source: patient Exam Limitations: no limitations History of Present Illness Date Seen by Provider: Jan 22, 2019 Time Seen by Provider: 18:13 Initial Comments To ER with 3 days of progressively worsening right ear pain no fever no chills no rhinorrhea no cough. Timing/Duration: abrupt Severity: moderate Associated Symptoms: denies symptoms Allergies and Home Medications Allergies Coded Allergies: Quinolones (Verified Allergy, Unknown, 11/03/17) amoxicillin (Verified Allergy, Unknown, 04/27/16) ciprofloxacin (Verified Allergy, Unknown, HIVES, 01/22/18) metoclopramide (Verified Allergy, Unknown, HIVES, 01/22/18) oseltamivir (Verified Allergy, Unknown, RASH, 07/27/17) Hives and nausea and vomiting potassium clavulanate (Verified Allergy, Unknown, 04/27/16) Home Medications Cholestyramine (with Sugar) 4 Gm Powd.pack, 4 GM PO 3 times a day Prescribed by: RAJEEV PIEDRA on 02/16/18 1213 Clonidine HCl 0.1 Mg Tablet, 0.1 MG PO BID PRN for BLOOD PRESSURE, (Reported) Diazepam 2 Mg Tablet, 8 MG PO TID, (Reported) Fentanyl 1 Each Patch.td72, 25 MCG TD Q72H, (Reported) Ibuprofen 200 Mg Tablet, 800 MG PO TID PRN for PAIN-MILD, (Reported) Menthol 118 Ml Gel..ml., TP QID PRN for BACK PAIN, (Reported) Mirtazapine 30 Mg Tablet, 30 MG PO HS, (Reported) Ondansetron HCl 8 Mg Tablet, 8 MG PO TID PRN for NAUSEA/VOMITING-1ST LINE, (Reported) Paroxetine HCl 20 Mg Tablet, 20 MG PO DAILY, (Reported) TAKES ALONG WITH 40MG TABLET FOR A TOTAL DAILY DOSE OF 60MG Paroxetine HCl 40 Mg Tablet, 40 MG PO DAILY, (Reported) TAKES WITH A 20MG TABLET FOR A TOTAL DAILY DOSE OF 60MG Patient Home Medication List Home Medication List Reviewed: Yes Review of Systems Review of Systems Constitutional: see HPI Eyes: No Symptoms Reported Ears: See HPI, Pain; Denies Bloody Discharge, Denies Clear Discharge, Denies Purulent Discharge Nose: no symptoms reported Mouth: no symptoms reported Throat: no symptoms reported Respiratory: no symptoms reported Cardiovascular: no symptoms reported Musculoskeletal: no symptoms reported Past Czcjgxf-Ktoyko-Piktai Hx Patient Social History Alcohol Use: Denies Use Recreational Drug Use: No Smoking Status: Current Everyday Smoker Type Used: Cigarettes Former Smoker, Quit: Nov 01, 2017 2nd Hand Smoke Exposure: Yes Recent Foreign Travel: No Contact w/Someone Who Travel: No Recent Infectious Disease Expo: No Recent Hopitalizations: No Immunizations Up To Date Tetanus Booster (TDap): Unknown PED Vaccines UTD: Yes Seasonal Allergies Seasonal Allergies: No Past Medical History Surgeries: Yes Appendectomy, Gallbladder, Tubal Ligation Respiratory: No Currently Using CPAP: No Currently Using BIPAP: No Cardiac: Yes Hypertension Neurological: No Reproductive Disorders: Yes Female Reproductive Disorders: Menstrual Problems, 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 Sexually Transmitted Disease: No HIV/AIDS: No Genitourinary: No Gastrointestinal: Yes (hx c-dif) Colitis, C-Diff, Gall Bladder Disease Musculoskeletal: Yes Chronic Back Pain Endocrine: No HEENT: No Cancer: No Psychosocial: Yes Anxiety, Depression Integumentary: No Blood Disorders: No Adverse Reaction/Blood Tranf: No Family Medical History Alcoholism G8 BROTHER ( with liver failure) Arthritis G8 BROTHER (rhoumatoid arthritis, mono multiplex neuropathy) No Pertinent Family Hx Physical Exam Vital Signs Vital Signs - First Documented 01/22/19 18:07 Temp 36.7 Pulse 99 Resp 16 B/P (MAP) 118/83 (95) Pulse Ox 95 O2 Delivery Room Air Height, Weight, BMI Height: 5'8.00" Weight: 175lbs. 4.0oz. 79.108457el; 28.00 BMI Method:Actual General Appearance: WD/WN, no apparent distress Eyes: bilateral eye normal inspection, bilateral eye PERRL, bilateral eye EOMI Ears: bilateral ear auricle normal, bilateral ear canal normal, bilateral ear TM normal Neck: non-tender, full range of motion Neurologic/Psychiatric: alert, normal mood/affect, oriented x 3 Skin: normal color, warm/dry Progress/Results/Core Measures Results/Orders Vital Signs/I&O 01/22/19 18:07 Temp 36.7 Pulse 99 Resp 16 B/P (MAP) 118/83 (95) Pulse Ox 95 O2 Delivery Room Air Blood Pressure Mean: 95 POS Departure Communication (Admissions) There is no erythema or tenderness to palpation over the mastoid process. The external canal is normal in appearance. She states that she is allergic to Augmentin but has taken penicillin before he tolerated that well without any side effects or allergic reactions. Impression Primary Impression: Otalgia, right ear Disposition: 01 HOME, SELF-CARE Condition: Stable Departure-Patient Inst. Decision time for Depature: 18:15 Referrals: RAFI CASTILLO DO (PCP/Family) Primary Care Physician Patient Instructions: Ear Infections (Otitis Media) (DC) Add. Discharge Instructions: 1. Return to ER for any concerns 2. Follow-up with your regular doctor next week. All discharge instructions reviewed with patient and/or family. Voiced understanding. Scripts Penicillin V Potassium (Penicillin V Potassium) 500 Mg Tablet 500 MG PO TID, #15 TAB States she has taken penicillin before without adverse reaction Prov: BRIANNA POSADA APRN 01/22/19 BRIANNA POSADA APRN Jan 22, 2019 18:16 POS
[2019-01-22 18:45] VITALS: BP 118/83
== END 2019-01-22 18:45 | disposition home or self-care (01) ==
LOC: EDUNIT# 18:00 → ER 18:02
DX: H66.91 Otitis media, unspecified, right ear (principal); I10 Essential (primary) hypertension; F41.9 Anxiety disorder, unspecified; F32.9 Major depressive disorder, single episode, unspecified; F17.210 Nicotine dependence, cigarettes, uncomplicated; Z90.49 Acquired absence of other specified parts of digestive tract; Z98.51 Tubal ligation status; Z88.0 Allergy status to penicillin; Z88.8 Allergy status to other drugs, medicaments and biological substances; Z88.1 Allergy status to other antibiotic agents
CPT/HCPCS: 96372; 99284

== ENCOUNTER 2019-05-22 09:37 | Emergency (ER) | payer MEDICAID ==
[~2019-05-22] VITALS: Ht 172.2 cm; Wt 84.0 kg
[~2019-05-22 09:37] MED LIST changes: -HYDR-3812 PO; -OMEP-280 PO; +OMEP20CA18 PO; -ONDA8TAB12 PO; +ONDA8TAB15 PO; +PENI500T PO
--- NOTE | 2019-05-22 09:49 | ED GI ---
General Chief Complaint: Abdominal/GI Problems Stated Complaint: N/V/D Source of Information: Patient History of Present Illness Date Seen by Provider: May 22, 2019 Time Seen by Provider: 09:49 Initial Comments 49-year-old female presents with nausea vomiting diarrhea. Patient has some diffuse abdominal cramping. Patient very dramatic, states that his cramps like when she had C. difficile. Patient is asking for something immediately for pain, nausea and immediate IV fluids. Patient doesn't report any cough, sore throat or other symptoms at this time. Allergies and Home Medications Allergies Coded Allergies: Quinolones (Verified Allergy, Unknown, 11/03/17) amoxicillin (Verified Allergy, Unknown, 04/27/16) ciprofloxacin (Verified Allergy, Unknown, HIVES, 01/22/18) metoclopramide (Verified Allergy, Unknown, HIVES, 01/22/18) oseltamivir (Verified Allergy, Unknown, RASH, 07/27/17) Hives and nausea and vomiting potassium clavulanate (Verified Allergy, Unknown, 04/27/16) Home Medications Cholestyramine (with Sugar) 4 Gm Powd.pack, 4 GM PO 3 times a day Prescribed by: RAJEEV PIEDRA on 02/16/18 1213 Clonidine HCl 0.1 Mg Tablet, 0.1 MG PO BID PRN for BLOOD PRESSURE, (Reported) Diazepam 2 Mg Tablet, 8 MG PO TID, (Reported) Fentanyl 1 Each Patch.td72, 25 MCG TD Q72H, (Reported) Ibuprofen 200 Mg Tablet, 800 MG PO TID PRN for PAIN-MILD, (Reported) Menthol 118 Ml Gel..ml., TP QID PRN for BACK PAIN, (Reported) Mirtazapine 30 Mg Tablet, 30 MG PO HS, (Reported) Ondansetron HCl 8 Mg Tablet, 8 MG PO TID PRN for NAUSEA/VOMITING-1ST LINE, (R eported) Paroxetine HCl 20 Mg Tablet, 20 MG PO DAILY, (Reported) TAKES ALONG WITH 40MG TABLET FOR A TOTAL DAILY DOSE OF 60MG Paroxetine HCl 40 Mg Tablet, 40 MG PO DAILY, (Reported) TAKES WITH A 20MG TABLET FOR A TOTAL DAILY DOSE OF 60MG Penicillin V Potassium 500 Mg Tablet, 500 MG PO TID States she has taken penicillin before without adverse reaction Prescribed by: BRIANNA POSADA on 01/22/19 0356 Patient Home Medication List Home Medication List Reviewed: Yes Review of Systems Review of Systems Constitutional: malaise Respiratory: Denies Cough, Denies SOA at Rest Cardiovascular: Denies Chest Pain Gastrointestinal: See HPI Skin: no symptoms reported Psychiatric/Neurological: No Symptoms Reported Past Kgdlmfy-Kzlleq-Xvrfun Hx Past Med/Social Hx: Reviewed Nursing Past Med/Soc Hx Patient Social History Type Used: Cigarettes Former Smoker, Quit: Nov 01, 2017 2nd Hand Smoke Exposure: Yes Recent Foreign Travel: No Recent Hopitalizations: No Immunizations Up To Date Tetanus Booster (TDap): Unknown PED Vaccines UTD: Yes Seasonal Allergies Seasonal Allergies: No Past Medical History Surgeries: Yes Appendectomy, Gallbladder, Tubal Ligation Respiratory: No Currently Using CPAP: No Currently Using BIPAP: No Cardiac: Yes Hypertension Neurological: No Reproductive Disorders: Yes Female Reproductive Disorders: Menstrual Problems, Ovarian Cyst COMPTOMETRIST History: Tubal Ligation Sexually Transmitted Disease: No HIV/AIDS: No Genitourinary: No Gastrointestinal: Yes (hx c-dif) Colitis, C-Diff, Gall Bladder Disease Musculoskeletal: Yes Chronic Back Pain Endocrine: No HEENT: No Cancer: No Psychosocial: Yes Anxiety, Depression Integumentary: No Blood Disorders: No Adverse Reaction/Blood Tranf: No Family Medical History Alcoholism G8 BROTHER ( with liver failure) Arthritis G8 BROTHER (rhoumatoid arthritis, mono multiplex neuropathy) No Pertinent Family Hx Physical Exam Vital Signs Vital Signs - First Documented 05/22/19 09:41 Temp 37.0 Pulse 91 Resp 18 B/P (MAP) 123/73 (90) Capillary Refill : Height/Weight/BMI Height: 5'8.00" Weight: 175lbs. 4.0oz. 79.360567mm; 28.00 BMI Method:Actual General Appearance: other (patient very dramatic and animated) HEENT: normal ENT inspection Respiratory: lungs clear, normal breath sounds Cardiovascular: normal peripheral pulses, regular rate, rhythm Gastrointestinal: soft, tenderness (diffuse) Progress/Results/Core Measures Results/Orders Lab Results Laboratory Tests Test 05/22/19 09:58 05/22/19 10:05 Range/Units Urine Color YELLOW Urine Clarity CLEAR Urine pH 7.0 5-9 Urine Specific Dix 1.010 L 1.016-1.022 Urine Protein NEGATIVE NEGATIVE Urine Glucose (UA) NEGATIVE NEGATIVE Urine Ketones TRACE H NEGATIVE Urine Nitrite NEGATIVE NEGATIVE Urine Bilirubin NEGATIVE NEGATIVE Urine Urobilinogen 0.2 < = 1.0 MG/DL Urine Leukocyte Esterase TRACE H NEGATIVE Urine RBC (Auto) NEGATIVE NEGATIVE Urine RBC 0-2 /HPF Urine WBC 0-2 /HPF Urine Squamous Epithelial Cells 2-5 /HPF Urine Crystals NONE /LPF Urine Bacteria FEW H /HPF Urine Casts NONE /LPF Urine Mucus NEGATIVE /LPF Urine Culture Indicated NO White Blood Count 12.0 H 4.3-11.0 10^3/uL Red Blood Count 4.78 4.35-5.85 10^6/uL Hemoglobin 14.4 11.5-16.0 G/DL Hematocrit 39 35-52 % Mean Corpuscular Volume 82 80-99 FL Mean Corpuscular Hemoglobin 30 25-34 PG Mean Corpuscular Hemoglobin Concent 37 H 32-36 G/DL Red Cell Distribution Width 13.2 10.0-14.5 % Platelet Count 455 H 130-400 10^3/uL Mean Platelet Volume 9.6 7.4-10.4 FL Neutrophils (%) (Auto) 69 42-75 % Lymphocytes (%) (Auto) 24 12-44 % Monocytes (%) (Auto) 6 0-12 % Eosinophils (%) (Auto) 1 0-10 % Basophils (%) (Auto) 0 0-10 % Neutrophils # (Auto) 8.3 H 1.8-7.8 X 10^3 Lymphocytes # (Auto) 2.8 1.0-4.0 X 10^3 Monocytes # (Auto) 0.7 0.0-1.0 X 10^3 Eosinophils # (Auto) 0.1 0.0-0.3 10^3/uL Basophils # (Auto) 0.0 0.0-0.1 10^3/uL Sodium Level 129 L 135-145 MMOL/L Potassium Level 3.1 L 3.6-5.0 MMOL/L Chloride Level 92 L 98-107 MMOL/L Carbon Dioxide Level 21 21-32 MMOL/L Anion Gap 16 H 5-14 MMOL/L Blood Urea Nitrogen 10 7-18 MG/DL Creatinine 0.90 0.60-1.30 MG/DL Estimat Glomerular Filtration Rate > 60 BUN/Creatinine Ratio 11 Glucose Level 74 70-105 MG/DL Calcium Level 10.5 H 8.5-10.1 MG/DL Corrected Calcium 8.5-10.1 MG/DL Total Bilirubin 0.5 0.1-1.0 MG/DL Aspartate Amino Transf (AST/SGOT) 15 5-34 U/L Alanine Aminotransferase (ALT/SGPT) 22 0-55 U/L Alkaline Phosphatase 113 40-136 U/L Total Protein 8.7 H 6.4-8.2 GM/DL Albumin 4.9 H 3.2-4.5 GM/DL Lipase 10 8-78 U/L Micro Results Microbiology 05/22/19 Influenza Types A,B Antigen (JERILYN) - Final, Complete My Orders Orders - LUKE LAGOS DO Comprehensive Metabolic Panel (05/22/19 09:53) Lipase (05/22/19 09:53) Ua Culture If Indicated (05/22/19 09:53) Urine Bedside (05/22/19 09:53) Acute Abd Series (05/22/19 09:53) Cbc With Automated Diff (05/22/19 09:53) Ketorolac Injection (Toradol Injection) (05/22/19 10:00) C Difficile Ag + Toxin A/B. (05/22/19 09:53) Influenza A And B Antigens (05/22/19 09:53) Ondansetron Injection (Zofran Injectio (05/22/19 10:00) Famotidine Injection (Pepcid Injection) (05/22/19 09:53) Ed Iv/Invasive Line Start (05/22/19 09:59) Lactated Ringers (Lr 1000 Ml Iv Solution (05/22/19 09:59) Ns Iv 1000 Ml (Sodium Chloride 0.9%) (05/22/19 10:46) Hyoscyamine Sl Tablet (Levsin Sl Tablet) (05/22/19 11:00) Ct Abdomen/Pelvis W (05/22/19 10:46) Iohexol Injection (Omnipaque 350 Mg/Ml 1 (05/22/19 11:00) Received Contrast (Hold Metformin- Contr (05/22/19 11:00) Sodium Chloride Flush (Catheter Flush Sy (05/22/19 11:00) Ns (Ivpb) (Sodium Chloride 0.9% Ivpb Bag (05/22/19 11:00) Dicyclomine Injection (Bentyl Injection) (05/22/19 11:45) Medications Given in ED Current Medications Medications Dose Ordered Sig/Annalisa Route Start Time Stop Time Status Last Admin Dose Admin Dicyclomine HCl 20 mg ONCE ONCE IM 05/22/19 11:45 05/22/19 11:46 DC 05/22/19 11:49 20 MG Iohexol 100 ml ONCE ONCE IV 05/22/19 11:00 05/22/19 11:01 DC 05/22/19 11:35 100 ML Ketorolac Tromethamine 15 mg ONCE ONCE IVP 05/22/19 10:00 05/22/19 10:01 DC 05/22/19 10:09 15 MG Lactated Ringer's 1,000 ml @ 0 mls/hr Q0M ONCE IV 05/22/19 09:59 05/22/19 10:00 DC 05/22/19 10:09 1,000 MLS/HR Ondansetron HCl 4 mg ONCE ONCE IVP 05/22/19 10:00 05/22/19 10:01 DC 05/22/19 10:06 4 MG Sodium Chloride 10 ml NEEDED PRN IV 05/22/19 11:00 05/22/19 11:35 10 ML Sodium Chloride 100 ml ONCE ONCE IV 05/22/19 11:00 05/22/19 11:01 DC 05/22/19 11:35 80 ML Vital Signs/I&O 05/22/19 09:41 Temp 37.0 Pulse 91 Resp 18 B/P (MAP) 123/73 (90) Progress Progress Note : Time: 10:13 Progress Note Patient is very dramatic and very manipulative and trying to get immediate attention and all kinds of different treatments treatments, patient is suggesting that she has all kinds of illnesses such as coronavirus, serotonin syndrome etc... Patient presentation is much more suggestive of manipulation than actually true illness. Diagnostic Imaging Comments NAME: ALVINO ARANDA MED REC#: [id number] PT STATUS: REG ER : 1970 PHYSICIAN: LUKE LAGOS DO ADMIT DATE: 05/22/19/ER Draft Date of Exam:05/22/19 CT ABDOMEN/PELVIS W PROCEDURE: CT abdomen and pelvis with contrast. TECHNIQUE: Multiple contiguous axial images were obtained through the abdomen and pelvis after administration of intravenous contrast. Auto Exposure Controls were utilized during the CT exam to meet ALARA standards for radiation dose reduction. INDICATION: Severe abdominal pain with vomiting and diarrhea for three days. History of C. difficile. Prior history of appendectomy, cholecystectomy, tubal ligation. EXAMINATION: CT abdomen and pelvis with contrast 05/22/2019. COMPARISON: Comparison 03/03/2018. FINDINGS: Lung bases appear clear. There is diffuse fatty infiltration throughout the liver which is otherwise unremarkable with evidence of previous cholecystectomy. The spleen is normal. Adrenal glands unremarkable. Pancreas unremarkable. Common duct prominent but likely due to the previous post cholecystectomy changes. The kidneys demonstrate no evidence for an acute abnormality. There is postoperative change within the right lower quadrant about the region of the cecum. There is mild wall thickening of the rectosigmoid. This could be due to mild colitis especially given history. No adjacent free fluid, free air or significant inflammatory change appreciated. Minimal wall thickening descending colon could be due to underdistention versus colitis as well. The remaining colon demonstrates no acute abnormalities. There is no free air or fluid in the abdomen or pelvis. Atherosclerotic disease incidentally noted. There are densities in the presacral region which are similar to previous imaging likely serpiginous dilated vessels given stability. A few slightly prominent lymph nodes in the region difficult to completely exclude. No acute osseous abnormality. IMPRESSION: 1. Mild wall thickening throughout the descending colon and rectosigmoid which could be on the basis of the known colitis. No free air or fluid appreciated. No evidence for abscess. 2. Slightly prominent densities presacral region which could be prominent vasculature versus slightly prominent lymph nodes although stable from previous imaging. Continued follow-up as clinically indicated. Other incidental findings as discussed above. Dictated on workstation # [id number] Departure Impression Primary Impression: Colitis Disposition: 01 HOME, SELF-CARE Condition: Stable Departure-Patient Inst. Referrals: RAFI CASTILLO DO (PCP/Family) Primary Care Physician Patient Instructions: Colitis Add. Discharge Instructions: Emergency department focuses on treating and ruling out life-threatening diseases. Whenever possible, a diagnosis is given. However, most patients are given an impression based on their history, physical exam, and workup during your brief time in the ER. Information about probable diagnosis and other educational material has been provided. Please take the time to read and understand this information. It is very important that you follow up with a physician as discussed during the visit today. Failure to adhere to your follow-up instructions may lead to severe disability, injury, or so please make sure to keep your appointments or obtain one as requested. Please keep in mind the emergency department is not designed to your primary care or "family doctor" and nonurgent issues are best evaluated by an outpatient physician All discharge instructions reviewed with patient and/or family. Voiced understanding. Scripts Dicyclomine HCl (Dicyclomine HCl) 20 Mg Tablet 20 MG PO QID PRN for PAIN-MODERATE (5-7), #30 TAB Prov: LUKE LAGOS DO 05/22/19 Metronidazole (Flagyl) 500 Mg Tablet 500 MG PO Q6H for 7 Days, #28 TAB Prov: LUKE LAGOS DO 05/22/19 LUKE LAGOS DO May 22, 2019 09:49
[2019-05-22] MEDS ORDERED: FAMOTIDINE 20MG/2ML IV (PEPCID) IV STA (09:53)
[2019-05-22] MEDS ORDERED: LACTATED RINGERS 1,000 ML IV ONE (09:59)
[2019-05-22] MEDS ORDERED: KETOROLAC 30 MG/ML VIAL IVP ONE (10:00)
[2019-05-22] MEDS ORDERED: ONDANSETRON 4 MG/2 ML (SDV) Z0FRAN IVP ONE (10:00)
[2019-05-22 10:07] LABS: BILIRUBIN,URINE NEGATIVE (NEGATIVE); CLARITY,URINE CLEAR; COLOR,URINE YELLOW; GLUCOSE, URINE (UA) NEGATIVE (NEGATIVE); KETONES,URINE TRACE (NEGATIVE); LEUKOCYTE ESTERASE ,URINE TRACE (NEGATIVE); NITRITE,URINE NEGATIVE (NEGATIVE); PROTEIN,URINE NEGATIVE (NEGATIVE)
[2019-05-22 10:13] LABS: BASOPHILS % (AUTO) 0 % (0-10); EOSINOPHILS # (AUTO) 0.1 10^3/uL (0.0-0.3); EOSINOPHILS % (AUTO) 1 % (0-10); HEMATOCRIT 39 % (35-52); HEMOGLOBIN 14.4 G/DL (11.5-16.0); LYMPHOCYTES # (AUTO) 2.8 X 10^3 (1.0-4.0); LYMPHOCYTES % (AUTO) 24 % (12-44); MEAN CORPUSCULAR HEMOGLOBIN 30 PG (25-34); MEAN CORPUSCULAR HGB CONC 37 G/DL (32-36); MEAN CORPUSCULAR VOLUME 82 FL (80-99); MEAN PLATELET VOLUME 9.6 FL (7.4-10.4); MONOCYTES # (AUTO) 0.7 X 10^3 (0.0-1.0); MONOCYTES % (AUTO) 6 % (0-12); NEUTROPHILS # (AUTO) 8.3 X 10^3 (1.8-7.8); NEUTROPHILS % (AUTO) 69 % (42-75); PLATELET COUNT 455 10^3/uL (130-400); RED CELL DISTRIBUTION WIDTH 13.2 % (10.0-14.5)
[2019-05-22 10:17] LABS: BACTERIA,URINE FEW /HPF; RBC,URINE 0-2 /HPF; WBC,URINE 0-2 /HPF
--- NOTE | 2019-05-22 10:37 | Diagnostic Imaging Report ---
INDICATION: Severe abdominal pain, vomiting, diarrhea for 3 days. History of C. difficile. EXAMINATION: Abdomen series dated 05/22/2019 FINDINGS: Two views of the abdomen with a single frontal view of the chest. The chest is clear. No free air is seen beneath the diaphragm. Scattered air and stool throughout the colon noted. No dilated loops of bowel. Postoperative findings noted in the right upper quadrant and right lower quadrant. IMPRESSION: 1. Nonobstructive bowel gas pattern. 2. Negative chest. Dictated by: Dictated on workstation # [id number]
[2019-05-22 10:39] LABS: ALANINE AMINOTRANSFERASE 22 U/L (0-55); ALBUMIN 4.9 GM/DL (3.2-4.5); ALKALINE PHOSPHATASE 113 U/L (40-136); BILIRUBIN,TOTAL 0.5 MG/DL (0.1-1.0); BUN/CREATININE RATIO 11; CALCIUM 10.5 MG/DL (8.5-10.1); CARBON DIOXIDE 21 MMOL/L (21-32); CHLORIDE 92 MMOL/L (98-107); GFR ESTIMATED > 60; GLUCOSE 74 MG/DL (70-105); LIPASE 10 U/L (8-78); POTASSIUM 3.1 MMOL/L (3.6-5.0); SODIUM 129 MMOL/L (135-145); TOTAL PROTEIN 8.7 GM/DL (6.4-8.2)
[2019-05-22] MEDS ORDERED: NS IV 1000 ML 1,000 ML IV STA (10:46)
[2019-05-22] MEDS ORDERED: HYOSCYAMINE 0.125 MG (LEVSIN) TAB SL ONE (11:00)
[2019-05-22] MEDS ORDERED: HOLD METFORMIN - RECEIVED CONTRAST 20 ML VIAL IV SCH (11:00)
[2019-05-22] MEDS ORDERED: IOHEXOL 350 MG/ML 100 ML (OMNIPAQUE 350) VIAL IV ONE (11:00)
[2019-05-22] MEDS ORDERED: NS 100 ML (IVPB) BAG IV ONE (11:00)
[2019-05-22] MEDS ORDERED: CATHETER FLUSH 10 ML SYR IV PRN (11:00)
--- NOTE | 2019-05-22 11:11 | NUR ---
PATIENT REFUSED LEVSIN REPORTS SHE HAS HAD PROBLEMS WITH REGLAN IN PAST AND DOSEN'T WANT ANYTHING LIKE IT. STATES COULD TAKE A HYDROCODONE FOR PAIN
--- NOTE | 2019-05-22 11:23 | NUR ---
TO CT PER W/C
--- NOTE | 2019-05-22 11:37 | NUR ---
BACK FROM CT VOICED TO WINDOW DRAPER THAT SHE IS IN SEVERE PAIN. DR AWARE. NO VOMITING OR DIARRHEA YET. WHILE IN ED.
[2019-05-22] MEDS ORDERED: DICYCLOMINE 10 MG/ML (BENTYL) 2 ML AMP IM ONE (11:45)
--- NOTE | 2019-05-22 12:05 | Diagnostic Imaging Report ---
PROCEDURE: CT abdomen and pelvis with contrast. TECHNIQUE: Multiple contiguous axial images were obtained through the abdomen and pelvis after administration of intravenous contrast. Auto Exposure Controls were utilized during the CT exam to meet ALARA standards for radiation dose reduction. INDICATION: Severe abdominal pain with vomiting and diarrhea for three days. History of C. difficile. Prior history of appendectomy, cholecystectomy, tubal ligation. EXAMINATION: CT abdomen and pelvis with contrast 05/22/2019. COMPARISON: Comparison 03/03/2018. FINDINGS: Lung bases appear clear. There is diffuse fatty infiltration throughout the liver which is otherwise unremarkable with evidence of previous cholecystectomy. The spleen is normal. Adrenal glands unremarkable. Pancreas unremarkable. Common duct prominent but likely due to the previous post cholecystectomy changes. The kidneys demonstrate no evidence for an acute abnormality. There is postoperative change within the right lower quadrant about the region of the cecum. There is mild wall thickening of the rectosigmoid. This could be due to mild colitis especially given history. No adjacent free fluid, free air or significant inflammatory change appreciated. Minimal wall thickening descending colon could be due to underdistention versus colitis as well. The remaining colon demonstrates no acute abnormalities. There is no free air or fluid in the abdomen or pelvis. Atherosclerotic disease incidentally noted. There are densities in the presacral region which are similar to previous imaging likely serpiginous dilated vessels given stability. A few slightly prominent lymph nodes in the region difficult to completely exclude. No acute osseous abnormality. IMPRESSION: 1. Mild wall thickening throughout the descending colon and rectosigmoid which could be on the basis of the known colitis. No free air or fluid appreciated. No evidence for abscess. 2. Slightly prominent densities presacral region which could be prominent vasculature versus slightly prominent lymph nodes although stable from previous imaging. Continued follow-up as clinically indicated. Other incidental findings as discussed above. Dictated by: Dictated on workstation # [id number]
[2019-05-22] MEDS ORDERED: METR500T PO (12:22)
[2019-05-22] MEDS ORDERED: DICY20TA10 PO (12:23)
[2019-05-22 12:34] VITALS: BP 123/73
--- NOTE | 2019-05-22 12:34 | NUR ---
EMEKA BY ARSENIO HALEY WHO REPORTS PATIENT PULLED IV OUT AND WAS WALKING OUT DOOR. Addendum: 05/22/19 at 1451 by PMCCLURE NO VOMITING OR DIARRHEA WHILE HER STAY IN ER.
== END 2019-05-22 12:34 | disposition home or self-care (01) ==
LOC: EDUNIT# 09:37 → ER 09:38
DX: K52.9 Noninfective gastroenteritis and colitis, unspecified (principal); I10 Essential (primary) hypertension; F41.9 Anxiety disorder, unspecified; F32.9 Major depressive disorder, single episode, unspecified; Z88.8 Allergy status to other drugs, medicaments and biological substances; Z88.1 Allergy status to other antibiotic agents; Z88.0 Allergy status to penicillin; Z77.22 Contact with and (suspected) exposure to environmental tobacco smoke (acute) (chronic); Z87.891 Personal history of nicotine dependence
CPT/HCPCS: 36415; 74022; 74177; 80053; 81000; 83690; 84703; 85025; 87804; 96361; 96372; 96374; 96375

== ENCOUNTER 2019-09-01 14:55 | Emergency (ER) | payer MEDICAID ==
[~2019-09-01] VITALS: Ht 172 cm; Wt 79.3 kg
[~2019-09-01 14:55] MED LIST changes: +DICY20TA10 PO; +METR500T PO
[2019-09-01] MEDS ORDERED: ONDANSETRON 4 MG (ZOFRAN) ORAL DISSOLVE TAB SL STA (15:37)
[2019-09-01 15:41] LABS: BASOPHILS % (AUTO) 0 % (0-10); EOSINOPHILS # (AUTO) 0.3 10^3/uL (0.0-0.3); EOSINOPHILS % (AUTO) 3 % (0-10); HEMATOCRIT 42 % (35-52); HEMOGLOBIN 15.3 G/DL (11.5-16.0); LYMPHOCYTES # (AUTO) 2.9 X 10^3 (1.0-4.0); LYMPHOCYTES % (AUTO) 26 % (12-44); MEAN CORPUSCULAR HEMOGLOBIN 30 PG (25-34); MEAN CORPUSCULAR HGB CONC 36 G/DL (32-36); MEAN CORPUSCULAR VOLUME 84 FL (80-99); MEAN PLATELET VOLUME 9.7 FL (7.4-10.4); MONOCYTES # (AUTO) 0.7 X 10^3 (0.0-1.0); MONOCYTES % (AUTO) 6 % (0-12); NEUTROPHILS # (AUTO) 7.5 X 10^3 (1.8-7.8); NEUTROPHILS % (AUTO) 65 % (42-75); PLATELET COUNT 366 10^3/uL (130-400); RED CELL DISTRIBUTION WIDTH 12.5 % (10.0-14.5); WHITE BLOOD COUNT 11.4 10^3/uL (4.3-11.0)
--- NOTE | 2019-09-01 15:47 | ED Integumentary General ---
General Chief Complaint: Skin/Wound Problems Stated Complaint: OPEN WOUND Nursing Triage Note: PT PRESENTS TO ED WITH COMPLAINTS OF WOUND ON HER BOTTOM TWO DAYS AGO. PT REPORTS PAIN IS GETTING WORSE. PT REPORTS NAUSEA AND CHILLS WELL. History of Present Illness Date Seen by Provider: Sep 01, 2019 Time Seen by Provider: 15:05 Initial Comments 49 female presents for wound to her left buttocks. She reports the symptoms have been getting worse, no history of MRSA or bite to area. No drainage. She has a history of C. difficile and fecal transplant. Timing/Duration: getting worse Location: extremities (left buttocks) Possible Cause: no cause identified Associated Symptoms: change in skin texture Allergies and Home Medications Allergies Coded Allergies: Quinolones (Verified Allergy, Unknown, 11/03/17) amoxicillin (Verified Allergy, Unknown, 04/27/16) ceftriaxone (Verified Allergy, Unknown, 09/01/19) ciprofloxacin (Verified Allergy, Unknown, HIVES, 01/22/18) metoclopramide (Verified Allergy, Unknown, HIVES, 01/22/18) oseltamivir (Verified Allergy, Unknown, RASH, 07/27/17) Hives and nausea and vomiting potassium clavulanate (Verified Allergy, Unknown, 04/27/16) vancomycin (Verified Allergy, Unknown, 09/01/19) Home Medications Cholestyramine (with Sugar) 4 Gm Powd.pack, 4 GM PO 3 times a day Prescribed by: RAJEEV PIEDRA on 02/16/18 1213 Clonidine HCl 0.1 Mg Tablet, 0.1 MG PO BID PRN for BLOOD PRESSURE, (Reported) Diazepam 2 Mg Tablet, 8 MG PO TID, (Reported) Dicyclomine HCl 20 Mg Tablet, 20 MG PO QID PRN for PAIN-MODERATE (5-7) Prescribed by: LUKE LAGOS on 05/22/19 1223 Fentanyl 1 Each Patch.td72, 25 MCG TD Q72H, (Reported) Ibuprofen 200 Mg Tablet, 800 MG PO TID PRN for PAIN-MILD, (Reported) Menthol 118 Ml Gel..ml., TP QID PRN for BACK PAIN, (Reported) Metronidazole 500 Mg Tablet, 500 MG PO Q6H Prescribed by: LUKE LAGOS on 05/22/19 1222 Mirtazapine 30 Mg Tablet, 30 MG PO HS, (Reported) Ondansetron HCl 8 Mg Tablet, 8 MG PO TID PRN for NAUSEA/VOMITING-1ST LINE, (Reported) Paroxetine HCl 20 Mg Tablet, 20 MG PO DAILY, (Reported) TAKES ALONG WITH 40MG TABLET FOR A TOTAL DAILY DOSE OF 60MG Paroxetine HCl 40 Mg Tablet, 40 MG PO DAILY, (Reported) TAKES WITH A 20MG TABLET FOR A TOTAL DAILY DOSE OF 60MG Penicillin V Potassium 500 Mg Tablet, 500 MG PO TID States she has taken penicillin before without adverse reaction Prescribed by: BRIANNA POSADA on 01/22/19 2233 Patient Home Medication List Home Medication List Reviewed: Yes Review of Systems Review of Systems Constitutional: no symptoms reported, see HPI Skin: see HPI, change in color, lesions (left buttocks) All Other Systems Reviewed Negative Unless Noted: Yes Past Agyyhvn-Gayyhp-Igqieq Hx Past Med/Social Hx: Reviewed Nursing Past Med/Soc Hx Patient Social History Alcohol Use: Denies Use Recreational Drug Use: No Smoking Status: Current Everyday Smoker Type Used: Cigarettes Former Smoker, Quit: Nov 01, 2017 2nd Hand Smoke Exposure: Yes Recent Foreign Travel: No Contact w/Someone Who Travel: No Recent Infectious Disease Expo: No Recent Hopitalizations: No Physical Abuse: No Sexual Abuse: No Mistreated: No Fear: No Immunizations Up To Date Tetanus Booster (TDap): Unknown PED Vaccines UTD: Yes Seasonal Allergies Seasonal Allergies: No Past Medical History Surgeries: Yes Appendectomy, Gallbladder, Tubal Ligation Respiratory: No Currently Using CPAP: No Currently Using BIPAP: No Cardiac: Yes Hypertension Neurological: No Reproductive Disorders: Yes Female Reproductive Disorders: Menstrual Problems, Ovarian Cyst 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 Sexually Transmitted Disease: No HIV/AIDS: No Genitourinary: No Gastrointestinal: Yes (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) Colitis, C-Diff, Gall Bladder Disease Musculoskeletal: Yes Chronic Back Pain Endocrine: No HEENT: No Cancer: No Psychosocial: Yes Anxiety, Depression Integumentary: No Blood Disorders: No Adverse Reaction/Blood Tranf: No Family Medical History Alcoholism G8 BROTHER ( with liver failure) Arthritis G8 BROTHER (rhoumatoid arthritis, mono multiplex neuropathy) No Pertinent Family Hx Physical Exam Vital Signs Vital Signs - First Documented 09/01/19 15:07 Temp 37.0 Pulse 94 Resp 18 B/P (MAP) 125/85 (98) Pulse Ox 95 Capillary Refill : Less Than 3 Seconds General Appearance: WD/WN, no apparent distress Cardiovascular: normal peripheral pulses, regular rate, rhythm Respiratory: chest non-tender, lungs clear, normal breath sounds Neurologic/Psychiatric: no motor/sensory deficits, alert, normal mood/affect, oriented x 3 Skin: normal color, warm/dry Skin Problem Location: lower extremities (left buttocks) Skin Problem Character: erythema, lesion (2x3 cm), macules, papules Lymphatic: no adenopathy Progress/Results/Core Measures Results/Orders Lab Results Laboratory Tests Test 09/01/19 15:30 Range/Units White Blood Count 11.4 H 4.3-11.0 10^3/uL Red Blood Count 5.05 4.35-5.85 10^6/uL Hemoglobin 15.3 11.5-16.0 G/DL Hematocrit 42 35-52 % Mean Corpuscular Volume 84 80-99 FL Mean Corpuscular Hemoglobin 30 25-34 PG Mean Corpuscular Hemoglobin Concent 36 32-36 G/DL Red Cell Distribution Width 12.5 10.0-14.5 % Platelet Count 366 130-400 10^3/uL Mean Platelet Volume 9.7 7.4-10.4 FL Neutrophils (%) (Auto) 65 42-75 % Lymphocytes (%) (Auto) 26 12-44 % Monocytes (%) (Auto) 6 0-12 % Eosinophils (%) (Auto) 3 0-10 % Basophils (%) (Auto) 0 0-10 % Neutrophils # (Auto) 7.5 1.8-7.8 X 10^3 Lymphocytes # (Auto) 2.9 1.0-4.0 X 10^3 Monocytes # (Auto) 0.7 0.0-1.0 X 10^3 Eosinophils # (Auto) 0.3 0.0-0.3 10^3/uL Basophils # (Auto) 0.0 0.0-0.1 10^3/uL Sodium Level 128 L 135-145 MMOL/L Potassium Level 2.9 L 3.6-5.0 MMOL/L Chloride Level 93 L 98-107 MMOL/L Carbon Dioxide Level 22 21-32 MMOL/L Anion Gap 13 5-14 MMOL/L Blood Urea Nitrogen 8 7-18 MG/DL Creatinine 0.75 0.60-1.30 MG/DL Estimat Glomerular Filtration Rate > 60 BUN/Creatinine Ratio 11 Glucose Level 86 70-105 MG/DL Calcium Level 9.8 8.5-10.1 MG/DL Corrected Calcium 9.5 8.5-10.1 MG/DL Total Bilirubin 0.5 0.1-1.0 MG/DL Aspartate Amino Transf (AST/SGOT) 16 5-34 U/L Alanine Aminotransferase (ALT/SGPT) 20 0-55 U/L Alkaline Phosphatase 93 40-136 U/L Total Protein 7.7 6.4-8.2 GM/DL Albumin 4.4 3.2-4.5 GM/DL My Orders Orders - MARY DOMINIQUE Cbc With Automated Diff (09/01/19 15:19) Comprehensive Metabolic Panel (09/01/19 15:19) Ondansetron Oral Dissolve Tab (Zofran (09/01/19 15:37) Potassium Chloride (Tablet) (Klor Con Ta (09/01/19 16:18) Acetaminophen Tablet/Caplet (Tylenol T (09/01/19 16:21) Vital Signs/I&O 09/01/19 15:07 Temp 37.0 Pulse 94 Resp 18 B/P (MAP) 125/85 (98) Pulse Ox 95 Blood Pressure Mean: 98 Departure Impression Primary Impression: Cellulitis of left buttock Disposition: 01 HOME, SELF-CARE Condition: Improved Departure-Patient Inst. Decision time for Depature: 16:15 Referrals: RAFI CASTILLO DO (PCP/Family) Primary Care Physician Patient Instructions: Wound Care (DC), Cellulitis (Skin Infection), Adult (DC) Add. Discharge Instructions: Clean area with peroxide and apply antibiotic ointment as prescribed 3 times daily. Take antibiotics by mouth for 5 days. Keep pressure off the area. Follow-up with your primary care provider if symptoms are not improving or worsen. Return to the emergency department for new, urgent health care needs. All discharge instructions reviewed with patient and/or family. Voiced understanding. Scripts Mupirocin (Mupirocin) 22 Gm Oint...g. 1 EACH TP TID for 7 Days, #1 TUBE 0 Refills Apply thin layer to affected areas 3 times daily Prov: MARY DOMINIQUE 09/01/19 Sulfamethoxazole/Trimethoprim (Bactrim Ds Tablet) 1 Each Tablet 1 EACH PO BID, #10 TAB 0 Refills Prov: MARY DOMINIQUE 09/01/19 MARY DOMINIQUE Sep 01, 2019 15:47
[2019-09-01 16:00] LABS: ALBUMIN 4.4 GM/DL (3.2-4.5); CHLORIDE 93 MMOL/L (98-107); POTASSIUM 2.9 MMOL/L (3.6-5.0); SODIUM 128 MMOL/L (135-145)
[2019-09-01 16:01] LABS: CALCIUM 9.8 MG/DL (8.5-10.1)
[2019-09-01 16:02] LABS: GLUCOSE 86 MG/DL (70-105); TOTAL PROTEIN 7.7 GM/DL (6.4-8.2)
[2019-09-01 16:03] LABS: CARBON DIOXIDE 22 MMOL/L (21-32)
[2019-09-01 16:04] LABS: BILIRUBIN,TOTAL 0.5 MG/DL (0.1-1.0)
[2019-09-01 16:06] LABS: ALKALINE PHOSPHATASE 93 U/L (40-136); CREATININE SERUM 0.75 MG/DL (0.60-1.30); GFR ESTIMATED > 60
[2019-09-01 16:07] LABS: BUN/CREATININE RATIO 11
[2019-09-01 16:09] LABS: ALANINE AMINOTRANSFERASE 20 U/L (0-55)
[2019-09-01] MEDS ORDERED: KCL 10 MEQ TAB (MICRO K) PO STA (16:18)
[2019-09-01] MEDS ORDERED: ACETAMINOPHEN 325 MG TABLET PO STA (16:21)
[2019-09-01] MEDS ORDERED: SULF1TAB35 PO (16:32)
[2019-09-01] MEDS ORDERED: MUPI22OI2 TP (16:32)
[2019-09-01 16:40] VITALS: BP 123/74
== END 2019-09-01 16:40 | disposition home or self-care (01) ==
LOC: EDUNIT# 14:55 → ER 14:57
DX: L03.317 Cellulitis of buttock (principal); I10 Essential (primary) hypertension; F41.9 Anxiety disorder, unspecified; F32.9 Major depressive disorder, single episode, unspecified; F17.210 Nicotine dependence, cigarettes, uncomplicated; Z88.1 Allergy status to other antibiotic agents; Z88.8 Allergy status to other drugs, medicaments and biological substances
CPT/HCPCS: 36415; 80053; 85025

== ENCOUNTER → 2020-06-05 | Outpatient (CLI) | payer MEDICAID ==
[~2020-06-05] MED LIST changes: +CLN.1T PO; -CLON0.1T PO; -LISI10TA2 PO; +LISI10TA25 PO; +MUPI22OI2 TP; +SULF1TAB35 PO
--- NOTE | 2020-06-05 19:57 | Diagnostic Imaging Report ---
PROCEDURE: MR imaging cervical spine without contrast. TECHNIQUE: Multiplanar, multisequence MR imaging of the cervical spine was performed without contrast. INDICATION: Neck pain. No known discrete injury. COMPARISON: The study is correlated with a CT cervical dated 07/15/2018. FINDINGS: There is straightening and mild reversal of cervical curvature unchanged from prior. No focal listhesis. The vertebral statures are within normal limits. The marrow signal intensity unremarkable. The cervical spinal cord itself had a normal volume, morphology and a normal signal intensity. No paravertebral mass, hemorrhage or fluid collection. The craniocervical relationship in the C1-C2 as well as C2-C3 levels and discs normal, there was no stenosis. C3-C4: Left-sided uncovertebral joint spurring and facet arthrosis result in a mild to moderate degree of left foraminal stenosis. The right foramen and central canal showed no significant narrowing. C4-C5: Right greater than left facet arthrosis is present. There is at least a mild degree of right-sided foraminal narrowing. The left foramen and the central canal widely patent. C5-C6: Posterior osteophyte disc material effaces and flattens the ventral thecal sac. There is a moderate degree of canal stenosis with mild to moderate bi-foraminal narrowing. C6-C7: Posterior osteophyte disc material flattens and effaces the ventral thecal sac. There is mild to moderate canal stenosis and mild biforaminal narrowing. The C7-T1 level appeared normal with no stenosis. IMPRESSION: 1. No significant change when correlated with prior CT. 2. Straightening and mild reversal of lordosis, chronic. The cord is normal. 3. 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 Dictated by: Dictated on workstation # [id number]
== END ==
LOC: RAD 15:30
PROVIDERS: ATTEND Internal Medicine
DX: M47.812 Spondylosis without myelopathy or radiculopathy, cervical region (principal); M50.33 Other cervical disc degeneration, cervicothoracic region; M48.02 Spinal stenosis, cervical region
CPT/HCPCS: 72141